=== PATIENT | female | born 1970 | race Caucasian/White ===

== ENCOUNTER 2016-04-07 09:31 | Day surgery (SDC) | payer MEDICAID ==
[~2016-04-07] VITALS: Ht 152.4 cm; Wt 100.0 kg
[2016-04-07] VITALS (21 sets, daily range): BP systolic 105–148; BP diastolic 55–88; PULSE 56–98; RESP 15–27; Ht 152.4 cm; Wt 100.0 kg
[~2016-04-07 09:31] MED LIST: [UNRECOGNIZED DRUG - CODE] PO
[2016-04-07] MEDS ORDERED: ATEN-51 PO (11:10)
[2016-04-07 11:39] LABS: ADD SCAN DIFF NO
[2016-04-07 11:50] LABS: BASOPHILS % 0.2 % (0.0-2.0); EOSINOPHILS # 0.1 10^3/ul (0.0-0.5); EOSINOPHILS % 1.2 % (0.0-7.0); HEMATOCRIT 33.1 % (37.0-47.0); HEMOGLOBIN 11.2 g/dl (12.0-16.0); LYMPHOCYTES % 48.3 % (15.0-51.0); MEAN CORPUSCULAR HEMOGLOBIN 33.3 pg (29.0-33.0); MEAN CORPUSCULAR HGB CONC 33.8 g/dl (32.0-37.0); MEAN CORPUSCULAR VOLUME 98.5 fl (82.0-101.0); MEAN PLATELET VOLUME 10.3 fl (7.4-10.4); MONOCYTE # 0.4 10^3/ul (0.3-0.9); MONOCYTES % 10.4 % (0.0-11.0); NEUTROPHIL # 1.7 10^3/ul (1.6-7.5); NEUTROPHILS % 39.7 % (39.0-77.0); PLATELET COUNT 148 10^3/UL (140-415); RED BLOOD COUNT 3.36 10^6/ul (4.20-5.40); RED CELL DISTRIBUTION WIDTH 13.4 % (11.5-14.5); WHITE BLOOD COUNT 4.2 10^3/ul (4.8-10.8)
[2016-04-07 12:05] LABS: INR 0.98; PARTIAL THROMBOPLASTIN TIME 25.1 Sec (25.0-35.0)
[2016-04-07 12:16] LABS: CALCIUM 9.3 mg/dl (8.4-10.2); CREATININE 0.51 mg/dl (0.44-1.00); POTASSIUM 4.1 mmol/L (3.5-5.1)
[2016-04-07] MEDS ORDERED: FENTAnyl 50 MCG/ML VIAL ONE ×2 (12:55→13:58)
[2016-04-07] MEDS ORDERED: LIDOCAINE 2% (SDV) 5 ML INJ ONE (13:00)
[2016-04-07] MEDS ORDERED: PROPOFOL 40 ML ONE (13:00)
[2016-04-07] MEDS ORDERED: NEOSTIGMINE 3 MG/3 ML SYRINGE ONE (13:00)
[2016-04-07] MEDS ORDERED: SOD CHLORIDE 0.9% 1,000 ML IV ONE (13:00)
[2016-04-07] MEDS ORDERED: GLYCOPYRROLATE 0.4 MG INJ ONE (13:00)
[2016-04-07] MEDS ORDERED: CEFAZOLIN 2 GM/50 ML (PMX) 50 ML IVPB ONE (13:00)
[2016-04-07] MEDS ORDERED: SUCCINYLCHOLINE CHLORIDE 100 MG/5 ML SYG IV ONE (13:00)
[2016-04-07] MEDS ORDERED: ROCURONIUM 50 MG INJ ONE (13:00)
[2016-04-07] MEDS ORDERED: CEFAZOLIN 1 GM INJ ONE ×2 (13:00→13:57)
[2016-04-07] MEDS ORDERED: morphine 2 MG INJ IV PRN (13:30)
[2016-04-07] MEDS ORDERED: PROPOFOL 0 ML ONE (13:57)
[2016-04-07] MEDS ORDERED: MIDAZOLAM 1 MG/ML 2 ML INJ ONE (13:58)
[2016-04-07] MEDS ORDERED: FENTAnyl 50 MCG/ML VIAL IV PRN ×2 (14:30)
[2016-04-07] MEDS ORDERED: ONDANSETRON 4 MG INJ IV PRN (14:30)
[2016-04-07] MEDS ORDERED: HYDROmorphONE (0.2 MG/ML) 10ML SYG IV PRN ×2 (14:30)
[2016-04-07] MEDS ORDERED: DIPHENHYDRAMINE 50 MG INJ IV PRN (14:30)
[2016-04-07] MEDS ORDERED: MEPERIDINE 25 MG INJ IV PRN (14:30)
[2016-04-07] MEDS ORDERED: METOCLOPRAMIDE 10 MG INJ IV PRN (14:30)
--- NOTE | 2016-04-07 15:12 | OPR ---
DATE OF OPERATION: 04/07/2016 PREOPERATIVE DIAGNOSIS: Inflammatory cancer, left breast. POSTOPERATIVE DIAGNOSIS: Inflammatory cancer, left breast. OPERATION PERFORMED: Left modified radical mastectomy. ANESTHESIA: General. ANESTHESIOLOGIST: Dr. Sadler SURGEON: Dr. Adler PRINTER FLOOR COVERING ASSISTANT: Dr. Back INDICATIONS FOR PROCEDURE: The patient is an unfortunate 45-year-old female who presented with a la rge locally advanced left breast cancer consistent with an inflammatory cancer, with axillary metast asis. She underwent neoadjuvant chemotherapy and had an excellent response. She was then counseled as to the need for left modified radical mastectomy. She consented and was scheduled for surgery. DESCRIPTION OF PROCEDURE: The patient was brought to the operating theater and placed under general anesthesia. The left breast and axillary region were prepped and draped in the usual sterile fashi on. Planned elliptical incision of skin, including the nipple areolar complex, was then demarcated with a marking pen and carried out with a 15 blade scalpel. The subcutaneous tissue was dissected w ith cautery. The skin edges were then elevated with skin clamps and skin flaps were created first s uperiorly to the clavicle using cautery, then medially to the sternal border, inferiorly to the infr amammary fold, then laterally until the latissimus dorsi muscle was identified throughout its course . Mastectomy then took place from medial to lateral using cautery. At the border of the pectoralis major muscle, the pectoralis minor muscle was identified. The clavipectoral fascia was incised wit h blunt dissection along the chest wall. The long thoracic nerve was identified and kept out of sherri m's way. More superiorly, the axillary vein was identified and dissected from medial to lateral. T he thoracodorsal neurovascular bundle was then identified and kept out of harm's way. Node-bearing tissue between the long thoracic nerve and thoracodorsal nerve then took place. There were some enl arged nodes noted. It was not clear if this represented residual metastatic disease or a response t o chemotherapy. All these nodes were resected using the LigaSure device. The specimen was then tra nsected, oriented, and sent for permanent pathologic analysis. The wound was irrigated. Minimal bl eeding was controlled with cautery. Two #10 flat Viraj-Ventura drains were then brought through the left mid axillary line. One was cut to size and laid within the axilla, the other was laid over th e pectoralis major muscle. Both drains were secured in place with 2-0 nylon sutures in standard fas hion. The skin was then reapproximated with a deep dermal layer of 4-0 Vicryl sutures, followed by final skin approximation with 5-0 PDS in subcuticular fashion. Benzoin and Steri-Strips were then a pplied. The patient tolerated the procedure well. Estimated blood loss was 100 mL. There were no complications and the patient was transported in stable condition to the recovery room. Dictated By: JUANJO CHANEL/ISRAEL Conf#: [id number] DID#: [id number]
[2016-04-07] MEDS: ONDANSETRON 4 MG INJ IV PRN ×2 (15:40→18:34)
[2016-04-07] MEDS: HYDROmorphONE (0.2 MG/ML) 10ML SYG IV PRN ×2 (16:06→16:26)
[2016-04-07] MEDS ORDERED: HYDROCODONE/APAP (5/325) TAB PO PRN (16:30)
--- NOTE | 2016-04-07 16:47 | HP ---
DATE OF ADMISSION: 04/07/2016 HISTORY OF PRESENT ILLNESS: The patient is a 45-year-old female with inflammatory cancer of the lef t breast, status post neoadjuvant chemotherapy by Dr. Whittington. Back in September of 2015 the patien t was noted to have a left breast mass and subsequently was diagnosed with inflammatory cancer of th e left breast after she underwent biopsy. The patient was brought into the hospital today and under went a left modified radical mastectomy. The patient postoperatively had significant chest pain, mendosa s 2 GAVIN drains, and is being admitted for further evaluation and management. The patient also was fe eling slightly nauseated. No reported vomiting, no reported shortness of breath, no reported leg pa in, no reported recent fever or chills, no reported headache, dizziness or syncope, no history of co ugh, no history of abdominal pain. REVIEW OF SYSTEMS: The rest of review of systems was unremarkable. PAST SURGICAL HISTORY: As stated above. ALLERGIES: NONE. SOCIAL HISTORY: No smoking, no alcohol. FAMILY HISTORY: The patient's maternal aunt has a history of breast cancer. PAST MEDICAL HISTORY: The patient has a history of hypertension and was taking Atenolol 25 mg once a day. PHYSICAL EXAMINATION: GENERAL: The patient is conscious, awake, alert. VITAL SIGNS: Blood pressure 137/82, pulse 78, respirations 17, O2 saturation 98% on room air. HEENT: Atraumatic, normocephalic. Conjunctivae and lids normal. Oropharynx is clear. NECK: Supple. No mass, no thyromegaly. CHEST: Fairly clear. CARDIOVASCULAR: S1, S2 normal. No murmur. ABDOMEN: Soft, nondistended, nontender. No palpable mass. EXTREMITIES: No leg edema. Pedal pulses palpable. SKIN: Without rash. NEUROLOGIC: The patient is awake, alert, fairly oriented, with no gross focal deficits. LABORATORY: WBC 4.2, hemoglobin 11.2, platelets 148. Sodium 143, potassium 4.1, BUN 18, creatinine 0.5, glucose 89. IMPRESSION: 1. Left breast cancer, status post chemo, and today underwent left radical mastectomy. 2. Hypertension. PLAN: Patient admitted to the medical floor. Patient will be started on a clear liquid diet, which will be advanced as tolerated. The patient will be started on Tylenol, [place] and IV morphine, depe nding on severity of the pain. Will use SCDs for DVT prophylaxis. Will resume Atenolol. Further recommendations will depend on the patient's hospital course. Dictated By: ENRIQUETA JO/ISRAEL Conf#: [id number] DID#: [id number]
[2016-04-07] MEDS: D5W-0.45 NACL + KCL 20 MEQ 1,000 ML IV SCH (18:52)
[2016-04-07] MEDS: ACETAMINOPHEN 1000MG/100ML IV 100 ML IVPB PRN (21:06)
[2016-04-08 00:02] VITALS: BP 109/55; PULSE 78
[2016-04-08] MEDS: D5W-0.45 NACL + KCL 20 MEQ 1,000 ML IV SCH ×2 (01:01→05:21)
[2016-04-08 04:00] VITALS: BP 123/60; PULSE 80
[2016-04-08] MEDS: ACETAMINOPHEN 1000MG/100ML IV 100 ML IVPB PRN (05:31)
[2016-04-08 07:29] VITALS: BP 108/57; RESP 18
[2016-04-08] MEDS ORDERED: ATENOLOL 25 MG TAB PO SCH (09:00)
--- NOTE | 2016-04-10 07:09 | PN ---
DATE: 04/08/2016 SUBJECTIVE: No specific complaints, complaining of pain as tolerated. OBJECTIVE: VITAL SIGNS: Stable. Temperature 98.3, heart rate 77, respiration 18, blood pressure 108/67, saturation 97% on room air. HEENT: Dressing is intact. Viraj-Ventura, two of them, have been working well and has drained in 24 hours 100 mL, the other one ____ serosanguineous. Moves the left hand and arm and elbow completely. ASSESSMENT: Status post modified radical mastectomy with axillary dissection. Patient has been stable since operation. Viraj-Ventura drain is draining serosanguineous fluid. PLAN: 1. The patient was instructed about the Viraj-Ventura drains, how to drain them , how to measure them, and how to record them every night. 2. Patient is going to go home today with two Viraj-Ventura drains. 3. Patient to call Dr. Adler office on Sunday and make an appointment for followup. All the questions were answered and the care of the Viraj-Ventura drains. Will be taught to the patient and her daughter by the nurse, RN, ____. Dictated By: MARION FLETCHER/NTS Conf#: [id number] DID#: [id number] LUCILLE
== END 2016-04-08 13:50 | disposition home or self-care (01) ==
LOC: SDS 09:31 → MS1 17:45 → SDS 04-08 13:50
PROVIDERS: ATTEND Surgery Surgical Oncology
DX: C50.912 Malignant neoplasm of unspecified site of left female breast (principal); I10 Essential (primary) hypertension; E66.01 Morbid (severe) obesity due to excess calories; Z68.41 Body mass index [BMI] 40.0-44.9, adult
CPT/HCPCS: 19307; 80048; 82962; 84703; 85025; 85610; 85730; 88309; J0131; J0330; J0690; J1170; J2405; J2710; J2765; J3010; J3480; Z7512; Z7610; J2250

== ENCOUNTER 2017-02-28 16:32 | Emergency (ER) | END 2017-02-28 21:41 | disposition home or self-care (01) ==

== ENCOUNTER 2018-02-09 14:38 | Inpatient (IN) | payer MEDICAID ==
[~2018-02-09] VITALS: Ht 162.6 cm; Wt 95.7 kg
[~2018-02-09 14:38] MED LIST changes: +NERA40TA PO; -[UNRECOGNIZED DRUG - CODE] PO
[2018-02-09 14:49] VITALS: Ht 162.6 cm; Wt 95.7 kg
[2018-02-09] MEDS ORDERED: IBUP-1542 PO (16:29)
[2018-02-09] MEDS ORDERED: PENI500T PO (16:29)
[2018-02-09] MEDS ORDERED: SOD CHLORIDE 0.9% 1,000 ML IV STA (16:40)
[2018-02-09] MEDS ORDERED: METOCLOPRAMIDE 10 MG INJ IV ONE (17:00)
--- NOTE | 2018-02-09 17:57 | ERD ---
ER Documentation Chief Complaint Chief Complaint mendosa x 1 week with dizziness. tooth extracted about a week ago HPI This is a 47-year-old female with a history of hypertension and breast cancer in remission for over 1 year per the family. She is presenting with a headache for 1 month, progressively worsening. She associates it with room spinning dizziness, nausea, vomiting, and generalized weakness. She was seen at multiple outside hospital within the past few weeks where she had a CT scan done on January 25 at [facility]. The CT did not show any significant abnormalities. Since her symptoms were not improving, she had another CT scan done at [facility] on February 03 showing some ill-defined densities, but no other significant abnormalities per the report. Family brought her in today because her symptoms are progressively worsening and she has been on bed mostly without wanting to get up. She is currently on antibiotics after a tooth extraction about 1 week ago. Of note, the patient is supposed to be on oral medication, Nerlatinib, for her breast cancer, but she stopped this medication 1 month ago for unclear reasons. Patient states the headache is mostly left-sided, described as tight, 10 out of 10. No alleviating or exacerbating factors. No neck stiffness, photophobia, phonophobia. No fevers or chills. ROS All systems reviewed and are negative except as per history of present illness. 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) Hx Respiratory Disorders: No Hx Cardiac Disorders: Yes (HTN) Hx Psychiatric Problems: No Hx Miscellaneous Medical Probl: Yes (L-SIDED BREAST CA W/ HX OF MASTECTOMY AND CHEMO) Hx Alcohol Use: No Hx Substance Use: No Hx Tobacco Use: No Smoking Status: Never smoker FmHx Family History: No diabetes Physical Exam Vitals Vital Signs Date Temp Pulse Resp B/P (MAP) Pulse Ox O2 O2 Flow FiO2 Time Delivery Rate 02/09/18 97.9 106 22 162/95 96 Room Air 19:00 (117) 02/09/18 98.7 96 18 165/104 99 Room Air 15:50 (124) 02/09/18 98.0 115 18 147/100 96 14:49 (116) Physical Exam Const: Appears to be in mild distress due to pain, very sleepy but arousable, nontoxic Head: Atraumatic Eyes: Normal Conjunctiva, PERRLA. 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 All other EOMs intact ENT: Normal External Ears, Nose and Mouth. Oropharynx normal. No drooling. No snoring respirations. Neck: Full range of motion. No meningismus. Resp: Clear to auscultation bilaterally Cardio: Regular rate and rhythm, no murmurs Abd: Soft, non tender, non distended. Normal bowel sounds Skin: No petechiae or rashes Back: No midline or flank tenderness Ext: No cyanosis, or edema Neur: Somnolent but arousable, normal speech, oriented x3. 6th nerve palsy on the right. All other cranial nerves seem grossly intact. Strength 5 out of 5 in all 4 extremities. Romberg negative. Gait somewhat unsteady. Result Diagram: 02/11/1842102/11/18421 Results 24 hrs Laboratory Tests Test 02/09/18 16:05 02/09/18 16:29 02/09/18 19:10 White Blood Count 5.2 10^3/ul Red Blood Count 4.18 10^6/ul Hemoglobin 13.5 g/dl Hematocrit 38.5 % Mean Corpuscular Volume 92.1 fl Mean Corpuscular Hemoglobin 32.3 pg Mean Corpuscular 35.1 g/dl Hemoglobin Concent Red Cell Distribution Width 13.5 % Platelet Count 63 10^3/UL Mean Platelet Volume 11.8 fl Immature Granulocytes % 4.200 % Neutrophils % % Segmented Neutrophils % (Manual) 50 % Band Neutrophils % (Manual) 5 % Lymphocytes % % Lymphocytes % (Manual) 26 % Monocytes % % Monocytes % (Manual) 13 % Eosinophils % % Basophils % % Basophils % (Manual) 1 % Metamyelocytes % (manual) 2 % Myelocytes % (Manual) 1 % Promyelocytes % (Manual) 2 % Nucleated Red Blood Cells % 1.5 /100WBC Immature Granulocytes # 0.220 10^3/ul Neutrophils # 10^3/ul Neutrophils # (Manual) 2.6 10^3/ul Band Neutrophils # 0.2 10^3/ul Lymphocytes (Manual) 1.3 10^3/ul Lymphocytes # 10^3/ul Monocytes # 10^3/ul Monocytes # (Manual) 0.6 10^3/ul Eosinophils # 10^3/ul Basophils # 10^3/ul Basophils # (Manual) 0.0 10^3/ul Metamyelocytes # 0.1 10^3/ul Myelocytes # 0.0 10^3/ul Promyelocytes # 0.1 10^3/ul Nucleated Red Blood Cells # 10^3/ul Platelet Estimate DECREASED Giant Platelets 1 % Polychromasia 1+ Prothrombin Time 12.4 Sec Prothrombin Time Ratio 1.0 INR International 0.91 Normalized Ratio Activated Partial Thromboplast 29.7 Sec Time Sodium Level 133 mmol/L Potassium Level 3.8 mmol/L Chloride Level 94 mmol/L Carbon Dioxide Level 26 mmol/L Anion Gap 13 Blood Urea Nitrogen 17 mg/dl Creatinine 0.52 mg/dl Est Glomerular Filtrat > 60 mL/min Rate mL/min Glucose Level 257 mg/dl Hemoglobin A1c 7.2 % Calcium Level 11.2 mg/dl Total Bilirubin 1.3 mg/dl Direct Bilirubin 0.60 mg/dl Indirect Bilirubin 0.7 mg/dl Aspartate Amino Transf (AST/SGOT) 287 IU/L Alanine 271 IU/L Aminotransferase (ALT/SGPT) Alkaline Phosphatase 531 IU/L Troponin I 0.013 ng/ml Total Protein 7.7 g/dl Albumin 4.4 g/dl Globulin 3.30 g/dl Albumin/Globulin Ratio 1.33 Triglycerides Level 197 mg/dl Cholesterol Level 309 mg/dl LDL Cholesterol, Calculated 202 mg/dl HDL Cholesterol 68 mg/dl Cholesterol/HDL Ratio 4.5 RATIO Serum HCG, Qualitative NEGATIVE Bedside Glucose 225 mg/dL Urine Color YELLOW Urine Clarity CLEAR Urine pH 5.0 Urine Specific [place] 1.044 Urine Ketones NEGATIVE mg/dL Urine Nitrite NEGATIVE mg/dL Urine Bilirubin NEGATIVE mg/dL Urine Urobilinogen 1+ mg/dL Urine Leukocyte Esterase NEGATIVE Tasha/ul Urine Hemoglobin NEGATIVE mg/dL Urine Glucose NEGATIVE mg/dL Urine Total Protein NEGATIVE mg/dl Urine Opiates Screen Negative Urine Barbiturates Negative Urine Amphetamines Screen Negative Urine Benzodiazepines Screen Negative Urine Cocaine Screen Negative Urine Cannabinoids Negative Current Medications Medications Dose Sig/Silvana Start Time Status Last (Trade) Ordered Route PRN Stop Time Admin Dose Reason Admin Sodium 1,000 ml @ Q1H STAT 02/09/18 DC 02/09/18 Chloride 1,000 mls/hr IV 16:40 02/09/18 16:48 17:39 10 mg ONCE ONCE 02/09/18 DC 02/09/18 Metoclopramid IV 17:00 02/09/18 16:48 e HCl 17:01 (Reglan) IV Flush 10 ml STK-MED 02/09/18 DC (NS 10 ml) ONCE .ROUTE 18:13 02/09/18 18:14 Sodium 100 ml @ ud STK-MED 02/09/18 DC Chloride ONCE .ROUTE 18:13 02/09/18 18:14 Iohexol 100 ml @ ud STK-MED 02/09/18 DC ONCE .ROUTE 18:13 02/09/18 18:14 Sodium 0 ml @ 0 Q0M ONCE 02/09/18 DC Chloride mls/hr IV 18:42 02/09/18 18:44 Procedures/MDM EMERGENT LABS AND DIAGNOSTIC STUDIES: Lab Results above were reviewed and interpreted by me. CBC: Thrombocytopenia. No anemia or evidence of infection. CMP: Elevated liver enzymes with elevated alkaline phosphatase. Hypercalcemic, hyperglycemia. No evidence of renal failure or other electrolyte abnormalities UA: no evidence of infection negative 12-lead EKG was interpreted by Marilee Sandoval MD: Normal Sinus Rhythm with ventricular rate of 81 beats per minute Normal axis Normal intervals No acute ST or T wave changes suggestive of acute ischemia or STEMI. Radiology Results as interpreted by Radiology below were reviewed by Roby Sandoval MD: CT head: IMPRESSION: 1. Region of decreased attenuation in the right superior parietal white matter posteriorly. This may indicate a subtle mass at this site. Correlation with contrast enhanced MRI of brain advised. 2. Subtle shift of midline structures to the right measuring 0.4 cm. Mild effacement of the frontal horn of the left lateral ventricle. 3. Small low attenuation subdural fluid collection in the right frontal region measuring 0.4 cm in thickness. 4. Subtle isodense left subdural fluid collection measuring 0.4 cm in thickness and extending across the left temporal and parietal convexities. This is suspicious for subacute subdural hematoma. Correlation with MRI advised. 5. 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 6. Fluid in the right ethmoid air cells. 7. Otherwise unremarkable noncontrast CT scan of the brain. Call report: A call report of the findings was made to Dr. Sandoval on 02/09/2018 at 1840 hours. .Moises Kaba MD, Date Time Electronically viewed and signed by .Moises Kaba MD, on 02/09/2018 18:46 CTA brain: Unremarkable Chest x-ray: Stable cardiomegaly CT chest/abdomen/pelvis: Pending MRI/MRV brain: Pending Initial Nursing notes reviewed. Previous Medical Records requested via the Electronic Health Record. EMERGENCY DEPARTMENT COURSE / MEDICAL DECISION MAKING: Patient is presenting with progressively worsening headache that seems to be chronic with concerning symptoms of altered mental status with ongoing vertigo and vomiting. Her vitals were stable upon arrival. She was still oriented and able to follow commands. Workup was done showing evidence of possibly increased intracranial pressure on CT findings with small subdural hemorrhages. She also had a slight midline shift. I spoke with the patient's family, and they deny any history of head trauma. I consulted with Dr. Piña with neurosurgery. He explained to me that these small subdural hemorrhages are unlikely causing the mild midline shift and he requested an emergent MRI be done as well as MRV. 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 I spoke with the family and they consented. MRI and MRV were ordered. Patient will be admitted to the ICU for close neurologic monitoring. I also ordered CT of the chest, abdomen, and pelvis to evaluate for metastases. The scans are still pending. Decadron 10 mg IV was given for the possible increased intracranial pressure and vasogenic edema seen on CT scan. This was in consultation with Dr. piña. Dr. Piña came to the patient's bedside to evaluate her. At time of admission, patient was an MRI. Accepting Care Team: Current data and ongoing care discussed. Time: Time of admission Primary Provider: Dr. Aguiar Consulting: Dr. Piña with Neurosurgery Outstanding Data: MRI Brain, MRV Brain, CT Chest/abdomen/pelvis Critical Care Time: 50 minutes Treatments/Evaluations: Close monitoring and treatment of unstable vital signs, cardiorespiratory, and neurologic status, while maintaining tight balance of fluid, respiratory, and cardiac interventions. This time includes discussing the case with the patient and the patients family. This time does not include all procedures stated elsewhere in this record. This time also includes reviewing old records, labs and radiological studies. This time includes examining and re- examining the patient. Additionally, this time also includes arranging care with admitting and consulting physicians. Departure Diagnosis: Primary Impression: Headache Headache type: unspecified Headache chronicity pattern: chronic headache Intractability: intractable Qualified Codes: R51 - Headache Additional Impressions: History of breast cancer Abnormal CT scan, head Vertigo Acute encephalopathy Transaminitis Hypercalcemia Elevated alkaline phosphatase level Condition: Serious MINDY SANDOVAL MD Feb 09, 2018 17:57
[2018-02-09] MEDS ORDERED: SOD CHLORIDE 0.9% 100 ML ONE (18:13)
[2018-02-09] MEDS ORDERED: IOHEXOL 100 ML ONE (18:13)
[2018-02-09] MEDS ORDERED: SOD CHLORIDE 0.9% 0 ML IV ONE (18:42)
--- NOTE | 2018-02-09 19:55 | HP ---
Date/Time of Note Date/Time of Note DATE: 02/09/18 TIME: 19:54 Assessment/Plan VTE Prophylaxis Pharmacological prophylaxis: heparin Assessment/Plan Assessment/Plan This is a 47-year-old female with a history of left breast carcinoma status post mastectomy and chemo presents with headache and generalized weakness with a CT finding of subdural fluid collection with 0.4 mm midline shift, as well as possible right parietal mass concerning for brain metastasis PLAN Admit to ICU MRI of the brain Steroid Follow-up neurosurgery recommendation Speech/swallow evaluation Patient also complaining of abdominal pain: Follow-up CT abdomen/pelvis Oncology consult for evaluation for possible radiation Result Diagram: 02/09/18 1605 02/09/18 1605 Results 24hrs Laboratory Tests Test 02/09/18 16:05 02/09/18 16:29 02/09/18 19:10 White Blood Count 5.2 Red Blood Count 4.18 L Hemoglobin 13.5 Hematocrit 38.5 Mean Corpuscular Volume 92.1 Mean Corpuscular Hemoglobin 32.3 Mean Corpuscular Hemoglobin Concent 35.1 Red Cell Distribution Width 13.5 Platelet Count 63 #L Mean Platelet Volume 11.8 H Immature Granulocytes % 4.200 H Neutrophils % Segmented Neutrophils % (Manual) 50 Band Neutrophils % (Manual) 5 H Lymphocytes % Lymphocytes % (Manual) 26 Monocytes % Monocytes % (Manual) 13 H Eosinophils % Basophils % Basophils % (Manual) 1 Metamyelocytes % (manual) 2 H Myelocytes % (Manual) 1 H Promyelocytes % (Manual) 2 H Nucleated Red Blood Cells % 1.5 H Immature Granulocytes # 0.220 H Neutrophils # Neutrophils # (Manual) 2.6 Band Neutrophils # 0.2 Lymphocytes (Manual) 1.3 Lymphocytes # Monocytes # Monocytes # (Manual) 0.6 Eosinophils # Basophils # Basophils # (Manual) 0.0 Metamyelocytes # 0.1 H Myelocytes # 0.0 Promyelocytes # 0.1 H Nucleated Red Blood Cells # Platelet Estimate DECREASED Giant Platelets 1 H Polychromasia 1+ Prothrombin Time 12.4 Prothrombin Time Ratio 1.0 INR International Normalized Ratio 0.91 Activated Partial Thromboplast Time 29.7 Sodium Level 133 L Potassium Level 3.8 Chloride Level 94 L Carbon Dioxide Level 26 Anion Gap 13 Blood Urea Nitrogen 17 Creatinine 0.52 Est Glomerular Filtrat Rate mL/min > 60 Glucose Level 257 H Hemoglobin A1c 7.2 H Calcium Level 11.2 H Total Bilirubin 1.3 Direct Bilirubin 0.60 H Indirect Bilirubin 0.7 Aspartate Amino Transf (AST/SGOT) 287 H Alanine Aminotransferase (ALT/SGPT) 271 H Alkaline Phosphatase 531 H Troponin I 0.013 Total Protein 7.7 Albumin 4.4 Globulin 3.30 H Albumin/Globulin Ratio 1.33 Triglycerides Level 197 H Cholesterol Level 309 H LDL Cholesterol, Calculated 202 HDL Cholesterol 68 Cholesterol/HDL Ratio 4.5 Serum HCG, Qualitative NEGATIVE Bedside Glucose 225 H Urine Color YELLOW Urine Clarity CLEAR Urine pH 5.0 Urine Specific [place] 1.044 H Urine Ketones NEGATIVE Urine Nitrite NEGATIVE Urine Bilirubin NEGATIVE Urine Urobilinogen 1+ H Urine Leukocyte Esterase NEGATIVE Urine Hemoglobin NEGATIVE Urine Glucose NEGATIVE Urine Total Protein NEGATIVE HPI/ROS Admit Date/Time Admit Date/Time Hx of Present Illness This is a 47-year-old female with a history of left breast carcinoma status post mastectomy and chemo who presented to ER complaining of headache and generalized weakness. and son were at the bedside with son helping translate and providing additional information. Symptom has been progressively getting worse. Headache is severe and is mostly left-sided. Patient also reported of left sided abdominal pain and also to a lesser extent below the epigastric area. When she presented to ER, she was tachycardic with a heart rate of 115, otherwise initial blood pressure was in acceptable range. CT of the brain shows the followin. Region of decreased attenuation in the right superior parietal white matter posteriorly. This may indicate a subtle mass at this site. Correlation with contrast enhanced MRI of brain advised. 2. Subtle shift of midline structures to the right measuring 0.4 cm. Mild effacement of the frontal horn of the left lateral ventricle. 3. Small low attenuation subdural fluid collection in the right frontal region measuring 0.4 cm in thickness. 4. Subtle isodense left subdural fluid collection measuring 0.4 cm in thickness and extending across the left temporal and parietal convexities. This is suspicious for subacute subdural hematoma. Correlation with MRI advised. 5. 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 6. Fluid in the right ethmoid air cells. 7. Otherwise unremarkable noncontrast CT scan of the brain. . PMH/Family/Social Past Medical History PMH/Family/Social Past Medical History Medical History: other (see hpi) Coded Allergies: No Known Drug Allergy (Verified Allergy, Unknown, 09/23/15) Past Surgical History Past Surgical Hx: other (see hpi) Family History Significant Family History: no pertinent family hx Social History Alcohol Use: other Smoking Status: Unknown if ever smoked Drug Use: other Medications Current Medications Ondansetron HCl (Zofran Inj) 4 mg Q6H PRN IV NAUSEA AND/OR VOMITING; Start 02/09/18 at 20:00 Albuterol/ Ipratropium (Duoneb) 3 ml Q2H RESP THERAPY PRN NEB SHORTNESS OF BREATH; Start 02/09/18 at 20:00 Acetaminophen (Tylenol Liquid) 650 mg Q6H PRN PO PAIN LEVEL 1-3 OR FEVER; Start 02/09/18 at 20:00 Acetaminophen/ Hydrocodone Bitart ([place] (5/325)) 1 tab Q6H PRN PO PAIN LEVEL 4-6; Start 02/09/18 at 20:00 Miscellaneous Information 240 mg DAILY PO ; Start 02/10/18 at 09:00; Status UNV Labetalol HCl (Labetalol) 10 mg ONCE ONCE IV ; Start 02/09/18 at 20:00; Stop 02/09/18 at 20:01 Labetalol HCl (Labetalol) 10 mg Q2H PRN IV SBP > 150; Start 02/09/18 at 20:00 Coded Allergies: No Known Allergy (Unverified , 02/28/17) Social History Smoking Status: Never smoker Exam/Review of Systems Vital Signs Vitals Vital Signs Date Temp Pulse Resp B/P (MAP) Pulse Ox O2 O2 Flow FiO2 Time Delivery Rate 02/09/18 97.9 106 22 162/95 96 Room Air 19:00 (117) Exam Constitutional: other (Appears lethargic, but answering questions approp riately. Distress noted due to headache. feeding her and seems to be able to swallow without difficulty) Head: normocephalic, atraumatic Respiratory: clear to auscultation, normal air movement Cardiovascular: other (Tachycardic with regular rhythm) Gastrointestinal: soft, other (Appears a slightly distended) Extremities: normal pulses BRUCE VENEGAS MD Feb 09, 2018 19:55
[2018-02-09] MEDS ORDERED: LABETALOL HCL 20MG INJ IV ONE (20:00)
[2018-02-09] MEDS ORDERED: ALBUTEROL/IPRATROPIUM (NEB) 3 ML AMP NEB PRN (20:00)
[2018-02-09] MEDS ORDERED: DEXAMETHASONE 10 MG/ML 1 ML INJ IV ONE (20:30)
[2018-02-09] MEDS: LABETALOL HCL 20MG INJ IV PRN (22:05)
[2018-02-10] VITALS (15 sets, daily range): BP systolic 108–154; BP diastolic 72–92; PULSE 77–109; RESP 20–28
[2018-02-10] MEDS: LABETALOL HCL 20MG INJ IV PRN ×5 (01:40→16:51)
--- NOTE | 2018-02-10 04:44 | QN ---
Documentation Comment Observation Note: Time: 4 hours Family Hx: Negative for diabetes Evaluation: Multiple exams showed improving symptoms and no evidence of clinical decompensation. JOE FARIAS MD Feb 10, 2018 04:44
[2018-02-10] MEDS ORDERED: DEXAMETHASONE 10 MG/ML 1 ML INJ IV SCH (06:30)
[2018-02-10] MEDS ORDERED: PATIENT'S OWN MEDICATION PO SCH (09:00)
--- NOTE | 2018-02-10 10:23 | CONS ---
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 There is no bleed present simply extensive diffuse spread of tumor on the convexity of the brain. No hydrocephalus. Diffuse disease throughout body. Appears to have had significant benefit from steroids and should probably be continued. MRV does not likely show thrombus, simply granulation, in light of carcinomatosis. I don't see an indication for any neurosurgical procedure at this point. Biopsy can be performed at other tumor locations if necessary. Will likely need chemo and XRT but defer to oncology; prognosis for this extensive progression of disease is extremely poor. D/w family and patient. Result Diagram: 02/10/18 0435 02/10/18 0434 Results 24hrs Laboratory Tests Test 02/09/18 16:05 02/09/18 16:29 02/09/18 19:10 02/10/18 04:34 White Blood Count 5.2 Red Blood Count 4.18 L Hemoglobin 13.5 Hematocrit 38.5 Mean Corpuscular Volume 92.1 Mean Corpuscular 32.3 Hemoglobin Mean Corpuscular 35.1 Hemoglobin Concent Red Cell Distribution 13.5 Width Platelet Count 63 #L Mean Platelet Volume 11.8 H Immature Granulocytes % 4.200 H Neutrophils % Segmented Neutrophils 50 % (Manual) Band Neutrophils % 5 H (Manual) Lymphocytes % Lymphocytes % (Manual) 26 Monocytes % Monocytes % (Manual) 13 H Eosinophils % Basophils % Basophils % (Manual) 1 Metamyelocytes % 2 H (manual) Myelocytes % (Manual) 1 H Promyelocytes % (Manual) 2 H Nucleated Red Blood 1.5 H Cells % Immature Granulocytes # 0.220 H Neutrophils # Neutrophils # (Manual) 2.6 Band Neutrophils # 0.2 Lymphocytes (Manual) 1.3 Lymphocytes # Monocytes # Monocytes # (Manual) 0.6 Eosinophils # Basophils # Basophils # (Manual) 0.0 Metamyelocytes # 0.1 H Myelocytes # 0.0 Promyelocytes # 0.1 H Nucleated Red Blood Cells # Platelet Estimate DECREASED Giant Platelets 1 H Polychromasia 1+ Prothrombin Time 12.4 Prothrombin Time Ratio 1.0 INR International 0.91 Normalized Ratio Activated 29.7 Partial Thromboplast Time Sodium Level 133 L 137 Potassium Level 3.8 4.0 Chloride Level 94 L 98 Carbon Dioxide Level 26 28 Anion Gap 13 11 Blood Urea Nitrogen 17 14 Creatinine 0.52 0.50 Est Glomerular Filtrat > 60 > 60 Rate mL/min Glucose Level 257 H 220 Hemoglobin A1c 7.2 H Calcium Level 11.2 H 10.9 H Total Bilirubin 1.3 1.3 Direct Bilirubin 0.60 H 0.50 H Indirect Bilirubin 0.7 0.8 Aspartate Amino 287 H 239 H Transf (AST/SGOT) Alanine 271 H 238 H Aminotransferase (ALT/SG PT) Alkaline Phosphatase 531 H 449 H Troponin I 0.013 Total Protein 7.7 7.8 Albumin 4.4 4.5 Globulin 3.30 H 3.30 H Albumin/Globulin Ratio 1.33 1.36 Triglycerides Level 197 H Cholesterol Level 309 H LDL Cholesterol, 202 Calculated HDL Cholesterol 68 Cholesterol/HDL Ratio 4.5 Serum HCG, Qualitative NEGATIVE Bedside Glucose 225 H Urine Color YELLOW Urine Clarity CLEAR Urine pH 5.0 Urine Specific [place] 1.044 H Urine Ketones NEGATIVE Urine Nitrite NEGATIVE Urine Bilirubin NEGATIVE Urine Urobilinogen 1+ H Urine Leukocyte Esterase NEGATIVE Urine Hemoglobin NEGATIVE Urine Glucose NEGATIVE Urine Total Protein NEGATIVE Urine Opiates Screen Negative Urine Barbiturates Negative Urine Amphetamines Negative Screen Urine Benzodiazepines Negative Screen Urine Cocaine Screen Negative Urine Cannabinoids Negative Test 02/10/18 04:35 White Blood Count 6.3 # Red Blood Count 3.66 L Hemoglobin 11.9 L Hematocrit 34.1 L Mean Corpuscular Volume 93.2 Mean Corpuscular 32.5 Hemoglobin Mean Corpuscular 34.9 Hemoglobin Concent Red Cell Distribution 13.5 Width Platelet Count 113 #L Mean Platelet Volume 11.0 H Immature Granulocytes % 5.400 H Neutrophils % 62.2 Lymphocytes % 23.9 Monocytes % 7.6 Eosinophils % 0.3 Basophils % 0.6 Nucleated Red Blood 1.0 H Cells % Immature Granulocytes # 0.340 H Neutrophils # 3.9 Lymphocytes # 1.5 Monocytes # 0.5 Eosinophils # 0.0 Basophils # 0.0 Nucleated Red Blood 0.1 H Cells # Consultation Date/Type/Reason Admit Date/Time Initial Consult Date Type of Consult Neurosurgery 24 HR Interval Summary Free Text/Dictation Patient reports feeling much better today after receiving steroids. she states that her headache has resolved and she denies nausea. Exam/Review of Systems Vital Signs Vitals Vital Signs Date Temp Pulse Resp B/P (MAP) Pulse Ox O2 O2 Flow FiO2 Time Delivery Rate 02/10/18 91 24 144/78 94 Room Air 09:48 (100) 02/10/18 98.8 06:02 Exam Constitutional: alert, oriented Head: normocephalic Neurological: nl mental status, nl speech, nl strength, other (still with right palsy, follows commands readily and appropriately, normal strength , no pronator drift) Medications Medications Current Medications Ondansetron HCl (Zofran Inj) 4 mg Q6H PRN IV NAUSEA AND/OR VOMITING; Start 02/09/18 at 20:00 Albuterol/ Ipratropium (Duoneb) 3 ml Q2H RESP THERAPY PRN NEB SHORTNESS OF BREATH; Start 02/09/18 at 20:00 Acetaminophen (Tylenol Liquid) 650 mg Q6H PRN PO PAIN LEVEL 1-3 OR FEVER; Start 02/09/18 at 20:00 Acetaminophen/ Hydrocodone Bitart ([place] (5/325)) 1 tab Q6H PRN PO PAIN LEVEL 4-6; Start 02/09/18 at 20:00 Labetalol HCl (Labetalol) 10 mg Q2H PRN IV SBP > 150 Last administered on 02/10/18at 08:46; Admin Dose 10 MG; Start 02/09/18 at 20:00 Dexamethasone (Decadron) 6 mg Q6H IV Last administered on 02/10/18at 06:47; Admin Dose 6 MG; Start 02/10/18 at 06:30 Miscellaneous Information (*Order Clarification Bulletin) Neratinib Maleate (Nerlynx) ... Q8H XX ; Start 02/10/18 at 09:30 Patient Own Medication 6 TABLETS DAILY DAILY PO ; Start 02/11/18 at 09:[address] C/A/P w/o contrast: IMPRESSION: 1. Extensive faint osteoblastic metastatic deposits are seen throughout the chest, abdomen and pelvis. 2. Consider nuclear medicine bone scan for more sensitive and specific evaluation. Number 3. Mild heterogeneous attenuation in the liver is nonspecific, and differential considerations include subtle extensive metastatic deposits. 4. Consider IV contrast enhanced CT examination of the abdomen and pelvis for further evaluation. 5. Left anterior mediastinal mass is seen, with surrounding nodular inflammatory changes; right paratracheal mediastinal, bilateral hilar; subcarinal and retroperitoneal adenopathy; inflammatory changes in the bilateral lungs with nodules in the right lower lobe measuring up to 8 mm; and pleural thickening at the anterior medial left chest wall with fibrotic changes in the adjacent pul monary parenchyma. 6. Findings represent metastatic breast carcinoma until proven otherwise. 7. A whole body PET/CT examination would be more sensitive and specific. MRI Brain w/w/o IMPRESSION: Diffuse abnormal nodular enhancement of the leptomeninges asymmetric to the left with associated mass effect upon the left cerebral hemisphere and lateral ventricle resulting in midline shift of the septum pellucidum to the right by approximately 4 mm per without certain evidence of herniation or hydrocephalous at this time, the findings most compatible with metastatic leptomeningeal carcinomatosis proven otherwise. Correlation with cerebral spinal fluid analysis, if not already performed, is recommended. 2. The abnormality seen in the right parietal lobe on CT is consistent with vasogenic edema related to an adjacent extra-axial nodular leptomeningeal enhancement focus rather than intra-axial mass lesion. 3. There is no evidence of subdural hematoma, the abnormality seen on CT are related to pathologic leptomeningeal enhancement. 4. Heterogeneous signal intensity within the calvarium unable to exclude osseous metastatic disease. 5. Right frontal and ethmoid sinus disease with bilateral mastoid air cell effusions. MRV IMPRESSION: 1. A short segment filling defect in the right transverse sinus near the junction with the sigmoid sinus is believed to be related to arachnoid granulations rather than thrombus, the remainder of the examination is unremarkable with congenital asymmetry of the transverse sinuses the left smaller than the right. 2. For further information regarding the leptomeningeal carcinomatosis findings, please see the separate MRI of the brain with without with contrast report ERVIN CARRIZALES MD Feb 10, 2018 10:23
--- NOTE | 2018-02-10 10:57 | PN ---
Date/Time of Note Date/Time of Note DATE: 02/10/18 TIME: 10:24 Assessment/Plan VTE Prophylaxis SCD applied (from [facility]): Yes SCD contraindicated: other Pharmacological prophylaxis: NA/contraindicated Pharm contraindication: thrombocytopenia Assessment/Plan Hospital Course S: Patient seen by neurosurgery team earlier today. MRI brain performed. On steroids. Patient received platelet transfusion earlier. O: VS - see below PE: Gen: lying in bed Head: Atraumatic Eyes: Normal Conjunctiva ENT: Normal External Ears, Nose and Mouth. Neck: Full range of motion. No meningismus. Resp: Clear to auscultation bilaterally Cardio: Regular rate and rhythm, no murmurs Abd: Soft, non tender, non distended. Normal bowel sounds Ext: No lower extremity edema bilaterally Neur: No focal deficits CT head February 09: IMPRESSION: 1. Region of decreased attenuation in the right superior parietal white matter posteriorly. This may indicate a subtle mass at this site. Correlation with contrast enhanced MRI of brain advised. 2. Subtle shift of midline structures to the right measuring 0.4 cm. Mild effacement of the frontal horn of the left lateral ventricle. 3. Small low attenuation subdural fluid collection in the right frontal region measuring 0.4 cm in thickness. 4. Subtle isodense left subdural fluid collection measuring 0.4 cm in thickness and extending across the left temporal and parietal convexities. This is suspicious for subacute subdural hematoma. Correlation with MRI advised. 5. 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 6. Fluid in the right ethmoid air cells. 7. 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 Correlation with cerebral spinal fluid analysis, if not already performed, is recommended. 2. The abnormality seen in the right parietal lobe on CT is consistent with vasogenic edema related to an adjacent extra-axial nodular leptomeningeal enhancement focus rather than intra-axial mass lesion. 3. There is no evidence of subdural hematoma, the abnormality seen on CT are related to pathologic leptomeningeal enhancement. 4. Heterogeneous signal intensity within the calvarium unable to exclude osseous metastatic disease. 5. Right frontal and ethmoid sinus disease with bilateral mastoid air cell effusions. Assessment/Plan: 47-year-old female with a history of left breast carcinoma status post mastectomy and chemo presents with headache and generalized weakness with a CT finding of subdural fluid collection with 0.4 mm midline shift, as well as possible right parietal mass concerning for brain metastasis. # CAR/ generalized weakness + headache: Likely secondary to brain metastasis findings on CT brain - signs of leptomeningeal carcinomatosis. Again there is 0.4 mm midline shift. Appreciate neurosurgery recommendations. -Continue care in the ICU, neurochecks, per discussion with hematology oncology team will continue Decadron 10 mg IV every 6 hours and start Bactrim Sunday. -Follow final results of MRI of the brain -Follow-up speech/swallow evaluation -Patient also complaining of abdominal pain: Follow-up CT abdomen/pelvis #Breast carcinoma: Status post chemotherapy mastectomy in the past. -Monitor, will get hematology oncology consult #Hypertensive urgency: Blood pressure improved -Monitor, labetalol as needed systolic greater than 150 #Thrombocytopenia: Again status post platelet transfusion, platelets above 100 ,000 now -Monitor, follow-up hematology oncology recommendation Critical care time spent in patient care today equals 55 minutes. Result Diagram: 02/10/18 0435 02/10/18 0434 Results 24hrs Laboratory Tests Test 02/09/18 16:05 02/09/18 16:29 02/09/18 19:10 02/10/18 04:34 White Blood Count 5.2 Red Blood Count 4.18 L Hemoglobin 13.5 Hematocrit 38.5 Mean Corpuscular Volume 92.1 Mean Corpuscular 32.3 Hemoglobin Mean Corpuscular 35.1 Hemoglobin Concent Red Cell Distribution 13.5 Width Platelet Count 63 #L Mean Platelet Volume 11.8 H Immature Granulocytes % 4.200 H Neutrophils % Segmented Neutrophils 50 % (Manual) Band Neutrophils % 5 H (Manual) Lymphocytes % Lymphocytes % (Manual) 26 Monocytes % Monocytes % (Manual) 13 H Eosinophils % Basophils % Basophils % (Manual) 1 Metamyelocytes % 2 H (manual) Myelocytes % (Manual) 1 H Promyelocytes % (Manual) 2 H Nucleated Red Blood 1.5 H Cells % Immature Granulocytes # 0.220 H Neutrophils # Neutrophils # (Manual) 2.6 Band Neutrophils # 0.2 Lymphocytes (Manual) 1.3 Lymphocytes # Monocytes # Monocytes # (Manual) 0.6 Eosinophils # Basophils # Basophils # (Manual) 0.0 Metamyelocytes # 0.1 H Myelocytes # 0.0 Promyelocytes # 0.1 H Nucleated Red Blood Cells # Platelet Estimate DECREASED Giant Platelets 1 H Polychromasia 1+ Prothrombin Time 12.4 Prothrombin Time Ratio 1.0 INR International 0.91 Normalized Ratio Activated 29.7 Partial Thromboplast Time Sodium Level 133 L 137 Potassium Level 3.8 4.0 Chloride Level 94 L 98 Carbon Dioxide Level 26 28 Anion Gap 13 11 Blood Urea Nitrogen 17 14 Creatinine 0.52 0.50 Est Glomerular Filtrat > 60 > 60 Rate mL/min Glucose Level 257 H 220 Hemoglobin A1c 7.2 H Calcium Level 11.2 H 10.9 H Total Bilirubin 1.3 1.3 Direct Bilirubin 0.60 H 0.50 H Indirect Bilirubin 0.7 0.8 Aspartate Amino 287 H 239 H Transf (AST/SGOT) Alanine 271 H 238 H Aminotransferase (ALT/SG PT) Alkaline Phosphatase 531 H 449 H Troponin I 0.013 Total Protein 7.7 7.8 Albumin 4.4 4.5 Globulin 3.30 H 3.30 H Albumin/Globulin Ratio 1.33 1.36 Triglycerides Level 197 H Cholesterol Level 309 H LDL Cholesterol, 202 Calculated HDL Cholesterol 68 Cholesterol/HDL Ratio 4.5 Serum HCG, Qualitative NEGATIVE Bedside Glucose 225 H Urine Color YELLOW Urine Clarity CLEAR Urine pH 5.0 Urine Specific [place] 1.044 H Urine Ketones NEGATIVE Urine Nitrite NEGATIVE Urine Bilirubin NEGATIVE Urine Urobilinogen 1+ H Urine Leukocyte Esterase NEGATIVE Urine Hemoglobin NEGATIVE Urine Glucose NEGATIVE Urine Total Protein NEGATIVE Urine Opiates Screen Negative Urine Barbiturates Negative Urine Amphetamines Negative Screen Urine Benzodiazepines Negative Screen Urine Cocaine Screen Negative Urine Cannabinoids Negative Test 02/10/18 04:35 White Blood Count 6.3 # Red Blood Count 3.66 L Hemoglobin 11.9 L Hematocrit 34.1 L Mean Corpuscular Volume 93.2 Mean Corpuscular 32.5 Hemoglobin Mean Corpuscular 34.9 Hemoglobin Concent Red Cell Distribution 13.5 Width Platelet Count 113 #L Mean Platelet Volume 11.0 H Immature Granulocytes % 5.400 H Neutrophils % 62.2 Lymphocytes % 23.9 Monocytes % 7.6 Eosinophils % 0.3 Basophils % 0.6 Nucleated Red Blood 1.0 H Cells % Immature Granulocytes # 0.340 H Neutrophils # 3.9 Lymphocytes # 1.5 Monocytes # 0.5 Eosinophils # 0.0 Basophils # 0.0 Nucleated Red Blood 0.1 H Cells # Exam/Review of Systems Vital Signs Vitals Vital Signs Date Temp Pulse Resp B/P (MAP) Pulse Ox O2 O2 Flow FiO2 Time Delivery Rate 02/10/18 91 24 144/78 94 Room Air 09:48 (100) 02/10/18 98.8 06:02 Medications Medications Current Medications Ondansetron HCl (Zofran Inj) 4 mg Q6H PRN IV NAUSEA AND/OR VOMITING; Start 02/09/18 at 20:00 Albuterol/ Ipratropium (Duoneb) 3 ml Q2H RESP THERAPY PRN NEB SHORTNESS OF BREATH; Start 02/09/18 at 20:00 Acetaminophen (Tylenol Liquid) 650 mg Q6H PRN PO PAIN LEVEL 1-3 OR FEVER; Start 02/09/18 at 20:00 Acetaminophen/ Hydrocodone Bitart ([place] (5/325)) 1 tab Q6H PRN PO PAIN LEVEL 4-6; Start 02/09/18 at 20:00 Labetalol HCl (Labetalol) 10 mg Q2H PRN IV SBP > 150 Last administered on 02/10/18at 08:46; Admin Dose 10 MG; Start 02/09/18 at 20:00 Dexamethasone (Decadron) 6 mg Q6H IV Last administered on 02/10/18at 06:47; Admin Dose 6 MG; Start 02/10/18 at 06:30 Miscellaneous Information (*Order Clarification Bulletin) Neratinib Maleate (Nerlynx) ... Q8H XX ; Start 02/10/18 at 09:30 Patient Own Medication 6 TABLETS DAILY DAILY PO ; Start 02/11/18 at 09:00 DUGLAS CARPIO Feb 10, 2018 10:34
[2018-02-10] MEDS: DEXAMETHASONE 10 MG/ML 1 ML INJ IV SCH ×3 (11:51→23:59)
[2018-02-10] MEDS: HYDROCODONE/APAP (5/325) TAB PO PRN (17:11)
[2018-02-10] MEDS: hydrALAzine 20 MG INJ IV PRN (18:33)
[2018-02-10] MEDS ORDERED: GLUCAGON 1 MG INJ IM PRN (19:00)
[2018-02-10] MEDS ORDERED: DEXTROSE 50% 50 ML SYRINGE IV PRN ×2 (19:00)
[2018-02-10] MEDS ORDERED: GLUCOSE GEL 15 GRAM TUBE BUCCAL PRN (19:00)
[2018-02-10] MEDS ORDERED: GLUCOSE GEL 15 GRAM TUBE PO PRN ×2 (19:00)
[2018-02-10] MEDS: INSULIN ASPART [NOVOLOG] 3 ML PEN SC SCH (20:57)
[2018-02-11] VITALS (47 sets, daily range): BP systolic 112–159; BP diastolic 72–98; PULSE 76–117; RESP 16–28
[2018-02-11] MEDS: HYDROCODONE/APAP (5/325) TAB PO PRN ×2 (04:07→12:37)
[2018-02-11] MEDS: DEXAMETHASONE 10 MG/ML 1 ML INJ IV SCH ×3 (05:50→18:31)
--- NOTE | 2018-02-11 06:36 | NUR ---
EOSS: Patient alert, oriented x3, left eye ptosis, left sided visual deficit. Patient sating 98% on RA. Patient ambulatory with assist of one to toilet. Right chest portacath in place. Patient complained of 4/10 headache, pain medication given accordingly. Family at bedside. No acute events on PM shift.
[2018-02-11] MEDS ORDERED: [UNRECOGNIZED DRUG - OTHER] PO SCH (09:00)
[2018-02-11] MEDS: INSULIN ASPART [NOVOLOG] 3 ML PEN SC SCH ×4 (09:03→20:29)
[2018-02-11] MEDS: LEVETIRACETAM 500 MG TAB PO SCH ×2 (10:12→21:29)
--- NOTE | 2018-02-11 11:00 | CONS ---
Date/Time of Note Date/Time of Note DATE: 02/11/18 TIME: 10:57 Assessment/Plan Assessment/Plan Assessment/Plan #Leptomeningeal disease #Her2 positive Breast ca - currently off neratinib for past month -will start intrathecal chemotherapy 3x weekly per the following regimen -Methotrexate 12 mg / Hydrocortisone 20 mg to give with each LP -will check CSF cytology with each LP -given she has bulky disease and is very symptomatic will also obtain a rad onc consult -once patient's CSF sx stablilze pt will need an out patient PET CT to evaluate the extent of her systemic spread and then will need to star a new chemotherapy. May need to consider TDM-1 -will hold neratinib for now -continue high dose Decadron for now Thank you for the opportunity to participate in this patients care A total of 40 minutes of face to face time was spent speaking with the patient, of which greater than 50% was spent in counseling and coordination of care and the detailed question and answer session. Result Diagram: 02/11/18 0422 02/11/18 0422 Results 24hrs Laboratory Tests Test 02/10/18 20:32 02/11/18 04:22 02/11/18 08:50 Bedside Glucose 245 H 196 White Blood Count 8.4 # Red Blood Count 3.93 L Hemoglobin 12.7 Hematocrit 36.7 L Mean Corpuscular Volume 93.4 Mean Corpuscular Hemoglobin 32.3 Mean Corpuscular Hemoglobin Concent 34.6 Red Cell Distribution Width 13.9 Platelet Count 122 L Mean Platelet Volume 11.3 H Immature Granulocytes % 5.100 H Neutrophils % 59.7 Segmented Neutrophils % (Manual) 60 Band Neutrophils % (Manual) 8 H Lymphocytes % 27.7 Lymphocytes % (Manual) 23 Monocytes % 7.0 Monocytes % (Manual) 6 Eosinophils % 0.1 Eosinophils % (Manual) 1 Basophils % 0.4 Metamyelocytes % (manual) 1 H Myelocytes % (Manual) 1 H Nucleated Red Blood Cells % 1.2 H Immature Granulocytes # 0.430 H Neutrophils # 5.0 Neutrophils # (Manual) 5.1 Band Neutrophils # 0.6 Lymphocytes (Manual) 1.9 Lymphocytes # 2.3 Monocytes # 0.6 Monocytes # (Manual) 0.5 Eosinophils # 0.0 Basophils # 0.0 Metamyelocytes # 0.0 Myelocytes # 0.0 Nucleated Red Blood Cells # 0.1 H Platelet Estimate DECREASED Giant Platelets 1 H Sodium Level 136 Potassium Level 4.0 Chloride Level 97 Carbon Dioxide Level 27 Anion Gap 12 Blood Urea Nitrogen 16 Creatinine 0.49 Est Glomerular Filtrat Rate mL/min > 60 Glucose Level 219 Calcium Level 10.6 H Phosphorus Level 5.3 H Magnesium Level 2.4 Consultation Date/Type/Reason Admit Date/Time 02/09/18 Date of Consultation: Feb 11, 2018 Type of Consult oncology Reason for Consultation metastatic breast cancer Requesting Provider: DUGLAS CARPIO of Present Illness Ms Rome is a 47 yo female with Her2 + breast cancer whose history is as follows -02/2015 pt presented with L sided local advanced breast cancer. This was biopsied and noted to be ER-/DE-/Her2 + breast cancer . -10/2015 Pt was started on neoadjuvant TCHP -04/2016 pt underwent L MRM which revealed 1mm and 1.5mm of residual disease with 4/14 nodes with disease -01/2017 pt completed year of herceptin and was started on Neratinib 05/2017 last documented visit to her primary oncologist Dr. Tabor Currently 02/2017 -pt presents to ER with headache, blurry vision and dizziness. 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 proven otherwise: all consistent with Leptomeningeal carcinom atosis Constitutional: poor po Eyes: other (blurry vision) ENT: no complaints Respiratory: shortness of breath Cardiovascular: no complaints Gastrointestinal: no complaints Genitourinary: no complaints Musculoskeletal: bone/joint pain Neurologic: dizziness, focal-weakness, headache Past Medical History HTN hypertension Hypothyroidism Obesity Pre diabetes mellitus Medications Current Medications Ondansetron HCl (Zofran Inj) 4 mg Q6H PRN IV NAUSEA AND/OR VOMITING; Start 02/09/18 at 20:00 Albuterol/ Ipratropium (Duoneb) 3 ml Q2H RESP THERAPY PRN NEB SHORTNESS OF BREATH; Start 02/09/18 at 20:00 Acetaminophen (Tylenol Liquid) 650 mg Q6H PRN PO PAIN LEVEL 1-3 OR FEVER; Start 02/09/18 at 20:00 Acetaminophen/ Hydrocodone Bitart ([place] (5/325)) 1 tab Q6H PRN PO PAIN LEVEL 4-6 Last administered on 02/11/18at 04:07; Admin Dose 1 TAB; Start 02/09/18 at 20:00 Labetalol HCl (Labetalol) 10 mg Q2H PRN IV SBP > 150 Last administered on 9at 16:51; Admin Dose 10 MG; Start 02/09/18 at 20:00 Patient Own Medication 6 TABLETS DAILY DAILY PO ; Start 02/11/18 at 09:00 Dexamethasone (Decadron) 10 mg Q6H IV Last administered on 02/11/18at 10:10; Admin Dose 10 MG; Start 02/10/18 at 12:30 Trimethoprim/ Sulfamethoxazole (Bactrim (Ds)) 1 tab MONWEDFRI PO ; Start 02/11/18 at 09:00 Insulin Aspart (Novolog Insulin Pen) NOVOLOG *MILD* ALGORITHM WITH MEALS BEDTIME SC Last administered on 02/11/18at 09:03; Admin Dose 2 UNIT; Start 02/10/18 at 21:00 Hydralazine HCl (Apresoline) 10 mg Q6H PRN IV ELEVATED BLOOD PRESSURE Last administered on 02/10/18at 18:33; Admin Dose 10 MG; Start 02/10/18 at 18:30 Miscellaneous Information 1 ea NOTE XX ; Start 02/10/18 at 19:00 Glucose (Glutose) 15 gm Q15M PRN PO DECREASED GLUCOSE; Start 02/10/18 at 19:00 Glucose (Glutose) 22.5 gm Q15M PRN PO DECREASED GLUCOSE; Start 02/10/18 at 19:00 Dextrose (D50w Syringe) 25 ml Q15M PRN IV DECREASED GLUCOSE; Start 02/10/18 at 19:00 Dextrose (D50w Syringe) 50 ml Q15M PRN IV DECREASED GLUCOSE; Start 02/10/18 at 19:00 Glucagon (Glucagen) 1 mg Q15M PRN IM DECREASED GLUCOSE; Start 02/10/18 at 19:00 Glucose (Glutose) 15 gm Q15M PRN BUCCAL DECREASED GLUCOSE; Start 02/10/18 at 19: 00 Levetiracetam (Keppra) 500 mg BID PO Last administered on 02/11/18at 10:12; Admin Dose 500 MG; Start 02/11/18 at 09:30 Allergies: Coded Allergies: No Known Allergy (Unverified , 02/28/17) Past Surgical History per HPI Family History Significant Family History: no pertinent family hx Social History Alcohol Use: none Smoking Status: Never smoker Drug Use: none Exam/Review of Systems Vital Signs Vitals Vital Signs Date Temp Pulse Resp B/P (MAP) Pulse Ox O2 O2 Flow FiO2 Time Delivery Rate 02/11/18 88 08:00 02/11/18 24 126/86 83 Room Air 06:00 (99) 02/11/18 97.8 04:00 02/10/18 2.0 14:09 Intake and Output 02/10/18 02/10/18 02/11/18 1515:00 23:00 07:00 IntakeIntake Total 220 ml 120 ml OutputOutput Total 275 ml BalanceBalance -55 ml 120 ml Exam Constitutional: alert, oriented, frail Psych: anxiety, confusion, depression Head: normocephalic Eyes: nl conjunctiva ENMT: nl external ears & nose Neck: supple Respiratory: clear to auscultation Cardiovascular: regular rate and rhythm Gastrointestinal: soft Musculoskeletal: nl extremities to inspection Extremities: normal pulses Neurological: confused, focal weakness Medications Medications Current Medications Ondansetron HCl (Zofran Inj) 4 mg Q6H PRN IV NAUSEA AND/OR VOMITING; Start 02/09/18 at 20:00 Albuterol/ Ipratropium (Duoneb) 3 ml Q2H RESP THERAPY PRN NEB SHORTNESS OF BREATH; Start 02/09/18 at 20:00 Acetaminophen (Tylenol Liquid) 650 mg Q6H PRN PO PAIN LEVEL 1-3 OR FEVER; Start 02/09/18 at 20:00 Acetaminophen/ Hydrocodone Bitart ([place] (5/325)) 1 tab Q6H PRN PO PAIN LEVEL 4-6 Last administered on 02/11/18at 04:07; Admin Dose 1 TAB; Start 02/09/18 at 20:00 Labetalol HCl (Labetalol) 10 mg Q2H PRN IV SBP > 150 Last administered on 02/10/18at 16:51; Admin Dose 10 MG; Start 02/09/18 at 20:00 Patient Own Medication 6 TABLETS DAILY DAILY PO ; Start 02/11/18 at 09:00 Dexamethasone (Decadron) 10 mg Q6H IV Last administered on 02/11/18at 10:10; Admin Dose 10 MG; Start 02/10/18 at 12:30 Trimethoprim/ Sulfamethoxazole (Bactrim (Ds)) 1 tab MON[place]ED[place]RI PO ; Start 02/11/18 at 09:00 Insulin Aspart (Novolog Insulin Pen) NOVOLOG *MILD* ALGORITHM WITH MEALS BEDTIME SC Last administered on 02/11/18at 09:03; Admin Dose 2 UNIT; Start 02/10/18 at 21:00 Hydralazine HCl (Apresoline) 10 mg Q6H PRN IV ELEVATED BLOOD PRESSURE Last administered on 02/10/18at 18:33; Admin Dose 10 MG; Start 02/10/18 at 18:30 Miscellaneous Information 1 ea NOTE XX ; Start 02/10/18 at 19:00 Glucose (Glutose) 15 gm Q15M PRN PO DECREASED GLUCOSE; Start 02/10/18 at 19:00 Glucose (Glutose) 22.5 gm Q15M PRN PO DECREASED GLUCOSE; Start 02/10/18 at 19:00 Dextrose (D50w Syringe) 25 ml Q15M PRN IV DECREASED GLUCOSE; Start 02/10/18 at 19:00 Dextrose (D50w Syringe) 50 ml Q15M PRN IV DECREASED GLUCOSE; Start 02/10/18 at 19:00 Glucagon (Glucagen) 1 mg Q15M PRN IM DECREASED GLUCOSE; Start 02/10/18 at 19:00 Glucose (Glutose) 15 gm Q15M PRN BUCCAL DECREASED GLUCOSE; Start 02/10/18 at 19:00 Levetiracetam (Keppra) 500 mg BID PO Last administered on 02/11/18at 10:12; Admin Dose 500 MG; Start 02/11/18 at 09:30 LIGIA GAMEZ M.D. Feb 11, 2018 11:00
--- NOTE | 2018-02-11 12:07 | NUR ---
Bedside Clinical Swallow Evaluation Completed: Brief Hx: Ms. Martinez is a 47-year-old right-handed female with a history of breast cancer diagnosed in 2017. The patient underwent a left mastectomy and was also treated with chemotherapy. The patient reportedly last had chemotherapy in 2018, however, was taking a medication Nerlynx up until approximately a month ago. The patient reportedly has been having severe headaches, nausea, generalized weakness and lethargy for the past month. Per chart review, the patient moans and is somewhat lethargic though she will answer some questions. She reports having a headache and nausea. She also reports some neck pain and left abdominal pain. All of these symptoms apparently have been present for 1 month. The patient reports also some double vision. The patient also complains of dizziness. 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 Correlation with cerebral spinal fluid analysis, if not already performed, is recommended. The abnormality seen in the right parietal lobe on CT is consistent with vasogenic edema related to an adjacent extra-axial nodular leptomeningeal enhancement focus rather than intra-axial mass lesion. There is no evidence of subdural hematoma, the abnormality seen on CT are related to pathologic leptomeningeal enhancement. Heterogeneous signal intensity within the calvarium unable to exclude osseous metastatic disease. Right frontal and ethmoid sinus disease with bilateral mastoid air cell effusions. PLOF: regular/thin liquids Current: regular/thin liquids Subjective assessment of cognition specific to swallow safety: Awake, alert, oriented x4, following commands and Wallisian-Speaking Oral mechanism examination completed: Face is symmetrical, lips, tongue and soft palate are symmetrical with 5+/5 tongue strength, and dentition noted P.O trials consisting of the following: thin liquids by cup and straw, puree, soft and hard solids. Oral phase of swallow: oral motor strength and coordination was wfl. no anterior oral leakage or residue after the swallow. Slow but adequate bolus manipulation, mastication, and A-P oral transit. Oral control was wfl. Pharyngeal phase of swallow: Trigger of swallow was timely. Hyolaryngeal excursion was wfl. No s/s of aspiration or penetration was wfl. Vocal quality was clear across p.o trials. Coordination of breath w/ swallow was wfl. Impression: functional swallow function Recommendation: 1. continue regular diet and thin liquids 2. safe to administer whole pills with liquids 3. No further ST indicated at this time. Please reconsult if new swallowing problems occur.
--- NOTE | 2018-02-11 12:15 | NUR ---
Speech/Cognitive Linguistic Evaluation Completed: Brief Hx: Ms. Martinez is a 47-year-old right-handed female with a history of breast cancer diagnosed in 2017. The patient underwent a left mastectomy and was also treated with chemotherapy. The patient reportedly last had chemotherapy in 2018, however, was taking a medication Nerlynx up until approximately a month ago. The patient reportedly has been having severe headaches, nausea, generalized weakness and lethargy for the past month. Per chart review, the patient moans and is somewhat lethargic though she will answer some questions. She reports having a headache and nausea. She also reports some neck pain and left abdominal pain. All of these symptoms apparently have been present for 1 month. The patient reports also some double vision. The patient also complains of dizziness. 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 Correlation with cerebral spinal fluid analysis, if not already performed, is recommended. The abnormality seen in the right parietal lobe on CT is consistent with vasogenic edema related to an adjacent extra-axial nodular leptomeningeal enhancement focus rather than intra-axial mass lesion. There is no evidence of subdural hematoma, the abnormality seen on CT are related to pathologic leptomeningeal enhancement. Heterogeneous signal intensity within the calvarium unable to exclude osseous metastatic disease. Right frontal and ethmoid sinus disease with bilateral mastoid air cell effusions. Subjective assessment of cognition specific to swallow safety: Awake, alert, oriented x4 and following commands and Malagasy-Speaking Assessment consisting of the following: Comprehension: following multiple step commands Expression: Fluent Problem solving; performing complex tasks with 100% accuracy Reasonin% accuracy memory: immediate, short and term memory with 100% accuracy Impression: Pt presents with a functional cognition. No memory deficits noted. Recommendation: 1. No further St indicated at this time. 2. Pt would benefit from PT and/or OT due to the level of reported dizziness placing the pt at a higher risk of falls
[2018-02-11] MEDS: TRIMETHOPRIM/SULFAMETHOX (DS) TAB PO SCH (12:37)
--- NOTE | 2018-02-11 16:03 | PN ---
Date/Time of Note Date/Time of Note DATE: 02/11/18 TIME: 15:57 Assessment/Plan VTE Prophylaxis Risk score (from [facility])>0 risk: 3 SCD applied (from [facility]): Yes Pharmacological prophylaxis: NA/contraindicated Pharm contraindication: low risk/ambulating Lines/Catheters Urinary Cath still in place: No Assessment/Plan Assessment/Plan 47-year-old female with a history of left breast carcinoma status post mastectomy and chemo presents with headache and generalized weakness with a CT finding of subdural fluid collection with 0.4 mm midline shift, as well as possible right parietal mass concerning for brain metastasis. 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 Again there is 0.4 mm midline shift. Appreciate neurosurgery recommendations. Currently no surgery needed. -Continue care in the ICU, neurochecks, per discussion with hematology oncology team will continue Decadron 10 mg IV every 6 hours and start Bactrim Sunday. -PT, OT #Breast carcinoma: Status post chemotherapy mastectomy in the past. - Dr. Shaw following. Plan for radiation oncology and intrathecal chemo. #Hypertensive urgency: Blood pressure improved -Monitor, labetalol as needed systolic greater than 150 #Thrombocytopenia: Again status post platelet transfusion, platelets above 100,000 now -Monitor, follow-up hematology oncology recommendation Result Diagram: 02/11/182 02/11/18 0422 Results 24hrs Laboratory Tests Test 02/10/18 20:32 02/11/18 04:22 02/11/18 08:50 02/11/18 11:45 Bedside Glucose 245 H 196 White Blood Count 8.4 # Red Blood Count 3.93 L Hemoglobin 12.7 Hematocrit 36.7 L Mean Corpuscular Volume 93.4 Mean Corpuscular 32.3 Hemoglobin Mean Corpuscular 34.6 Hemoglobin Concent Red Cell Distribution 13.9 Width Platelet Count 122 L Mean Platelet Volume 11.3 H Immature Granulocytes % 5.100 H Neutrophils % 59.7 Segmented Neutrophils 60 % (Manual) Band Neutrophils % 8 H (Manual) Lymphocytes % 27.7 Lymphocytes % (Manual) 23 Monocytes % 7.0 Monocytes % (Manual) 6 Eosinophils % 0.1 Eosinophils % (Manual) 1 Basophils % 0.4 Metamyelocytes % 1 H (manual) Myelocytes % (Manual) 1 H Nucleated Red Blood 1.2 H Cells % Immature Granulocytes # 0.430 H Neutrophils # 5.0 Neutrophils # (Manual) 5.1 Band Neutrophils # 0.6 Lymphocytes (Manual) 1.9 Lymphocytes # 2.3 Monocytes # 0.6 Monocytes # (Manual) 0.5 Eosinophils # 0.0 Basophils # 0.0 Metamyelocytes # 0.0 Myelocytes # 0.0 Nucleated Red Blood 0.1 H Cells # Platelet Estimate DECREASED Giant Platelets 1 H Sodium Level 136 Potassium Level 4.0 Chloride Level 97 Carbon Dioxide Level 27 Anion Gap 12 Blood Urea Nitrogen 16 Creatinine 0.49 Est Glomerular Filtrat > 60 Rate mL/min Glucose Level 219 Calcium Level 10.6 H Phosphorus Level 5.3 H Magnesium Level 2.4 Prothrombin Time 12.5 Prothrombin Time Ratio 1.0 INR International 0.92 Normalized Ratio Activated 24.7 Partial Thromboplast Time Test 02/11/18 12:33 Bedside Glucose 322 H Subjective 24 Hr Interval Summary Free Text/Dictation No acute overnight events. She continues to have some dizziness when lying in bed. Also has tachycardia up to 150s with mild activity. Exam/Review of Systems Vital Signs Vitals Vital Signs Date Temp Pulse Resp B/P (MAP) Pulse Ox O2 O2 Flow FiO2 Time Delivery Rate 02/11/18 108 12:00 02/11/18 25 120/81 93 11:00 (94) 02/11/18 Room Air 06:00 02/11/18 98.4 05:00 02/10/18 2.0 14:09 Intake and Output 02/10/18 02/10/18 02/11/18 1515:00 23:00 07:00 IntakeIntake Total 220 ml 120 ml OutputOutput Total 275 ml BalanceBalance -55 ml 120 ml Exam Gen: Fatigued appearing woman in no acute distress. HEENT: Clear oropharynx, moist mucous membranes Chest: L mastectomy Card: Tachy, regular rhythm, no murmurs Pulm: Clear to auscultation bilaterally Abd: Soft, nontender, nondistended. Ext: No cyanosis/clubbing/edema Medications Medications Current Medications Ondansetron HCl (Zofran Inj) 4 mg Q6H PRN IV NAUSEA AND/OR VOMITING; Start 02/09/18 at 20:00 Albuterol/ Ipratropium (Duoneb) 3 ml Q2H RESP THERAPY PRN NEB SHORTNESS OF BREATH; Start 02/09/18 at 20:00 Acetaminophen (Tylenol Liquid) 650 mg Q6H PRN PO PAIN LEVEL 1-3 OR FEVER; Start 02/09/18 at 20:00 Acetaminophen/ Hydrocodone Bitart ([place] (5/325)) 1 tab Q6H PRN PO PAIN LEVEL 4-6 Last administered on 02/11/18at 12:37; Admin Dose 1 TAB; Start 02/09/18 at 20:00 Labetalol HCl (Labetalol) 10 mg Q2H PRN IV SBP > 150 Last administered on 02/10/18at 16:51; Admin Dose 10 MG; Start 02/09/18 at 20:00 Dexamethasone (Decadron) 10 mg Q6H IV Last administered on 02/11/18at 10:10; Admin Dose 10 MG; Start 02/10/18 at 12:30 Trimethoprim/ Sulfamethoxazole (Bactrim (Ds)) 1 tab MONWEDFRI PO Last administered on 02/11/18at 12:37; Admin Dose 1 TAB; Start 02/11/18 at 09:00 Insulin Aspart (Novolog Insulin Pen) NOVOLOG *MILD* ALGORITHM WITH MEALS BEDTIME SC Last administered on 02/11/18at 12:50; Admin Dose 5 UNIT; Start 02/10/18 at 21:00 Hydralazine HCl (Apresoline) 10 mg Q6H PRN IV ELEVATED BLOOD PRESSURE Last admi nistered on 02/10/18at 18:33; Admin Dose 10 MG; Start 02/10/18 at 18:30 Miscellaneous Information 1 ea NOTE XX ; Start 02/10/18 at 19:00 Glucose (Glutose) 15 gm Q15M PRN PO DECREASED GLUCOSE; Start 02/10/18 at 19:00 Glucose (Glutose) 22.5 gm Q15M PRN PO DECREASED GLUCOSE; Start 02/10/18 at 19:00 Dextrose (D50w Syringe) 25 ml Q15M PRN IV DECREASED GLUCOSE; Start 02/10/18 at 19:00 Dextrose (D50w Syringe) 50 ml Q15M PRN IV DECREASED GLUCOSE; Start 02/10/18 at 19:00 Glucagon (Glucagen) 1 mg Q15M PRN IM DECREASED GLUCOSE; Start 02/10/18 at 19:00 Glucose (Glutose) 15 gm Q15M PRN BUCCAL DECREASED GLUCOSE; Start 02/10/18 at 19:00 Levetiracetam (Keppra) 500 mg BID PO Last administered on 02/11/18at 10:12; Admin Dose 500 MG; Start 02/11/18 at 09:30 Insulin Glargine (Lantus) 14 units DAILY@2000 SC ; Start 02/11/18 at 20:00 JOAN CHRISTENSEN MD Feb 11, 2018 16:03
--- NOTE | 2018-02-11 16:55 | NUR ---
SS NOTE: [facility] RECEIVED NOTIFICATION THAT PT WANTS [facility] INFO. PT ADMITTED WITH SUBDURAL HEMATOMA WITH MIDLINE SHIFT. PT SLEEPING. SON, SRIRAM ROTHMAN AT BEDSIDE. SW PROVIDED [facility] INFO AND FORM TO PT'S SON ([place]TH KOREAN AND BULGARIAN) FOR PT AND FAMILY. SON REPORTED THAT PT LIVES AT HOME WITH FAMILY. SHE HAS BEEN INDEPENDENT WITH ADL'S. SON DRIVES HER TO ALL HER MEDICAL APPOINTMENTS. PER SON, PT'S , CHOCO ROTHMAN [phone] IS PT'S PRIMARY DECISION MAKER. SON WOULD BE A WATER REGISTRAR IF IS NOT AVAILABLE. AT THIS TIME, SON HOPES FOR PT TO RETURN HOME WHEN MEDICALLY STABLE. NO OTHER ISSUES PRESENT. SW WILL CONTINUE TO REMAIN AVAILABLE NEEDED. Addendum: 02/12/18 at 1239 by JOSE DANIEL CARDENAS LCSW Amended: Links added.
[2018-02-11] MEDS: ACETAMINOPHEN 650MG/20.3ML CUP PO PRN (18:32)
[2018-02-11] MEDS: LABETALOL HCL 20MG INJ IV PRN (19:28)
[2018-02-11] MEDS ORDERED: NITROGLYCERIN (SL) 0.4 MG TAB ONE (19:41)
--- NOTE | 2018-02-11 19:57 | NUR ---
EOSS Fedelina remained A/O x 3-4, c/o moderate-severe abdominal pain, medicated with [place] once with good relief. Dr. Noel made aware. C/o mild abdominal pain at 1800, tylenol was given. VSS were WDL all shift, although oxygen saturation dropped to 85% and SBP increased to 159/95 at change of shift. Labetalol 10mg given, SBP dropped to 130s. Pt was put on oxygen 4 LNC, sats remained low, switched to mask sats 89%, now on non rebreather at 15L. Night nurse and charge nurse assumed care of the patient. Plan per Oncologist is to stop Neratinib (medication returned to patient's son), continue with Decadron, LP with intrathecal chemo x 3 every other day. Per pharmacist, chemo medication will be available tomorrow 02/12/18. Radiologist made aware.
[2018-02-11] MEDS ORDERED: NITROGLYCERIN (SL) 0.4 MG TAB SL ONE (20:00)
[2018-02-11] MEDS: INSULIN GLARGINE [LANTus] (100 UNITS/ML) SYG SC SCH (20:29)
--- NOTE | 2018-02-11 21:06 | EN ---
Date/Time of Note Date/Time of Note DATE: 02/11/18 TIME: 20:54 Event Note Medicine Medicine Event Note Was called by the RN as patient noted to be in CP and desaturating and also noted to have abdominal distention. Stat cardiac enzymes, EKG, chest xray, kub.ABG. Patient was seen at the bedside at approximately 8:50 PM. Patient did report improvement of her chest pain with nitroglycerin sublingual. She also was noted to have palpable tenderness of the left chest on palpation. She had to be placed on a nonrebreather to maintain her oxygen level above 92%. O2 probe was placed on the patient's ear which did show improved oxygen of 100% on supplemental O2. general: patient lying in bed, mild distress from cp. Palpable cp on exam of the left chest wall but states also has different than the chest pain she had experienced earlier. She did report relief with sublingual nitro. cvs: rrr, lungs: Coarse breath sounds of the right lung field, no rales, no wheezing Musculoskeletal: Left chest wall tenderness to palpation neuro: a and oriented x 3 ekg: ns at 90 bpm Assessment and plan: 1.Hypoxia: We will obtain a stat chest x-ray, given patient's history of cancer pulmonary embolism is also in the differential. If chest x-ray is inconclusive we will proceed to CTA of the chest. At the current time maintain patient on nonrebreather and wean as indicated. 2.Chest pain: Musculoskeletal versus ACS. Cardiac enzymes x3, EKG appears to be nonischemic at the current time. Lidocaine patch to the left chest wall Greater than 35 minutes of critical care time was spent on the care and management this patient. JOSE CARLOS WILCOX Feb 11, 2018 21:04
[2018-02-11] MEDS ORDERED: SOD CHLORIDE 0.9% 100 ML ONE (21:50)
[2018-02-11] MEDS ORDERED: IOHEXOL 100 ML ONE (21:51)
--- NOTE | 2018-02-11 23:05 | NUR ---
Late charting for 1899: Pt was found de-saturating with O2 fluctuating between 94-98%, Pt stated SAMIR chest pain of 5/10 with baseline abdominal pain she has had. O2 was provided 4 L per NC, O2 sat still noted to be bellow 90%. Hospitalist Dr Scott was informed, orders was received for O2 to maintain above 93%, Stat Cardiac EZ with troponin stat and in 6 hours after the first draw. Chest X- ray as well as Abdominal X-ray both stat. Nitroglycerin tab 0.4 mg Sublingual stat x1 and repeat in 5 minutes if pain still persisted. Ordered were carried out stat.Pt stated relief of chest pain and second dose was not needed. 1999: Md Dr Scott came and assessed the pt and say the results of the blood and X-rays, no further order was given by him at the time, will continue monitoring the Pt. 2144: t was carried to Ct Angio, the procedures carried out eventless and Pt. was returned to the ICU bed. O2 sat remained 96% on 4 L per NC, vitals stable as charted. Pt.currently resting in bed, with no c/o any pain abdominal or otherwise, will continue to monitor.
[2018-02-12] VITALS (20 sets, daily range): BP systolic 117–154; BP diastolic 72–93; PULSE 80–116; RESP 18–27
[2018-02-12] MEDS ORDERED: VANCOMYCIN IV PER PHARMACY XX SCH (00:30)
[2018-02-12] MEDS ORDERED: [UNRECOGNIZED DRUG - OTHER] ONE (00:47)
[2018-02-12] MEDS: HYDROCODONE/APAP (5/325) TAB PO PRN ×3 (01:08→20:29)
[2018-02-12] MEDS: DEXAMETHASONE 10 MG/ML 1 ML INJ IV SCH ×5 (01:08→23:59)
[2018-02-12] MEDS: PIPER-TAZO 3.375 GM IV (PMX) 100 ML IVPB SCH ×5 (01:15→23:59)
[2018-02-12] MEDS ORDERED: LIDOCAINE 5% PATCH TD ONE ×2 (01:30→08:00)
--- NOTE | 2018-02-12 02:36 | NUR ---
Dr Scott was informed of the result of the CTA, he later put orders for AB, blood culture was already drawn prior to starting AB per his instructions, will continue monitoring.
[2018-02-12] MEDS ORDERED: VANCOMYCIN 2 GM in SOD CHLORIDE 0.9% 500 ML IVPB SCH (03:30)
--- NOTE | 2018-02-12 06:58 | NUR ---
End of the shift: Pt initial episode of low O2 sat resolved by 2200, since then Pt O2 sat on 3-4 L O2 has stayed above 94%Occasional pain resolves with [place] 1 tab po. AB running as ordered by the Md, vital stable as charted, SRon monitor, will continue monitoring.
--- NOTE | 2018-02-12 07:35 | NUR ---
Glycemic Management Referral: Thank you for the referral. R: Consider an increase in basal to Lantus 17 units and adding a modest premeal bolus of NovoLog 4 units. Also consider adjusting diet for consistent carbohydrates. Unclear if this is a new diagnosis as no mention of DM in PMH; HbA1c 7.2%.
--- NOTE | 2018-02-12 07:48 | NUR ---
Report was given to the Nurse Daija, Pharmacy was called to change the timing of the zosyn wince vancomycin is running AM shift Daija was given the report on communication with the RX and to give the Zosyn after the Vanco.
[2018-02-12] MEDS: INSULIN ASPART [NOVOLOG] 3 ML PEN SC SCH ×6 (08:19→20:36)
[2018-02-12] MEDS: ACETAMINOPHEN 650MG/20.3ML CUP PO PRN (08:22)
[2018-02-12] MEDS: LEVETIRACETAM 500 MG TAB PO SCH ×2 (08:22→21:39)
--- NOTE | 2018-02-12 09:40 | NUR ---
OT EVAL: Ms. Martinez is a 47-year-old right-handed female with a history of breast cancer diagnosed in 2017. The patient underwent a left mastectomy and was also treated with chemotherapy. The patient reportedly last had chemotherapy in 2018, however, was taking a medication Nerlynx up until approximately a month ago. The patient reportedly has been having severe headaches, nausea, generalized weakness and lethargy for the past month. PLOF: Patient lives with family in an apartment with one flight stairs to enter , patient has had great family support. Prior to January pt was independent with all ADL's and ambulated without DME. Since January pt required assistance with ADL's and ambulation due to dizziness and impaired vision. CLOF: RN cleared pt for skilled OT Eval. Pt received supine in bed with aunt and son at bedside. Patient Canadian speaking only , son present to translate. The patient reports 4/10 pain in her head, dizziness and also some double vision. Pt AOx4 and demonstrated BUE AROM WFL and 3+/5 MMT. Pt performed supine->sit at EOB with Min A. Pt performed STS and functional mob using FWW with Min A due to dizziness and impaired vision. Pt competed toilet transfer with Min A and completed toilet hygiene with supervision. Pt stood at bathroom sink with Min A and completed h/g tasks with supervision. Pt returned to bed with Min A. Pt left supine in bed with all needs met. Vitals Stable. RN notified. Recommend OT services 1x day for 3-5x week for self care, ther ex/act, safety awareness, and independence with ADL's. D/C home when medically cleared with fww and w/c , and bed side commode.
--- NOTE | 2018-02-12 11:02 | NUR ---
PT EVALUATION , 1 Evaluation Start Time 11:00 Evaluation Total Time 0 min Subjective Current complaint of pain Pain Scale NUMERIC Pain Intensity 4 (0-10) Patient Stated Goal for Pain Relief 0 (0-10) Pain Level Comment HEADCHE Pre Treatment Vital Signs Stable Yes - BP:128/80 HR:80 Exercise Assessment Label Bilat Lower Extremity Exercise Type Active ROM Additional Exercise Comments AP, KNEE FLEX, EXT, SAQ , SLR, ADD , ABD . Supine to Sit Minimum Assist Transfer Sit to Stand Ability Minimum Assist Bed Mobility Sit to Supine Minimum Assist Bed Transfer Ability Minimum Assist Chair Transfer Ability Minimum Assist Toileting Ability Minimum Assist Sitting Tolerance 15 min Patient uses wheelchair Not Applicable Gait Assist Levels Minimum Assist Assistive Devices Front Wheel Walker Ambulation Distance 40 feet Additional Gait Comments UNSTEADY, UNSTABLE , TRUNK SWAYS TO LT , RT . NO BUCKLING HER KNEES . Weight Bearing Assessment Label Bilat Lower Extremity Weight Bearing Status Full Weight Bearing Additional Stairs Assist Comments TBA Static Sitting Balance Good Dynamic Sitting Balance Good Standing Static Balance Fair plus Dynamic Standing Balance Fair minus Additional Balance Assessments Comments W/FWW Safety Judgement Fair Activity Tolerance Fair Equipment Present A pump IV pump Additional Equipment Present FALL RISK . Post Treatment Pain Intensity 3 0-10 Quality Indicators Dizziness Variance Documentation P/S SEE PT NOTE . PT Technical Record Comment PT EVALUATION , RN cleared , patient Mozambican speaking only , son present to translate .. . Brief Hx: Ms. Martinez is a 47-year-old right-handed female with a history of breast cancer diagnosed in 2017. The patient underwent a left mastectomy and was also treated with chemotherapy. The patient reportedly last had chemotherapy in 2018, however, was taking a medication Nerlynx up until approximately a month ago. The patient reportedly has been having severe headaches, nausea, generalized weakness and lethargy for the past month. Per chart review, the patient moans and is somewhat , though she will answer some questions. She reports having a headache and nausea. She also reports some neck pain and left abdominal pain. All of these symptoms apparently have been present for 1 month. The patient reports also some double vision. The patient also complains of dizziness. patient alert and oriented to self, situation , instructed her in safety fall precaution and a/rom ble's including AP, KNEE FLEX, EXT, ADD, ABD , SAQ and SLR , p/s see PT note for patient's functional status , gait tr w/fww performed 40 with min a and constant vc's for safety , fall precaution , patient's gait distance w/fww limited due to decreased vision , dizziness as well as mild headache, patient's gait with / without ad , unsteady, unstable no buckling of knees noted , patient is cleared to get oob to bed side commode with [facility] [place] , RN notified . a: patient lives with family in an apartment with one flight stairs to enter , patient has had great family support , DC planning per md recommendation , if patient return home will need fww and w/c , and bed side commode , PT recommend PT follow up . P: PT DAILY X6 ( thera exe's , standing balance exe's , transfer tr, gait tr with appropriate AD , patient education and training ..
--- NOTE | 2018-02-12 14:00 | CONS ---
Date/Time of Note Date/Time of Note DATE: 02/12/18 TIME: 13:59 Assessment/Plan Assessment/Plan Hospital Course Ms Rome is a 47 yo female with Her2 + breast cancer whose history is as follows -02/2015 pt presented with L sided local advanced breast cancer. This was biopsied and noted to be ER-/CO-/Her2 + breast cancer . -10/2015 Pt was started on neoadjuvant TCHP -04/2016 pt underwent L MRM which revealed 1mm and 1.5mm of residual disease with 4/14 nodes with disease -01/2017 pt completed year of herceptin and was started on Neratinib 05/2017 last documented visit to her primary oncologist Dr. Tabor Currently 02/2017 -pt presents to ER with headache, blurry vision and dizziness. 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 proven otherwise: all consistent with Leptomeningeal carcinomatosis Assessment/Plan #Leptomeningeal disease #Her2 positive Breast ca - currently off neratinib for past month -will start intrathecal chemotherapy 3x weekly per the following regimen -Methotrexate 12 mg / Hydrocortisone 20 mg to give with each LP.FIRST DOSE TODAY -will check CSF cytology with each LP -given she has bulky disease and is very symptomatic will also obtain a rad onc consult -once patient's CSF sx stablilze pt will need an out patient PET CT to evaluate the extent of her systemic spread and then will need to star a new chemotherapy. May need to consider TDM-1 -will hold neratinib for now -continue high dose Decadron for now Thank you for the opportunity to participate in this patients care A total of 40 minutes of face to face time was spent speaking with the patient, of which greater than 50% was spent in counseling and coordination of care and the detailed question and answer session. Result Diagram: 02/12/18 0616 02/12/18 0616 Results 24hrs Laboratory Tests Test 02/11/18 18:19 02/11/18 19:54 02/11/18 19:59 02/11/18 20:19 Bedside Glucose 287 H 290 H Creatine Kinase 66 Creatine Kinase 0.9 Index Creatinine Kinase 0.60 MB (Mass) Troponin I < 0.012 Blood Gas Specimen Blood arterial Source Arterial Blood 02/11/2018 8:30:45 Date Drawn PM Arterial Blood pH 7.473 H (Temp corrected) Arterial Blood 31.6 L pCO2 (Temp correct) Arterial Blood pO2 470.2 H (Temp corrected) Arterial Blood 22.6 HCO3 Arterial Blood -0.2 Base Excess Arterial Blood 99.4 H Oxygen Saturation Aristides Test ACCEPTAB Arterial Blood Gas Right Radial Puncture Site Arterial 0.3 Blood Carboxyhemog lobin Arterial Blood 0.4 Methemoglobin Blood Gas A-a O2 211.2 H Differential Oxyhemoglobin 98.7 Percent Blood Gas 37.0 Temperature Blood Gas Modality MASK - NRB FiO2 100.0 Blood Gas Notified Alicia Whom Blood Gas Notified 02/11/2018 8:41:45 Time PM Test 02/12/18 01:01 02/12/18 01:26 02/12/18 05:13 02/12/18 06:16 Troponin I < 0.012 Bedside Glucose 264 H Lab Scanned BLOOD TRANSFUSION Report White Blood Count 7.3 Red Blood Count 3.61 L Hemoglobin 11.8 L Hematocrit 34.1 L Mean Corpuscular 94.5 Volume Mean Corpuscular 32.7 Hemoglobin Mean Corpuscular 34.6 Hemoglobin Concent Red Cell 14.2 Distribution Width Platelet Count 93 #L Mean Platelet 10.8 H Volume Immature 5.800 H Granulocytes % Segmented 66 Neutrophils % (Manual) Band Neutrophils % 7 H (Manual) Lymphocytes % 19 (Manual) Reactive 1 H Lymphocytes % (Manual) Monocytes % 5 (Manual) Metamyelocytes % 1 H (manual) Myelocytes % 1 H (Manual) Nucleated Red 2 H Blood Cells % Immature 0.420 H Granulocytes # Neutrophils # 4.9 (Manual) Band Neutrophils # 0.5 Lymphocytes 1.3 (Manual) Reactive 0.0 Lymphocytes # Monocytes # 0.3 (Manual) Metamyelocytes # 0.0 Myelocytes # 0.0 Platelet Estimate DECREASED Giant Platelets 1 H Sodium Level 137 Potassium Level 4.4 Chloride Level 97 Carbon Dioxide 26 Level Anion Gap 14 H Blood Urea 20 Nitrogen Creatinine 0.54 Est Glomerular > 60 Filtrat Rate mL/min Glucose Level 251 H Calcium Level 9.9 Test 1/8/19 07:51 02/12/18 12:15 Bedside Glucose 227 H 308 H Consultation Date/Type/Reason Admit Date/Time Feb 09, 2018 at 19:44 Initial Consult Date 02/11/18 Type of Consult oncology Reason for Consultation breast cancer/ leptomeningeal disease Requesting Provider: DUGLAS CARPIO 24 HR Interval Summary Free Text/Dictation pt remains dizzy and with headaches Exam/Review of Systems Vital Signs Vitals Vital Signs Date Temp Pulse Resp B/P (MAP) Pulse Ox O2 O2 Flow FiO2 Time Delivery Rate 02/12/18 94 12:00 02/12/18 21 144/80 97 11:00 (101) 02/12/18 98.0 4.0 08:00 02/11/18 Room Air 06:00 Intake and Output 02/11/18 02/11/18 02/12/18 1515:00 23:00 07:00 IntakeIntake Total 1360 ml 0 ml 715 ml OutputOutput Total 1425 ml 0 ml 1000 ml BalanceBalance -65 ml 0 ml -285 ml Exam Constitutional: distress, frail Head: normocephalic Eyes: nl conjunctiva ENMT: nl external ears & nose Neck: supple Respiratory: clear to auscultation Cardiovascular: regular rate and rhythm Gastrointestinal: soft, nl liver, spleen Musculoskeletal: nl extremities to inspection Medications Medications Current Medications Ondansetron HCl (Zofran Inj) 4 mg Q6H PRN IV NAUSEA AND/OR VOMITING; Start 02/09/18 at 20:00 Albuterol/ Ipratropium (Duoneb) 3 ml Q2H RESP THERAPY PRN NEB SHORTNESS OF BREATH; Start 02/09/18 at 20:00 Acetaminophen (Tylenol Liquid) 650 mg Q6H PRN PO PAIN LEVEL 1-3 OR FEVER Last administered on 02/12/18at 08:22; Admin Dose 650 MG; Start 02/09/18 at 20:00 Acetaminophen/ Hydrocodone Bitart ([place] (5/325)) 1 tab Q6H PRN PO PAIN LEVEL 4-6 Last administered on 02/12/18at 13:26; Admin Dose 1 TAB; Start 02/09/18 at 20:00 Labetalol HCl (Labetalol) 10 mg Q2H PRN IV SBP > 150 Last administered on 02/11/18at 19:28; Admin Dose 10 MG; Start 02/09/18 at 20:00 Dexamethasone (Decadron) 10 mg Q6H IV Last administered on 02/12/18at 13:19; Admin Dose 10 MG; Start 02/10/18 at 12:30 Trimethoprim/ Sulfamethoxazole (Bactrim (Ds)) 1 tab MONWEDFRI PO Last administered on 02/11/18at 12:37; Admin Dose 1 TAB; Start 02/11/18 at 09:00 Insulin Aspart (Novolog Insulin Pen) NOVOLOG *MILD* ALGORITHM WITH MEALS BE DTIME SC Last administered on 02/12/18at 12:00; Admin Dose 5 UNIT; Start 02/10/18 at 21:00 Hydralazine HCl (Apresoline) 10 mg Q6H PRN IV ELEVATED BLOOD PRESSURE Last administered on 02/10/18at 18:33; Admin Dose 10 MG; Start 02/10/18 at 18:30 Miscellaneous Information 1 ea NOTE XX ; Start 02/10/18 at 19:00 Glucose (Glutose) 15 gm Q15M PRN PO DECREASED GLUCOSE; Start 02/10/18 at 19:00 Glucose (Glutose) 22.5 gm Q15M PRN PO DECREASED GLUCOSE; Start 02/10/18 at 19:00 Dextrose (D50w Syringe) 25 ml Q15M PRN IV DECREASED GLUCOSE; Start 02/10/18 at 19:00 Dextrose (D50w Syringe) 50 ml Q15M PRN IV DECREASED GLUCOSE; Start 02/10/18 at 19:00 Glucagon (Glucagen) 1 mg Q15M PRN IM DECREASED GLUCOSE; Start 02/10/18 at 19:00 Glucose (Glutose) 15 gm Q15M PRN BUCCAL DECREASED GLUCOSE; Start 02/10/18 at 19:00 Levetiracetam (Keppra) 500 mg BID PO Last administered on 02/12/18at 08:22; Admin Dose 500 MG; Start 02/11/18 at 09:30 Insulin Glargine (Lantus) 14 units DAILY@2000 SC Last administered on 02/11/18at 20:29; Admin Dose 14 UNITS; Start 02/11/18 at 20:00 Vancomycin HCl (Vanco Iv Per Pharmacy) VANCOMYCIN PER PHARMACY PER PROTOCOL XX ; Start 02/12/18 at 00:30 Piperacillin Sod/ Tazobactam Sod 100 ml @ 200 mls/hr Q6 IVPB Last administered on 02/12/18at 13:20; Admin Dose 200 MLS/HR; Start 02/12/18 at 00:30 Insulin Aspart (Novolog Insulin Pen) 5 unit WITH MEALS SC Last administered on 02/12/18at 12:19; Admin Dose 5 UNIT; Start 02/12/18 at 11:30 Vancomycin HCl 1.25 gm/Sodium Chloride 250 ml @ 83.333 mls/ hr Q12H IVPB ; Start 02/12/18 at 16:00 Methotrexate 12 mg/Hydrocortisone 20 mg/Sodium Chloride 5 ml @ 0 mls/hr ONCE IT ; Start 02/12/18 at 14:30; Stop 02/12/18 at 16:30 LIGIA GAMEZ M.D. Feb 12, 2018 14:00
[2018-02-12] MEDS ORDERED: LIDOCAINE 1% (MPF) 5 ML VIAL ONE (14:10)
[2018-02-12] MEDS ORDERED: METHOTREXATE IT SCH (14:30)
[2018-02-12] MEDS ORDERED: SOD CHLORIDE 0.9% IT SCH (14:30)
[2018-02-12] MEDS ORDERED: HYDROCORTISONE IT SCH (14:30)
--- NOTE | 2018-02-12 14:38 | NUR ---
RX NOTE RE: VANCOMYCIN DAY #1 OF VANCO PER RX BUN/SCR: 16/0.49 WBC: 8.4 TMAX:98 ALLERGIES: NKDA OTHER ABX: ZOSYN LOAD VANCOMYCIN 2GM X1, C/W VANCOMYCIN 1.5GM IV Q12H. PHARMACY TO FOLLOW.
--- NOTE | 2018-02-12 15:39 | PN ---
Date/Time of Note Date/Time of Note DATE: 02/12/18 TIME: 15:36 Assessment/Plan VTE Prophylaxis Risk score (from Ns)>0 risk: 4 SCD applied (from [facility] [place]): Yes Pharmacological prophylaxis: NA/contraindicated Pharm contraindication: other (brain mets) Lines/Catheters Urinary Cath still in place: No Assessment/Plan Assessment/Plan 47-year-old woman with a history of left breast carcinoma status post mastectomy and chemo presents with headache and generalized weakness with a CT finding of s ubdural fluid collection with 0.4 mm midline shift, as well as possible right parietal mass concerning for brain metastasis. 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 Again there is 0.4 mm midline shift. Appreciate neurosurgery recommendations. Currently no surgery needed. -Continue care in the ICU, neurochecks, per discussion with hematology oncology team will continue Decadron 10 mg IV every 6 hours and start Bactrim Sunday. -PT, OT #Breast carcinoma: Status post chemotherapy mastectomy in the past. - Dr. Shaw following. Plan for radiation oncology and intrathecal chemo. #Hypertensive urgency: Blood pressure improved -Monitor, labetalol as needed systolic greater than 150 #Thrombocytopenia: Again status post platelet transfusion, platelets above 100,000 now -Monitor, follow-up hematology oncology recommendation Result Diagram: 02/12/18 0616 02/12/18 0616 Subjective 24 Hr Interval Summary Free Text/Dictation Main complaint today is "dizziness" which seems to be a combination of lightheadedness and intermittent episodes of blurry vision, no vertigo. She was able to ambulate with PT today. This afternoon to IR to get intrathecal chemo. Abdominal cramping has resolved. Exam/Review of Systems Vital Signs Vitals Vital Signs Date Temp Pulse Resp B/P (MAP) Pulse Ox O2 O2 Flow FiO2 Time Delivery Rate 02/12/18 94 12:00 02/12/18 21 144/80 97 11:00 (101) 02/12/18 98.0 4.0 08:00 02/11/18 Room Air 06:00 Intake and Output 02/11/18 02/11/18 02/12/18 1515:00 23:00 07:00 IntakeIntake Total 1360 ml 0 ml 715 ml OutputOutput Total 1425 ml 0 ml 1000 ml BalanceBalance -65 ml 0 ml -285 ml Exam Gen: Fatigued appearing woman in no acute distress. HEENT: Clear oropharynx, moist mucous membranes Chest: L mastectomy Card: Regular rate and rhythm, no murmurs Pulm: Clear to auscultation bilaterally Abd: Soft, nontender, nondistended. Ext: No cyanosis/clubbing/edema Medications Medications Current Medications Ondansetron HCl (Zofran Inj) 4 mg Q6H PRN IV NAUSEA AND/OR VOMITING; Start 02/09/18 at 20:00 Albuterol/ Ipratropium (Duoneb) 3 ml Q2H RESP THERAPY PRN NEB SHORTNESS OF BREATH; Start 02/09/18 at 20:00 Acetaminophen (Tylenol Liquid) 650 mg Q6H PRN PO PAIN LEVEL 1-3 OR FEVER Last administered on 02/12/18 08:22; Admin Dose 650 MG; Start 02/09/18 at 20:00 Acetaminophen/ Hydrocodone Bitart ([place] (5/325)) 1 tab Q6H PRN PO PAIN LEVEL 4-6 Last administered on 02/12/18 13:26; Admin Dose 1 TAB; Start 02/09/18 at 20:00 Labetalol HCl (Labetalol) 10 mg Q2H PRN IV SBP > 150 Last administered on 02/11/18 19:28; Admin Dose 10 MG; Start 02/09/18 at 20:00 Dexamethasone (Decadron) 10 mg Q6H IV Last administered on 02/12/18 13:19; Ad min Dose 10 MG; Start 02/10/18 at 12:30 Trimethoprim/ Sulfamethoxazole (Bactrim (Ds)) 1 tab MONWEDFRI PO Last administered on 02/11/18 12:37; Admin Dose 1 TAB; Start 02/11/18 at 09:00 Insulin Aspart (Novolog Insulin Pen) NOVOLOG *MILD* ALGORITHM WITH MEALS BEDTIME SC Last administered on 02/12/18 12:00; Admin Dose 5 UNIT; Start 02/10/18 at 21:00 Hydralazine HCl (Apresoline) 10 mg Q6H PRN IV ELEVATED BLOOD PRESSURE Last administered on 02/10/18 18:33; Admin Dose 10 MG; Start 02/10/18 at 18:30 Miscellaneous Information 1 ea NOTE XX ; Start 02/10/18 at 19:00 Glucose (Glutose) 15 gm Q15M PRN PO DECREASED GLUCOSE; Start 02/10/18 at 19:00 Glucose (Glutose) 22.5 gm Q15M PRN PO DECREASED GLUCOSE; Start 02/10/18 at 19:00 Dextrose (D50w Syringe) 25 ml Q15M PRN IV DECREASED GLUCOSE; Start 02/10/18 at 19:00 Dextrose (D50w Syringe) 50 ml Q15M PRN IV DECREASED GLUCOSE; Start 02/10/18 at 19:00 Glucagon (Glucagen) 1 mg Q15M PRN IM DECREASED GLUCOSE; Start 02/10/18 at 19:00 Glucose (Glutose) 15 gm Q15M PRN BUCCAL DECREASED GLUCOSE; Start 02/10/18 at 19:00 Levetiracetam (Keppra) 500 mg BID PO Last administered on 02/12/18at 08:22; Admin Dose 500 MG; Start 02/11/18 at 09:30 Insulin Glargine (Lantus) 14 units DAILY@2000 SC Last administered on 02/11/18at 20:29; Admin Dose 14 UNITS; Start 02/11/18 at 20:00 Vancomycin HCl (Vanco Iv Per Pharmacy) VANCOMYCIN PER PHARMACY PER PROTOCOL XX ; Start 02/12/18 at 00:30 Piperacillin Sod/ Tazobactam Sod 100 ml @ 200 mls/hr Q6 IVPB Last administered on 02/12/18at 13:20; Admin Dose 200 MLS/HR; Start 02/12/18 at 00:30 Insulin Aspart (Novolog Insulin Pen) 5 unit WITH MEALS SC Last administered on 02/12/18at 12:19; Admin Dose 5 UNIT; Start 02/12/18 at 11:30 Methotrexate 12 mg/Hydrocortisone 20 mg/Sodium Chloride 5 ml @ 0 mls/hr ONCE IT ; Start 02/12/18 at 14:30; Stop 02/12/18 at 16:30 Vancomycin HCl 1.5 gm/Sodium Chloride 250 ml @ 83.333 mls/ hr Q24H IVPB ; Start 02/12/18 at 16:00 JOAN CHRISTENSEN MD Feb 12, 2018 15:39
[2018-02-12] MEDS ORDERED: VANCOMYCIN 1.25 GM in SOD CHLORIDE 0.9% 250 ML IVPB SCH (16:00)
[2018-02-12] MEDS ORDERED: VANCOMYCIN 1.5 GM in SOD CHLORIDE 0.9% 250 ML IVPB SCH (16:00)
[2018-02-12] MEDS ORDERED: HYDROmorphONE 2 MG TAB PO ONE (16:30)
--- NOTE | 2018-02-12 18:54 | NUR ---
report given to Emily on 2NE unit, pt going to room 2285A, pt stable, denies pain and family is at bedside entertaining pt, they are all aware of pt being transferred, safety measures in place.
[2018-02-12] MEDS: INSULIN GLARGINE [LANTus] (100 UNITS/ML) SYG SC SCH (20:37)
[2018-02-12] MEDS ORDERED: INSULIN ASPART [NOVOLOG] 3 ML PEN SC ONE (21:00)
[2018-02-13 03:17] VITALS: BP 129/75; PULSE 82; RESP 18
[2018-02-13] MEDS: HYDROCODONE/APAP (5/325) TAB PO PRN ×4 (03:38→21:32)
--- NOTE | 2018-02-13 03:45 | NUR ---
@ 2000 received patient from ICU per bed, alert and oriented x3-4.on O2 at 2 via NC no respiratory distress noted.with right chest portacath patent and intact,good blood return- IVF of NS infusing well to KVO rate.call light within reach instructed to call for assistance,verbalized understanding. skin assessment done- skin intact,bruises noted all over body. patient and family refused to have pictures taken on sacrococcyx area and bilateral heels.Ranjana charge nurse made aware.complained of headache medicated with [place] for pain.family at bedside.encouraged to turn to sides.slept at intervals.needs attended.bed alarm on.bed in lowest position.no significant changes overnight.monitored through the night.
[2018-02-13] MEDS: VANCOMYCIN 1.5 GM in SOD CHLORIDE 0.9% 250 ML IVPB SCH ×2 (04:16→16:53)
[2018-02-13] MEDS: DEXAMETHASONE 10 MG/ML 1 ML INJ IV SCH ×3 (05:45→17:34)
--- NOTE | 2018-02-13 05:48 | NUR ---
RECEIVED CALL FROM LAB, SPOKE TO DIAMOND, BLOOD CULTURE RESULTS WERE RELAYED. NOTIFIED DR. WILCOX, NO FURTHER ORDERS.
[2018-02-13] MEDS: PIPER-TAZO 3.375 GM IV (PMX) 100 ML IVPB SCH ×3 (07:26→21:13)
[2018-02-13] MEDS: LEVETIRACETAM 500 MG TAB PO SCH ×2 (08:14→21:21)
[2018-02-13] MEDS: TRIMETHOPRIM/SULFAMETHOX (DS) TAB PO SCH (08:14)
[2018-02-13] MEDS: INSULIN ASPART [NOVOLOG] 3 ML PEN SC SCH ×7 (08:19→21:26)
[2018-02-13 08:21] VITALS: BP 151/73; PULSE 79; RESP 18
--- NOTE | 2018-02-13 11:45 | NUR ---
PT NOTE Therapy day number 2 Subjective Current complaint of pain Pain Scale FACES Pain Intensity 8 (0-10) Patient Stated Goal for Pain Relief 0 (0-10) Pain Level Comment headache, BLE feet, premedicated for pain Pre Treatment Vital Signs Stable Yes - BP 133/68mmHg, HR 83 bpm, SpO2 96% on 2.5L O2 via NC Exercise Assessment Label Bilat Lower Extremity Exercise Type Active Assist ROM Additional Exercise Comments semifowl HS, AP, hip ab/ad; BUE PROM GHJ flex/abd, elbow flex/ext Exercise Start Time 11:45 Exercise End Time 12:10 Total Exercise Time 25 min (8-127) Transfer Training Start Time 12:10 Supine to Sit Minimum Assist Transfer Sit to Stand Ability Contact Guard Assist Bed Mobility Sit to Supine Minimum Assist Bed Transfer Ability Contact Guard Assist Chair Transfer Ability Contact Guard Assist Toileting Ability Stand by Assist Sitting Tolerance 15 min Additional Mobility Comments with FWW, pt impulsive, unsteady Transfer Training End Time 12:25 Total Transfer Training Time 15 min (8-127) Gait Training Start Time 12:25 Gait Assist Levels Minimum Assist Assistive Devices Front Wheel Walker Ambulation Distance 15 feet Additional Gait Comments 15'x2, to/from toilet, requires assist steering/advanc AD, poor safety awar Gait Training End Time 12:40 Total Gait Training Treatment Time 15 min (8-127) Weight Bearing Assessment Label Bilat Lower Extremity Weight Bearing Status Full Weight Bearing Additional Stairs Assist Comments TBA Static Sitting Balance Good Dynamic Sitting Balance Good Standing Static Balance Fair plus Dynamic Standing Balance Fair minus Additional Balance Assessments Comments with FWW Safety Judgement Poor Activity Tolerance Fair Equipment Present A pump IV pump Additional Equipment Present FALL RISK Post Treatment Pain Intensity 8 0-10 Quality Indicators Dizziness Variance Documentation scratching flank/buttocks due to "itchy" RN aware Additional Post Treatment Comment See Below Total Treament Time 55 min (8-127) Total Minutes 55 Total Units 4 PT Technical Record Comment PT NOTE S: Pt reports pain and dizziness pre-tx, agreeable to PT. Premed for pain and cleared for PT per ASA Garcia. O: Pt received semifowler in bed, sleeping but easily roused, lethargic but appropriate. Performed thera ex, transfer training and gait tr per tech record above. Pt requires assist transferring to toilet and managing FWW during transfers and gait. Pt moaning throughout tx, eyes closed, only open intermittently. BTB and positioned for comfort post-tx with call light and needs in reach, bed alarm armed, pt in no apparent acute distress, family present in room. RN updated re pt status A: Pt jesús tx fairly, Continues to be limited by headache pain/dizziness P: Cont POC
[2018-02-13] MEDS: ACETAMINOPHEN 650MG/20.3ML CUP PO PRN (11:48)
--- NOTE | 2018-02-13 11:56 | RADRPT ---
Vent Rate: 90 bpm RR Interval: 0 msec HI Interval: 118 msec QRS Duration: 90 msec QT Interval: 342 msec QTC Interval: 418 msec P-R-T [place]: 49 - 12 - 47 degrees Normal sinus rhythm Minimal voltage criteria for LVH, may be normal variant Borderline ECG Electronically Signed By: Dayday Amaral [id number]
[2018-02-13] MEDS ORDERED: SENNA TAB PO PRN (14:00)
--- NOTE | 2018-02-13 14:14 | PN ---
Date/Time of Note Date/Time of Note DATE: 02/13/18 TIME: 14:07 Assessment/Plan VTE Prophylaxis Risk score (from Ns)>0 risk: 7 SCD applied (from [facility]): Yes Pharmacological prophylaxis: NA/contraindicated Pharm contraindication: other (brain mets risk of bleed) Lines/Catheters IV Catheter Type (from [facility]): Port-A-Cath Urinary Cath still in place: No Assessment/Plan Assessment/Plan 47-year-old woman with a history of left breast carcinoma status post mastectomy and chemo presents with headache and generalized weakness with a CT finding of subdural fluid collection with 0.4 mm midline shift, as well as possible right parietal mass concerning for brain metastasis. 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 Again there is 0.4 mm midline shift. Appreciate neurosurgery recommendations. Currently no surgery needed. - Continue intrathecal chemotherapy for now. -PT, OT #Breast carcinoma: Status post chemotherapy mastectomy in the past. - Dr. Shaw following. Plan for radiation oncology and intrathecal chemo. #Hypertensive urgency: Blood pressure improved -Monitor, labetalol as needed systolic greater than 150 #Thrombocytopenia: Again status post platelet transfusion. Platelets no longer declining. -Monitor, follow-up hematology oncology recommendation Dispo: Continue inpatient hospitalization while waiting for platelet count to improve and also functional status to improve. Currently patient too dizzy to ambulate; if not improving over next few days may need temporary SNF placement. Result Diagram: 02/13/18 0825 02/13/18 0825 Results 24hrs Laboratory Tests Test 02/12/18 16:43 02/12/18 20:31 02/13/18 02:06 02/13/18 08:13 Bedside Glucose 250 H 308 H 239 H 243 H Test 02/13/18 08:25 02/13/18 13:23 White Blood Count 6.3 Red Blood Count 3.73 L Hemoglobin 12.1 Hematocrit 34.6 L Mean Corpuscular Volume 92.8 Mean Corpuscular 32.4 Hemoglobin Mean Corpuscular 35.0 Hemoglobin Concent Red Cell Distribution 14.0 Width Platelet Count 94 L Mean Platelet Volume 10.7 H Immature Granulocytes % 5.300 H Neutrophils % Segmented Neutrophils 50 % (Manual) Band Neutrophils % 14 H (Manual) Lymphocytes % Lymphocytes % (Manual) 28 Reactive Lymphocytes 1 H % (Manual) Monocytes % Monocytes % (Manual) 6 Eosinophils % Basophils % Myelocytes % (Manual) 1 H Nucleated Red Blood 2 H Cells % Immature Granulocytes # 0.330 H Neutrophils # Neutrophils # (Manual) 3.2 Band Neutrophils # 0.8 H Lymphocytes (Manual) 1.7 Lymphocytes # Reactive Lymphocytes # 0.0 Monocytes # Monocytes # (Manual) 0.3 Eosinophils # Basophils # Myelocytes # 0.0 Nucleated Red Blood Cells # Platelet Estimate DECREASED Polychromasia 1+ Anisocytosis 1+ Microcytosis 1+ Sodium Level 135 Potassium Level 4.6 Chloride Level 98 Carbon Dioxide Level 25 Anion Gap 12 Blood Urea Nitrogen 20 Creatinine 0.52 Est Glomerular Filtrat > 60 Rate mL/min Glucose Level 238 H Calcium Level 9.9 Phosphorus Level 4.6 Magnesium Level 2.4 Total Bilirubin 1.3 Direct Bilirubin 0.50 H Indirect Bilirubin 0.8 Aspartate Amino 225 H Transf (AST/SGOT) Alanine 283 H Aminotransferase (ALT/SG PT) Alkaline Phosphatase 523 H Total Protein 7.2 Albumin 4.1 Globulin 3.10 Albumin/Globulin Ratio 1.32 Bedside Glucose 231 H Subjective 24 Hr Interval Summary Free Text/Dictation No acute overnight events. Got IT chemo yesterday. Patient appears distressed. Reports abdominal cramping and headache are not as bad. Dizziness is also somewhat better today. Still very fatigued; having trouble walking. Exam/Review of Systems Vital Signs Vitals Vital Signs Date Temp Pulse Resp B/P (MAP) Pulse Ox O2 O2 Flow FiO2 Time Delivery Rate 02/13/18 98.3 79 18 151/73 91 08:21 (99) 02/12/18 4.0 08:00 02/11/18 Room Air 06:00 Intake and Output 02/12/18 02/12/18 02/13/18 1515:00 23:00 07:00 IntakeIntake Total 600 ml 240 ml 100 ml OutputOutput Total 500 ml 500 ml BalanceBalance 100 ml -260 ml 100 ml Exam Gen: Fatigued appearing woman in no acute distress. HEENT: Clear oropharynx, moist mucous membranes Chest: L mastectomy Card: Regular rate and rhythm, no murmurs Pulm: Clear to auscultation bilaterally Abd: Soft, nontender, nondistended. Ext: No cyanosis/clubbing/edema Medications Medications Current Medications Ondansetron HCl (Zofran Inj) 4 mg Q6H PRN IV NAUSEA AND/OR VOMITING; Start 02/09 at 20:00 Albuterol/ Ipratropium (Duoneb) 3 ml Q2H RESP THERAPY PRN NEB SHORTNESS OF BREATH; Start 02/09/18 at 20:00 Acetaminophen (Tylenol Liquid) 650 mg Q6H PRN PO PAIN LEVEL 1-3 OR FEVER Last a dministered on 02/13/18 11:48; Admin Dose 650 MG; Start 02/09/18 at 20:00 Acetaminophen/ Hydrocodone Bitart ([place] (5/325)) 1 tab Q6H PRN PO PAIN LEVEL 4-6 Last administered on 02/13/18 09:30; Admin Dose 1 TAB; Start 02/09/18 at 20:00 Labetalol HCl (Labetalol) 10 mg Q2H PRN IV SBP > 150 Last administered on 02/11/18 19:28; Admin Dose 10 MG; Start 02/09/18 at 20:00 Dexamethasone (Decadron) 10 mg Q6H IV Last administered on 02/13/18 11:48; Admin Dose 10 MG; Start 02/10/18 at 12:30 Trimethoprim/ Sulfamethoxazole (Bactrim (Ds)) 1 tab MONWEDFRI PO Last administered on 02/13/18 08:14; Admin Dose 1 TAB; Start 02/11/18 at 09:00 Insulin Aspart (Novolog Insulin Pen) NOVOLOG *MILD* ALGORITHM WITH MEALS BEDTIME SC Last administered on 02/13/18 13:30; Admin Dose 3 UNIT; Start 02/10/18 at 21:00 Hydralazine HCl (Apresoline) 10 mg Q6H PRN IV ELEVATED BLOOD PRESSURE Last administered on 02/10/18 18:33; Admin Dose 10 MG; Start 02/10/18 at 18:30 Miscellaneous Information 1 ea NOTE XX ; Start 02/10/18 at 19:00 Glucose (Glutose) 15 gm Q15M PRN PO DECREASED GLUCOSE; Start 02/10/18 at 19:00 Glucose (Glutose) 22.5 gm Q15M PRN PO DECREASED GLUCOSE; Start 02/10/18 at 19:00 Dextrose (D50w Syringe) 25 ml Q15M PRN IV DECREASED GLUCOSE; Start 02/10/18 at 19:00 Dextrose (D50w Syringe) 50 ml Q15M PRN IV DECREASED GLUCOSE; Start 02/10/18 at 19:00 Glucagon (Glucagen) 1 mg Q15M PRN IM DECREASED GLUCOSE; Start 02/10/18 at 19:00 Glucose (Glutose) 15 gm Q15M PRN BUCCAL DECREASED GLUCOSE; Start 02/10/18 at 19:00 Levetiracetam (Keppra) 500 mg BID PO Last administered on 02/13/18at 08:14; Admin Dose 500 MG; Start 02/11/18 at 09:30 Vancomycin HCl (Vanco Iv Per Pharmacy) VANCOMYCIN PER PHARMACY PER PROTOCOL XX ; Start 02/12/18 at 00:30 Piperacillin Sod/ Tazobactam Sod 100 ml @ 200 mls/hr Q6 IVPB Last administered on 02/13/18at 11:48; Admin Dose 200 MLS/HR; Start 02/12/18 at 00:30 Vancomycin HCl 1.5 gm/Sodium Chloride 250 ml @ 83.333 mls/ hr Q12H IVPB Last administered on 02/13/18at 04:16; Admin Dose 83.333 MLS/HR; Start 02/13/18 at 04:00 Miscellaneous Information (*Rx Drug Level Order Reminder*) VANCO TROUGH 02/13 @ 1,500 ONCE ONCE XX ; Start 02/13/18 at 15:00; Stop 02/13/18 at 15:01 Insulin Aspart (Novolog Insulin Pen) 8 unit WITH MEALS SC Last administered on 02/13/18at 13:30; Admin Dose 8 UNIT; Start 02/13/18 at 12:00 Insulin Glargine (Lantus) 20 units DAILY@2000 SC ; Start 02/13/18 at 20:00 Senna (Senokot) 1 tab BID PRN PO CONSTIPATION; Start 02/13/18 at 14:00 JOAN CHRISTENSEN MD Feb 13, 2018 14:14
--- NOTE | 2018-02-13 14:15 | PN ---
Date/Time of Note Date/Time of Note DATE: 02/13/18 TIME: 14:10 Outpatient Progress Note Chief Complaint weakness and fatigue No distress Headaches Visual changes no chest pain no abd pain Review of Systems Const: No Fever, no chills, no Wt. loss, no Fatigue, normal appetite, no diaphoresis. Eyes: No pain, no discharge, no redness, no visual change, no foreign body. ENT: No pain, no bleeding, no congestion, no sore throat, no dysphagia, no discharge or rhinitis. Lymph: No adenopathy, no tender nodes, no lymphedema. Resp: No SOB, no cough, no sputum, no wheezing, no chest pain. CV: No chest pain, no palpitaions, no TURNER, no PND, no edema. GI: Normal appetite, no pain, no nausea, no vomiting, no diarrhea, no blood, no constipation. : No frequency, no urgency, no dysuria, no hematuria, no flank pain, no discharge, no bleeding. Musc: No bone/joint pain, no back pain, no neck pain, no knee pain, no restricted ROM. Skin: No rash, no skin lesions, no erythema, no laceration, no bruising, no p ruritus. Neuro: No CAR, no dizziness, no syncope, no seizure, no focal-weakness. Endo: No polyuria, no polydypsia, no dry-skin, no temp-intolerance. Psych: No hallucinations, no depression, no anxiety, no suicidal ideation. Ext: No edema, no pain, no ulcer, no weakness. 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
[2018-02-13 15:18] VITALS: BP 130/60; PULSE 93; RESP 19
--- NOTE | 2018-02-13 15:25 | NUR ---
OT NOTE S: RN cleared pt for skilled OT tx. Pt reported 0/10 pain however stated dizziness and nausea. O: Pt received supine in bed with aunt and uncle at bedside and agreeable to tx. Pt required min A to perform supine->sit at EOB. Pt demonstrated Fair sitting balance while combing hair. Pt required total A to franko socks. Pt performed STS, functional mob and toilet transfer with Min A using FWW. Pt stood at bathroom sink with Min A while completing h/g with supervision. Pt returned to bed with Min A. Pt left supine in bed with all needs met. RN notified. A: Pt demonstrates poor balance and safety awareness- pt requires Min A with transfers and mobility using FWW. P: COnt POC.
--- NOTE | 2018-02-13 17:26 | NUR ---
VANCO PER PROTOCOL: DAY # 2 S/O: AFEB SCR/BUN = 0.52/20 WBC = 6.3 VANCO TR = 11.3 A/P: PT CLEARING VANCO ADEQUATELY, CONTINUE VANCO 1.5GM Q 12HR FOR NOW. WILL CONTINUE TO FOLLOW.
[2018-02-13] MEDS ORDERED: LIDOCAINE 1% (MPF) 30 ML INJ INJ ONE (18:00)
--- NOTE | 2018-02-13 18:55 | NUR ---
End of Shift Summary: Patient is alert & orientated, VSS, no signs of acute distress. Patient c/o head pain, pain med provided prn. Patient admitted for Metastasized to brain CA. Patient has Accu checks AC/HS, insulin per order. Patient has Right chest Port-A-Cath, dressing changed today. Plan is for patient to receive chemotherapy treatments every other day inpatient. Patient placed on chemo precautions. Patient instructed to call for assistance, call light within reach, rounded on hourly, will continue to monitor patient status.
[2018-02-13 19:11] VITALS: BP 170/82; PULSE 105; RESP 18
[2018-02-13] MEDS: hydrALAzine 20 MG INJ IV PRN (21:22)
[2018-02-13] MEDS: INSULIN GLARGINE [LANTus] (100 UNITS/ML) SYG SC SCH (21:26)
[2018-02-13 22:00] VITALS: BP 137/65; PULSE 92; RESP 20
[2018-02-13] MEDS ORDERED: NITROGLYCERIN (SL) 0.4 MG TAB SL ONE (23:00)
--- NOTE | 2018-02-13 23:30 | NUR ---
PT C/O NON RADIATING CHEST PAIN. INFORMED DR. WILCOX. NEW ORDERS FROM MD FOR STAT TROPONIN, RE-CHECK IN 6 HOURS, CXR, AND NITROGLYCERIN SL X1 NOTED AND CARRIED OUT. DISCUSSED POC WITH SON (SRIRAM). WILL CONTINUE TO MONITOR.
--- NOTE | 2018-02-14 00:15 | NUR ---
PT ASLEEP RESTING COMFORTABLY IN BED. NO C/O CHEST PAIN AT THIS TIME. TROPONIN WITHIN NORMAL RANGE. WILL CONTINUE TO MONITOR.
[2018-02-14] MEDS: DEXAMETHASONE 10 MG/ML 1 ML INJ IV SCH ×4 (00:40→18:19)
[2018-02-14 01:47] VITALS: BP 130/70; PULSE 84; RESP 16
[2018-02-14] MEDS: PIPER-TAZO 3.375 GM IV (PMX) 100 ML IVPB SCH ×4 (02:04→20:29)
[2018-02-14] MEDS: VANCOMYCIN 1.5 GM in SOD CHLORIDE 0.9% 250 ML IVPB SCH ×2 (03:27→17:01)
[2018-02-14] MEDS: HYDROCODONE/APAP (5/325) TAB PO PRN (04:52)
--- NOTE | 2018-02-14 06:10 | NUR ---
ASLEEP RESTING COMFORTABLY IN BED. NO ACUTE CHANGES OVERNIGHT. ALL DUE MEDS GIVEN AND TOLERATED WELL. SON (SRIRAM) AT BEDSIDE. PAIN MEDICATION ADMINISTERED NEEDED AND EFFECTIVE. HOURLY ROUNDING DONE. BED ALARM ACTIVATED. PT WILL BE TRANSFERRED TO ROOM 2281A. PT SCHEDULED FOR LUMBAR PUCTURE WITH IT METHOTREXATE ADMINISTERED. ALL NEEDS ATTENDED. CALL LIGHT WITHIN EASY REACH. WILL ENDORSE TO NEXT SHIFT.
[2018-02-14] MEDS: INSULIN ASPART [NOVOLOG] 3 ML PEN SC SCH ×7 (08:00→20:26)
[2018-02-14 08:01] VITALS: BP 136/74; PULSE 84; RESP 18
[2018-02-14] MEDS: LEVETIRACETAM 500 MG TAB PO SCH ×2 (09:26→20:26)
[2018-02-14] MEDS: ACETAMINOPHEN 650MG/20.3ML CUP PO PRN ×2 (09:32→17:10)
--- NOTE | 2018-02-14 11:15 | NUR ---
OT NOTE S:RN cleared pt for skilled OT Tx. Pt reported headache 5/10 pain. O: Pt received supine in bed with family at bedside. Pt agreeable to tx. Pt required Min A to perform supine->sit at EOB. Pt performed toilet transfer with Min A using FWW and verbal cueing for safety and positioning as pt is unsteady and has impaired vision. Pt performed toilet hygiene with supervision. Pt then stood at bathroom sink with Min A while completing h/g tasks with Min A and verbal cueing due to impaired vision. Pt returned to bed with Min A. Pt left supine in bed with all needs met. RN notified. A: Pt continues to require min A for transfers and functional mob due to impaired vision and balance. P: Cont POC.
--- NOTE | 2018-02-14 12:20 | NUR ---
PT NOTE Therapy day number 3 Subjective Current complaint of pain Pain Scale FACES Pain Intensity 5 (0-10) Patient Stated Goal for Pain Relief 0 (0-10) Pain Level Comment headache, premedicated for pain Pre Treatment Vital Signs Stable Yes Exercise Assessment Label Bilat Lower Extremity Exercise Type Active Assist ROM Additional Exercise Comments semifowl HS, AP, sidelying positional traction bilat L/S T/S, bed mob tr Exercise Start Time 12:20 Exercise End Time 12:45 Total Exercise Time 25 min (8-127) Additional Mobility Comments pt declined OOB 2/2 fatigue post-OT tx Post Treatment Pain Intensity 5 0-10 Total Treament Time 25 min (8-127) Total Minutes 25 Total Units 2 PT Technical Record Comment PT NOTE S: Pt reports pain and dizziness pre-tx, agreeable to PT. Premed for pain and cleared for PT per ASA Cee. O: Pt received semifowler in bed, sleeping but easily roused, lethargic and confused, family present in room. Performed thera ex and bed mob tr per tech record above. Pt noted scratching BLE with multiple scratches visible on skin. Pt/family ed for skin integrity, use of skin cream to ease "itchiness" and wound prevention. BTB and positioned for comfort post-tx with call light and needs in reach, bed alarm armed, pt in no apparent acute distress, family present in room. RN updated re pt status A: Pt jesús tx fairly, Continues to be limited by headache pain/dizziness/lethargy P: Cont POC
[2018-02-14] MEDS ORDERED: LIDOCAINE 1% (MPF) 5 ML VIAL ONE (12:51)
[2018-02-14] MEDS ORDERED: HYDROCORTISONE IT SCH (13:15)
[2018-02-14] MEDS ORDERED: SOD CHLORIDE 0.9% IT SCH (13:15)
[2018-02-14] MEDS ORDERED: METHOTREXATE IT SCH (13:15)
--- NOTE | 2018-02-14 13:15 | NUR ---
PT status: PT went down for her lumbar puncture, pt is a/o x4, IV HL to right chest Port cath. Pt's son at bedside accompanied by patient. PT has no c/o pain or discomfort at the moment. blood sugar checked prior to leaving was elevated covered with insulin and had a little bit to eat.
--- NOTE | 2018-02-14 13:53 | PN ---
Date/Time of Note Date/Time of Note DATE: 02/14/18 TIME: 13:44 Assessment/Plan VTE Prophylaxis Risk score (from Ns)>0 risk: 3 SCD applied (from [facility]): No SCD contraindicated: other (no) Pharmacological prophylaxis: NA/contraindicated Pharm contraindication: thrombocytopenia Lines/Catheters IV [facility] Type (from [facility] Port cath Urinary Cath still in place: No Assessment/Plan Assessment/Plan 47-year-old woman with a history of left breast carcinoma status post mastectomy and chemo presents with headache and generalized weakness with a CT finding of subdural fluid collection with 0.4 mm midline shift, as well as possible right parietal mass concerning for brain metastasis. 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 Again there is 0.4 mm mid line shift. Appreciate neurosurgery recommendations. Currently no surgery needed. - Continue intrathecal chemotherapy for now. - Currently symptoms seem to be improving. - PT, OT #Pneumonia - Infiltrates on CXR - On vanco/zosyn (02/12) #Chest pain - She complains of pressure-like chest pain. - Trop negative, EKG without ischemia - This likely represents anxiety. However due to persistent symptoms will pursue echo and stress test. #Breast carcinoma: Status post chemotherapy mastectomy in the past. - Dr. Shaw following. - Currently plan is intrathecal chemo 3x/week then outpatient evaluation for radiation oncology. #Hypertensive urgency: Blood pressure improved #Thrombocytopenia: status post platelet transfusion. - Continue to decline today. Dispo: Continue inpatient hospitalization while waiting for platelet count to improve and also functional status to improve. Currently patient too dizzy to ambulate; likely will need discharge to ARU versus SNF. Result Diagram: 02/14/18 0612 02/14/18 06 Subjective 24 Hr Interval Summary Free Text/Dictation Overnight reported chest pressure. Trop negative, EKG without ST-T changes. She continues to have chest pressure this morning. Otherwise dizziness has resolved; she is tolerating diet, no more abdominal cramping. Exam/Review of Systems Vital Signs Vitals Vital Signs Date Temp Pulse Resp B/P (MAP) Pulse Ox O2 O2 Flow FiO2 Time Delivery Rate 02/14/18 98.5 84 18 136/74 97 Nasal 2.0 08:01 (94) Cannula Intake and Output 1/902/13/18 02/14/18 1515:00 23:00 07:00 IntakeIntake Total 1648 ml 930 ml 350 ml OutputOutput Total 300 ml 700 ml BalanceBalance 1648 ml 630 ml -350 ml Exam Gen: Fatigued appearing woman in no acute distress. HEENT: Clear oropharynx, moist mucous membranes Chest: L mastectomy Card: Regular rate and rhythm, no murmurs Pulm: Clear to auscultation bilaterally Abd: Soft, nontender, nondistended. Ext: No cyanosis/clubbing/edema Medications Medications Current Medications Ondansetron HCl (Zofran Inj) 4 mg Q6H PRN IV NAUSEA AND/OR VOMITING; Start 02/09/18 at 20:00 Albuterol/ Ipratropium (Duoneb) 3 ml Q2H RESP THERAPY PRN NEB SHORTNESS OF BREATH; Start 02/09/18 at 20:00 Acetaminophen (Tylenol Liquid) 650 mg Q6H PRN PO PAIN LEVEL 1-3 OR FEVER Last administered on 02/14/18at 09:32; Admin Dose 650 MG; Start 02/09/18 at 20:00 Acetaminophen/ Hydrocodone Bitart ([place] (5/325)) 1 tab Q6H PRN PO PAIN LEVEL 4-6 Last administered on 02/14/18at 04:52; Admin Dose 1 TAB; Start 02/09/18 at 20:00 Labetalol HCl (Labetalol) 10 mg Q2H PRN IV SBP > 150 Last administered on 02/11/18at 19:28; Admin Dose 10 MG; Start 02/09/18 at 20:00 Dexamethasone (Decadron) 10 mg Q6H IV Last administered on 02/14/18at 12:45; Admin Dose 10 MG; Start 02/10/18 at 12:30 Trimethoprim/ Sulfamethoxazole (Bactrim (Ds)) 1 tab MONWEDFRI PO Last administered on 02/13/18at 08:14; Admin Dose 1 TAB; Start 02/11/18 at 09:00 Insulin Aspart (Novolog Insulin Pen) NOVOLOG *MILD* ALGORITHM WITH MEALS BEDTIME SC Last administered on 02/14/18 12:47; Admin Dose 3 UNIT; Start 02/10/18 at 21:00 Hydralazine HCl (Apresoline) 10 mg Q6H PRN IV ELEVATED BLOOD PRESSURE Last administered on 02/13/18at 21:22; Admin Dose 10 MG; Start 02/10/18 at 18:30 Miscellaneous Information 1 ea NOTE XX ; Start 02/10/18 at 19:00 Glucose (Glutose) 15 gm Q15M PRN PO DECREASED GLUCOSE; Start 02/10/18 at 19:00 Glucose (Glutose) 22.5 gm Q15M PRN PO DECREASED GLUCOSE; Start 02/10/18 at 19:00 Dextrose (D50w Syringe) 25 ml Q15M PRN IV DECREASED GLUCOSE; Start 02/10/18 at 19:00 Dextrose (D50w Syringe) 50 ml Q15M PRN IV DECREASED GLUCOSE; Start 02/10/18 at 19:00 Glucagon (Glucagen) 1 mg Q15M PRN IM DECREASED GLUCOSE; Start 02/10/18 at 19:00 Glucose (Glutose) 15 gm Q15M PRN BUCCAL DECREASED GLUCOSE; Start 02/10/18 at 19:00 Levetiracetam (Keppra) 500 mg BID PO Last administered on 02/14/18at 09:26; Admin Dose 500 MG; Start 02/11/18 at 09:30 Vancomycin HCl (Vanco Iv Per Pharmacy) VANCOMYCIN PER PHARMACY PER PROTOCOL XX ; Start 02/12/18 at 00:30 Piperacillin Sod/ Tazobactam Sod 100 ml @ 200 mls/hr Q6 IVPB Last administered on 02/14/18at 12:45; Admin Dose 200 MLS/HR; Start 02/12/18 at 00:30 Vancomycin HCl 1.5 gm/Sodium Chloride 250 ml @ 83.333 mls/ hr Q12H IVPB Last administered on 02/14/18at 03:27; Admin Dose 83.333 MLS/HR; Start 02/13/18 at 04:00 Insulin Aspart (Novolog Insulin Pen) 8 unit WITH MEALS SC Last administered on 02/14/18at 12:52; Admin Dose 8 UNIT; Start 02/13/18 at 12:00 Insulin Glargine (Lantus) 20 units DAILY@2000 SC Last administered on 02/13/18at 21:26; Admin Dose 20 UNITS; Start 02/13/18 at 20:00 Senna (Senokot) 1 tab BID PRN PO CONSTIPATION; Start 02/13/18 at 14:00 Polyethylene Glycol (Miralax) 17 gm DAILY PO ; Start 02/14/18 at 14:00; Status UNV JOAN CHRISTENSEN MD Feb 14, 2018 13:53
--- NOTE | 2018-02-14 15:20 | NUR ---
PT status: Patient returned from procedure, no c/o pain or discomfort. PT states she feels very tired, and wants to rest. Call light within reach, will check vitals.
[2018-02-14 15:51] VITALS: BP 134/71; PULSE 91; RESP 20
[2018-02-14] MEDS: POLYETHYLENE GLYCOL 17 GM PACKET PO SCH (17:11)
--- NOTE | 2018-02-14 18:42 | NUR ---
EOSS: Patient is a/ox4, able to communicate needs. Pt has been resting in bed, c/o CAR today, Tylenol given and it has relieved her pain. Port Cath remains intact, and patent, IV abx infusing. PT has call light within reach, patient son is at bedside.
[2018-02-14 20:03] VITALS: BP 137/66; PULSE 105; RESP 20
[2018-02-14] MEDS: INSULIN GLARGINE [LANTus] (100 UNITS/ML) SYG SC SCH (20:27)
--- NOTE | 2018-02-14 22:00 | NUR ---
RN Notes: Patient is complaining of left sided chest pain non-radiating to arm, per family/patient that it usually happens hours after she eats a meal. Informed Dr. Mandel and ordered GI cocktail x1, protonix 40mg po daily first dose NOW, and Mylanta 30ml PO Q6H PRN. Will continue to monitor patient.
[2018-02-14] MEDS ORDERED: LIDOCAINE/MYLANTA 40 ML BTL PO ONE (22:30)
[2018-02-14] MEDS: PANTOPRAZOLE (EC) 40 MG TAB PO SCH (23:28)
[2018-02-15] MEDS: PIPER-TAZO 3.375 GM IV (PMX) 100 ML IVPB SCH ×4 (01:09→19:24)
[2018-02-15] MEDS: DEXAMETHASONE 10 MG/ML 1 ML INJ IV SCH ×4 (01:09→18:11)
[2018-02-15 02:29] VITALS: BP 140/75; PULSE 99; RESP 20
[2018-02-15] MEDS: VANCOMYCIN 1.5 GM in SOD CHLORIDE 0.9% 250 ML IVPB SCH ×2 (03:41→16:04)
[2018-02-15] MEDS: ACETAMINOPHEN 650MG/20.3ML CUP PO PRN ×3 (04:44→18:18)
[2018-02-15] MEDS: PANTOPRAZOLE (EC) 40 MG TAB PO SCH (06:21)
[2018-02-15 07:55] VITALS: BP 156/73; PULSE 82; RESP 18
[2018-02-15] MEDS: INSULIN ASPART [NOVOLOG] 3 ML PEN SC SCH ×7 (08:35→20:56)
[2018-02-15] MEDS: HYDROCODONE/APAP (5/325) TAB PO PRN ×2 (08:36→14:54)
[2018-02-15] MEDS: TRIMETHOPRIM/SULFAMETHOX (DS) TAB PO SCH (08:37)
[2018-02-15] MEDS: POLYETHYLENE GLYCOL 17 GM PACKET PO SCH (08:37)
[2018-02-15] MEDS: LEVETIRACETAM 500 MG TAB PO SCH ×2 (08:38→20:51)
--- NOTE | 2018-02-15 13:07 | NUR ---
PT NOTE Therapy day number 4 Subjective Current complaint of pain Pain Scale FACES Pain Intensity 7 (0-10) Patient Stated Goal for Pain Relief 0 (0-10) Pain Level Comment headache, premedicated for pain Pre Treatment Vital Signs Stable Yes - BP 156/73mmHg, sit EOB 131/64mmHg, semifowl post tx 149/70mmHg Exercise Assessment Label Bilat Lower Extremity Exercise Type Active ROM Additional Exercise Comments seated EOB: BLE marching, ankle pumps, LAQ; bed mob training using BR Exercise Start Time 13:07 Exercise End Time 13:30 Total Exercise Time 23 min (8-127) Supine to Sit Stand by Assist Bed Mobility Sit to Supine Stand by Assist Additional Mobility Comments Sorin scooting up with VC/TC for sequencing Additional Gait Comments not approp at this time due to dizziness/fatigue/recent insulin injection Safety Judgement Poor Activity Tolerance Fair Equipment Present A pump IV pump Post Treatment Pain Intensity 7 0-10 Quality Indicators Dizziness Additional Post Treatment Comment See BElow Total Treament Time 23 min (8-127) Total Minutes 23 Total Units 2 PT Technical Record Comment PT NOTE S: Pt reports pain and dizziness pre-tx, little less dizzy than yesterday, agreeable to PT. Premed for pain and cleared for PT per ASA Reed. O: Pt received semifowler in bed, sleeping but easily roused, lethargic and confused, family present in room. Performed thera ex and bed mob tr per tech record above. BTB and positioned for comfort post-tx with call light and needs in reach, bed alarm armed, pt in no apparent acute distress, family present in room. RN updated re pt status A: Pt jesús tx fairly, Continues to be limited by headache pain/dizziness/lethargy P: Cont POC
[2018-02-15 13:27] VITALS: BP 149/70; PULSE 85; RESP 20
--- NOTE | 2018-02-15 13:51 | PN ---
Date/Time of Note Date/Time of Note DATE: 02/15/18 TIME: 13:48 Outpatient Progress Note Chief Complaint BETTER more awake more oriented no vomiting no bleeding On IT methotrexate 3 x a week Review of Systems Const: No Fever, no chills, no Wt. loss, no Fatigue, normal appetite, no diaphoresis. Eyes: No pain, no discharge, no redness, no visual change, no foreign body. ENT: No pain, no bleeding, no congestion, no sore throat, no dysphagia, no discharge or rhinitis. Lymph: No adenopathy, no tender nodes, no lymphedema. Resp: No SOB, no cough, no sputum, no wheezing, no chest pain. CV: No chest pain, no palpitaions, no TURNER, no PND, no edema. GI: Normal appetite, no pain, no nausea, no vomiting, no diarrhea, no blood, no constipation. : No frequency, no urgency, no dysuria, no hematuria, no flank pain, no discharge, no bleeding. Musc: No bone/joint pain, no back pain, no neck pain, no knee pain, no restricted ROM. Skin: No rash, no skin lesions, no erythema, no laceration, no bruising, no pruritus. Neuro: No CAR, no dizziness, no syncope, no seizure, no focal-weakness. Endo: No polyuria, no polydypsia, no dry-skin, no temp-intolerance. Psych: No hallucinations, no depression, no anxiety, no suicidal ideation. Ext: No edema, no pain, no ulcer, no weakness. 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
--- NOTE | 2018-02-15 14:30 | NUR ---
Diabetes Education Referral: Thank you for the referral. HbA1c 7.2%; 95kg; BMI 36 Spoke with pt's son Geoffrey d/t pt not feeling well. Geoffrey stated his mother had PreDM prior to this admission. Reviewed the labs that confirmed the diagnosis and how the steroids are effecting the BG. With the use of handouts discussed at length with patient's son how diabetes works in the body, where the glucose comes from, how food breaks down into glucose, and how different insulins (Lantus & Humalog) work. Reviewed glucose targets (pre and post meal), reviewed the different food groups and when/how to manage glucose by adjusting the carbohydrates and proteins. Discussed how different factors cause extra glucose released from the liver. Discussed how an increase in activity can assist in lowering glucose levels. Reviewed signs and symptoms of hypo/hyperglycemia and treatment. After eligibility check, provided a Freestyle Lite glucometer. Reviewed how to use glucometer, change date and time, load lancet devices and how to correctly complete a glucose reading. Resources were given to pt for future follow up. All questions answered. Pt's son had to leave, will review insulin injection technique with him on Sunday.
--- NOTE | 2018-02-15 15:34 | PN ---
Date/Time of Note Date/Time of Note DATE: 02/15/18 TIME: 15:31 Assessment/Plan VTE Prophylaxis Risk score (from Ns)>0 risk: 6 SCD applied (from Ns): Yes Pharmacological prophylaxis: NA/contraindicated Pharm contraindication: other (brain mets) Lines/Catheters IV [facility]ter [facility]from [facility] Portacath Urinary Cath still in place: No Assessment/Plan Assessment/Plan 47-year-old woman with a history of left breast carcinoma status post mastectomy and chemo presents with headache and generalized weakness with a CT finding of subdural fluid collection with 0.4 mm midline shift, as well as possible right parietal mass concerning for brain metastasis. 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 Again there is 0.4 mm midline shift. Appreciate neurosurgery recommendations. Currently no surgery needed. - Continue intrathecal chemotherapy for now. - Currently symptoms seem to be improving. - PT, OT #Pneumonia - Infiltrates on CXR - On vanco/zosyn (02/12) #Chest pain - She complains of pressure-like chest pain. - Noncardiac in nature; she describes it as worse after eating and improves with standing and ambulation. - Trop negative, EKG without ischemia - This likely represents anxiety or dyspepsia, no further cardiac workup. #Breast carcinoma: Status post chemotherapy mastectomy in the past. - Dr. Shaw following. - Currently plan is intrathecal chemo 3x/week then outpatient evaluation for radiation oncology. #Hypertensive urgency: Blood pressure improved #Thrombocytopenia: status post platelet transfusion. - Continue to decline today. Dispo: Medically stable for transfer to ARU when approved versus SNF. Result Diagram: 02/15/18 0459 02/15/18 0459 Results 24hrs Laboratory Tests Test 02/14/18 18:09 02/14/18 20:22 02/15/18 02:21 02/15/18 04:59 Bedside Glucose 203 189 268 H White Blood Count 5.5 Red Blood Count 3.68 L Hemoglobin 11.8 L Hematocrit 34.1 L Mean Corpuscular 92.7 Volume Mean Corpuscular 32.1 Hemoglobin Mean Corpuscular 34.6 Hemoglobin Concent Red Cell 14.2 Distribution Width Platelet Count 87 L Mean Platelet Volume 11.0 H Immature 4.700 H Granulocytes % Neutrophils % 67.0 Lymphocytes % 21.6 Monocytes % 6.5 Eosinophils % 0.0 Basophils % 0.2 Nucleated Red Blood 0.9 H Cells % Immature 0.260 H Granulocytes # Neutrophils # 3.7 Lymphocytes # 1.2 Monocytes # 0.4 Eosinophils # 0.0 Basophils # 0.0 Nucleated Red Blood 0.1 H Cells # Sodium Level 135 Potassium Level 4.6 Chloride Level 98 Carbon Dioxide Level 25 Anion Gap 12 Blood Urea Nitrogen 22 H Creatinine 0.50 Est Glomerular > 60 Filtrat Rate mL/min Glucose Level 272 H Calcium Level 9.7 Test 02/15/18 08:26 02/15/18 12:50 Bedside Glucose 263 H 223 H Subjective 24 Hr Interval Summary Free Text/Dictation No acute overnight events. She has headache currently. Still with intermitted blurry vision. Dizziness has resolved. She continues to have pressure like chest and epigastric discomfort. It's worse after eating and actually improves when standing up. Exam/Review of Systems Vital Signs Vitals Vital Signs Date Temp Pulse Resp B/P (MAP) Pulse Ox O2 O2 Flow FiO2 Time Delivery Rate 02/15/18 97.4 85 20 149/70 96 13:27 (96) 02/15/18 Nasal 2.0 01:57 Cannula Intake and Output 02/14/18 02/14/18 02/15/18 1515:00 23:00 07:00 IntakeIntake Total 800 ml 350 ml 750 ml BalanceBalance 800 ml 350 ml 750 ml Exam Gen: Fatigued appearing woman in no acute distress. HEENT: Clear oropharynx, moist mucous membranes Chest: L mastectomy Card: Regular rate and rhythm, no murmurs Pulm: Clear to auscultation bilaterally Abd: Soft, nontender, nondistended. Ext: No cyanosis/clubbing/edema Medications Medications Current Medications Ondansetron HCl (Zofran Inj) 4 mg Q6H PRN IV NAUSEA AND/OR VOMITING; Start 02/09/18 at 20:00 Albuterol/ Ipratropium (Duoneb) 3 ml Q2H RESP THERAPY PRN NEB SHORTNESS OF BREATH; Start 02/09/18 at 20:00 Acetaminophen (Tylenol Liquid) 650 mg Q6H PRN PO PAIN LEVEL 1-3 OR FEVER Last administered on 02/15/18at 12:13; Admin Dose 650 MG; Start 02/09/18 at 20:00 Acetaminophen/ Hydrocodone Bitart ([place] (5/325)) 1 tab Q6H PRN PO PAIN LEVEL 4-6 Last administered on 02/15/18 14:54; Admin Dose 1 TAB; Start 02/09/18 at 20: 00 Labetalol HCl (Labetalol) 10 mg Q2H PRN IV SBP > 150 Last administered on 02/11/18at 19:28; Admin Dose 10 MG; Start 02/09/18 at 20:00 Dexamethasone (Decadron) 10 mg Q6H IV Last administered on 02/15/18at 12:13; Admin Dose 10 MG; Start 02/10/18 at 12:30 Trimethoprim/ Sulfamethoxazole (Bactrim (Ds)) 1 tab MONWEDFRI PO Last administered on 02/15/18 08:37; Admin Dose 1 TAB; Start 02/11/18 at 09:00 Insulin Aspart (Novolog Insulin Pen) NOVOLOG *MILD* ALGORITHM WITH MEALS BEDTIME SC Last administered on 02/15/18 12:56; Admin Dose 2 UNIT; Start 02/10/18 at 21:00 Hydralazine HCl (Apresoline) 10 mg Q6H PRN IV ELEVATED BLOOD PRESSURE Last administered on 02/13/18 21:22; Admin Dose 10 MG; Start 02/10/18 at 18:30 Miscellaneous Information 1 ea NOTE XX ; Start 02/10/18 at 19:00 Glucose (Glutose) 15 gm Q15M PRN PO DECREASED GLUCOSE; Start 02/10/18 at 19:00 Glucose (Glutose) 22.5 gm Q15M PRN PO DECREASED GLUCOSE; Start 02/10/18 at 19:00 Dextrose (D50w Syringe) 25 ml Q15M PRN IV DECREASED GLUCOSE; Start 02/10/18 at 19:00 Dextrose (D50w Syringe) 50 ml Q15M PRN IV DECREASED GLUCOSE; Start 02/10/18 at 19:00 Glucagon (Glucagen) 1 mg Q15M PRN IM DECREASED GLUCOSE; Start 02/10/18 at 19:00 Glucose (Glutose) 15 gm Q15M PRN BUCCAL DECREASED GLUCOSE; Start 02/10/18 at 19:00 Levetiracetam (Keppra) 500 mg BID PO Last administered on 02/15/18at 08:38; Admin Dose 500 MG; Start 02/11/18 at 09:30 Vancomycin HCl (Vanco Iv Per Pharmacy) VANCOMYCIN PER PHARMACY PER PROTOCOL XX ; Start 02/12/18 at 00:30 Piperacillin Sod/ Tazobactam Sod 100 ml @ 200 mls/hr Q6 IVPB Last administered on 02/15/18at 12:12; Admin Dose 200 MLS/HR; Start 02/12/18 at 00:30 Vancomycin HCl 1.5 gm/Sodium Chloride 250 ml @ 83.333 mls/ hr Q12H IVPB Last administered on 02/15/18at 03:41; Admin Dose 83.333 MLS/HR; Start 02/13/18 at 04:00 Insulin Aspart (Novolog Insulin Pen) 8 unit WITH MEALS SC Last administered on 02/15/18at 12:56; Admin Dose 8 UNIT; Start 02/13/18 at 12:00 Insulin Glargine (Lantus) 20 units DAILY@2000 SC Last administered on 02/14/18at 20:27; Admin Dose 20 UNITS; Start 02/13/18 at 20:00 Senna (Senokot) 1 tab BID PRN PO CONSTIPATION; Start 02/13/18 at 14:00 Polyethylene Glycol (Miralax) 17 gm DAILY PO Last administered on 02/15/18at 08:37; Admin Dose 17 GM; Start 02/14/18 at 14:00 Pantoprazole (Protonix Tab) 40 mg DAILY@06 PO Last administered on 02/15/18at 06:21; Admin Dose 40 MG; Start 02/14/18 at 22:30 Al Hydrox/Mg Hydrox/Simethicone (Mag-Al Plus) 30 ml Q6H PRN PO GASTROINTESTINAL UPSET; Start 02/14/18 at 22:30 JOAN CHRISTENSEN MD Feb 15, 2018 15:34
--- NOTE | 2018-02-15 15:52 | RADRPT ---
Echocardiogram Report Patient Name: GEORGE ROTHMAN Gender: Female Date: 1970 Study Date: 14-Feb-2018 Assistant Guest Services Manager: TB Location: 2281 Ref. Physician: JOAN CHRISTENSEN Quality: Good Procedures: Transthoracic echocardiogram with complete 2D, M-Mode, and doppler examination. Indications: Chest Pain. 2D/M Mode Doppler Measurement Value Normal Ranges Measurement Value Normal Ranges AoR Diam MM 3.0 cm AV Mean Joshua 1.4 m/sec ACS MM 1.9 cm AV Mean PG 9.0 mmHg LA/Ao MM 0.9 AV Peak Joshua 2.2 m/sec LA Dimen MM 2.8 cm AV Peak PG 19.0 mmHg LVIDd 2D 4.3 3.5 - 5.6 cm AV VTI 35.4 cm LVIDs 2D 3.0 2.1 - 4.1 cm LVOT Mean Joshua 1.0 m/sec LVPWd 2D 0.9 0.6 - 1.1 cm LVOT Mean PG 5.0 mmHg IVSd 2D 1.0 0.6 - 1.1 cm LVOT Peak Joshua 1.5 m/sec AoR Diam 2D 2.4 2.0 - 3.7 cm LVOT Peak PG 9.0 mmHg LA/Ao 2D 1 0 - 1 MV E Peak Joshua 1.2 m/sec EF 2D 59.0 50.0 - 65.0 % MV A Peak Joshua 0.9 m/sec LA Dimen 2D 2.9 2.3 - 4.0 cm MV E/A 1.4 IVC Diam 1.9 1.2 - 2.0 MV PHT 56.0 msec MV Decel Time 190 msec MV Decel [place] 6 Lat E` Joshua 0.1 m/sec Lateral E/E` 12.4 Med E` Joshua 0.1 m/sec MV E/A 1.4 MV PHT 56.0 msec MVA PHT 3.9 cm2 TAPSE 2.4 cm TR Peak Joshua 3.0 m/sec TR Peak PG 35.0 mmHg PV Peak Joshua 1.7 m/sec PV Peak PG 12.0 mmHg Findings Left Ventricle: Normal left ventricular systolic function. Normal left ventricular cavity size. Normal left ventricular wall thickness. Ejection fraction is visually estimated at 60 %. Right Ventricle: Normal right ventricular size. Normal right ventricular systolic function. Left Atrium: The left atrium is normal in size. Right Atrium: The right atrium is normal in size. Mitral Valve: Normal appearance and function of the mitral valve with trace physiologic regurgitation. Aortic Valve: Normal appearance of the aortic valve. No significant aortic stenosis or insufficiency. Tricuspid Valve: Normal appearance of the tricuspid valve. Normal right ventricular systolic pressure. Unable to obtain RVSP due to minimal visualization of the IVC to determine RA pressure. There is trace to mild tricuspid regurgitation. Pulmonic Valve: Normal pulmonic valve appearance. Pericardium: Normal pericardium with no significant pericardial effusion. Aorta: Normal aortic root. IVC: The IVC is not well visualized. Conclusions Normal left ventricular systolic function. Normal left ventricular cavity size. Normal left ventricular wall thickness. Ejection fraction is visually estimated at 60 %. Normal appearance of the tricuspid valve. Normal right ventricular systolic pressure. Unable to obtain RVSP due to minimal visualization of the IVC to determine RA pressure. There is trace to mild tricuspid regurgitation. Normal appearance and function of the mitral valve with trace physiologic regurgitation. Electronically Signed By: Ricky Rivera 15-Feb-2018 15:51:13 -0800 Patient Name: GEORGE ROTHMAN Study Date: 14-Feb-2018 [id number]
--- NOTE | 2018-02-15 18:41 | NUR ---
End of shift summary: Patient in stable condition .V.S within normal limits . Patient c/o of headache . Pain medications given PRN , MD aware .Planning chemo therapy tomorrow . Call light within reach ,bed alarm on , family at bedside .Full report will be given to next shift RN.
[2018-02-15 19:37] VITALS: BP 131/64; PULSE 88; RESP 18
[2018-02-15] MEDS: INSULIN GLARGINE [LANTus] (100 UNITS/ML) SYG SC SCH (20:55)
[2018-02-16] MEDS: DEXAMETHASONE 10 MG/ML 1 ML INJ IV SCH ×3 (00:29→18:37)
[2018-02-16] MEDS: PIPER-TAZO 3.375 GM IV (PMX) 100 ML IVPB SCH ×4 (00:29→17:50)
[2018-02-16 01:27] VITALS: BP 132/73; PULSE 84; RESP 18
[2018-02-16] MEDS: VANCOMYCIN 1.5 GM in SOD CHLORIDE 0.9% 250 ML IVPB SCH ×2 (03:33→16:47)
--- NOTE | 2018-02-16 05:15 | NUR ---
EOSS: Patient remains stable. Denies any pain this shift. Assisted to BSC as needed. No other complains of pain. Will endorse to morning nurse for continuity of care.
[2018-02-16] MEDS: PANTOPRAZOLE (EC) 40 MG TAB PO SCH ×2 (06:14→20:27)
[2018-02-16 08:07] VITALS: BP 138/81; PULSE 80; RESP 16
[2018-02-16] MEDS: POLYETHYLENE GLYCOL 17 GM PACKET PO SCH (08:25)
[2018-02-16] MEDS: LEVETIRACETAM 500 MG TAB PO SCH ×2 (08:25→20:13)
[2018-02-16] MEDS: ACETAMINOPHEN 650MG/20.3ML CUP PO PRN (08:26)
[2018-02-16] MEDS: INSULIN ASPART [NOVOLOG] 3 ML PEN SC SCH ×7 (08:32→20:13)
--- NOTE | 2018-02-16 10:52 | NUR ---
PT NOTE Therapy day number 5 Subjective Current complaint of pain Pain Scale FACES Pain Intensity 6 (0-10) Patient Stated Goal for Pain Relief 0 (0-10) Pain Level Comment headache, premedicated for pain Pre Treatment Vital Signs Stable Yes - BP semifowler 147/73mmHg; semifowl post tx 143/68mmHg Transfer Training Start Time 10:52 Supine to Sit Minimum Assist Transfer Sit to Stand Ability Contact Guard Assist Bed Mobility Sit to Supine Minimum Assist Bed Transfer Ability Minimum Assist Chair Transfer Ability Minimum Assist Toileting Ability Stand by Assist Sitting Tolerance 10 min Additional Mobility Comments modA pericare, FWW for Sit to stand Transfer Training End Time 11:17 Total Transfer Training Time 25 min (8-127) Gait Training Start Time 11:17 Gait Assist Levels Contact Guard Assist Assistive Devices Front Wheel Walker Ambulation Distance 80 feet Additional Gait Comments decreased carlos, unsteady, knees buckled slightly x1/self recovered CGA Gait Training End Time 11:30 Total Gait Training Treatment Time 13 min (8-127) Weight Bearing Assessment Label Bilat Lower Extremity Weight Bearing Status Full Weight Bearing Static Sitting Balance Good Dynamic Sitting Balance Good Standing Static Balance Fair plus Dynamic Standing Balance Fair minus Additional Balance Assessments Comments With FWW Safety Judgement Fair Activity Tolerance Fair Equipment Present A pump Post Treatment Pain Intensity 5 0-10 Quality Indicators Dizziness Additional Post Treatment Comment See Below Total Treament Time 38 min (8-127) Total Minutes 38 Total Units 3 PT Technical Record Comment PT NOTE S: Pt reports pain and dizziness pre-tx, agreeable to PT. Pt's son states pt is a little better today with decreased dizziness/ no double vision, continued blurry vision. Cleared for PT and premed for pain per ASA Hastings. O: Pt received semifowler in bed, with son present in room to assist with Indonesian translation. Pt lethargic but appropriate. Performed thera ex, transfer training and gait tr per tech record above. Pt required decreased assist transferring to toilet and managing FWW during transfers and gait since previous tx. Pt moaning throughout tx, frequently with eyes closed. BTB and positioned for comfort post-tx with call light and needs in reach, bed alarm armed, pt in no apparent acute distress, family present in room. RN updated re pt status A: Pt jesús tx fairly, improved tolerance for gait since previous tx, Continues to be limited by headache pain/dizziness P: Cont POC
[2018-02-16] MEDS: GUAIFENESIN 20 MG/ML 5ML CUP PO PRN ×2 (13:09→18:37)
[2018-02-16] MEDS: HYDROCODONE/APAP (5/325) TAB PO PRN ×2 (13:09→18:38)
--- NOTE | 2018-02-16 13:34 | PN ---
Date/Time of Note Date/Time of Note DATE: 02/16/18 TIME: 13:32 Assessment/Plan VTE [place]axis [place] [facility] [place]: 7 [place] [facility] [place] SCD contraindicated: other (not contraindicated) Pharmacological prophylaxis: NA/contraindicated Pharm contraindication: other (brain mets) Lines/Catheters [facility]from [facility] [id number] Urinary Cath still in place: No Assessment/Plan Assessment/Plan 47-year-old woman with a history of left breast carcinoma status post mastectomy and chemo presents with headache and generalized weakness with a CT finding of subdural fluid collection with 0.4 mm midline shift, as well as possible right parietal mass concerning for brain metastasis. 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 Again there is 0.4 mm midline shift. Appreciate neurosurgery recommendations. Currently no surgery needed. - Continue intrathecal chemotherapy for now. - Currently on IV decadron taper. - Currently symptoms seem to be improving. - PT, OT #Pneumonia - Infiltrates on CXR - On vanco/zosyn (02/12) #Chest pain - She complains of pressure-like chest pain. - Noncardiac in nature; she describes it as worse after eating and improves with standing and ambulation. - Trop negative, EKG without ischemia - This likely represents anxiety or dyspepsia, no further cardiac workup. #Breast carcinoma: Status post chemotherapy mastectomy in the past. - Dr. Shaw following. - Currently plan is intrathecal chemo 3x/week then outpatient evaluation for radiation oncology. #Hypertensive urgency: Blood pressure improved #Thrombocytopenia: status post platelet transfusion. - Continue to decline today. Dispo: Medically stable for transfer to ARU when approved versus SNF. Result Diagram: 02/16/18 0537 02/16/18 0537 Results 24hrs Laboratory Tests Test 02/15/18 18:05 02/15/18 20:52 02/16/18 02:40 02/16/18 05:37 Bedside Glucose 246 H 263 H 228 H White Blood Count 4.4 L Red Blood Count 3.47 L Hemoglobin 11.3 L Hematocrit 32.2 L Mean Corpuscular 92.8 Volume Mean Corpuscular 32.6 Hemoglobin Mean Corpuscular 35.1 Hemoglobin Concent Red Cell 14.6 H Distribution Width Platelet Count 68 #L Mean Platelet Volume 10.2 Immature 4.300 H Granulocytes % Neutrophils % 71.7 Lymphocytes % 20.6 Monocytes % 3.2 Eosinophils % 0.0 Basophils % 0.2 Nucleated Red Blood 0.7 H Cells % Immature 0.190 H Granulocytes # Neutrophils # 3.2 Lymphocytes # 0.9 Monocytes # 0.1 L Eosinophils # 0.0 Basophils # 0.0 Nucleated Red Blood 0.0 Cells # Sodium Level 136 Potassium Level 4.7 Chloride Level 98 Carbon Dioxide Level 27 Anion Gap 11 Blood Urea Nitrogen 19 Creatinine 0.54 Est Glomerular > 60 Filtrat Rate mL/min Glucose Level 244 H Calcium Level 9.6 Phosphorus Level 4.3 Magnesium Level 2.5 Test 02/16/18 08:07 02/16/18 13:07 Bedside Glucose 242 H 197 Subjective 24 Hr Interval Summary Free Text/Dictation No acute overnight events. Dizziness, lightheadedness, abdominal pain seem to have resolved. Continues to have mild chest discomfort after eating. Continues to have mild blurry vision. Able to ambulate with assistance. Exam/Review of Systems Vital Signs Vitals Vital Signs Date Temp Pulse Resp B/P (MAP) Pulse Ox O2 O2 Flow FiO2 Time Delivery Rate 02/16/18 Nasal 2.0 08:10 Cannula 02/16/18 98.7 80 16 138/81 97 08:07 (100) Intake and Output 02/15/18 02/15/18 02/16/18 1515:00 23:00 07:00 IntakeIntake Total 700 ml 672 ml 450 ml BalanceBalance 700 ml 672 ml 450 ml Exam Gen: Fatigued appearing woman in no acute distress. HEENT: Clear oropharynx, moist mucous membranes Chest: L mastectomy Card: Regular rate and rhythm, no murmurs Pulm: Clear to auscultation bilaterally Abd: Soft, nontender, nondistended. Ext: No cyanosis/clubbing/edema Medications Medications Current Medications Ondansetron HCl (Zofran Inj) 4 mg Q6H PRN IV NAUSEA AND/OR VOMITING; Start 02/09/18 at 20:00 Albuterol/ Ipratropium (Duoneb) 3 ml Q2H RESP THERAPY PRN NEB SHORTNESS OF BREATH; Start 02/09/18 at 20:00 Acetaminophen (Tylenol Liquid) 650 mg Q6H PRN PO PAIN LEVEL 1-3 OR FEVER Last administered on 1/12/19at 08:26; Admin Dose 650 MG; Start 02/09/18 at 20:00 Acetaminophen/ Hydrocodone Bitart ([place] (5/325)) 1 tab Q6H PRN PO PAIN LEVEL 4-6 Last administered on 02/16/18 13:09; Admin Dose 1 TAB; Start 02/09/18 at 20:00 Labetalol HCl (Labetalol) 10 mg Q2H PRN IV SBP > 150 Last administered on 02/11/18 19:28; Admin Dose 10 MG; Start 02/09/18 at 20:00 Trimethoprim/ Sulfamethoxazole (Bactrim (Ds)) 1 tab MONWEDFRI PO Last administered on 02/15/18 08:37; Admin Dose 1 TAB; Start 02/11/18 at 09:00 Insulin Aspart (Novolog Insulin Pen) NOVOLOG *MILD* ALGORITHM WITH MEALS BEDTIME SC Last administered on 02/16/18 13:16; Admin Dose 2 UNIT; Start 02/10/18 at 21:00 Hydralazine HCl (Apresoline) 10 mg Q6H PRN IV ELEVATED BLOOD PRESSURE Last administered on 02/13/18 21:22; Admin Dose 10 MG; Start 02/10/18 at 18:30 Miscellaneous Information 1 ea NOTE XX ; Start 02/10/18 at 19:00 Glucose (Glutose) 15 gm Q15M PRN PO DECREASED GLUCOSE; Start 02/10/18 at 19:00 Glucose (Glutose) 22.5 gm Q15M PRN PO DECREASED GLUCOSE; Start 02/10/18 at 19:00 Dextrose (D50w Syringe) 25 ml Q15M PRN IV DECREASED GLUCOSE; Start 02/10/18 at 19:00 Dextrose (D50w Syringe) 50 ml Q15M PRN IV DECREASED GLUCOSE; Start 02/10/18 at 19:00 Glucagon (Glucagen) 1 mg Q15M PRN IM DECREASED GLUCOSE; Start 02/10/18 at 19:00 Glucose (Glutose) 15 gm Q15M PRN BUCCAL DECREASED GLUCOSE; Start 02/10/18 at 19:00 Levetiracetam (Keppra) 500 mg BID PO Last administered on 02/16/18at 08:25; Admin Dose 500 MG; Start 02/11/18 at 09:30 Vancomycin HCl (Vanco Iv Per Pharmacy) VANCOMYCIN PER PHARMACY PER PROTOCOL XX ; Start 02/12/18 at 00:30 Piperacillin Sod/ Tazobactam Sod 100 ml @ 200 mls/hr Q6 IVPB Last administered on 02/16/18at 13:09; Admin Dose 200 MLS/HR; Start 02/12/18 at 00:30 Vancomycin HCl 1.5 gm/Sodium Chloride 250 ml @ 83.333 mls/ hr Q12H IVPB Last administered on 02/16/18at 03:33; Admin Dose 83.333 MLS/HR; Start 02/13/18 at 04:00 Insulin Aspart (Novolog Insulin Pen) 8 unit WITH MEALS SC Last administered on 02/16/18 13:17; Admin Dose 8 UNIT; Start 02/13/18 at 12:00 Insulin Glargine (Lantus) 20 units DAILY@2000 SC Last administered on 02/15/18at 20:55; Admin Dose 20 UNITS; Start 02/13/18 at 20:00 Senna (Senokot) 1 tab BID PRN PO CONSTIPATION; Start 02/13/18 at 14:00 Polyethylene Glycol (Miralax) 17 gm DAILY PO Last administered on 02/16/18at 08:25; Admin Dose 17 GM; Start 02/14/18 at 14:00 Al Hydrox/Mg Hydrox/Simethicone (Mag-Al Plus) 30 ml Q6H PRN PO GASTROINTESTINAL UPSET; Start 02/14/18 at 22:30 Dexamethasone (Decadron) 8 mg Q12 IV ; Start 02/16/18 at 18:00; Stop 02/19/18 at 22:00 Dexamethasone (Decadron) 4 mg Q12 PO ; Start 02/20/18 at 09:00; Stop 02/23/18 at 23:00 Dexamethasone (Decadron) 2 mg Q12 PO ; Start 02/24/18 at 09:00; Stop 02/25/18 at 23:45 Guaifenesin (Robitussin Liquid Cup) 200 mg Q4H PRN PO cough Last administered on 02/16/18at 13:09; Admin Dose 200 MG; Start 02/16/18 at 11:30 Pantoprazole (Protonix Tab) 40 mg BID PO ; Start 02/16/18 at 21:00 JOAN CHRISTENSEN MD Feb 16, 2018 13:34
[2018-02-16 16:19] VITALS: BP 143/75; PULSE 99; RESP 16
--- NOTE | 2018-02-16 16:50 | NUR ---
Chemo: Spoke to Kehinde from Radiology and Korin from pharmacy, per conversation they changed the schedule of lumbar puncture for today to Sunday due to no Radiologist on weekend to administer the medication. Dr. Noel aware. Addendum: 02/16/18 at 1731 by NASH CHIANG RN Patient and family aware
--- NOTE | 2018-02-16 17:18 | NUR ---
End of shift report Patient remain stable during my shift. Medicated with [place] and Tylenol for headache, verbalized relief of discomfort. Robitussin was given for cough X1, patient verbalized less coughing. Continue on antibiotic. Blood glucose checked no sign of hypoglycemia noted. Assisted to bedside commode pt had BM X1. Seen by PT ambulated in the hallway, tolerated well. Family at bedside. All needs attended.
[2018-02-16 19:57] VITALS: BP 122/67; PULSE 98; RESP 18
[2018-02-16] MEDS: INSULIN GLARGINE [LANTus] (100 UNITS/ML) SYG SC SCH (20:17)
[2018-02-17] MEDS: PIPER-TAZO 3.375 GM IV (PMX) 100 ML IVPB SCH ×4 (00:52→19:41)
[2018-02-17] MEDS: AL HYDROX/MG HYDROX/SIMETH 30 ML CUP PO PRN (00:54)
[2018-02-17 02:34] VITALS: BP 136/67; PULSE 84; RESP 18
[2018-02-17] MEDS: VANCOMYCIN 1.5 GM in SOD CHLORIDE 0.9% 250 ML IVPB SCH (03:51)
[2018-02-17] MEDS: HYDROCODONE/APAP (5/325) TAB PO PRN ×4 (05:12→20:43)
[2018-02-17] MEDS: GUAIFENESIN 20 MG/ML 5ML CUP PO PRN (05:12)
--- NOTE | 2018-02-17 06:03 | NUR ---
ASLEEP RESTING COMFORTABLY IN BED. NO ACUTE CHANGES OVERNIGHT. ALL DUE MEDS GIVEN AND TOLERATED WELL. AT BEDSIDE. HOURLY ROUNDING DONE. PAIN MEDICATION ADMINISTERED NEEDED AND EFFECTIVE. BED ALARM ACTIVATED. ALL NEEDS ATTENDED. CALL LIGHT WITHIN EASY REACH. WILL ENDORSE TO NEXT SHIFT.
[2018-02-17 07:33] VITALS: BP 131/61; PULSE 79; RESP 17
[2018-02-17] MEDS: INSULIN ASPART [NOVOLOG] 3 ML PEN SC SCH ×7 (08:00→20:37)
--- NOTE | 2018-02-17 08:54 | NUR ---
Vancomycin per Rx Vancomycin trough = 16.6 SCr 0.47 Change Vancomycin to 1.25 gm IV q12
[2018-02-17] MEDS: POLYETHYLENE GLYCOL 17 GM PACKET PO SCH (09:04)
[2018-02-17] MEDS: DEXAMETHASONE 10 MG/ML 1 ML INJ IV SCH ×2 (09:05→21:56)
[2018-02-17] MEDS: LEVETIRACETAM 500 MG TAB PO SCH ×2 (09:05→20:39)
[2018-02-17] MEDS: PANTOPRAZOLE (EC) 40 MG TAB PO SCH ×2 (09:05→20:39)
[2018-02-17 14:50] VITALS: BP 129/64; PULSE 98; RESP 14
--- NOTE | 2018-02-17 15:15 | PN ---
Date/Time of Note Date/Time of Note DATE: 02/17/18 TIME: 15:12 Assessment/Plan VTE Prophylaxis Risk score (from [facility])>0 risk: 6 SCD applied (from [facility]): No SCD contraindicated: low risk/ambulating Pharmacological prophylaxis: NA/contraindicated Pharm contraindication: thrombocytopenia, other (brain mets) Lines/Catheters [facility] portacath Urinary Cath still in place: No Assessment/Plan Assessment/Plan 47-year-old woman with a history of left breast carcinoma status post mastectomy and chemo presents with headache and generalized weakness with a CT finding of subdural fluid collection with 0.4 mm midline shift, as well as possible right parietal mass concerning for brain metastasis. 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 Again there is 0.4 mm midline shift. Appreciate neurosurgery recommendations. Currently no surgery needed. - Continue intrathecal chemotherapy for now, next dose 02/18. - Currently on IV decadron taper. - Currently symptoms seem to be improving. - PT, OT #Pneumonia - Infiltrates on CXR - On vanco/zosyn (02/12-02/18) #Chest pain - She complains of pressure-like chest pain. - Noncardiac in nature; she describes it as worse after eating and improves with standing and ambulation. - Trop negative, EKG without ischemia - This likely represents anxiety or dyspepsia, no further cardiac workup. #Breast carcinoma: Status post chemotherapy mastectomy in the past. - Dr. Shaw following. - Currently plan is intrathecal chemo 3x/week then outpatient evaluation for radiation oncology. #Hypertensive urgency: Blood pressure improved #Thrombocytopenia: status post platelet transfusion. - Continue to decline today... will check prior to LP tomorrow, may need another transfusion. Dispo: Medically stable for transfer to ARU when approved versus SNF. Result Diagram: 02/17/18 0308 02/17/18 0308 Results 24hrs Laboratory Tests Test 02/16/18 17:48 02/16/18 20:11 02/17/18 03:08 02/17/18 08:33 Bedside Glucose 159 147 92 White Blood Count 4.0 L Red Blood Count 3.26 L Hemoglobin 10.5 L Hematocrit 30.5 L Mean Corpuscular 93.6 Volume Mean Corpuscular 32.2 Hemoglobin Mean Corpuscular 34.4 Hemoglobin Concent Red Cell 14.8 H Distribution Width Platelet Count 63 L Mean Platelet Volume 11.7 H Immature 4.000 H Granulocytes % Neutrophils % 69.2 Lymphocytes % 22.2 Monocytes % 4.3 Eosinophils % 0.0 Basophils % 0.3 Nucleated Red Blood 1.3 H Cells % Immature 0.160 H Granulocytes # Neutrophils # 2.8 Lymphocytes # 0.9 Monocytes # 0.2 L Eosinophils # 0.0 Basophils # 0.0 Nucleated Red Blood 0.1 H Cells # Sodium Level 133 L Potassium Level 4.4 Chloride Level 100 Carbon Dioxide Level 24 Anion Gap 9 Blood Urea Nitrogen 24 H Creatinine 0.47 Est Glomerular > 60 Filtrat Rate mL/min Glucose Level 178 Calcium Level 9.4 Vancomycin Level 16.6 Trough Test 02/17/18 12:55 Bedside Glucose 157 Subjective 24 Hr Interval Summary Free Text/Dictation Patient feeling well today, no acute complaints. Able to ambulate yesterday afternoon with assistance; had mild dizziness, overall improving. Exam/Review of Systems Vital Signs Vitals Vital Signs Date Temp Pulse Resp B/P (MAP) Pulse Ox O2 O2 Flow FiO2 Time Delivery Rate 02/17/18 98.6 98 14 129/64 93 Room Air 14:50 (85) 02/16/18 2.0 20:15 Intake and Output 02/16/18 02/16/18 02/17/18 1515:00 23:00 07:00 IntakeIntake Total 1060 ml 950 ml 450 ml BalanceBalance 1060 ml 950 ml 450 ml Exam Gen: Fatigued appearing woman in no acute distress. HEENT: Clear oropharynx, moist mucous membranes Chest: L mastectomy Card: Regular rate and rhythm, no murmurs Pulm: Clear to auscultation bilaterally Abd: Soft, nontender, nondistended. Ext: No cyanosis/clubbing/edema Medications Medications Current Medications Ondansetron HCl (Zofran Inj) 4 mg Q6H PRN IV NAUSEA AND/OR VOMITING; Start 02/09/18 at 20:00 Albuterol/ Ipratropium (Duoneb) 3 ml Q2H RESP THERAPY PRN NEB SHORTNESS OF BREATH; Start 02/09/18 at 20:00 Acetaminophen (Tylenol Liquid) 650 mg Q6H PRN PO PAIN LEVEL 1-3 OR FEVER Last administered on 02/16/18 08:26; Admin Dose 650 MG; Start 02/09/18 at 20:00 Acetaminophen/ Hydrocodone Bitart ([place] (5/325)) 1 tab Q6H PRN PO PAIN LEVEL 4-6 Last administered on 02/17/18 09:05; Admin Dose 1 TAB; Start 02/09/18 at 20:00 Labetalol HCl (Labetalol) 10 mg Q2H PRN IV SBP > 150 Last administered on 02/11/18 19:28; Admin Dose 10 MG; Start 02/09/18 at 20:00 Trimethoprim/ Sulfamethoxazole (Bactrim (Ds)) 1 tab MONWEDFRI PO Last administered on 02/15/18 08:37; Admin Dose 1 TAB; Start 02/11/18 at 09:00 Insulin Aspart (Novolog Insulin Pen) NOVOLOG *MILD* ALGORITHM WITH MEALS BEDTIME SC Last administered on 02/17/18 12:59; Admin Dose 1 UNIT; Start 02/10/18 at 21:00 Hydralazine HCl (Apresoline) 10 mg Q6H PRN IV ELEVATED BLOOD PRESSURE Last administered on 02/13/18 21:22; Admin Dose 10 MG; Start 02/10/18 at 18:30 Miscellaneous Information 1 ea NOTE XX ; Start 02/10/18 at 19:00 Glucose (Glutose) 15 gm Q15M PRN PO DECREASED GLUCOSE; Start 02/10/18 at 19:00 Glucose (Glutose) 22.5 gm Q15M PRN PO DECREASED GLUCOSE; Start 02/10/18 at 19:00 Dextrose (D50w Syringe) 25 ml Q15M PRN IV DECREASED GLUCOSE; Start 02/10/18 at 19:00 Dextrose (D50w Syringe) 50 ml Q15M PRN IV DECREASED GLUCOSE; Start 02/10/18 at 19:00 Glucagon (Glucagen) 1 mg Q15M PRN IM DECREASED GLUCOSE; Start 02/10/18 at 19:00 Glucose (Glutose) 15 gm Q15M PRN BUCCAL DECREASED GLUCOSE; Start 02/10/18 at 19:00 Levetiracetam (Keppra) 500 mg BID PO Last administered on 02/17/18 09:05; Admin Dose 500 MG; Start 02/11/18 at 09:30 Vancomycin HCl (Vanco Iv Per Pharmacy) VANCOMYCIN PER PHARMACY PER PROTOCOL XX ; Start 02/12/18 at 00:30 Piperacillin Sod/ Tazobactam Sod 100 ml @ 200 mls/hr Q6 IVPB Last administered on 02/17/18at 11:46; Admin Dose 200 MLS/HR; Start 02/12/18 at 00:30 Insulin Aspart (Novolog Insulin Pen) 8 unit WITH MEALS SC Last administered on 02/17/18at 13:00; Admin Dose 8 UNIT; Start 02/13/18 at 12:00 Insulin Glargine (Lantus) 20 units DAILY@2000 SC Last administered on 02/16/18at 20:17; Admin Dose 20 UNITS; Start 02/13/18 at 20:00 Senna (Senokot) 1 tab BID PRN PO CONSTIPATION; Start 02/13/18 at 14:00 Polyethylene Glycol (Miralax) 17 gm DAILY PO Last administered on 02/17/18at 09:04; Admin Dose 17 GM; Start 02/14/18 at 14:00 Al Hydrox/Mg Hydrox/Simethicone (Mag-Al Plus) 30 ml Q6H PRN PO GASTROINTESTINAL UPSET Last administered on 02/17/18at 00:54; Admin Dose 30 ML; Start 02/14/18 at 22:30 Dexamethasone (Decadron) 8 mg Q12 IV Last administered on 02/17/18at 09:05; Admin Dose 8 MG; Start 02/16/18 at 18:00; Stop 02/19/18 at 22:00 Dexamethasone (Decadron) 4 mg Q12 PO ; Start 02/20/18 at 09:00; Stop 02/23/18 at 23:00 Dexamethasone (Decadron) 2 mg Q12 PO ; Start 02/24/18 at 09:00; Stop 02/25/18 at 23:45 Guaifenesin (Robitussin Liquid Cup) 200 mg Q4H PRN PO cough Last administered on 02/17/18at 05:12; Admin Dose 200 MG; Start 02/16/18 at 11:30 Pantoprazole (Protonix Tab) 40 mg BID PO Last administered on 02/17/18 09:05; Admin Dose 40 MG; Start 02/16/18 at 21:00 Vancomycin HCl 1.25 gm/Sodium Chloride 250 ml @ 83.333 mls/ hr Q12H IVPB ; Start 02/17/18 at 16:00 JOAN CHRISTENSEN MD Feb 17, 2018 15:15
[2018-02-17] MEDS: VANCOMYCIN HCL 1.25 GM in SOD CHLORIDE 0.9% 250 ML IVPB SCH (16:05)
--- NOTE | 2018-02-17 18:58 | NUR ---
No acute distress during the day .Patient in stable condition .V.S within normal limits . Patient c/o of headache . Pain medications given PRN , aware .Planning chemo therapy tomorrow . Call light within reach ,bed alarm on , family at bedside .Full report will be given to next shift RN.
[2018-02-17 19:52] VITALS: BP 141/66; PULSE 82; RESP 16
[2018-02-17] MEDS: ACETAMINOPHEN 650MG/20.3ML CUP PO PRN (20:39)
[2018-02-17] MEDS: INSULIN GLARGINE [LANTus] (100 UNITS/ML) SYG SC SCH (20:46)
--- NOTE | 2018-02-17 21:36 | NUR ---
Assumed the care of 47 year old , female , alert and oriented with family at bedside. All due meds given at 2100, RBs 127 covered with 20 units lantus. Complaint of severe headache - medicated with one tab Alvin, instructed to rest and call for assist at all times. Endorsed at 2129 to another nurse for continuity of care.
--- NOTE | 2018-02-17 21:45 | NUR ---
Received report from [facility] [place] for continuity of care. Patient is sleeping at this moment. Family at bed side
[2018-02-18] MEDS: PIPER-TAZO 3.375 GM IV (PMX) 100 ML IVPB SCH ×4 (01:06→20:14)
[2018-02-18 01:40] VITALS: BP 127/71; PULSE 80; RESP 18
[2018-02-18] MEDS: VANCOMYCIN HCL 1.25 GM in SOD CHLORIDE 0.9% 250 ML IVPB SCH ×2 (03:49→16:41)
--- NOTE | 2018-02-18 06:54 | NUR ---
EOSS: Patient remains stable. Denies any pain this shift. No other complains at this time. Will endorse to morning nurse for continuity of care.
[2018-02-18 07:30] VITALS: BP 137/75; PULSE 88; RESP 14
[2018-02-18] MEDS: HYDROCODONE/APAP (5/325) TAB PO PRN ×3 (07:42→20:13)
[2018-02-18] MEDS: INSULIN ASPART [NOVOLOG] 3 ML PEN SC SCH ×7 (07:47→21:00)
[2018-02-18] MEDS: DEXAMETHASONE 10 MG/ML 1 ML INJ IV SCH ×2 (08:37→20:59)
[2018-02-18] MEDS: LEVETIRACETAM 500 MG TAB PO SCH ×2 (08:37→21:00)
[2018-02-18] MEDS: POLYETHYLENE GLYCOL 17 GM PACKET PO SCH (08:37)
[2018-02-18] MEDS: PANTOPRAZOLE (EC) 40 MG TAB PO SCH ×2 (08:37→21:00)
[2018-02-18] MEDS: TRIMETHOPRIM/SULFAMETHOX (DS) TAB PO SCH (08:41)
--- NOTE | 2018-02-18 12:21 | NUR ---
CM NOTE: ARU Order received for LAZARA hays. Called ARU ([id number]) for evaluation. Dawit Deluna RN CM [id number] Addendum: 02/18/18 at 1450 by EPHRAIM DELUNA CM Received call from Ayesha who states they will re-evaluate pt once pt has FS medi-andrae.
[2018-02-18] MEDS: ONDANSETRON 4 MG INJ IV PRN (12:24)
--- NOTE | 2018-02-18 12:26 | PN ---
Date/Time of Note Date/Time of Note DATE: 02/18/18 TIME: 12:24 Assessment/Plan VTE Prophylaxis Risk score (from [facility])>0 risk: 2 SCD applied (from [facility] [place]): No SCD contraindicated: other Pharmacological prophylaxis: NA/contraindicated Pharm contraindication: thrombocytopenia Lines/Catheters [facility] (from [facility] port a cath Urinary Cath still in place: No Assessment/Plan Hospital Course S: Patient had no acute events overnight. Still with some headache and dizziness symptoms. O: VS - see below PE: Gen: lying in bed Head: Atraumatic Eyes: Normal Conjunctiva ENT: Normal External Ears, Nose and Mouth. Neck: Full range of motion. No meningismus. Resp: Clear to auscultation bilaterally Cardio: Regular rate and rhythm, no murmurs Abd: Soft, non tender, non distended. Normal bowel sounds Ext: No lower extremity edema bilaterally Neur: No focal deficits CT head February 09: IMPRESSION: 1. Region of decreased attenuation in the right superior parietal white matter posteriorly. This may indicate a subtle mass at this site. Correlation with contrast enhanced MRI of brain advised. 2. Subtle shift of midline structures to the right measuring 0.4 cm. Mild effacement of the frontal horn of the left lateral ventricle. 3. Small low attenuation subdural fluid collection in the right frontal region measuring 0.4 cm in thickness. 4. Subtle isodense left subdural fluid collection measuring 0.4 cm in thickness and extending across the left temporal and parietal convexities. This is suspic ious for subacute subdural hematoma. Correlation with MRI advised. 5. 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 6. Fluid in the right ethmoid air cells. 7. 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 Correlation with cerebral spinal fluid analysis, if not already performed, is recommended. 2. The abnormality seen in the right parietal lobe on CT is consistent with vasogenic edema related to an adjacent extra-axial nodular leptomeningeal enhancement focus rather than intra-axial mass lesion. 3. There is no evidence of subdural hematoma, the abnormality seen on CT are related to pathologic leptomeningeal enhancement. 4. Heterogeneous signal intensity within the calvarium unable to exclude osseous metastatic disease. 5. Right frontal and ethmoid sinus disease with bilateral mastoid air cell effusions. Assessment/Plan: 47-year-old woman with a history of left breast carcinoma status post mastectomy and chemo presents with headache and generalized weakness with a CT finding of subdural fluid collection with 0.4 mm midline shift, as well as possible right parietal mass concerning for brain metastasis. 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 Again there is 0.4 mm midline shift. Appreciate neurosurgery recommendations. Currently no surgery needed. - Continue intrathecal chemotherapy for now, next dose possibly today, will follow up with him on con this - Currently on decadron taper-ordered - Currently symptoms seem to be improving. - PT, OT #Pneumonia- Infiltrates on CXR- On vanco/zosyn (02/12-02/18) -Monitor for now #Chest pain-earlier she complained of pressure-like chest pain.- Noncardiac in nature; she described it as worse after eating and improves with standing and ambulation- Trop negative, EKG without ischemia - This likely represents anxiety or dyspepsia, no further cardiac workup - monitor for now #Breast carcinoma: Status post chemotherapy mastectomy in the past. - Dr. Shaw following. - Currently plan is intrathecal chemo 3x/week then outpatient evaluation for radiation oncology. #Hypertensive urgency: Blood pressure improved -Monitor #Thrombocytopenia: status post platelet transfusion. -Platelets in the 60s, no signs of bleeding, continue to monitor Dispo: Medically stable for transfer to ARU when approved versus SNF. Result Diagram: 02/18/18 0543 02/18/18 0543 Results 24hrs Laboratory Tests Test 02/17/18 12:55 02/17/18 18:03 02/17/18 20:36 02/18/18 05:43 Bedside Glucose 157 180 120 White Blood Count 4.2 L Red Blood Count 3.27 L Hemoglobin 10.7 L Hematocrit 29.8 L Mean Corpuscular 91.1 Volume Mean Corpuscular 32.7 Hemoglobin Mean Corpuscular 35.9 Hemoglobin Concent Red Cell 15.3 H Distribution Width Platelet Count 60 L Mean Platelet Volume 11.0 H Immature 6.800 H Granulocytes % Neutrophils % Segmented 61 Neutrophils % (Manual) Band Neutrophils % 4 (Manual) Lymphocytes % Lymphocytes % 26 (Manual) Monocytes % Monocytes % (Manual) 5 Eosinophils % Basophils % Metamyelocytes % 1 H (manual) Myelocytes % 3 H (Manual) Nucleated Red Blood 6 H Cells % Immature 0.290 H Granulocytes # Neutrophils # Neutrophils # 2.6 (Manual) Band Neutrophils # 0.1 Lymphocytes (Manual) 1.0 Lymphocytes # Monocytes # Monocytes # (Manual) 0.2 L Eosinophils # Basophils # Metamyelocytes # 0.0 Myelocytes # 0.1 H Nucleated Red Blood Cells # Platelet Estimate INCREASED Polychromasia 1+ Hypochromasia 2+ Anisocytosis 1+ Macrocytosis 1+ Sodium Level 136 Potassium Level 4.2 Chloride Level 96 L Carbon Dioxide Level 27 Anion Gap 13 Blood Urea Nitrogen 21 H Creatinine 0.50 Est Glomerular > 60 Filtrat Rate mL/min Glucose Level 167 Calcium Level 9.3 Phosphorus Level 4.6 Magnesium Level 2.2 Test 02/18/18 07:44 02/18/18 12:18 Bedside Glucose 145 200 Exam/Review of Systems Vital Signs Vitals Vital Signs Date Temp Pulse Resp B/P (MAP) Pulse Ox O2 O2 Flow FiO2 Time Delivery Rate 02/18/18 Nasal 2.0 10:06 Cannula 02/18/18 98.5 88 14 137/75 97 07:30 (95) Intake and Output 02/17/18 02/17/18 02/18/18 1515:00 23:00 07:00 IntakeIntake Total 200 ml 750 ml 650 ml BalanceBalance 200 ml 750 ml 650 ml Medications Medications Current Medications Ondansetron HCl (Zofran Inj) 4 mg Q6H PRN IV NAUSEA AND/OR VOMITING; Start 02/09/18 at 20:00 Albuterol/ Ipratropium (Duoneb) 3 ml Q2H RESP THERAPY PRN NEB SHORTNESS OF BREATH; Start 02/09/18 at 20:00 Acetaminophen (Tylenol Liquid) 650 mg Q6H PRN PO PAIN LEVEL 1-3 OR FEVER Last administered on 02/17/18at 20:39; Admin Dose 650 MG; Start 02/09/18 at 20:00 Acetaminophen/ Hydrocodone Bitart ([place] (5/325)) 1 tab Q6H PRN PO PAIN LEVEL 4-6 Last administered on 02/18/18at 07:42; Admin Dose 1 TAB; Start 02/09/18 at 20:00 Labetalol HCl (Labetalol) 10 mg Q2H PRN IV SBP > 150 Last administered on 02/11/18at 19:28; Admin Dose 10 MG; Start 02/09/18 at 20:00 Trimethoprim/ Sulfamethoxazole (Bactrim (Ds)) 1 tab MONWEDFRI PO Last ad ministered on 02/18/18at 08:41; Admin Dose 1 TAB; Start 02/11/18 at 09:00 Insulin Aspart (Novolog Insulin Pen) NOVOLOG *MILD* ALGORITHM WITH MEALS BEDTIME SC Last administered on 02/18/18at 07:47; Admin Dose 1 UNIT; Start 02/10/18 at 21:00 Hydralazine HCl (Apresoline) 10 mg Q6H PRN IV ELEVATED BLOOD PRESSURE Last administered on 02/13/18at 21:22; Admin Dose 10 MG; Start 02/10/18 at 18:30 Miscellaneous Information 1 ea NOTE XX ; Start 02/10/18 at 19:00 Glucose (Glutose) 15 gm Q15M PRN PO DECREASED GLUCOSE; Start 02/10/18 at 19:00 Glucose (Glutose) 22.5 gm Q15M PRN PO DECREASED GLUCOSE; Start 02/10/18 at 19:00 Dextrose (D50w Syringe) 25 ml Q15M PRN IV DECREASED GLUCOSE; Start 02/10/18 at 19:00 Dextrose (D50w Syringe) 50 ml Q15M PRN IV DECREASED GLUCOSE; Start 02/10/18 at 19:00 Glucagon (Glucagen) 1 mg Q15M PRN IM DECREASED GLUCOSE; Start 02/10/18 at 19:00 Glucose (Glutose) 15 gm Q15M PRN BUCCAL DECREASED GLUCOSE; Start 02/10/18 at 19:00 Levetiracetam (Keppra) 500 mg BID PO Last administered on 02/18/18at 08:37; Admin Dose 500 MG; Start 02/11/18 at 09:30 Vancomycin HCl (Vanco Iv Per Pharmacy) VANCOMYCIN PER PHARMACY PER PROTOCOL XX ; Start 02/12/18 at 00:30 Piperacillin Sod/ Tazobactam Sod 100 ml @ 200 mls/hr Q6 IVPB Last administered on 02/18/18 06:42; Admin Dose 200 MLS/HR; Start 02/12/18 at 00:30 Insulin Aspart (Novolog Insulin Pen) 8 unit WITH MEALS SC Last administered on 02/18/18 07:48; Admin Dose 8 UNIT; Start 02/13/18 at 12:00 Insulin Glargine (Lantus) 20 units DAILY@2000 SC Last administered on 02/17/18 20:46; Admin Dose 20 UNITS; Start 02/13/18 at 20:00 Senna (Senokot) 1 tab BID PRN PO CONSTIPATION; Start 02/13/18 at 14:00 Polyethylene Glycol (Miralax) 17 gm DAILY PO Last administered on 02/18/18 08:37; Admin Dose 17 GM; Start 02/14/18 at 14:00 Al Hydrox/Mg Hydrox/Simethicone (Mag-Al Plus) 30 ml Q6H PRN PO GASTROINTESTINAL UPSET Last administered on 02/17/18 00:54; Admin Dose 30 ML; Start 02/14/18 at 22:30 Dexamethasone (Decadron) 8 mg Q12 IV Last administered on 02/18/18 08:37; Admin Dose 8 MG; Start 02/16/18 at 18:00; Stop 02/19/18 at 22:00 Dexamethasone (Decadron) 4 mg Q12 PO ; Start 02/20/18 at 09:00; Stop 02/23/18 at 23:00 Dexamethasone (Decadron) 2 mg Q12 PO ; Start 02/24/18 at 09:00; Stop 02/25/18 at 23:45 Guaifenesin (Robitussin Liquid Cup) 200 mg Q4H PRN PO cough Last administered on 02/17/18 05:12; Admin Dose 200 MG; Start 02/16/18 at 11:30 Pantoprazole (Protonix Tab) 40 mg BID PO Last administered on 02/18/18 08:37; Admin Dose 40 MG; Start 02/16/18 at 21:00 Vancomycin HCl 1.25 gm/Sodium Chloride 250 ml @ 83.333 mls/ hr Q12H IVPB Last administered on 02/18/18 03:49; Admin Dose 83.333 MLS/HR; Start 02/17/18 at 16:00 Miscellaneous Information (*Rx Drug Level Order Reminder*) 1 ONCE ONCE XX ; Start 02/19/18 at 03:00; Stop 02/19/18 at 03:01 DUGLAS CARPIO Feb 18, 2018 12:26
[2018-02-18 14:49] VITALS: BP 128/63; PULSE 92; RESP 15
--- NOTE | 2018-02-18 15:52 | NUR ---
Intrathecal Methotrexate not done 02/18/18: Nurse Joycelyn informed this flooring machine feeder (charge nurse), that patient has orders for intrathecal methotrexate and was wondering were this would be done. Phone call placed to radiology and spoke to Tisha, who informs me that this would not be done today, Dr. Kaba is out this week and the covering radiologist Dr. Hines does not do intrathecal. Dr. Whittington was called and updated on this. Per Dr. Benitez it could be done tomorrow but to find Interventional Radiology. Called pharmacy, spoke to Susana, she is aware, also called radiology, tisha was gone for the day. Spoke to Susan who will relay the message for tomorrow to get IR and patient on the scheudle. IR to coordinate with pharmacy. Nursing supervisor advice Margarette was also made aware.
--- NOTE | 2018-02-18 15:55 | NUR ---
PT NOTE Therapy day number 6 Subjective Denies pain Pain Scale NUMERIC Pain Intensity 0 (0-10) Patient Stated Goal for Pain Relief 0 (0-10) Pain Level Comment denies pain Transfer Training Start Time 15:55 Supine to Sit Stand by Assist Transfer Sit to Stand Ability Stand by Assist Toileting Ability Stand by Assist Transfer Training End Time 16:05 Total Transfer Training Time 10 min (8-127) Gait Training Start Time 16:05 Gait Assist Levels Contact Guard Assist Assistive Devices Front Wheel Walker Ambulation Distance 90 feet Additional Gait Comments reciprocal gait, slight unsteady, slow carlos, decreased step length/strid Gait Training End Time 16:35 Total Gait Training Treatment Time 30 min (8-127) Weight Bearing Assessment Label Bilat Lower Extremity Weight Bearing Status Full Weight Bearing Additional Stairs Assist Comments TBA Static Sitting Balance Good Dynamic Sitting Balance Good Standing Static Balance Fair plus Dynamic Standing Balance Fair minus Additional Balance Assessments Comments FWW Safety Judgement Fair Activity Tolerance Fair Equipment Present A pump Post Treatment Pain Intensity 0 0-10 Quality Indicators Dizziness Additional Post Treatment Comment SEE BELOW AND PT NOTE Total Treament Time 40 min (8-127) Total Minutes 40 Total Units 3 PT Technical Record Comment PT NOTE S: Pt stated, "I just feel weak and dizzy." Agreeable for PT and cleared per ASA Collins. O: Received pt in semi-fowlers, asleep w/ASA Collins and family present in room. VCs to rouse. Bed mobility w/HOB elevated using BR w/VCs/TCs for hand placement and sequence SBA. Applied gait belt at EOB. STS to FWW w/VCs for proper hand placement and sequence. Assisted pt to toilet per pt's request SBA. Gait training performed afterwards w/FWW 90' CGA. Noted reciprocal gait, slightly unsteady however no LOB/buckling, slow carlos, and decreased step length/stride. Pt required 3 standing rest breaks due to pt reporting general weakness, more so on BLE, and dizziness. Assisted pt back to room. Pt sat and left in chair w/food tray in front per pt's request w/family at chairside. Left pt in comfort position, call light/phone within reach, and all needs met. ASA Collins informed of pt's status and location. A: Fair tolerance to tx. Pt showed no signs of distress or SOB during or after tx. No c/o nausea or pain throughout tx. Bed mobility, transfers, and gait distance improved compared to previous tx. Pt is clear to go to restroom w/nursing staff w/FWW. P: Continue POC and progress as tolerated.
--- NOTE | 2018-02-18 16:59 | NUR ---
AOX4, BUSINESS ACCOUNT EXECUTIVE FOLLOWING UP ON CHEMOTHERAPY THERAPY ORDERS, PT WAS MEDICATED FOR PAIN X2 DURING THIS SHIFT, IV ABX GIVEN, PARTICIPATED IN PHYSICAL THERAPY TODAY, CURRENTLY SITTING ON A CHAIR, FAMILY AT BEDSIDE
[2018-02-18 20:00] VITALS: BP 135/70; PULSE 82; RESP 17
[2018-02-18] MEDS: INSULIN GLARGINE [LANTus] (100 UNITS/ML) SYG SC SCH (21:24)
[2018-02-19] MEDS: PIPER-TAZO 3.375 GM IV (PMX) 100 ML IVPB SCH ×3 (01:31→12:39)
[2018-02-19 02:00] VITALS: BP 139/68; PULSE 84; RESP 18
[2018-02-19] MEDS: VANCOMYCIN HCL 1.25 GM in SOD CHLORIDE 0.9% 250 ML IVPB SCH (04:19)
--- NOTE | 2018-02-19 05:27 | NUR ---
SHIFT REPORT: RECEIVED PATIENT WITH FAMILY AT BEDSIDE.PATIENT WAS SLEEPY BUT AROUSABLE TO TACTILE AND VERBAL STIMULI. COMPLAINED OF PAIN AND NORCO WAS GIVEN PER ORDER.RELIEF WAS NOTED AFTER THE PAIN ADMINISTRATION,NO S/SX OF HYPO/HYPERGLYCEMIA.DUE MEDICATIONS GIVEN. ASSISTED TO THE COMMODE. BED ALARM IS ON. WILL CONTINUE TO MONITOR.
[2018-02-19] MEDS: HYDROCODONE/APAP (5/325) TAB PO PRN ×2 (06:03→17:50)
[2018-02-19] MEDS: GUAIFENESIN 20 MG/ML 5ML CUP PO PRN ×2 (06:03→17:39)
[2018-02-19 07:15] VITALS: BP 163/68; PULSE 81; RESP 18
[2018-02-19] MEDS: INSULIN ASPART [NOVOLOG] 3 ML PEN SC SCH ×7 (08:00→20:46)
[2018-02-19] MEDS: PANTOPRAZOLE (EC) 40 MG TAB PO SCH ×2 (08:35→20:45)
[2018-02-19] MEDS: LEVETIRACETAM 500 MG TAB PO SCH ×2 (08:35→20:45)
[2018-02-19] MEDS: POLYETHYLENE GLYCOL 17 GM PACKET PO SCH (08:35)
[2018-02-19] MEDS: DEXAMETHASONE 10 MG/ML 1 ML INJ IV SCH ×2 (08:35→20:45)
--- NOTE | 2018-02-19 10:27 | NUR ---
I reported at the daily organizational safety huddle that there was an ordered intrathecal methotrexate dose scheduled for 02/18/18 that was not administered yesterday due to interventional radiology (IR) MD availability/privileges. Dr. Dhara Whittington on 02/13/18 at 1423 had ordered for Mrs. Rome to be scheduled for three doses of intrathecal methotrexate 12 mg and hydrocortisone 20 mg on 02/18/18, 02/20/18, and 02/22/18. I was asked to call this MD to provide him follow up as to the plan for providing a privileged IR physician to complete the procedure and resume the schedule. Furthermore, I also needed to clarify if he wished to adjust the three dose schedule to today, , and Sunday. Upon speaking with Dr. Whittington over the phone, he stated that if we were able to provide an IR MD today, to please complete dosing today, tomorrow 02/20/18, and then Sunday02/22/18. I communicated this plan to Team Leader/Research Psychologist Marvel Lawson and clinical bedside RN Shannen Tse. MD Whittington stated he will be in later today to assess the patient. RN will continue to monitor and assess.
[2018-02-19] MEDS ORDERED: HYDROCORTISONE IT SCH (12:30)
[2018-02-19] MEDS ORDERED: SOD CHLORIDE 0.9% IT SCH (12:30)
[2018-02-19] MEDS ORDERED: METHOTREXATE IT SCH (12:30)
--- NOTE | 2018-02-19 13:52 | PN ---
Date/Time of Note Date/Time of Note DATE: 02/19/18 TIME: 13:46 Assessment/Plan VTE Prophylaxis Risk score (from [facility] [place] risk: 7 SCD applied (from [facility] [place] Yes SCD contraindicated: other Pharmacological prophylaxis: NA/contraindicated Pharm contraindication: thrombocytopenia Lines/Catheters IV [facility] (from [facility] [place] Urinary Cath still in place: No Assessment/Plan Hospital Course S: Patient had no acute events overnight. Still waiting for intrathecal chemotherapy to be administered. O: VS - see below PE: Gen: lying in bed Head: Atraumatic Eyes: Normal Conjunctiva ENT: Normal External Ears, Nose and Mouth. Neck: Full range of motion. No meningismus. Resp: Clear to auscultation bilaterally Cardio: Regular rate and rhythm, no murmurs Abd: Soft, non tender, non distended. Normal bowel sounds Ext: No lower extremity edema bilaterally Neur: No focal deficits CT head February 09: IMPRESSION: 1. Region of decreased attenuation in the right superior parietal white matter posteriorly. This may indicate a subtle mass at this site. Correlation with contrast enhanced MRI of brain advised. 2. Subtle shift of midline structures to the right measuring 0.4 cm. Mild effacement of the frontal horn of the left lateral ventricle. 3. Small low attenuation subdural fluid collection in the right frontal region measuring 0.4 cm in thickness. 4. Subtle isodense left subdural fluid collection measuring 0.4 cm in thickness and extending across the left temporal and parietal convexities. This is suspicious for subacute subdural hematoma. Correlation with MRI advised. 5. 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 6. Fluid in the right ethmoid air cells. 7. 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 Correlation with cerebral spinal fluid analysis, if not already performed, is recommended. 2. The abnormality seen in the right parietal lobe on CT is consistent with vasogenic edema related to an adjacent extra-axial nodular leptomeningeal enhancement focus rather than intra-axial mass lesion. 3. There is no evidence of subdural hematoma, the abnormality seen on CT are related to pathologic leptomeningeal enhancement. 4. Heterogeneous signal intensity within the calvarium unable to exclude osseous metastatic disease. 5. Right frontal and ethmoid sinus disease with bilateral mastoid air cell effusions. Assessment/Plan: 47-year-old woman with a history of left breast carcinoma status post mastectomy and chemo presents with headache and generalized weakness with a CT finding of subdural fluid collection with 0.4 mm midline shift, as well as possible right parietal mass concerning for brain metastasis. 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 Again there is 0.4 mm midline shift. Appreciate neurosurgery recommendations. Currently no surgery needed. - Continue intrathecal chemotherapy for now, next dose possibly today, will follow up with hematology oncology doctor as well as nursing staff to see if this can be done by interventional radiology today - Currently on decadron taper-ordered - PT, OT #Pneumonia- Infiltrates on CXR earlier this admission-completed treatment with Vanco/zosyn (02/12-02/18). Appears resolved presently. -Monitor for now #Chest pain-earlier she complained of pressure-like chest pain.- Noncardiac in nature; she described it as worse after eating and improves with standing and ambulation- Trop negative, EKG without ischemia - This likely represents anxiety or dyspepsia, no further cardiac workup - monitor for now #Breast carcinoma: Status post chemotherapy mastectomy in the past. -Per hematology oncology team, currently plan is intrathecal chemo 3x/week then outpatient evaluation for radiation oncology. #Hypertensive urgency: Blood pressure improved -Monitor #Thrombocytopenia: status post platelet transfusion. -Platelets in the 60s, no signs of bleeding, continue to monitor Dispo: Medically stable for transfer to ARU when approved versus SNF. Result Diagram: 02/18/18 0543 02/18/18 0543 Results 24hrs Laboratory Tests Test 02/18/18 17:49 02/18/18 20:59 02/19/18 00:27 02/19/18 03:08 Bedside Glucose 212 92 174 Vancomycin Level 11.5 Trough Test 02/19/18 08:34 02/19/18 12:38 Bedside Glucose 116 198 Exam/Review of Systems Vital Signs Vitals Vital Signs Date Temp Pulse Resp B/P (MAP) Pulse Ox O2 O2 Flow FiO2 Time Delivery Rate 02/19/18 Nasal 2.0 08:20 Cannula 02/19/18 98.1 81 18 163/68 93 07:15 (99) Intake and Output 02/18/18 02/18/18 02/19/18 1414:59 22:59 06:59 IntakeIntake Total 460 ml 590 ml 690 ml BalanceBalance 460 ml 590 ml 690 ml Medications Medications Current Medications Ondansetron HCl (Zofran Inj) 4 mg Q6H PRN IV NAUSEA AND/OR VOMITING Last administered on 02/18/18 12:24; Admin Dose 4 MG; Start 02/09/18 at 20:00 Albuterol/ Ipratropium (Duoneb) 3 ml Q2H RESP THERAPY PRN NEB SHORTNESS OF BREATH; Start 02/09/18 at 20:00 Acetaminophen (Tylenol Liquid) 650 mg Q6H PRN PO PAIN LEVEL 1-3 OR FEVER Last administered on 02/17/18at 20:39; Admin Dose 650 MG; Start 02/09/18 at 20:00 Acetaminophen/ Hydrocodone Bitart ([place] (5/325)) 1 tab Q6H PRN PO PAIN LEVEL 4-6 Last administered on 02/19/18 06:03; Admin Dose 1 TAB; Start 02/09/18 at 20:00 Labetalol HCl (Labetalol) 10 mg Q2H PRN IV SBP > 150 Last administered on 02/11/18 19:28; Admin Dose 10 MG; Start 02/09/18 at 20:00 Trimethoprim/ Sulfamethoxazole (Bactrim (Ds)) 1 tab MONWEDFRI PO Last administered on 02/18/18at 08:41; Admin Dose 1 TAB; Start 02/11/18 at 09:00 Insulin Aspart (Novolog Insulin Pen) NOVOLOG *MILD* ALGORITHM WITH MEALS BEDTIME SC Last administered on 02/19/18 12:45; Admin Dose 2 UNIT; Start 02/10/18 at 21:00 Hydralazine HCl (Apresoline) 10 mg Q6H PRN IV ELEVATED BLOOD PRESSURE Last administered on 02/13/18 21:22; Admin Dose 10 MG; Start 02/10/18 at 18:30 Miscellaneous Information 1 ea NOTE XX ; Start 02/10/18 at 19:00 Glucose (Glutose) 15 gm Q15M PRN PO DECREASED GLUCOSE; Start 02/10/18 at 19:00 Glucose (Glutose) 22.5 gm Q15M PRN PO DECREASED GLUCOSE; Start 02/10/18 at 19:00 Dextrose (D50w Syringe) 25 ml Q15M PRN IV DECREASED GLUCOSE; Start 02/10/18 at 19:00 Dextrose (D50w Syringe) 50 ml Q15M PRN IV DECREASED GLUCOSE; Start 02/10/18 at 19:00 Glucagon (Glucagen) 1 mg Q15M PRN IM DECREASED GLUCOSE; Start 02/10/18 at 19:00 Glucose (Glutose) 15 gm Q15M PRN BUCCAL DECREASED GLUCOSE; Start 02/10/18 at 19:00 Levetiracetam (Keppra) 500 mg BID PO Last administered on 02/19/18at 08:35; Admin Dose 500 MG; Start 02/11/18 at 09:30 Vancomycin HCl (Vanco Iv Per Pharmacy) VANCOMYCIN PER PHARMACY PER PROTOCOL XX ; Start 02/12/18 at 00:30 Piperacillin Sod/ Tazobactam Sod 100 ml @ 200 mls/hr Q6 IVPB Last administered on 02/19/18at 12:39; Admin Dose 200 MLS/HR; Start 02/12/18 at 00:30 Insulin Aspart (Novolog Insulin Pen) 8 unit WITH MEALS SC Last administered on 02/19/18at 12:45; Admin Dose 8 UNIT; Start 02/13/18 at 12:00 Insulin Glargine (Lantus) 20 units DAILY@2000 SC Last administered on 02/18/18at 21:24; Admin Dose 20 UNITS; Start 02/13/18 at 20:00 Senna (Senokot) 1 tab BID PRN PO CONSTIPATION; Start 02/13/18 at 14:00 Polyethylene Glycol (Miralax) 17 gm DAILY PO Last administered on 02/19/18at 08:35; Admin Dose 17 GM; Start 02/14/18 at 14:00 Al Hydrox/Mg Hydrox/Simethicone (Mag-Al Plus) 30 ml Q6H PRN PO GASTROINTESTINAL UPSET Last administered on 02/17/18at 00:54; Admin Dose 30 ML; Start 02/14/18 at 22:30 Dexamethasone (Decadron) 8 mg Q12 IV Last administered on 02/19/18at 08:35; Adm in Dose 8 MG; Start 02/16/18 at 18:00; Stop 02/19/18 at 22:00 Dexamethasone (Decadron) 4 mg Q12 PO ; Start 02/20/18 at 09:00; Stop 02/23/18 at 23:00 Dexamethasone (Decadron) 2 mg Q12 PO ; Start 02/24/18 at 09:00; Stop 02/25/18 at 23:45 Guaifenesin (Robitussin Liquid Cup) 200 mg Q4H PRN PO cough Last administered on 02/19/18at 06:03; Admin Dose 200 MG; Start 02/16/18 at 11:30 Pantoprazole (Protonix Tab) 40 mg BID PO Last administered on 02/19/18at 08:35; Admin Dose 40 MG; Start 02/16/18 at 21:00 Vancomycin HCl 1.25 gm/Sodium Chloride 250 ml @ 83.333 mls/ hr Q12H IVPB Last administered on 02/19/18at 04:19; Admin Dose 83.333 MLS/HR; Start 02/17/18 at 16:00 DUGLAS CARPIO Feb 19, 2018 13:52
[2018-02-19] MEDS ORDERED: LIDOCAINE 1% (MPF) 5 ML VIAL ONE (13:55)
--- NOTE | 2018-02-19 13:55 | PN ---
Date/Time of Note Date/Time of Note DATE: 02/19/18 TIME: 13:53 Outpatient Progress Note Chief Complaint slightly better less headaches no bleeding cognition better Review of Systems Const: No Fever, no chills, no Wt. loss, no Fatigue, normal appetite, no diaphoresis. Eyes: No pain, no discharge, no redness, no visual change, no foreign body. ENT: No pain, no bleeding, no congestion, no sore throat, no dysphagia, no discharge or rhinitis. Lymph: No adenopathy, no tender nodes, no lymphedema. Resp: No SOB, no cough, no sputum, no wheezing, no chest pain. CV: No chest pain, no palpitaions, no TURNER, no PND, no edema. GI: Normal appetite, no pain, no nausea, no vomiting, no diarrhea, no blood, no constipation. : No frequency, no urgency, no dysuria, no hematuria, no flank pain, no discharge, no bleeding. Musc: No bone/joint pain, no back pain, no neck pain, no knee pain, no restricted ROM. Skin: No rash, no skin lesions, no erythema, no laceration, no bruising, no pruritus. Neuro: No CAR, no dizziness, no syncope, no seizure, no focal-weakness. Endo: No polyuria, no polydypsia, no dry-skin, no temp-intolerance. Psych: No hallucinations, no depression, no anxiety, no suicidal ideation. Ext: No edema, no pain, no ulcer, no weakness. 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
[2018-02-19 14:18] VITALS: BP 158/74; PULSE 91; RESP 18
--- NOTE | 2018-02-19 15:43 | NUR ---
LP WITH METHOTREXATE INJECTION UNDER FLUORO GUIDANCE INFORMED CONSENT PER DR. TALAVERA, PT AGREED TO PROCEDURE. PROCEDURE UNDER LOCAL ANESTHESIA, WELL TOLERATED. NO COMPLICATIONS BEFORE AND AFTER. PT SEND BACK TO UNIT ORDERED PER MD.
[2018-02-19 16:00] VITALS: BP 147/73; PULSE 88; RESP 18
[2018-02-19 16:30] VITALS: BP 139/74; PULSE 85; RESP 18
--- NOTE | 2018-02-19 19:13 | NUR ---
NO ACUTE DISTRESS DURING THE DAY. VS WITHIN ACCEPTABLE RANGE , BLOOD SUGAR FLUCTUATED WITHIN NORMAL RANGE. LP WITH METHOTREXATE INJECTION UNDER FLUORO GUIDANCE DONE, NEXT TREATMENT TOMORROW AND SUNDAY. PATIENT BEEN MEDICATED FOR HEADACHE X1 WITH NORCO WITH RELIEVE OF PAIN TO LEVEL OF TOLERANCE. WILL CONTINUE TO MONITOR
[2018-02-19 20:00] VITALS: BP 140/64; PULSE 105; RESP 18
[2018-02-19] MEDS: INSULIN GLARGINE [LANTus] (100 UNITS/ML) SYG SC SCH (21:00)
[2018-02-20] VITALS (8 sets, daily range): BP systolic 134–149; BP diastolic 63–74; PULSE 19–101; RESP 15–19
[2018-02-20] MEDS: HYDROCODONE/APAP (5/325) TAB PO PRN (01:03)
--- NOTE | 2018-02-20 06:39 | NUR ---
ASLEEP RESTING COMFORTABLY IN BED. NO ACUTE DISTRESS AT THIS TIME. ALL DUE MEDS GIVEN AND TOLERATED WELL. PT SCHEDULED FOR INTRATHECAL CHEMOTHERAPY ADMINISTERED BY INTERNAL RADIOLOGY LATER TODAY. SON (SRIRAM) AT BEDSIDE. HOURLY ROUNDING DONE. BED ALARM ACTIVATED. ALL NEEDS ATTENDED. CALL LIGHT WITHIN EASY REACH. WILL ENDORSE TO NEXT SHIFT.
[2018-02-20] MEDS: INSULIN ASPART [NOVOLOG] 3 ML PEN SC SCH ×7 (08:00→21:00)
[2018-02-20] MEDS: POLYETHYLENE GLYCOL 17 GM PACKET PO SCH (08:35)
[2018-02-20] MEDS: PANTOPRAZOLE (EC) 40 MG TAB PO SCH ×2 (08:35→21:30)
[2018-02-20] MEDS: LEVETIRACETAM 500 MG TAB PO SCH ×2 (08:35→21:30)
[2018-02-20] MEDS: DEXAMETHASONE 4 MG TAB PO SCH ×2 (08:35→21:30)
[2018-02-20] MEDS: TRIMETHOPRIM/SULFAMETHOX (DS) TAB PO SCH (08:40)
--- NOTE | 2018-02-20 11:34 | NUR ---
PT NOTE [facility] Patient: Michelle Rome : 1970 Age/Sex: 47/F Unit#: [id number] Room/Bed: 228/A User: Eden Mason PTA Date: 02/20/18 11:34 Type: PT Technical Record Therapy day number 8 Subjective Denies pain Pain Scale NUMERIC Pain Intensity 0 (0-10) Patient Stated Goal for Pain Relief 0 (0-10) Pain Level Comment denied pain Transfer Training Start Time 10:56 Transfer Sit to Stand Ability Contact Guard Assist Bed Mobility Sit to Supine Minimum Assist Toileting Ability Supervised Transfer Training End Time 11:20 Total Transfer Training Time 24 min (8-127) Patient uses wheelchair Not Applicable Gait Training Start Time 11:20 Gait Assist Levels Contact Guard Assist Assistive Devices Front Wheel Walker Ambulation Distance 80 feet Additional Gait Comments reciprocal pattern, lateral sway Gait Training End Time 11:34 Total Gait Training Treatment Time 14 min (8-127) Weight Bearing Assessment Label Bilat Lower Extremity Weight Bearing Status Full Weight Bearing Additional Stairs Assist Comments TBA Static Sitting Balance Good Dynamic Sitting Balance Good Standing Static Balance Fair plus Dynamic Standing Balance Fair minus Additional Balance Assessments Comments FWW Safety Judgement Fair Activity Tolerance Fair Additional Equipment Present 2L O2 via NC Post Treatment Pain Intensity 0 0-10 Quality Indicators SOB Upon Exertion Dizziness Total Treament Time 38 min (8-127) Total Minutes 38 Total Units 3 PT Technical Record Comment S: ASA Cee cleared pt for PT. Pt denied pain and agreeable to tx. Pt is irish speaking, nursing staff and family present for translation O: Received pt walking to toilet w/ assistance from nursing staff. TILE SHADER assisted w/ pt hygiene. See above for assist levels. Gait training x 80' and presented with increased carlos, reciprocal pattern, WBOS, and lateral sway. Returned pt back to room/bed. Positioned pt to comfort in semifowler. Call light/phone within reach. Bed alarm on. Needs met. Left pt w/ family present in room A: Fair tolerance to tx. Pt fatigues easily and SOB noted throughout tx. Pt c/o dizziness. O2 supplement applied throughout P: Continue w/ POC and progress as tolerated.
[2018-02-20] MEDS ORDERED: SOD CHLORIDE 0.9% 250 ML IV* ONE (12:03)
--- NOTE | 2018-02-20 12:11 | PN ---
Date/Time of Note Date/Time of Note DATE: 02/20/18 TIME: 12:08 Assessment/Plan VTE Prophylaxis Risk score (from Ns)>0 risk: 3 SCD applied (from [facility] [place]): Yes SCD contraindicated: other Pharmacological prophylaxis: NA/contraindicated Pharm contraindication: thrombocytopenia Lines/Catheters IV C[facility]ter Type (from [facility] Saline Lock Urinary Cath still in place: No Assessment/Plan Hospital Course S: Patient had intrathecal chemotherapy administered by IR yesterday, awaiting for another injection today. Seen by hematology oncology team yesterday. Complaining of some mild itchiness and generalized weakness, otherwise no acute events overnight. O: VS - see below PE: Gen: lying in bed Head: Atraumatic Eyes: Normal Conjunctiva ENT: Normal External Ears, Nose and Mouth. Neck: Full range of motion. No meningismus. Resp: Clear to auscultation bilaterally Cardio: Regular rate and rhythm, no murmurs Abd: Soft, non tender, non distended. Normal bowel sounds Ext: No lower extremity edema bilaterally Neur: No focal deficits CT head February 09: IMPRESSION: 1. Region of decreased attenuation in the right superior parietal white matter posteriorly. This may indicate a subtle mass at this site. Correlation with contrast enhanced MRI of brain advised. 2. Subtle shift of midline structures to the right measuring 0.4 cm. Mild effacement of the frontal horn of the left lateral ventricle. 3. Small low attenuation subdural fluid collection in the right frontal region measuring 0.4 cm in thickness. 4. Subtle isodense left subdural fluid collection measuring 0.4 cm in thickness and extending across the left temporal and parietal convexities. This is suspicious for subacute subdural hematoma. Correlation with MRI advised. 5. 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 6. Fluid in the right ethmoid air cells. 7. 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 Correlation with cerebral spinal fluid analysis, if not already performed, is recommended. 2. The abnormality seen in the right parietal lobe on CT is consistent with vasogenic edema related to an adjacent extra-axial nodular leptomeningeal enhancement focus rather than intra-axial mass lesion. 3. There is no evidence of subdural hematoma, the abnormality seen on CT are r elated to pathologic leptomeningeal enhancement. 4. Heterogeneous signal intensity within the calvarium unable to exclude osseous metastatic disease. 5. Right frontal and ethmoid sinus disease with bilateral mastoid air cell effusions. Assessment/Plan: 47-year-old woman with a history of left breast carcinoma status post mastectomy and chemo presents with headache and generalized weakness with a CT finding of subdural fluid collection with 0.4 mm midline shift, as well as possible right parietal mass concerning for brain metastasis. 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 Again there is 0.4 mm midline shift. Appreciate neurosurgery recommendations. Currently no surgery needed. - Continue intrathecal chemotherapy for now as ordered by hematology oncology team (next dose scheduled today, then after that next dose will be Sunday) - Currently on decadron taper-ordered - PT, OT #Pneumonia- Infiltrates on CXR earlier this admission-completed treatment with Vanco/zosyn (02/12-02/18). Appears resolved presently. -Monitor for now #Chest pain-earlier she complained of pressure-like chest pain.- Noncardiac in nature; she described it as worse after eating and improves with standing and ambulation- Trop negative, EKG without ischemia - This likely represents anxiety or dyspepsia, no further cardiac workup - monitor for now #Breast carcinoma: Status post chemotherapy mastectomy in the past. -Per hematology oncology team, currently plan is intrathecal chemo 3x/week then outpatient evaluation for radiation oncology. #Hypertensive urgency: Blood pressure improved -Monitor #Thrombocytopenia: status post platelet transfusion earlier this admission. Platelets are lower today at 43. No signs of any bleeding -We will transfuse 1 unit of platelets today, monitor CBC in the a.m. Dispo: Medically stable for transfer to ARU when approved versus SNF. Result Diagram: 02/20/18 0447 02/20/18 0447 Results 24hrs Laboratory Tests Test 02/19/18 12:38 02/19/18 17:37 02/19/18 20:35 02/20/18 04:47 Bedside Glucose 198 160 123 White Blood Count 5.3 # Red Blood Count 3.30 L Hemoglobin 10.7 L Hematocrit 29.0 L Mean Corpuscular 87.9 Volume Mean Corpuscular 32.4 Hemoglobin Mean Corpuscular 36.9 Hemoglobin Concent Red Cell 15.7 H Distribution Width Platelet Count 43 #L Mean Platelet Volume 10.5 H Immature 6.300 H Granulocytes % Segmented 57 Neutrophils % (Manual) Band Neutrophils % 9 H (Manual) Lymphocytes % 27 (Manual) Monocytes % (Manual) 5 Eosinophils % 1 (Manual) Myelocytes % 1 H (Manual) Nucleated Red Blood 4 H Cells % Immature 0.330 H Granulocytes # Neutrophils # 3.0 (Manual) Band Neutrophils # 0.4 Lymphocytes (Manual) 1.4 Monocytes # (Manual) 0.2 L Myelocytes # 0.0 Platelet Estimate DECREASED Hypochromasia 2+ Anisocytosis 2+ Macrocytosis 1+ Target Cells 1+ Sodium Level 135 Potassium Level 4.2 Chloride Level 94 L Carbon Dioxide Level 27 Anion Gap 14 H Blood Urea Nitrogen 18 Creatinine 0.47 Est Glomerular > 60 Filtrat Rate mL/min Glucose Level 145 Calcium Level 9.2 Phosphorus Level 4.4 Magnesium Level 2.3 Test 02/20/18 08:33 Bedside Glucose 117 Exam/Review of Systems Vital Signs Vitals Vital Signs Date Temp Pulse Resp B/P (MAP) Pulse Ox O2 O2 Flow FiO2 Time Delivery Rate 02/20/18 98.3 149/71 94 07:41 (97) 93 02/19/18 Nasal 2.0 20:30 Cannula Intake and Output 02/19/18 02/19/18 02/20/18 1515:00 23:00 07:00 IntakeIntake Total 100 ml 500 ml 240 ml BalanceBalance 100 ml 500 ml 240 ml Medications Medications Current Medications Ondansetron HCl (Zofran Inj) 4 mg Q6H PRN IV NAUSEA AND/OR VOMITING Last admi nistered on 02/18/18at 12:24; Admin Dose 4 MG; Start 02/09/18 at 20:00 Albuterol/ Ipratropium (Duoneb) 3 ml Q2H RESP THERAPY PRN NEB SHORTNESS OF BREATH; Start 02/09/18 at 20:00 Acetaminophen (Tylenol Liquid) 650 mg Q6H PRN PO PAIN LEVEL 1-3 OR FEVER Last administered on 02/17/18at 20:39; Admin Dose 650 MG; Start 02/09/18 at 20:00 Acetaminophen/ Hydrocodone Bitart ([place] (5/325)) 1 tab Q6H PRN PO PAIN LEVEL 4-6 Last administered on 02/20/18at 01:03; Admin Dose 1 TAB; Start 02/09/18 at 20:00 Labetalol HCl (Labetalol) 10 mg Q2H PRN IV SBP > 150 Last administered on 02/11/18at 19:28; Admin Dose 10 MG; Start 02/09/18 at 20:00 Trimethoprim/ Sulfamethoxazole (Bactrim (Ds)) 1 tab MONWEDFRI PO Last admin istered on 02/20/18at 08:40; Admin Dose 1 TAB; Start 02/11/18 at 09:00 Insulin Aspart (Novolog Insulin Pen) NOVOLOG *MILD* ALGORITHM WITH MEALS BEDTIME SC Last administered on 02/19/18at 17:38; Admin Dose 1 UNIT; Start 02/10/18 at 21:00 Hydralazine HCl (Apresoline) 10 mg Q6H PRN IV ELEVATED BLOOD PRESSURE Last administered on 02/13/18at 21:22; Admin Dose 10 MG; Start 02/10/18 at 18:30 Miscellaneous Information 1 ea NOTE XX ; Start 02/10/18 at 19:00 Glucose (Glutose) 15 gm Q15M PRN PO DECREASED GLUCOSE; Start 02/10/18 at 19:00 Glucose (Glutose) 22.5 gm Q15M PRN PO DECREASED GLUCOSE; Start 02/10/18 at 19:00 Dextrose (D50w Syringe) 25 ml Q15M PRN IV DECREASED GLUCOSE; Start 02/10/18 at 19:00 Dextrose (D50w Syringe) 50 ml Q15M PRN IV DECREASED GLUCOSE; Start 02/10/18 at 19:00 Glucagon (Glucagen) 1 mg Q15M PRN IM DECREASED GLUCOSE; Start 02/10/18 at 19:00 Glucose (Glutose) 15 gm Q15M PRN BUCCAL DECREASED GLUCOSE; Start 02/10/18 at 19:00 Levetiracetam (Keppra) 500 mg BID PO Last administered on 02/20/18at 08:35; Admin Dose 500 MG; Start 02/11/18 at 09:30 Insulin Aspart (Novolog Insulin Pen) 8 unit WITH MEALS SC Last administered on 02/20/18 08:38; Admin Dose 8 UNIT; Start 02/13/18 at 12:00 Insulin Glargine (Lantus) 20 units DAILY@2000 SC Last administered on 02/19/18 21:00; Admin Dose 20 UNITS; Start 02/13/18 at 20:00 Senna (Senokot) 1 tab BID PRN PO CONSTIPATION; Start 02/13/18 at 14:00 Polyethylene Glycol (Miralax) 17 gm DAILY PO Last administered on 02/20/18 08:35; Admin Dose 17 GM; Start 02/14/18 at 14:00 Al Hydrox/Mg Hydrox/Simethicone (Mag-Al Plus) 30 ml Q6H PRN PO GASTROINTESTINAL UPSET Last administered on 02/17/18 00:54; Admin Dose 30 ML; Start 02/14/18 at 22:30 Dexamethasone (Decadron) 4 mg Q12 PO Last administered on 02/20/18 08:35; Admin Dose 4 MG; Start 02/20/18 at 09:00; Stop 02/23/18 at 23:00 Dexamethasone (Decadron) 2 mg Q12 PO ; Start 02/24/18 at 09:00; Stop 02/25/18 at 23:45 Guaifenesin (Robitussin Liquid Cup) 200 mg Q4H PRN PO cough Last administered on 02/19/18at 17:39; Admin Dose 200 MG; Start 02/16/18 at 11:30 Pantoprazole (Protonix Tab) 40 mg BID PO Last administered on 02/20/18 08:35; Admin Dose 40 MG; Start 02/16/18 at 21:00 DUGLAS CARPIO Feb 20, 2018 12:11
[2018-02-20] MEDS ORDERED: HYDROCORTISONE IT SCH (13:00)
[2018-02-20] MEDS ORDERED: LIDOCAINE 1% (MPF) 5 ML VIAL ONE (13:00)
[2018-02-20] MEDS ORDERED: SOD CHLORIDE 0.9% IT SCH (13:00)
[2018-02-20] MEDS ORDERED: METHOTREXATE IT SCH (13:00)
--- NOTE | 2018-02-20 13:30 | NUR ---
Pt Status: Patient went to radiology for lumbar puncture and methotrexate administration. Patient is a/o x4, no c/o pain or discomfort. Patient had insulin given with meals at lunch time. Family at bedside. IV is HL.
[2018-02-20] MEDS: AL HYDROX/MG HYDROX/SIMETH 30 ML CUP PO PRN (15:30)
[2018-02-20] MEDS: ACETAMINOPHEN 650MG/20.3ML CUP PO PRN (18:15)
--- NOTE | 2018-02-20 19:49 | NUR ---
EOSS: Patient is resting in bed, patient had a small of her dinner, insulin coverage given. Patient returned from the lumbar puncture at 1500, patient shows no signs of distress, patient is lying down flat, v/s are wnl. IV intact to right chest via Port cath. Platelet infusion in process, tolerating well. Family at bedside, call light within reach.
[2018-02-20] MEDS: INSULIN GLARGINE [LANTus] (100 UNITS/ML) SYG SC SCH (21:31)
[2018-02-21] MEDS: hydrALAzine 20 MG INJ IV PRN (01:54)
[2018-02-21 01:59] VITALS: BP 178/81; PULSE 91; RESP 18
[2018-02-21] MEDS: ONDANSETRON 4 MG INJ IV PRN ×2 (02:22→09:20)
[2018-02-21] MEDS: HYDROCODONE/APAP (5/325) TAB PO PRN (02:26)
[2018-02-21 02:30] VITALS: BP 125/58; PULSE 106; RESP 18
--- NOTE | 2018-02-21 05:17 | NUR ---
EOSS: Patient slept most of the night. Complained of N/V and was medicated with zofran IV. Patient able to go to BSC with assistance but with mild to moderate weakness at times. Kathie cath remains inplace and patent. Flushes very good. No other complaints at this time, son stayed the whole night. Will endorse to morning nurse for continuity of care.
[2018-02-21 07:33] VITALS: BP 129/59; PULSE 112; RESP 19
[2018-02-21] MEDS: INSULIN ASPART [NOVOLOG] 3 ML PEN SC SCH ×7 (08:00→21:00)
[2018-02-21] MEDS: DEXAMETHASONE 4 MG TAB PO SCH ×2 (09:20→21:00)
[2018-02-21] MEDS: LEVETIRACETAM 500 MG TAB PO SCH ×2 (09:20→21:00)
[2018-02-21] MEDS: POLYETHYLENE GLYCOL 17 GM PACKET PO SCH (09:20)
[2018-02-21] MEDS: PANTOPRAZOLE (EC) 40 MG TAB PO SCH ×2 (09:20→21:00)
--- NOTE | 2018-02-21 13:00 | NUR ---
PT NOTES [facility] Patient: Michelle Rome : 1970 Age/Sex: 47/F Unit#: [id number] Room/Bed: 228A User: Jake Simons PTA Date: 02/21/18 13:00 Type: PT Technical Record Therapy day number 9 Subjective Denies pain Pain Scale NUMERIC Pain Intensity 0 (0-10) Patient Stated Goal for Pain Relief 0 (0-10) Pain Level Comment NON NOTED Exercise Assessment Label Bilat Lower Extremity Exercise Type Active Assist ROM Exercise Start Time 12:20 Exercise End Time 12:35 Total Exercise Time 15 min (8-127) Transfer Training Start Time 12:35 Supine to Sit Stand by Assist Transfer Sit to Stand Ability Contact Guard Assist Bed Mobility Sit to Supine Minimum Assist Bed Transfer Ability Contact Guard Assist Chair Transfer Ability Contact Guard Assist Toileting Ability Stand by Assist Sitting Tolerance 15 min Transfer Training End Time 12:45 Total Transfer Training Time 10 min (8-127) Gait Training Start Time 12:45 Gait Assist Levels Stand by Assist Assistive Devices Front Wheel Walker Ambulation Distance 120 feet Gait Training End Time 13:00 Total Gait Training Treatment Time 15 min (8-127) Weight Bearing Assessment Label Bilat Lower Extremity Weight Bearing Status Full Weight Bearing Static Sitting Balance Good Dynamic Sitting Balance Good Standing Static Balance Fair Dynamic Standing Balance Fair minus Safety Judgement Fair Activity Tolerance Fair Post Treatment Pain Intensity 0 0-10 Total Treament Time 40 min (8-127) Total Minutes 40 Total Units 3 PT Technical Record Comment PT NOTES: SAME TREATMENT PLAN GIVEN; AMBULATED APPROX 120 FEET WITH FWW TODAY; PATIENT WAS ASSISTED TO THE BATHROOM THEN WAS SAFELY BACK TO BED AFTER TREATMENT; NEEDS MIN/CGA WITH TRANSFERS AND GAIT ACTIVITIES TODAY; SOME VERBAL CUES TO INCREASE SAFETY COMPLIANCE; WILL CONTINUE CURRENT PLAN OF CARE.
[2018-02-21] MEDS: DIPHENHYDRAMINE 25 MG CAP PO PRN (13:04)
--- NOTE | 2018-02-21 13:21 | PN ---
Date/Time of Note Date/Time of Note DATE: 02/21/18 TIME: 13: Assessment/Plan VTE Prophylaxis Risk score (from Ns)>0 risk: 2 [place]CD applied (from [facility] [place] Yes SCD contraindicated: other Pharmacological prophylaxis: NA/contraindicated Pharm contraindication: thrombocytopenia Lines/Catheters IV C[facility]ter Type (from [facility] Port cath Urinary Cath still in place: No Assessment/Plan Hospital Course S: Patient had intrathecal chemotherapy administered by IR again yesterday. Complaining of some generalized weakness symptoms, but no skin redness. Had platelet transfusion yesterday. O: VS - see below PE: Gen: lying in bed Head: Atraumatic Eyes: Normal Conjunctiva ENT: Normal External Ears, Nose and Mouth. Neck: Full range of motion. No meningismus. Resp: Clear to auscultation bilaterally Cardio: Regular rate and rhythm, no murmurs Abd: Soft, non tender, non distended. Normal bowel sounds Ext: No lower extremity edema bilaterally Neur: No focal deficits CT head February 09: IMPRESSION: 1. Region of decreased attenuation in the right superior parietal white matter posteriorly. This may indicate a subtle mass at this site. Correlation with contrast enhanced MRI of brain advised. 2. Subtle shift of midline structures to the right measuring 0.4 cm. Mild effacement of the frontal horn of the left lateral ventricle. 3. Small low attenuation subdural fluid collection in the right frontal region measuring 0.4 cm in thickness. 4. Subtle isodense left subdural fluid collection measuring 0.4 cm in thickness and extending across the left temporal and parietal convexities. This is suspicious for subacute subdural hematoma. Correlation with MRI advised. 5. 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 6. Fluid in the right ethmoid air cells. 7. 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 Correlation with cerebral spinal fluid anal ysis, if not already performed, is recommended. 2. The abnormality seen in the right parietal lobe on CT is consistent with vasogenic edema related to an adjacent extra-axial nodular leptomeningeal en hancement focus rather than intra-axial mass lesion. 3. There is no evidence of subdural hematoma, the abnormality seen on CT are related to pathologic leptomeningeal enhancement. 4. Heterogeneous signal intensity within the calvarium unable to exclude osseous metastatic disease. 5. Right frontal and ethmoid sinus disease with bilateral mastoid air cell effusions. Assessment/Plan: 47-year-old woman with a history of left breast carcinoma status post mastectomy and chemo presents with headache and generalized weakness with a CT finding of subdural fluid collection with 0.4 mm midline shift, as well as possible right parietal mass concerning for brain metastasis. 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 Again there is 0.4 mm midline shift. Appreciate neurosurgery recommendations. Currently no surgery needed. - Continue intrathecal chemotherapy for now as ordered by hematology oncology team (next dose scheduled for tomorrow, has already received 2 doses earlier th is week as well) - Currently on decadron taper-ordered, and as needed Benadryl for skin itching - PT, OT #Pneumonia- Infiltrates on CXR earlier this admission-completed treatment with Vanco/zosyn (02/12-02/18). Appears resolved now -Monitor for now #Chest pain-earlier she complained of pressure-like chest pain.- Noncardiac in nature; she described it as worse after eating and improves with standing and ambulation- Trop negative, EKG without ischemia - This likely represents anxiety or dyspepsia, no further cardiac workup - monitor for now #Breast carcinoma: Status post chemotherapy mastectomy in the past. -Per hematology oncology team, see above, again currently plan is intrathecal chemo 3x/week then outpatient evaluation for radiation oncology. #Hypertensive urgency: Blood pressure improved -Monitor #Thrombocytopenia: status post platelet transfusion earlier this admission, and again yesterday; platelets are improved today at 73. No signs of any bleeding. - monitor CBC daily Dispo: Medically stable for transfer to ARU when approved versus SNF. Result Diagram: 02/21/18 0451 02/21/18 0451 Results 24hrs Laboratory Tests Test 02/20/18 18:04 02/20/18 21:21 02/21/18 04:51 02/21/18 09:11 Bedside Glucose 138 93 100 White Blood Count 1.6 #L Red Blood Count 3.01 L Hemoglobin 9.9 L Hematocrit 27.1 L Mean Corpuscular 90.0 Volume Mean Corpuscular 32.9 Hemoglobin Mean Corpuscular 36.5 Hemoglobin Concent Red Cell 16.2 H Distribution Width Platelet Count 73 #L Mean Platelet 10.5 H Volume Immature 1.300 H Granulocytes % Neutrophils % Segmented 29 L Neutrophils % (Manual) Band Neutrophils % 9 H (Manual) Lymphocytes % Lymphocytes % 57 H (Manual) Reactive 1 H Lymphocytes % (Manual) Monocytes % Eosinophils % Basophils % Metamyelocytes % 4 H (manual) Nucleated Red 7 H Blood Cells % Immature 0.020 Granulocytes # Neutrophils # Neutrophils # 0.5 L (Manual) Band Neutrophils # 0.1 Lymphocytes 0.9 (Manual) Lymphocytes # Reactive 0.0 Lymphocytes # Monocytes # Eosinophils # Basophils # Metamyelocytes # 0.0 Nucleated Red Blood Cells # Platelet Estimate SIG DECREASED Giant Platelets 1 H Polychromasia 2+ Hypochromasia 2+ Anisocytosis 2+ Macrocytosis 2+ Target Cells 2+ Sodium Level 134 L Potassium Level 4.0 Chloride Level 95 L Carbon Dioxide 26 Level Anion Gap 13 Blood Urea 21 H Nitrogen Creatinine 0.51 Est Glomerular > 60 Filtrat Rate mL/min Glucose Level 124 Calcium Level 9.3 Phosphorus Level 4.4 Magnesium Level 2.4 Test 02/21/18 13:02 Bedside Glucose 132 Exam/Review of Systems Vital Signs Vitals Vital Signs Date Temp Pulse Resp B/P (MAP) Pulse Ox O2 O2 Flow FiO2 Time Delivery Rate 02/21/18 98.1 112 19 129/59 93 07:33 (82) 02/20/18 Room Air 18:00 02/19/18 2.0 20:30 Intake and Output 02/20/18 02/20/18 02/21/18 1515:00 23:00 07:00 IntakeIntake Total 960 ml 1049 ml 360 ml BalanceBalance 960 ml 1049 ml 360 ml Medications Medications Current Medications Ondansetron HCl (Zofran Inj) 4 mg Q6H PRN IV NAUSEA AND/OR VOMITING Last administered on 02/21/18at 09:20; Admin Dose 4 MG; Start 02/09/18 at 20:00 Albuterol/ Ipratropium (Duoneb) 3 ml Q2H RESP THERAPY PRN NEB SHORTNESS OF BREATH; Start 02/09/18 at 20:00 Acetaminophen (Tylenol Liquid) 650 mg Q6H PRN PO PAIN LEVEL 1-3 OR FEVER Last administered on 02/20/18at 18:15; Admin Dose 650 MG; Start 02/09/18 at 20:00 Acetaminophen/ Hydrocodone Bitart ([place] (5/325)) 1 tab Q6H PRN PO PAIN LEVEL 4-6 Last administered on 02/21/18at 02:26; Admin Dose 1 TAB; Start 02/09/18 at 20:00 Labetalol HCl (Labetalol) 10 mg Q2H PRN IV SBP > 150 Last administered on 02/11/18at 19:28; Admin Dose 10 MG; Start 02/09/18 at 20:00 Trimethoprim/ Sulfamethoxazole (Bactrim (Ds)) 1 tab MONWEDFRI PO Last administered on 02/20/18at 08:40; Admin Dose 1 TAB; Start 02/11/18 at 09:00 Insulin Aspart (Novolog Insulin Pen) NOVOLOG *MILD* ALGORITHM WITH MEALS BEDTIME SC Last administered on 02/20/18at 12:51; Admin Dose 1 UNIT; Start 02/10/18 at 21:00 Hydralazine HCl (Apresoline) 10 mg Q6H PRN IV ELEVATED BLOOD PRESSURE Last admi nistered on 02/21/18at 01:54; Admin Dose 10 MG; Start 02/10/18 at 18:30 Miscellaneous Information 1 ea NOTE XX ; Start 02/10/18 at 19:00 Glucose (Glutose) 15 gm Q15M PRN PO DECREASED GLUCOSE; Start 02/10/18 at 19:00 Glucose (Glutose) 22.5 gm Q15M PRN PO DECREASED GLUCOSE; Start 02/10/18 at 19:00 Dextrose (D50w Syringe) 25 ml Q15M PRN IV DECREASED GLUCOSE; Start 02/10/18 at 19:00 Dextrose (D50w Syringe) 50 ml Q15M PRN IV DECREASED GLUCOSE; Start 02/10/18 at 19:00 Glucagon (Glucagen) 1 mg Q15M PRN IM DECREASED GLUCOSE; Start 02/10/18 at 19:00 Glucose (Glutose) 15 gm Q15M PRN BUCCAL DECREASED GLUCOSE; Start 02/10/18 at 19:00 Levetiracetam (Keppra) 500 mg BID PO Last administered on 02/21/18 09:20; Admin Dose 500 MG; Start 02/11/18 at 09:30 Insulin Aspart (Novolog Insulin Pen) 8 unit WITH MEALS SC Last administered on 02/21/18 13:07; Admin Dose 8 UNIT; Start 02/13/18 at 12:00 Insulin Glargine (Lantus) 20 units DAILY@2000 SC Last administered on 02/20/18 21:31; Admin Dose 20 UNITS; Start 02/13/18 at 20:00 Senna (Senokot) 1 tab BID PRN PO CONSTIPATION Last administered on 02/20/18 18:15; Admin Dose 1 TAB; Start 02/13/18 at 14:00 Polyethylene Glycol (Miralax) 17 gm DAILY PO Last administered on 02/21/18 09:20; Admin Dose 17 GM; Start 02/14/18 at 14:00 Al Hydrox/Mg Hydrox/Simethicone (Mag-Al Plus) 30 ml Q6H PRN PO GASTROINTESTINAL UPSET Last administered on 02/20/18at 15:30; Admin Dose 30 ML; Start 02/14/18 at 22:30 Dexamethasone (Decadron) 4 mg Q12 PO Last administered on 02/21/18 09:20; Admin Dose 4 MG; Start 02/20/18 at 09:00; Stop 02/23/18 at 23:00 Dexamethasone (Decadron) 2 mg Q12 PO ; Start 02/24/18 at 09:00; Stop 02/25/18 at 23:45 Guaifenesin (Robitussin Liquid Cup) 200 mg Q4H PRN PO cough Last administered on 02/19/18at 17:39; Admin Dose 200 MG; Start 02/16/18 at 11:30 Pantoprazole (Protonix Tab) 40 mg BID PO Last administered on 02/21/18 09:20; Admin Dose 40 MG; Start 02/16/18 at 21:00 Diphenhydramine HCl (Benadryl) 25 mg Q6H PRN PO ITCHING Last administered on 02/21/18 13:04; Admin Dose 25 MG; Start 02/20/18 at 12:30 Methotrexate 12 mg/Hydrocortisone 20 mg/Sodium Chloride 5 ml @ 0 mls/hr Q2D@1300 IT ; Start 02/20/18 at 13:00; Stop 02/22/18 at 13:01 DUGLAS CARPIO Feb 21, 2018 13:21
[2018-02-21 13:44] VITALS: BP 141/64; PULSE 108; RESP 18
--- NOTE | 2018-02-21 17:08 | NUR ---
EOSS: Patient is in bed resting, family at bedside, waiting for dinner, will be checking blood sugar. IV HL to right chest Port Cath. PT v/s are wnl, no c/o pain or discomfort at the moment. Pt nausea has subsided. Neutropenic precaution still in place, asked family members to please remove mclain from patients room, education given to patient and family members on isolation precautions, verbalize understanding. Call light within reach, bed alarm on, side rails up x2.
[2018-02-21] MEDS: ACETAMINOPHEN 650MG/20.3ML CUP PO PRN (17:59)
[2018-02-21] MEDS: GUAIFENESIN 20 MG/ML 5ML CUP PO PRN (18:00)
[2018-02-21 20:00] VITALS: BP 122/58; PULSE 102; RESP 15
[2018-02-21] MEDS: INSULIN GLARGINE [LANTus] (100 UNITS/ML) SYG SC SCH (20:00)
[2018-02-22] MEDS: DEXAMETHASONE 4 MG TAB PO SCH ×3 (01:08→21:26)
[2018-02-22] MEDS: PANTOPRAZOLE (EC) 40 MG TAB PO SCH ×3 (01:08→21:26)
[2018-02-22] MEDS: LEVETIRACETAM 500 MG TAB PO SCH ×3 (01:08→21:26)
[2018-02-22] MEDS: ACETAMINOPHEN 650MG/20.3ML CUP PO PRN (01:14)
[2018-02-22 01:44] VITALS: BP 130/61; PULSE 89; RESP 16
--- NOTE | 2018-02-22 03:43 | NUR ---
hypoglycemia patient was lethargic beginning of the shift. accucheck was 68. sweating and just moans and doesnt opens her eye. was able to convince to drink 1 apple juice, tolerated well. rechecked accucheck [place] 109 [place] [id number] patient was very awake now and wanted to use commode. able to get up to bedside commode with standby assistance. 2100 scheduled medication given and tolerated well. refuses to take lantus.
[2018-02-22 07:40] VITALS: BP 130/62; PULSE 88; RESP 18
[2018-02-22] MEDS: POLYETHYLENE GLYCOL 17 GM PACKET PO SCH (08:19)
[2018-02-22] MEDS: INSULIN ASPART [NOVOLOG] 3 ML PEN SC SCH ×7 (08:22→21:00)
[2018-02-22] MEDS: GUAIFENESIN 20 MG/ML 5ML CUP PO PRN ×2 (08:24→21:37)
[2018-02-22] MEDS: TRIMETHOPRIM/SULFAMETHOX (DS) TAB PO SCH (08:24)
[2018-02-22] MEDS: HYDROCODONE/APAP (5/325) TAB PO PRN ×2 (10:44→20:03)
--- NOTE | 2018-02-22 10:54 | NUR ---
NUTRITION NOTE: Pt was asleep at time of visit, spoke to pt's son who reports pt is tolerating PO. Ate well at today's breakfast, 100%. No reported n/v. Remains lethargic howevever, may be R/T recent chemo 02/20. Encouraged to continue adequate PO intake, discussed importance of adequate kcal and protein before, during and after oncology tx. Agreeable to adding Boost GC with lunch daily to optimize PO intake during times when pt is lethargic after tx. Noted WBC 2.7 remains low, on neutropenic room precautions. Recommend to add neutropenic precautions to meals as well.
[2018-02-22] MEDS ORDERED: LIDOCAINE 1% (MPF) 5 ML VIAL ONE (11:17)
--- NOTE | 2018-02-22 11:50 | NUR ---
PT NOTES [facility] Patient: Michelle Rome : 1970 Age/Sex: 47/F Unit#: [id number] Room/Bed: 2281/A User: Jake Kristyn MARY Date: 02/22/18 11:50 Type: PT Technical Record Therapy day number 10 Total Minutes 0 Total Units 0 PT Technical Record Comment PT NOTES: PATIENTS' OUT FOR A PROCEDURE; WILL FOLLOW UP NEXT TREATMENT SCHEDULE.
--- NOTE | 2018-02-22 13:12 | PN ---
Date/Time of Note Date/Time of Note DATE: 02/22/18 TIME: 13:09 Outpatient Progress Note Chief Complaint slightly better still delirium not that responsive no bleeding Review of Systems Const: No Fever, no chills, no Wt. loss, no Fatigue, normal appetite, no diaphoresis. Eyes: No pain, no discharge, no redness, no visual change, no foreign body. ENT: No pain, no bleeding, no congestion, no sore throat, no dysphagia, no discharge or rhinitis. Lymph: No adenopathy, no tender nodes, no lymphedema. Resp: No SOB, no cough, no sputum, no wheezing, no chest pain. CV: No chest pain, no palpitaions, no TURNER, no PND, no edema. GI: Normal appetite, no pain, no nausea, no vomiting, no diarrhea, no blood, no constipation. : No frequency, no urgency, no dysuria, no hematuria, no flank pain, no discharge, no bleeding. Musc: No bone/joint pain, no back pain, no neck pain, no knee pain, no restricted ROM. Skin: No rash, no skin lesions, no erythema, no laceration, no bruising, no pruritus. Neuro: No CAR, no dizziness, no syncope, no seizure, no focal-weakness. Endo: No polyuria, no polydypsia, no dry-skin, no temp-intolerance. Psych: No hallucinations, no depression, no anxiety, no suicidal ideation. Ext: No edema, no pain, no ulcer, no weakness. 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
[2018-02-22 13:19] VITALS: BP 134/64; PULSE 90; RESP 18
--- NOTE | 2018-02-22 14:18 | PN ---
Date/Time of Note Date/Time of Note DATE: 02/22/18 TIME: 14:05 Assessment/Plan VTE Prophylaxis Risk score (from [facility] [place])>0 risk: 9 SCD applied (from [facility] [place]): Yes Pharmacological prophylaxis: NA/contraindicated Pharm contraindication: thrombocytopenia Lines/Catheters IV [facility] Type ([facility] Port cath Urinary Cath still in place: No Assessment/Plan Hospital Course S: Patient had another intrathecal injection earlier today. Seen by hematology oncology team earlier today as well. Less itchiness symptoms. Presently tolerating diet, although appetite overall low. Still having some vision complaints. Liver enzymes appear to be more elevated versus 2 weeks ago, including total bilirubin in the 7-8 range and direct also in the 6-7 range, which would explain patient's jaundice. O: VS - see below PE: Gen: lying in bed, mild jaundice noted Head: Atraumatic Eyes: Normal Conjunctiva ENT: Normal External Ears, Nose and Mouth. Neck: Full range of motion. No meningismus. Resp: Clear to auscultation bilaterally Cardio: Regular rate and rhythm, no murmurs Abd: Soft, non tender, non distended. Normal bowel sounds Ext: No lower extremity edema bilaterally Neur: No focal deficits CT head February 09: IMPRESSION: 1. Region of decreased attenuation in the right superior parietal white matter posteriorly. This may indicate a subtle mass at this site. Correlation with contrast enhanced MRI of brain advised. 2. Subtle shift of midline structures to the right measuring 0.4 cm. Mild effacement of the frontal horn of the left lateral ventricle. 3. Small low attenuation subdural fluid collection in the right frontal region measuring 0.4 cm in thickness. 4. Subtle isodense left subdural fluid collection measuring 0.4 cm in thickness and extending across the left temporal and parietal convexities. This is suspicious for subacute subdural hematoma. Correlation with MRI advised. 5. 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 6. Fluid in the right ethmoid air cells. 7. 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 Correlation with cerebral spinal fluid analysis, if not already performed, is recommended. 2. The abnormality seen in the right parietal lobe on CT is consistent with vasogenic edema related to an adjacent extra-axial nodular leptomeningeal enhancement focus rather than intra-axial mass lesion. 3. There is no evidence of subdural hematoma, the abnormality seen on CT are related to pathologic leptomeningeal enhancement. 4. Heterogeneous signal intensity within the calvarium unable to exclude osseous metastatic disease. 5. Right frontal and ethmoid sinus disease with bilateral mastoid air cell effusions. Assessment/Plan: 47-year-old woman with a history of left breast carcinoma status post mastectomy and chemo presents with headache and generalized weakness with a CT finding of subdural fluid collection with 0.4 mm midline shift, as well as possible right parietal mass concerning for brain metastasis. 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 Again there is 0.4 mm midline shift noted on admission brain scan. appreciate neurosurgery recommendations. Currently no surgery indicated. - Continue intrathecal chemotherapy for now as ordered by hematology oncology team (patient received treatments this week, scheduled again next February 25 and next SundayFebruary 27 for further injections). Whole brain radiation also be considered by hematology team, per their documentation. - Currently on decadron taper-ordered, and as needed Benadryl for skin itching - PT, OT #Pneumonia- Infiltrates on CXR earlier this admission-completed treatment with Vanco/zosyn (02/12-02/18). Appears resolved now. -Monitor for now #Chest pain-earlier she complained of pressure-like chest pain.- Noncardiac in n ature; she described it as worse after eating and improves with standing and ambulation- Trop negative, EKG without ischemia - This likely represents anxiety or dyspepsia, no further cardiac workup - monitor for now #Breast carcinoma: Status post chemotherapy mastectomy in the past. Again she is showing signs of jaundice now, possible further spread of cancer to the liver? -Per hematology oncology team, see above, again currently plan is intrathecal chemo 3x/week then outpatient evaluation for radiation oncology, and again next Sunday and Sunday -We will try to discuss with hematology oncology team if radiation may be an option for her liver if in fact there is further metastasis there? #Hypertensive urgency: Blood pressure improved -Monitor #Thrombocytopenia: status post platelet transfusion earlier this admission, and again yesterday; platelets are improved today at 73. No signs of any bleeding. - monitor CBC daily Dispo: Per hematology oncology documentation, overall poor prognosis. They state if no improvement noted>> would consider hospice and supportive care. Result Diagram: 02/22/18 0801 02/22/18 0801 Results 24hrs Laboratory Tests Test 02/21/18 17:52 02/21/18 19:56 02/21/18 21:24 02/22/18 05:50 Bedside Glucose 94 68 L 109 Lab Scanned BLOOD TRANSFUSIO Report N Test 02/22/18 08:01 02/22/18 08:18 02/22/18 13:42 White Blood Count 2.7 #L Red Blood Count 2.95 L Hemoglobin 9.5 L Hematocrit 26.4 L Mean Corpuscular 89.5 Volume Mean Corpuscular 32.2 Hemoglobin Mean Corpuscular 36.0 Hemoglobin Concen t Red Cell 17.1 H Distribution Width Platelet Count 60 L Mean Platelet 11.8 H Volume Immature 1.500 H Granulocytes % Neutrophils % Segmented 45 Neutrophils % (Manual) Band Neutrophils 11 H % (Manual) Lymphocytes % Lymphocytes % 40 (Manual) Monocytes % Monocytes % 2 (Manual) Eosinophils % Basophils % Myelocytes % 1 H (Manual) Promyelocytes % 1 H (Manual) Nucleated Red 1 H Blood Cells % Immature 0.040 H Granulocytes # Neutrophils # Neutrophils # 1.2 L (Manual) Band Neutrophils 0.2 # Lymphocytes 1.0 (Manual) Lymphocytes # Monocytes # Monocytes # 0.0 L (Manual) Eosinophils # Basophils # Myelocytes # 0.0 Promyelocytes # 0.0 Nucleated Red Blood Cells # Platelet Estimate DECREASED Giant Platelets 1 H Polychromasia 1+ Anisocytosis 2+ Macrocytosis 2+ Target Cells 2+ Sodium Level 133 L Potassium Level 3.9 Chloride Level 95 L Carbon Dioxide 28 Level Anion Gap 10 Blood Urea 22 H Nitrogen Creatinine 0.51 Est Glomerular > 60 Filtrat Rate mL/min Glucose Level 144 Calcium Level 9.0 Magnesium Level 2.3 Bedside Glucose 141 129 Exam/Review of Systems Vital Signs Vitals Vital Signs Date Temp Pulse Resp B/P (MAP) Pulse Ox O2 O2 Flow FiO2 Time Delivery Rate 02/22/18 98.1 90 18 134/64 93 13:19 (87) 02/21/18 Nasal 2.0 20:00 Cannula Intake and Output 02/21/18 02/21/18 02/22/18 1515:00 23:00 07:00 IntakeIntake Total 360 ml 720 ml 720 ml BalanceBalance 360 ml 720 ml 720 ml Medications Medications Current Medications Ondansetron HCl (Zofran Inj) 4 mg Q6H PRN IV NAUSEA AND/OR VOMITING Last administered on 02/21/18at 09:20; Admin Dose 4 MG; Start 02/09/18 at 20:00 Albuterol/ Ipratropium (Duoneb) 3 ml Q2H RESP THERAPY PRN NEB SHORTNESS OF BREATH; Start 02/09/18 at 20:00 Acetaminophen (Tylenol Liquid) 650 mg Q6H PRN PO PAIN LEVEL 1-3 OR FEVER Last administered on 02/22/18at 01:14; Admin Dose 650 MG; Start 02/09/18 at 20:00 Acetaminophen/ Hydrocodone Bitart ([place] (5/325)) 1 tab Q6H PRN PO PAIN LEVEL 4-6 Last administered on 02/22/18at 10:44; Admin Dose 1 TAB; Start 02/09/18 at 20:00 Labetalol HCl (Labetalol) 10 mg Q2H PRN IV SBP > 150 Last administered on 02/11/18at 19:28; Admin Dose 10 MG; Start 02/09/18 at 20:00 Trimethoprim/ Sulfamethoxazole (Bactrim (Ds)) 1 tab [place] PO Last administered on 02/22/18at 08:24; Admin Dose 1 TAB; Start 02/11/18 at 09:00 Insulin Aspart (Novolog Insulin Pen) NOVOLOG *MILD* ALGORITHM WITH MEALS BEDTIME SC Last administered on 02/22/18at 08:23; Admin Dose 1 UNIT; Start 02/10/18 at 21:00 Hydralazine HCl (Apresoline) 10 mg Q6H PRN IV ELEVATED BLOOD PRESSURE Last administered on 02/21/18at 01:54; Admin Dose 10 MG; Start 02/10/18 at 18:30 Miscellaneous Information 1 ea NOTE XX ; Start 02/10/18 at 19:00 Glucose (Glutose) 15 gm Q15M PRN PO DECREASED GLUCOSE; Start 02/10/18 at 19:00 Glucose (Glutose) 22.5 gm Q15M PRN PO DECREASED GLUCOSE; Start 02/10/18 at 19:00 Dextrose (D50w Syringe) 25 ml Q15M PRN IV DECREASED GLUCOSE; Start 02/10/18 at 19:00 Dextrose (D50w Syringe) 50 ml Q15M PRN IV DECREASED GLUCOSE; Start 02/10/18 at 19:00 Glucagon (Glucagen) 1 mg Q15M PRN IM DECREASED GLUCOSE; Start 02/10/18 at 19:00 Glucose (Glutose) 15 gm Q15M PRN BUCCAL DECREASED GLUCOSE; Start 02/10/18 at 19:00 Levetiracetam (Keppra) 500 mg BID PO Last administered on 02/22/18at 08:13; Admin Dose 500 MG; Start 02/11/18 at 09:30 Senna (Senokot) 1 tab BID PRN PO CONSTIPATION Last administered on 02/20/18at 18:15; Admin Dose 1 TAB; Start 02/13/18 at 14:00 Polyethylene Glycol (Miralax) 17 gm DAILY PO Last administered on 02/21/18at 09:20; Admin Dose 17 GM; Start 02/14/18 at 14:00 Al Hydrox/Mg Hydrox/Simethicone (Mag-Al Plus) 30 ml Q6H PRN PO GASTROINTESTINAL UPSET Last administered on 02/20/18at 15:30; Admin Dose 30 ML; Start 02/14/18 at 22:30 Dexamethasone (Decadron) 4 mg Q12 PO Last administered on 02/22/18at 08:13; Admi n Dose 4 MG; Start 02/20/18 at 09:00; Stop 02/23/18 at 23:00 Dexamethasone (Decadron) 2 mg Q12 PO ; Start 02/24/18 at 09:00; Stop 02/25/18 at 23:45 Guaifenesin (Robitussin Liquid Cup) 200 mg Q4H PRN PO cough Last administered on 02/22/18at 08:24; Admin Dose 200 MG; Start 02/16/18 at 11:30 Pantoprazole (Protonix Tab) 40 mg BID PO Last administered on 02/22/18at 08:13; Admin Dose 40 MG; Start 02/16/18 at 21:00 Diphenhydramine HCl (Benadryl) 25 mg Q6H PRN PO ITCHING Last administered on 02/21/18at 13:04; Admin Dose 25 MG; Start 02/20/18 at 12:30 Insulin Aspart (Novolog Insulin Pen) 6 unit WITH MEALS SC ; Start 02/22/18 at 18:00; Status DUGLAS PALMER Feb 22, 2018 14:17
--- NOTE | 2018-02-22 15:54 | NUR ---
CM NOTE: ARU S/W Angel from [facility] ([id number]). Per Angel, pt to high functioning for ARU. Dawit Peralta RN CM [id number]
--- NOTE | 2018-02-22 17:40 | NUR ---
Acute Rehab Consult ARU consult orders verified; patient seen for pre-admission. Clinical information reviewed with ARU medical/surgery registered nurse and determined that patient is too high functioning for ARU, recommend discharge home with 24 hour supervision vs SNF. Thank you for the referral. Angel Rome [facility] [id number]
--- NOTE | 2018-02-22 18:29 | NUR ---
to nurse order received for IR Chemo; Inpatient Chemo form faxed to Dr. Whittington's office ( ). T.O. order received from Dr. Smalls for Lumbar Puncture Methotrexate on 02/25, and 02/27.
--- NOTE | 2018-02-22 18:55 | NUR ---
End of shift summary: Patient in stable condition .S/P Chemo therapy today .V.S within normal limits .No s/s of any acute distress . Insulin adjusted today per order to avoid episodes of hypoglycemia .Port-a-cath needle and dressing changed -New order for continue chemo therapy on February 25 and per .Clarified order with MD ,radiology and pharmacy .Chemo order form faxed to per his order [phone] ).Doctor planing to fax new order to pharmacy by SundayFebruary 25 . Full report will be given to next shift RN .. Call light within reach ,bed alarm on ,family at bedside .
[2018-02-22 19:55] VITALS: BP 120/61; PULSE 103; RESP 18
[2018-02-22 19:56] VITALS: BP 120/61; PULSE 103; RESP 15
[2018-02-22] MEDS: INSULIN GLARGINE [LANTus] (100 UNITS/ML) SYG SC SCH (21:33)
[2018-02-23] MEDS ORDERED: VITAMIN A & D 5 GM OINT PACKET TOP ONE (01:34)
[2018-02-23] MEDS: HYDROCODONE/APAP (5/325) TAB PO PRN ×2 (01:40→21:06)
[2018-02-23 01:59] VITALS: BP 135/58; PULSE 94; RESP 16
--- NOTE | 2018-02-23 05:10 | NUR ---
SHIFT REPORT: CONTINUE PATIENT ON NEUTROPENIC ISOLATION.PROPER AND STRICT PRECAUTION WAS OBSERVED FOR THE PATIENT. DUE MEDICATIONS WAS GIVEN. S/P CHEMO THERAPY YESTERDAY 02/22 AND NEXT IS ON 02/25 & 02/27 WITH RN TO FOLLOW UP MEDS FOR PHARMACY FOR THE SAID DATES. FAMILY AT BEDSIDE. PAIN MEDICATION AND COUGH SYRUP WAS GIVEN PER ORDERED.ABLE TO SLEEP COMFORTABLY ASSISTED TO THE COMMODE. BLOOD SUGAR WAS CHECKED ORDERED. BED ALARM IS ON. WILL CONTINUE TO MONITOR.
[2018-02-23] MEDS: INSULIN ASPART [NOVOLOG] 3 ML PEN SC SCH ×7 (08:00→20:56)
[2018-02-23 08:13] VITALS: BP 120/57; PULSE 85; RESP 18
[2018-02-23] MEDS: DEXAMETHASONE 4 MG TAB PO SCH ×2 (09:33→20:55)
[2018-02-23] MEDS: LEVETIRACETAM 500 MG TAB PO SCH ×2 (09:33→20:52)
[2018-02-23] MEDS: PANTOPRAZOLE (EC) 40 MG TAB PO SCH ×2 (09:33→20:52)
[2018-02-23] MEDS: POLYETHYLENE GLYCOL 17 GM PACKET PO SCH (09:33)
--- NOTE | 2018-02-23 10:30 | NUR ---
PT Note Therapy day number 10 Exercise Assessment Label Bilat Lower Extremity Exercise Type Active ROM Additional Exercise Comments hip flexion, knee extension, sitting EOB Exercise Assessment Label Bilat Upper Extremity Exercise Type Active ROM Additional Exercise Comments shoulder/elbow flexion/extension Transfer Training Start Time 10:45 Supine to Sit Modified Independent Transfer Sit to Stand Ability Contact Guard Assist Bed Mobility Sit to Supine Modified Independent Bed Transfer Ability Contact Guard Assist Chair Transfer Ability Contact Guard Assist Toileting Ability Contact Guard Assist Additional Mobility Comments with FWW Transfer Training End Time 11:00 Total Transfer Training Time 15 min (8-127) Gait Training Start Time 10:30 Gait Assist Levels Contact Guard Assist Assistive Devices Front Wheel Walker Ambulation Distance 100 feet Additional Gait Comments reciprocal pattern, flexed posture, small steps, lateral sway, no LOB Gait Training End Time 10:45 Total Gait Training Treatment Time 15 min (8-127) Static Sitting Balance Fair plus Dynamic Sitting Balance Fair plus Standing Static Balance Fair plus Dynamic Standing Balance Fair plus Safety Judgement Fair Activity Tolerance Fair Post Treatment Pain Intensity 0 0-10 Quality Indicators SOB Upon Exertion Total Treament Time 30 min (8-127) Total Minutes 30 Total Units 2 PT Technical Record Comment S: Pt found supine in bed with sister at bedside, is agreeable to PT. RN cleared pt for activity. Moh[place] speaking PROBATION MANAGER present during treatment to translate. O: Pt was seen for bed mobility, transfers, gait training, exercises at EOB. Was assisted to bedside commode and returned to bed with call light nearby, bed alarm on. Observed pt itching her hands repeatedly during treatment, and jaundice in her eyes. Ambulated 100 feet CGA with mild SOB throughout, mild UE support on the FWW, reciprocal gait and lateral sway. No LOB. Pt reports feeling "better" with sitting and walking. No c/o dizziness, pain, nausea. Pt was encouraged to sit EOB, exercise, and walk throughout the day with supervision. Per pt's sister, extensive family support is available and they can assist with stairs. RN informed of c/o itchiness and response to activity. Pt is safe to walk short distances with FWW with staffing branch manager. A: Pt is limited by fatigue likely due to medical conditions and reduced physical activity. Progression of gait and stair training is also hampered by patient reluctance to increase activity. P: Continue POC. Progress gait and stair training (trial single step with FWW) as tolerated. Encourage regular sitting EOB and activity with supervision.
[2018-02-23] MEDS: DIPHENHYDRAMINE 25 MG CAP PO PRN ×2 (11:24→17:45)
--- NOTE | 2018-02-23 16:23 | PN ---
Date/Time of Note Date/Time of Note DATE: 02/23/18 TIME: 16:21 Assessment/Plan VTE Prophylaxis Risk score (from [facility])>0 risk: 6 SCD applied (from [facility] [place]): Yes SCD contraindicated: other Pharmacological prophylaxis: NA/contraindicated Pharm contraindication: thrombocytopenia Lines/Catheters [facility]from [facility] port a cath Urinary Cath still in place: No Assessment/Plan Hospital Course S: Patient had another intrathecal injection yesterday. Still having more itchiness symptoms today. O: VS - see below PE: Gen: lying in bed, some jaundice noted Head: Atraumatic Eyes: Normal Conjunctiva ENT: Normal External Ears, Nose and Mouth. Neck: Full range of motion. No meningismus. Resp: Clear to auscultation bilaterally Cardio: Regular rate and rhythm, no murmurs Abd: Soft, non tender, non distended. Normal bowel sounds Ext: No lower extremity edema bilaterally Neur: No focal deficits CT head February 09: IMPRESSION: 1. Region of decreased attenuation in the right superior parietal white matter posteriorly. This may indicate a subtle mass at this site. Correlation with contrast enhanced MRI of brain advised. 2. Subtle shift of midline structures to the right measuring 0.4 cm. Mild e ffacement of the frontal horn of the left lateral ventricle. 3. Small low attenuation subdural fluid collection in the right frontal region measuring 0.4 cm in thickness. 4. Subtle isodense left subdural fluid collection measuring 0.4 cm in thickness and extending across the left temporal and parietal convexities. This is suspicious for subacute subdural hematoma. Correlation with MRI advised. 5. 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 6. Fluid in the right ethmoid air cells. 7. 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 Correlation with cerebral spinal fluid analysis, if not already performed, is recommended. 2. The abnormality seen in the right parietal lobe on CT is consistent with vasogenic edema related to an adjacent extra-axial nodular leptomeningeal enhancement focus rather than intra-axial mass lesion. 3. There is no evidence of subdural hematoma, the abnormality seen on CT are related to pathologic leptomeningeal enhancement. 4. Heterogeneous signal intensity within the calvarium unable to exclude osseous metastatic disease. 5. Right frontal and ethmoid sinus disease with bilateral mastoid air cell effus ions. Assessment/Plan: 47-year-old woman with a history of left breast carcinoma status post mastectomy and chemo presents with headache and generalized weakness with a CT finding of subdural fluid collection with 0.4 mm midline shift, as well as possible right parietal mass concerning for brain metastasis. 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 Again there is 0.4 mm midline shift noted on admission brain scan. appreciate neurosurgery recommendations. Currently no surgery indicated. - Continue intrathecal chemotherapy for now as ordered by hematology oncology team (patient received treatments this week, scheduled again next February 25 and next SundayFebruary 27 for further injections). Whole brain radiation also to be considered by hematology team, per their documentation. - Currently on decadron taper-ordered, and as needed Benadryl for skin itching - PT, OT #Pneumonia- Infiltrates on CXR earlier this admission-completed treatment with Vanco/zosyn (02/12-02/18). Appears resolved now. -Monitor for now #Chest pain-earlier she complained of pressure-like chest pain.- Noncardiac in nature; she described it as worse after eating and improves with standing and ambulation- Trop negative, EKG without ischemia - This likely represents anxiety or dyspepsia, no further cardiac workup - monitor for now #Breast carcinoma: Status post chemotherapy mastectomy in the past. Again she is showing signs of jaundice now, possible further spread of cancer to the liver? -Per hematology oncology team, see above, again currently plan is intrathecal chemo 3x/week then outpatient evaluation for radiation oncology, and again next Sunday and Sunday -We will try to discuss with hematology oncology team if radiation may be an option for her liver if in fact there is further metastasis there? #Hypertensive urgency: Blood pressure improved -Monitor #Thrombocytopenia: status post platelet transfusion earlier this admission, and again 2 days ago; platelets are presently at 58. No signs of any bleeding. - monitor CBC daily Dispo: Per hematology oncology documentation, overall poor prognosis. They state if no improvement noted>> would consider hospice and supportive care. Result Diagram: 02/23/18 0627 02/23/18 0627 Results 24hrs Laboratory Tests Test 02/22/18 18:07 02/22/18 21:25 02/23/18 06:27 02/23/18 09:01 Bedside Glucose 145 121 104 White Blood Count 2.7 L Red Blood Count 2.92 L Hemoglobin 9.4 L Hematocrit 26.2 L Mean Corpuscular 89.7 Volume Mean Corpuscular 32.2 Hemoglobin Mean Corpuscular 35.9 Hemoglobin Concent Red Cell 16.7 H Distribution Width Platelet Count 58 L Mean Platelet Volume 11.2 H Immature 1.500 H Granulocytes % Neutrophils % 61.2 Lymphocytes % 34.3 Monocytes % 3.0 Eosinophils % 0.0 Basophils % 0.0 Nucleated Red Blood 0.0 Cells % Immature 0.040 H Granulocytes # Neutrophils # 1.6 Lymphocytes # 0.9 Monocytes # 0.1 L Eosinophils # 0.0 Basophils # 0.0 Nucleated Red Blood 0.0 Cells # Sodium Level 128 L Potassium Level 4.0 Chloride Level 92 L Carbon Dioxide Level 26 Anion Gap 10 Blood Urea Nitrogen 23 H Creatinine 0.58 Est Glomerular > 60 Filtrat Rate mL/min Glucose Level 113 Calcium Level 8.9 Phosphorus Level 4.4 Magnesium Level 2.3 Total Bilirubin 9.2 H Direct Bilirubin 8.00 H Indirect Bilirubin 1.2 H Aspartate Amino 330 H Transf (AST/SGOT) Alanine 408 H Aminotransferase (AL T/SGPT) Alkaline Phosphatase 1653 H Total Protein 5.8 L Albumin 3.3 Test 02/23/18 13:02 Bedside Glucose 138 Exam/Review of Systems Vital Signs Vitals Vital Signs Date Temp Pulse Resp B/P (MAP) Pulse Ox O2 O2 Flow FiO2 Time Delivery Rate 02/23/18 98.1 85 18 120/57 94 08:13 (78) 02/22/18 Nasal 2.0 22:37 Cannula Intake and Output 02/22/18 02/22/18 02/23/18 1414:59 22:59 06:59 IntakeIntake Total 1700 ml 360 ml 200 ml BalanceBalance 1700 ml 360 ml 200 ml Medications Medications Current Medications Ondansetron HCl (Zofran Inj) 4 mg Q6H PRN IV NAUSEA AND/OR VOMITING Last administered on 02/21/18 09:20; Admin Dose 4 MG; Start 02/09/18 at 20:00 Albuterol/ Ipratropium (Duoneb) 3 ml Q2H RESP THERAPY PRN NEB SHORTNESS OF BREATH; Start 02/09/18 at 20:00 Acetaminophen (Tylenol Liquid) 650 mg Q6H PRN PO PAIN LEVEL 1-3 OR FEVER Last administered on 02/22/18at 01:14; Admin Dose 650 MG; Start 02/09/18 at 20:00 Acetaminophen/ Hydrocodone Bitart ([place] (5/325)) 1 tab Q6H PRN PO PAIN LEVEL 4-6 Last administered on 02/23/18 01:40; Admin Dose 1 TAB; Start 02/09/18 at 20:00 Labetalol HCl (Labetalol) 10 mg Q2H PRN IV SBP > 150 Last administered on 02/11/18at 19:28; Admin Dose 10 MG; Start 02/09/18 at 20:00 Trimethoprim/ Sulfamethoxazole (Bactrim (Ds)) 1 tab MONWEDFRI PO Last administered on 02/22/18 08:24; Admin Dose 1 TAB; Start 02/11/18 at 09:00 Insulin Aspart (Novolog Insulin Pen) NOVOLOG *MILD* ALGORITHM WITH MEALS BEDTIME SC Last administered on 02/22/18 18:11; Admin Dose 1 UNIT; Start 02/10/18 at 21:00 Hydralazine HCl (Apresoline) 10 mg Q6H PRN IV ELEVATED BLOOD PRESSURE Last administered on 02/21/18 01:54; Admin Dose 10 MG; Start 02/10/18 at 18:30 Miscellaneous Information 1 ea NOTE XX ; Start 02/10/18 at 19:00 Glucose (Glutose) 15 gm Q15M PRN PO DECREASED GLUCOSE; Start 02/10/18 at 19:00 Glucose (Glutose) 22.5 gm Q15M PRN PO DECREASED GLUCOSE; Start 02/10/18 at 19:00 Dextrose (D50w Syringe) 25 ml Q15M PRN IV DECREASED GLUCOSE; Start 02/10/18 at 19:00 Dextrose (D50w Syringe) 50 ml Q15M PRN IV DECREASED GLUCOSE; Start 02/10/18 at 19:00 Glucagon (Glucagen) 1 mg Q15M PRN IM DECREASED GLUCOSE; Start 02/10/18 at 19:00 Glucose (Glutose) 15 gm Q15M PRN BUCCAL DECREASED GLUCOSE; Start 02/10/18 at 19:00 Levetiracetam (Keppra) 500 mg BID PO Last administered on 02/23/18 09:33; Admin Dose 500 MG; Start 02/11/18 at 09:30 Senna (Senokot) 1 tab BID PRN PO CONSTIPATION Last administered on 02/20/18 18:15; Admin Dose 1 TAB; Start 02/13/18 at 14:00 Polyethylene Glycol (Miralax) 17 gm DAILY PO Last administered on 02/23/18 09:33; Admin Dose 17 GM; Start 02/14/18 at 14:00 Al Hydrox/Mg Hydrox/Simethicone (Mag-Al Plus) 30 ml Q6H PRN PO GASTROINTESTINAL UPSET Last administered on 02/20/18 15:30; Admin Dose 30 ML; Start 02/14/18 at 22:30 Dexamethasone (Decadron) 4 mg Q12 PO Last administered on 02/23/18 09:33; Admin Dose 4 MG; Start 02/20/18 at 09:00; Stop 02/23/18 at 23:00 Dexamethasone (Decadron) 2 mg Q12 PO ; Start 02/24/18 at 09:00; Stop 02/25/18 at 23:45 Guaifenesin (Robitussin Liquid Cup) 200 mg Q4H PRN PO cough Last administered on 02/22/18at 21:37; Admin Dose 200 MG; Start 02/16/18 at 11:30 Pantoprazole (Protonix Tab) 40 mg BID PO Last administered on 02/23/18 09:33; Admin Dose 40 MG; Start 02/16/18 at 21:00 Diphenhydramine HCl (Benadryl) 25 mg Q6H PRN PO ITCHING Last administered on 02/23/18 11:24; Admin Dose 25 MG; Start 02/20/18 at 12:30 Insulin Aspart (Novolog Insulin Pen) 6 unit WITH MEALS SC Last administered on 02/23/18at 13:05; Admin Dose 6 UNIT; Start 02/22/18 at 18:00 Insulin Glargine (Lantus) 16 units DAILY@2000 SC Last administered on 02/22/18at 21:33; Admin Dose 16 UNITS; Start 02/22/18 at 20:00 DUGLAS CARPIO Feb 23, 2018 16:23
[2018-02-23] MEDS: GUAIFENESIN 20 MG/ML 5ML CUP PO PRN ×2 (17:45→22:49)
--- NOTE | 2018-02-23 19:36 | NUR ---
Patient remain stable during my shift. VS within acceptable range . Robitussin was given for cough X1, patient verbalized less coughing. Blood glucose checked no sign of hypoglycemia noted. Assisted to bedside commode . Seen by PT ambulated in the hallway, tolerated well. Family at bedside. All needs attended.Patient remained safe .
[2018-02-23] MEDS: INSULIN GLARGINE [LANTus] (100 UNITS/ML) SYG SC SCH (20:58)
[2018-02-23 21:18] VITALS: BP 128/70; PULSE 94; RESP 18
[2018-02-24 02:02] VITALS: BP 141/76; PULSE 91; RESP 18
[2018-02-24] MEDS: DIPHENHYDRAMINE 25 MG CAP PO PRN (02:05)
[2018-02-24] MEDS: GUAIFENESIN 20 MG/ML 5ML CUP PO PRN ×2 (05:16→12:41)
[2018-02-24 07:36] VITALS: BP 148/80; PULSE 89; RESP 18
[2018-02-24] MEDS: INSULIN ASPART [NOVOLOG] 3 ML PEN SC SCH ×7 (08:00→21:00)
[2018-02-24] MEDS: PANTOPRAZOLE (EC) 40 MG TAB PO SCH ×2 (09:27→21:36)
[2018-02-24] MEDS: LEVETIRACETAM 500 MG TAB PO SCH ×2 (09:27→21:36)
[2018-02-24] MEDS: POLYETHYLENE GLYCOL 17 GM PACKET PO SCH (09:27)
[2018-02-24] MEDS: DEXAMETHASONE 2 MG TAB PO SCH ×2 (09:56→21:36)
[2018-02-24] MEDS: HYDROCODONE/APAP (5/325) TAB PO PRN ×2 (12:41→21:36)
--- NOTE | 2018-02-24 13:11 | PN ---
Date/Time of Note Date/Time of Note DATE: 02/24/18 TIME: 13:07 Assessment/Plan VTE Prophylaxis Risk score (from [facility] [place] risk: 7 SCD applied (from [facility] [place]): Yes SCD contraindicated: other Pharmacological prophylaxis: NA/contraindicated Pharm contraindication: thrombocytopenia Lines/Catheters IV Catheter Type (from [facility]): [place] Urinary Cath still in place: No Assessment/Plan Hospital Course S: Patient had no acute events overnight, LFTs appear to be worsening. O: VS - see below PE: Gen: lying in bed, some jaundice noted Head: Atraumatic Eyes: Normal Conjunctiva ENT: Normal External Ears, Nose and Mouth. Neck: Full range of motion. No meningismus. Resp: Clear to auscultation bilaterally Cardio: Regular rate and rhythm, no murmurs Abd: Soft, non tender, non distended. Normal bowel sounds Ext: No lower extremity edema bilaterally Neur: No focal deficits CT head February 09: IMPRESSION: 1. Region of decreased attenuation in the right superior parietal white matter posteriorly. This may indicate a subtle mass at this site. Correlation with contrast enhanced MRI of brain advised. 2. Subtle shift of midline structures to the right measuring 0.4 cm. Mild effacement of the frontal horn of the left lateral ventricle. 3. Small low attenuation subdural fluid collection in the right frontal region measuring 0.4 cm in thickness. 4. Subtle isodense left subdural fluid collection measuring 0.4 cm in thickness and extending across the left temporal and parietal convexities. This is suspi cious for subacute subdural hematoma. Correlation with MRI advised. 5. 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 6. Fluid in the right ethmoid air cells. 7. 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 Correlation with cerebral spinal fluid analysis, if not already performed, is recommended. 2. The abnormality seen in the right parietal lobe on CT is consistent with vasogenic edema related to an adjacent extra-axial nodular leptomeningeal enhancement focus rather than intra-axial mass lesion. 3. There is no evidence of subdural hematoma, the abnormality seen on CT are related to pathologic leptomeningeal enhancement. 4. Heterogeneous signal intensity within the calvarium unable to exclude osseous metastatic disease. 5. Right frontal and ethmoid sinus disease with bilateral mastoid air cell effusions. Assessment/Plan: 47-year-old woman with a history of left breast carcinoma status post mastectomy and chemo presents with headache and generalized weakness with a CT finding of subdural fluid collection with 0.4 mm midline shift, as well as possible right parietal mass concerning for brain metastasis. 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 Again there is 0.4 mm midline shift noted on admission brain scan. appreciate neurosurgery recommendations. Currently no surgery indicated. - Continue intrathecal chemotherapy for now as ordered by hematology oncology team (patient received treatments this week, scheduled again tomorrow Sunday, February 25 and next SundayFebruary 27 for further injections). Whole brain radiation also to be considered by hematology team, per their documentation. - Currently on decadron taper-ordered, and as needed Benadryl for skin itching - PT, OT #Pneumonia- Infiltrates on CXR earlier this admission-completed treatment with Vanco/zosyn (02/12-02/18). Appears resolved now. -Monitor for now #Chest pain-earlier she complained of pressure-like chest pain.- Noncardiac in nature; she described it as worse after eating and improves with standing and ambulation- Trop negative, EKG without ischemia - This likely represents anxiety or dyspepsia, no further cardiac workup - monitor for now #Breast carcinoma: Status post chemotherapy mastectomy in the past. Again she is showing signs of jaundice now, possible further spread of cancer to the liver? -Per hematology oncology team, see above, again currently plan is intrathecal chemo 3x/week then outpatient evaluation for radiation oncology, and again tomorrow Sunday and Sunday -However, also Per discussion with hematology oncology team yesterday, need to strongly consider hospice and comfort measures now if there are signs of spread to the liver, as indicated by the increasing liver function tests and jaundice appearance #Hypertensive urgency: Blood pressure improved -Monitor #Thrombocytopenia: status post platelet transfusion earlier this admission, and again 3 days ago; platelets are presently at 40. No signs of any bleeding. - monitor CBC daily Dispo: Per hematology oncology documentation, overall poor prognosis. They state if no improvement noted>> would consider hospice and supportive care. Result Diagram: 02/24/18 0555 02/24/18 0555 Results 24hrs Laboratory Tests Test 02/23/18 17:44 02/23/18 20:51 02/24/18 05:55 02/24/18 08:06 Bedside Glucose 122 122 103 White Blood Count 2.6 L Red Blood Count 2.82 L Hemoglobin 8.9 L Hematocrit 25.1 L Mean Corpuscular 89.0 Volume Mean Corpuscular 31.6 Hemoglobin Mean Corpuscular 35.5 Hemoglobin Concent Red Cell 17.0 H Distribution Width Platelet Count 40 #L Mean Platelet Volume 11.7 H Immature 1.200 H Granulocytes % Neutrophils % 61.3 Lymphocytes % 34.0 Monocytes % 3.5 Eosinophils % 0.0 Basophils % 0.0 Nucleated Red Blood 1.2 H Cells % Immature 0.030 Granulocytes # Neutrophils # 1.6 Lymphocytes # 0.9 Monocytes # 0.1 L Eosinophils # 0.0 Basophils # 0.0 Nucleated Red Blood 0.0 Cells # Sodium Level 129 L Potassium Level 3.8 Chloride Level 94 L Carbon Dioxide Level 24 Anion Gap 11 Blood Urea Nitrogen 21 H Creatinine 0.48 Est Glomerular > 60 Filtrat Rate mL/min Glucose Level 105 Calcium Level 8.6 Phosphorus Level 4.2 Magnesium Level 2.3 Total Bilirubin 10.1 H Direct Bilirubin 8.80 H Indirect Bilirubin 1.3 H Aspartate Amino 298 H Transf (AST/SGOT) Alanine 341 H Aminotransferase (AL T/SGPT) Alkaline Phosphatase 1464 H Total Protein 5.8 L Albumin 3.1 L Globulin 2.70 Albumin/Globulin 1.14 Ratio Exam/Review of Systems Vital Signs Vitals Vital Signs Date Temp Pulse Resp B/P (MAP) Pulse Ox O2 O2 Flow FiO2 Time Delivery Rate 02/24/18 Nasal 2.0 08:00 Cannula 02/24/18 97.7 89 18 148/80 95 07:36 (102) Intake and Output 02/23/18 02/23/18 02/24/18 1515:00 23:00 07:00 IntakeIntake Total 1060 ml 480 ml OutputOutput Total 1 ml BalanceBalance 1059 ml 480 ml Medications Medications Current Medications Ondansetron HCl (Zofran Inj) 4 mg Q6H PRN IV NAUSEA AND/OR VOMITING Last administered on 02/21/18 09:20; Admin Dose 4 MG; Start 02/09/18 at 20:00 Albuterol/ Ipratropium (Duoneb) 3 ml Q2H RESP THERAPY PRN NEB SHORTNESS OF BREATH; Start 02/09/18 at 20:00 Acetaminophen (Tylenol Liquid) 650 mg Q6H PRN PO PAIN LEVEL 1-3 OR FEVER Last administered on 02/22/18at 01:14; Admin Dose 650 MG; Start 02/09/18 at 20:00 Acetaminophen/ Hydrocodone Bitart ([place] (5/325)) 1 tab Q6H PRN PO PAIN LEVEL 4-6 Last administered on 02/24/18at 12:41; Admin Dose 1 TAB; Start 02/09/18 at 20:00 Labetalol HCl (Labetalol) 10 mg Q2H PRN IV SBP > 150 Last administered on 02/11/18at 19:28; Admin Dose 10 MG; Start 02/09/18 at 20:00 Trimethoprim/ Sulfamethoxazole (Bactrim (Ds)) 1 tab MONWEDFRI PO Last administered on 02/22/18 08:24; Admin Dose 1 TAB; Start 02/11/18 at 09:00 Insulin Aspart (Novolog Insulin Pen) NOVOLOG *MILD* ALGORITHM WITH MEALS BEDTIME SC Last administered on 02/22/18 18:11; Admin Dose 1 UNIT; Start 02/10/18 at 21:00 Hydralazine HCl (Apresoline) 10 mg Q6H PRN IV ELEVATED BLOOD PRESSURE Last administered on 02/21/18 01:54; Admin Dose 10 MG; Start 02/10/18 at 18:30 Miscellaneous Information 1 ea NOTE XX ; Start 02/10/18 at 19:00 Glucose (Glutose) 15 gm Q15M PRN PO DECREASED GLUCOSE; Start 02/10/18 at 19:00 Glucose (Glutose) 22.5 gm Q15M PRN PO DECREASED GLUCOSE; Start 02/10/18 at 19:00 Dextrose (D50w Syringe) 25 ml Q15M PRN IV DECREASED GLUCOSE; Start 02/10/18 at 19:00 Dextrose (D50w Syringe) 50 ml Q15M PRN IV DECREASED GLUCOSE; Start 02/10/18 at 19:00 Glucagon (Glucagen) 1 mg Q15M PRN IM DECREASED GLUCOSE; Start 02/10/18 at 19:00 Glucose (Glutose) 15 gm Q15M PRN BUCCAL DECREASED GLUCOSE; Start 02/10/18 at 19:00 Levetiracetam (Keppra) 500 mg BID PO Last administered on 02/24/18 09:27; Admin Dose 500 MG; Start 02/11/18 at 09:30 Senna (Senokot) 1 tab BID PRN PO CONSTIPATION Last administered on 02/20/18 18:15; Admin Dose 1 TAB; Start 02/13/18 at 14:00 Polyethylene Glycol (Miralax) 17 gm DAILY PO Last administered on 02/24/18 09:27; Admin Dose 17 GM; Start 02/14/18 at 14:00 Al Hydrox/Mg Hydrox/Simethicone (Mag-Al Plus) 30 ml Q6H PRN PO GASTROINTESTINAL UPSET Last administered on 02/20/18 15:30; Admin Dose 30 ML; Start 02/14/18 at 22:30 Dexamethasone (Decadron) 2 mg Q12 PO Last administered on 02/24/18 09:56; Admin Dose 2 MG; Start 02/24/18 at 09:00; Stop 02/25/18 at 23:45 Guaifenesin (Robitussin Liquid Cup) 200 mg Q4H PRN PO cough Last administered on 02/24/18 12:41; Admin Dose 200 MG; Start 02/16/18 at 11:30 Pantoprazole (Protonix Tab) 40 mg BID PO Last administered on 02/24/18 09:27; Admin Dose 40 MG; Start 02/16/18 at 21:00 Diphenhydramine HCl (Benadryl) 25 mg Q6H PRN PO ITCHING Last administered on 02/24/18 02:05; Admin Dose 25 MG; Start 02/20/18 at 12:30 Insulin Aspart (Novolog Insulin Pen) 6 unit WITH MEALS SC Last administered on 02/24/18 09:35; Admin Dose 6 UNIT; Start 02/22/18 at 18:00 Insulin Glargine (Lantus) 16 units DAILY@2000 SC Last administered on 02/23/18 20:58; Admin Dose 16 UNITS; Start 02/22/18 at 20:00 DUGLAS CARPIO Feb 24, 2018 13:11
[2018-02-24 13:40] VITALS: BP 151/81; PULSE 100; RESP 18
--- NOTE | 2018-02-24 16:36 | NUR ---
SOY Pepper reported to me that the Pt refused HIBICLENS during this shift as she prefers to do it at night. Will endorse to next shift.
--- NOTE | 2018-02-24 18:49 | NUR ---
END OF SHIFT NOTES: PT STABLE, ALERT & ORIENTED X4. NO DISTRESS NOTED. MAINTAINED ON NEUTROPENIC PRECAUTIONS. ACCUCHECKS DONE, INSULIN COVERAGE GIVEN. ASSISTED IN AMBULATING TO BEDSIDE COMMODE. INSTRUCTED PT TO CALL FOR ASSISTANCE. VS WNL.HOURLY ROUNDING. CALL LIGHT WITHIN REACH.ALL NEEDS MET. NO NEW COMPLAINTS
[2018-02-24 19:46] VITALS: BP 137/66; PULSE 96; RESP 18
[2018-02-24] MEDS ORDERED: IOHEXOL 14.3 MG(I)/ML (ADULT) BTL PO ONE (20:00)
[2018-02-24] MEDS: INSULIN GLARGINE [LANTus] (100 UNITS/ML) SYG SC SCH (21:35)
[2018-02-25] MEDS: GUAIFENESIN 20 MG/ML 5ML CUP PO PRN ×2 (01:44→09:09)
[2018-02-25 01:59] VITALS: BP 140/67; PULSE 92; RESP 20
[2018-02-25] MEDS: DIPHENHYDRAMINE 25 MG CAP PO PRN ×2 (04:54→12:59)
--- NOTE | 2018-02-25 06:15 | NUR ---
Shift Summary Patient remains stable. Vital signs WNL. All scheduled medications administered. [place] given for headache, verbalized relief. Robitussin was given for cough X1, patient verbalized less coughing. Benadryl given for itching. Blood glucose controlled, HS snack provided. HIBICLENS shower done by C[employer] M[employer]ING MACHINE OPERATOR. Assisted to bedside commode. CT Abdomen/Pelvis done. Son at bedside. Hourly rounding done. Patient's safety maintained. Will endorse plan of care to oncoming nurse.
[2018-02-25 07:32] VITALS: BP 121/69; PULSE 81; RESP 20
[2018-02-25] MEDS: INSULIN ASPART [NOVOLOG] 3 ML PEN SC SCH ×7 (08:00→21:00)
[2018-02-25] MEDS: HYDROCODONE/APAP (5/325) TAB PO PRN ×2 (09:09→21:00)
[2018-02-25] MEDS: PANTOPRAZOLE (EC) 40 MG TAB PO SCH ×2 (09:10→20:50)
[2018-02-25] MEDS: LEVETIRACETAM 500 MG TAB PO SCH ×2 (09:10→20:50)
[2018-02-25] MEDS: POLYETHYLENE GLYCOL 17 GM PACKET PO SCH (09:10)
[2018-02-25] MEDS: DEXAMETHASONE 2 MG TAB PO SCH ×2 (09:10→20:50)
[2018-02-25] MEDS: TRIMETHOPRIM/SULFAMETHOX (DS) TAB PO SCH (09:13)
[2018-02-25] MEDS ORDERED: LIDOCAINE 1% (MPF) 5 ML VIAL ONE (10:53)
[2018-02-25] MEDS ORDERED: SOD CHLORIDE 0.9% IT SCH (11:00)
[2018-02-25] MEDS ORDERED: HYDROCORTISONE IT SCH (11:00)
[2018-02-25] MEDS ORDERED: METHOTREXATE IT SCH (11:00)
[2018-02-25] MEDS: ONDANSETRON INJ 8 MG in SOD CHLORIDE 0.9% 50 ML IV SCH ×2 (12:59→21:02)
[2018-02-25 14:15] VITALS: BP 138/69; PULSE 94; RESP 20
--- NOTE | 2018-02-25 14:23 | NUR ---
PT NOTE: Shannen BRAY requesting to defer PT treatment today as patient underwent lumbar puncture with injection of chemotherapy drugs today. Will follow up tomorrow.
--- NOTE | 2018-02-25 14:44 | PN ---
Date/Time of Note Date/Time of Note DATE: 02/25/18 TIME: 14:39 Assessment/Plan VTE Prophylaxis Risk score (from Nsg)>0 risk: 6 SCD applied (from Nsg): Yes SCD contraindicated: low risk/ambulating Pharmacological prophylaxis: NA/contraindicated Pharm contraindication: thrombocytopenia Lines/Catheters [facility] [place] Cath Urinary Cath still in place: No Assessment/Plan Assessment/Plan 47-year-old woman with a history of left breast carcinoma status post mastectomy and chemo presents with headache and generalized weakness with a CT finding of subdural fluid collection with 0.4 mm midline shift, as well as possible right parietal mass concerning for brain metastasis. 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 Again there is 0.4 mm midline shift noted on admission brain scan. appreciate neurosurgery recommendations. Currently no surgery indicated. - Continue intrathecal chemotherapy for now as ordered by hematology oncology team (patient received treatments this week, scheduled again tomorrow Sunday, February 25 and next SundayFebruary 27 for further injections). Whole brain radiation also to be considered by hematology team, per their documentation. - Currently on decadron taper-ordered, and as needed Benadryl for skin itching - PT, OT #Pneumonia- Infiltrates on CXR earlier this admission-completed treatment with Vanco/zosyn (02/12-02/18). Appears resolved now. -Monitor for now #Chest pain-earlier she complained of pressure-like chest pain.- Noncardiac in nature; she described it as worse after eating and improves with standing and ambulation- Trop negative, EKG without ischemia - This likely represents anxiety or dyspepsia, no further cardiac workup - monitor for now #Breast carcinoma: Status post chemotherapy mastectomy in the past. Again she is showing signs of jaundice now, possible further spread of cancer to the liver? -Per hematology oncology team, see above, again currently plan is intrathecal chemo 3x/week then outpatient evaluation for radiation oncology, and again tomorrow Sunday and Sunday -However, also Per discussion with hematology oncology team yesterday, need to strongly consider hospice and comfort measures now if there are signs of spread to the liver, as indicated by the increasing liver function tests and jaundice appearance #Hypertensive urgency: Blood pressure improved -Monitor #Thrombocytopenia: status post platelet transfusion earlier this admission, and again 3 days ago; platelets are presently at 40. No signs of any bleeding. - monitor CBC daily Dispo: Introduced the idea of DNR/DNI and hospice to patient, she declined. Will continue to manage expectations. Result Diagram: 02/25/18 0447 02/25/18 0447 Results 24hrs Laboratory Tests Test 02/24/18 17:44 02/24/18 21:35 02/25/18 04:47 02/25/18 09:05 Bedside Glucose 124 153 96 White Blood Count 3.7 #L Red Blood Count 2.96 L Hemoglobin 9.4 L Hematocrit 26.3 L Mean Corpuscular 88.9 Volume Mean Corpuscular 31.8 Hemoglobin Mean Corpuscular 35.7 Hemoglobin Concent Red Cell 17.1 H Distribution Width Platelet Count 40 L Mean Platelet Volume 11.6 H Immature 1.900 H Granulocytes % Neutrophils % 58.8 Lymphocytes % 36.1 Monocytes % 2.9 Eosinophils % 0.0 Basophils % 0.3 Nucleated Red Blood 1.1 H Cells % Immature 0.070 H Granulocytes # Neutrophils # 2.2 Lymphocytes # 1.4 Monocytes # 0.1 L Eosinophils # 0.0 Basophils # 0.0 Nucleated Red Blood 0.0 Cells # Sodium Level 129 L Potassium Level 4.1 Chloride Level 92 L Carbon Dioxide Level 25 Anion Gap 12 Blood Urea Nitrogen 21 H Creatinine 0.52 Est Glomerular > 60 Filtrat Rate mL/min Glucose Level 100 Calcium Level 9.0 Phosphorus Level 4.4 Magnesium Level 2.3 Total Bilirubin 11.4 H Direct Bilirubin 9.90 H Indirect Bilirubin 1.5 H Aspartate Amino 331 H Transf (AST/SGOT) Alanine 344 H Aminotransferase (AL T/SGPT) Alkaline Phosphatase 1816 H Total Protein 6.3 Albumin 3.3 Globulin 3.00 Albumin/Globulin 1.10 Ratio Test 02/25/18 13:05 Bedside Glucose 101 Subjective 24 Hr Interval Summary Free Text/Dictation No acute overnight events. Patient able to ambulate with assistance. No major complaints today. 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 Reinforced that her disease is progressive and terminal, and cure or remission is not a realistic expectation. The patient did not seem to understand this and continued repeating "I want to get better" and "I want to go home". I introduced the idea of code status and recommended DNR/DNI but the patient declined, saying she wants everything done to "make me better". She did designate her and eldest son (at bedside) as her medical decisionmakers if she is unable to make decisions on her own. Exam/Review of Systems Vital Signs Vitals Vital Signs Date Temp Pulse Resp B/P (MAP) Pulse Ox O2 O2 Flow FiO2 Time Delivery Rate 02/25/18 98.9 94 20 138/69 94 14:15 (92) 02/24/18 Nasal 2.0 08:00 Cannula Intake and Output 02/24/18 02/24/18 02/25/18 1414:59 22:59 06:59 IntakeIntake Total 960 ml 240 ml 600 ml BalanceBalance 960 ml 240 ml 600 ml Exam Gen: Fatigued appearing woman lying in bed, some jaundice noted Head: Atraumatic Eyes: Normal Conjunctiva ENT: Normal External Ears, Nose and Mouth. Neck: Full range of motion. No meningismus. Resp: Clear to auscultation bilaterally Cardio: Regular rate and rhythm, no murmurs Abd: Soft, non tender, non distended. Normal bowel sounds Ext: No lower extremity edema bilaterally Medications Medications Current Medications Ondansetron HCl (Zofran Inj) 4 mg Q6H PRN IV NAUSEA AND/OR VOMITING Last administered on 02/21/18at 09:20; Admin Dose 4 MG; Start 02/09/18 at 20:00 Albuterol/ Ipratropium (Duoneb) 3 ml Q2H RESP THERAPY PRN NEB SHORTNESS OF BREATH; Start 02/09/18 at 20:00 Acetaminophen (Tylenol Liquid) 650 mg Q6H PRN PO PAIN LEVEL 1-3 OR FEVER Last administered on 02/22/18at 01:14; Admin Dose 650 MG; Start 02/09/18 at 20:00 Acetaminophen/ Hydrocodone Bitart ([place] (5/325)) 1 tab Q6H PRN PO PAIN LEVEL 4-6 Last administered on 02/25/18at 09:09; Admin Dose 1 TAB; Start 02/09/18 at 20:00 Labetalol HCl (Labetalol) 10 mg Q2H PRN IV SBP > 150 Last administered on 9at 19:28; Admin Dose 10 MG; Start 02/09/18 at 20:00 Trimethoprim/ Sulfamethoxazole (Bactrim (Ds)) 1 tab MONWEDFRI PO Last administered on 02/25/18at 09:13; Admin Dose 1 TAB; Start 02/11/18 at 09:00 Insulin Aspart (Novolog Insulin Pen) NOVOLOG *MILD* ALGORITHM WITH MEALS BEDTIME SC Last administered on 02/22/18at 18:11; Admin Dose 1 UNIT; Start 02/10/18 at 21:00 Hydralazine HCl (Apresoline) 10 mg Q6H PRN IV ELEVATED BLOOD PRESSURE Last administered on 02/21/18at 01:54; Admin Dose 10 MG; Start 02/10/18 at 18:30 Miscellaneous Information 1 ea NOTE XX ; Start 02/10/18 at 19:00 Glucose (Glutose) 15 gm Q15M PRN PO DECREASED GLUCOSE; Start 02/10/18 at 19:00 Glucose (Glutose) 22.5 gm Q15M PRN PO DECREASED GLUCOSE; Start 02/10/18 at 19:00 Dextrose (D50w Syringe) 25 ml Q15M PRN IV DECREASED GLUCOSE; Start 02/10/18 at 19:00 Dextrose (D50w Syringe) 50 ml Q15M PRN IV DECREASED GLUCOSE; Start 02/10/18 at 19:00 Glucagon (Glucagen) 1 mg Q15M PRN IM DECREASED GLUCOSE; Start 02/10/18 at 19:00 Glucose (Glutose) 15 gm Q15M PRN BUCCAL DECREASED GLUCOSE; Start 02/10/18 at 19:00 Levetiracetam (Keppra) 500 mg BID PO Last administered on 02/25/18at 09:10; Admin Dose 500 MG; Start 02/11/18 at 09:30 Senna (Senokot) 1 tab BID PRN PO CONSTIPATION Last administered on 02/20/18 18:15; Admin Dose 1 TAB; Start 02/13/18 at 14:00 Polyethylene Glycol (Miralax) 17 gm DAILY PO Last administered on 02/25/18at 09:10; Admin Dose 17 GM; Start 02/14/18 at 14:00 Al Hydrox/Mg Hydrox/Simethicone (Mag-Al Plus) 30 ml Q6H PRN PO GASTROINTESTINAL UPSET Last administered on 02/20/18at 15:30; Admin Dose 30 ML; Start 02/14/18 at 22:30 Dexamethasone (Decadron) 2 mg Q12 PO Last administered on 02/25/18 09:10; Admin Dose 2 MG; Start 02/24/18 at 09:00; Stop 02/25/18 at 23:45 Guaifenesin (Robitussin Liquid Cup) 200 mg Q4H PRN PO cough Last administered on 02/25/18 09:09; Admin Dose 200 MG; Start 02/16/18 at 11:30 Pantoprazole (Protonix Tab) 40 mg BID PO Last administered on 02/25/18 09:10; Admin Dose 40 MG; Start 02/16/18 at 21:00 Diphenhydramine HCl (Benadryl) 25 mg Q6H PRN PO ITCHING Last administered on 02/25/18at 12:59; Admin Dose 25 MG; Start 02/20/18 at 12:30 Insulin Aspart (Novolog Insulin Pen) 6 unit WITH MEALS SC Last administered on 02/25/18at 13:20; Admin Dose 6 UNIT; Start 02/22/18 at 18:00 Insulin Glargine (Lantus) 16 units DAILY@2000 SC Last administered on 02/24/18at 21:35; Admin Dose 16 UNITS; Start 02/22/18 at 20:00 Ondansetron HCl 8 mg/Sodium Chloride 54 ml @ 216 mls/hr Q12H IV Last admini stered on 02/25/18at 12:59; Admin Dose 216 MLS/HR; Start 02/25/18 at 10:00; Stop 02/25/18 at 22:14 JOAN CHRISTENSEN MD Feb 25, 2018 14:44
--- NOTE | 2018-02-25 18:02 | NUR ---
Patient remain stable during my shift. VS within acceptable range . Robitussin was given for cough X1, patient verbalized less coughing. Blood glucose checked no sign of hypoglycemia noted. Assisted to bedside commode . Patient went to radiology for lumber puncture with administration of chemo medication. C/o severe nausea, given Zofran 8 mg PG with relieve of symptoms. Family at bedside. All needs attended.Patient remained safeWiill continue to monitor.
[2018-02-25 20:07] VITALS: BP 133/64; PULSE 97; RESP 18
[2018-02-25] MEDS: INSULIN GLARGINE [LANTus] (100 UNITS/ML) SYG SC SCH (21:40)
[2018-02-26 01:37] VITALS: BP 141/71; PULSE 86; RESP 18
[2018-02-26] MEDS: GUAIFENESIN 20 MG/ML 5ML CUP PO PRN (03:36)
[2018-02-26] MEDS: DIPHENHYDRAMINE 25 MG CAP PO PRN ×2 (03:45→17:51)
[2018-02-26] MEDS: HYDROCODONE/APAP (5/325) TAB PO PRN ×3 (03:56→21:17)
--- NOTE | 2018-02-26 05:45 | NUR ---
Shift Summary Patient remains stable. Vital signs WNL. All scheduled medications administered. Letona was given x2 for headache, verbalized relief. Robitussin was given for cough X1, patient verbalized less coughing. Benadryl given for itching x1. Blood glucose controlled, HS snack provided. Lantus held last night per Dr. Mandel, ACCU chek: 77. Assisted to bedside commode. Son at bedside. Hourly rounding done. Patient's safety maintained. Will endorse plan of care to oncoming nurse.
[2018-02-26 06:15] VITALS: BP 148/75; PULSE 87; RESP 19
[2018-02-26] MEDS: AL HYDROX/MG HYDROX/SIMETH 30 ML CUP PO PRN (06:20)
[2018-02-26 07:37] VITALS: BP 135/66; PULSE 72; RESP 20
[2018-02-26] MEDS: INSULIN ASPART [NOVOLOG] 3 ML PEN SC SCH ×6 (08:00→21:00)
[2018-02-26] MEDS: POLYETHYLENE GLYCOL 17 GM PACKET PO SCH (08:42)
[2018-02-26] MEDS: PANTOPRAZOLE (EC) 40 MG TAB PO SCH ×2 (08:43→21:01)
[2018-02-26] MEDS: LEVETIRACETAM 500 MG TAB PO SCH ×2 (08:43→21:01)
--- NOTE | 2018-02-26 12:15 | NUR ---
PT NOTE Exercise Assessment Label Bilat Lower Extremity Exercise Type Active Assist ROM Additional Exercise Comments BLE AAROM all planes with overpressure for hip flex/abd/IR/ER, ankle DF Exercise Start Time 12:15 Exercise End Time 12:38 Total Exercise Time 23 min (8-127) Additional Mobility Comments pt refusing EOB/OOB 2/2 feeling "very weak" and "not good" Total Treament Time 23 min (8-127) Total Minutes 23 Total Units 2 PT Technical Record Comment PT NOTE S: Pt agreeable to minimal PT in bed only with encouragement. Cleared for PT per ASA Garcia. O: Pt received semifowler in bed, sleeping but easily roused, lethargic but appropriate, family present in room. Performed thera ex for BLE circulation, strength and joint mobility per tech record above. Pt refusing EOB/OOB. Pt positioned for comfort post-tx with call light and needs in reach, bed alarm armed, pt in no apparent acute distress, family present in room. RN updated re pt status. Family states ICU staff said pt should not be using SCD's, RN to f/u. A: Pt jesús tx poorly, limited by weakness/decreased endurance P: Cont POC
--- NOTE | 2018-02-26 13:23 | CONS ---
Date/Time of Note Date/Time of Note DATE: 02/26/18 TIME: 13:22 Assessment/Plan Assessment/Plan Assessment/Plan This is a 37-year-old female who presented to [facility] with headache out of control. She presented here on February 09, 2018 and has had an extensive workup for metastatic breast cancer. Palliative care versus hospice care was recommended to family members by oncology if patient had metastatic disease to her liver. Workup has shown the patient has metastases to her abdomen had bony metastasis chest and brain with leptomeningeal spread. She is to undergo intrathecal chemotherapy, she status post left breast mastectomy also. Patient is a full code just patient's son is at the bedside is not available at this time. Viewing no from oncology she has HER-2 positive breast cancer currently on immunosuppressive therapy for the last month. Patient was begun on neoadjuvant TCHP October 2015 on January 16, 2017 patient completed a year of Herceptin was started on Neratinib. There are no other family members available at this time I have asked patient's son to arrange a family conference as early as 6 AM in the morning tomorrow. I will discuss patient's current bulky disease and speak to him about options for aggressive care versus palliative hospice care. Will contact oncology and confirm plan of care and especially with family members expectations and goals of care. Patient is a non-historian she appears to be confused at this time and cannot make decisions on her own behalf. My first impressions of meeting with patient's son is that he does not to stand how extensive patient's breast cancer has become. I know from looking at medical records that family has been updated in the past. Result Diagram: 02/26/18 0914 02/26/18 0914 Results 24hrs Laboratory Tests Test 02/25/18 17:48 02/25/18 20:51 02/26/18 08:09 02/26/18 09:14 Bedside Glucose 123 77 88 White Blood Count 2.8 #L Red Blood Count 2.92 L Hemoglobin 9.3 L Hematocrit 26.4 L Mean Corpuscular 90.4 Volume Mean Corpuscular 31.8 Hemoglobin Mean Corpuscular 35.2 Hemoglobin Concent Red Cell 17.2 H Distribution Width Platelet Count 25 #*L Mean Platelet Volume 10.0 Immature 2.500 H Granulocytes % Neutrophils % 52.1 Lymphocytes % 42.1 Monocytes % 2.9 Eosinophils % 0.0 Basophils % 0.4 Nucleated Red Blood 2.1 H Cells % Immature 0.070 H Granulocytes # Neutrophils # 1.5 L Lymphocytes # 1.2 Monocytes # 0.1 L Eosinophils # 0.0 Basophils # 0.0 Nucleated Red Blood 0.1 H Cells # Sodium Level 127 L Potassium Level 3.3 L Chloride Level 91 L Carbon Dioxide Level 21 Anion Gap 15 H Blood Urea Nitrogen 22 H Creatinine 0.61 Est Glomerular > 60 Filtrat Rate mL/min Glucose Level 83 Calcium Level 8.8 Phosphorus Level 4.3 Magnesium Level 2.3 Total Bilirubin 13.1 H Direct Bilirubin 11.60 H Indirect Bilirubin 1.5 H Aspartate Amino 319 H Transf (AST/SGOT) Alanine 299 H Aminotransferase (AL T/SGPT) Alkaline Phosphatase 1930 H Total Protein 6.3 Albumin 3.2 L Globulin 3.10 Albumin/Globulin 1.03 Ratio Test 02/26/18 12:25 Bedside Glucose 94 Consultation Date/Type/Reason Admit Date/Time Feb 09, 2018 at 19:44 Past Medical History Medications Current Medications Ondansetron HCl (Zofran Inj) 4 mg Q6H PRN IV NAUSEA AND/OR VOMITING Last ad ministered on 02/21/18 09:20; Admin Dose 4 MG; Start 02/09/18 at 20:00 Albuterol/ Ipratropium (Duoneb) 3 ml Q2H RESP THERAPY PRN NEB SHORTNESS OF BREATH; Start 02/09/18 at 20:00 Acetaminophen (Tylenol Liquid) 650 mg Q6H PRN PO PAIN LEVEL 1-3 OR FEVER Last administered on 02/22/18at 01:14; Admin Dose 650 MG; Start 02/09/18 at 20:00 Acetaminophen/ Hydrocodone Bitart ([place] (5/325)) 1 tab Q6H PRN PO PAIN LEVEL 4-6 Last administered on 02/26/18 10:54; Admin Dose 1 TAB; Start 02/09/18 at 20:00 Labetalol HCl (Labetalol) 10 mg Q2H PRN IV SBP > 150 Last administered on 02/11/18 19:28; Admin Dose 10 MG; Start 02/09/18 at 20:00 Trimethoprim/ Sulfamethoxazole (Bactrim (Ds)) 1 tab MONWEDFRI PO Last adm inistered on 1/21/19at 09:13; Admin Dose 1 TAB; Start 02/11/18 at 09:00 Insulin Aspart (Novolog Insulin Pen) NOVOLOG *MILD* ALGORITHM WITH MEALS BEDTIME SC Last administered on 02/22/18at 18:11; Admin Dose 1 UNIT; Start 02/10/18 at 21:00 Hydralazine HCl (Apresoline) 10 mg Q6H PRN IV ELEVATED BLOOD PRESSURE Last administered on 02/21/18at 01:54; Admin Dose 10 MG; Start 02/10/18 at 18:30 Miscellaneous Information 1 ea NOTE XX ; Start 02/10/18 at 19:00 Glucose (Glutose) 15 gm Q15M PRN PO DECREASED GLUCOSE; Start 02/10/18 at 19:00 Glucose (Glutose) 22.5 gm Q15M PRN PO DECREASED GLUCOSE; Start 02/10/18 at 19:00 Dextrose (D50w Syringe) 25 ml Q15M PRN IV DECREASED GLUCOSE; Start 02/10/18 at 19:00 Dextrose (D50w Syringe) 50 ml Q15M PRN IV DECREASED GLUCOSE; Start 02/10/18 at 19:00 Glucagon (Glucagen) 1 mg Q15M PRN IM DECREASED GLUCOSE; Start 02/10/18 at 19:00 Glucose (Glutose) 15 gm Q15M PRN BUCCAL DECREASED GLUCOSE; Start 02/10/18 at 19:00 Levetiracetam (Keppra) 500 mg BID PO Last administered on 02/26/18at 08:43; Admin Dose 500 MG; Start 02/11/18 at 09:30 Senna (Senokot) 1 tab BID PRN PO CONSTIPATION Last administered on 02/20/18at 18:15; Admin Dose 1 TAB; Start 02/13/18 at 14:00 Polyethylene Glycol (Miralax) 17 gm DAILY PO Last administered on 02/26/18at 08:42; Admin Dose 17 GM; Start 02/14/18 at 14:00 Al Hydrox/Mg Hydrox/Simethicone (Mag-Al Plus) 30 ml Q6H PRN PO GASTROINTESTINAL UPSET Last administered on 02/26/18at 06:20; Admin Dose 30 ML; Start 02/14/18 at 22:30 Guaifenesin (Robitussin Liquid Cup) 200 mg Q4H PRN PO cough Last administered on 02/26/18at 03:36; Admin Dose 200 MG; Start 02/16/18 at 11:30 Pantoprazole (Protonix Tab) 40 mg BID PO Last administered on 02/26/18at 08:43; Admin Dose 40 MG; Start 02/16/18 at 21:00 Diphenhydramine HCl (Benadryl) 25 mg Q6H PRN PO ITCHING Last administered on 02/26/18at 03:45; Admin Dose 25 MG; Start 02/20/18 at 12:30 Insulin Aspart (Novolog Insulin Pen) 3 unit WITH MEALS SC Last administered on 02/26/18at 12:38; Admin Dose 3 UNIT; Start 02/26/18 at 12:00 Insulin Glargine (Lantus) 8 units DAILY@2000 SC ; Start 02/26/18 at 20:00 Allergies: Coded Allergies: No Known Allergy (Unverified , 02/28/17) Social History Alcohol Use: none Smoking Status: Never smoker Drug Use: none Exam/Review of Systems Vital Signs Vitals Vital Signs Date Temp Pulse Resp B/P (MAP) Pulse Ox O2 O2 Flow FiO2 Time Delivery Rate 02/26/18 98.3 72 20 135/66 95 07:37 (89) 02/26/18 Room Air 06:15 02/24/18 2.0 08:00 Intake and Output 02/25/18 02/25/18 02/26/18 1515:00 23:00 07:00 IntakeIntake Total 774 ml 600 ml 774 ml OutputOutput Total 400 ml BalanceBalance 774 ml 600 ml 374 ml Medications Medications Current Medications Ondansetron HCl (Zofran Inj) 4 mg Q6H PRN IV NAUSEA AND/OR VOMITING Last administered on 02/21/18at 09:20; Admin Dose 4 MG; Start 02/09/18 at 20:00 Albuterol/ Ipratropium (Duoneb) 3 ml Q2H RESP THERAPY PRN NEB SHORTNESS OF BREATH; Start 02/09/18 at 20:00 Acetaminophen (Tylenol Liquid) 650 mg Q6H PRN PO PAIN LEVEL 1-3 OR FEVER Last administered on 02/22/18at 01:14; Admin Dose 650 MG; Start 02/09/18 at 20:00 Acetaminophen/ Hydrocodone Bitart ([place] (5/325)) 1 tab Q6H PRN PO PAIN LEVEL 4-6 Last administered on 02/26/18at 10:54; Admin Dose 1 TAB; Start 02/09/18 at 20:00 Labetalol HCl (Labetalol) 10 mg Q2H PRN IV SBP > 150 Last administered on 02/11/18at 19:28; Admin Dose 10 MG; Start 02/09/18 at 20:00 Trimethoprim/ Sulfamethoxazole (Bactrim (Ds)) 1 tab MONWEDFRI PO Last administered on 02/25/18at 09:13; Admin Dose 1 TAB; Start 02/11/18 at 09:00 Insulin Aspart (Novolog Insulin Pen) NOVOLOG *MILD* ALGORITHM WITH MEALS BEDTIME SC Last administered on 02/22/18at 18:11; Admin Dose 1 UNIT; Start 02/10/18 at 21:00 Hydralazine HCl (Apresoline) 10 mg Q6H PRN IV ELEVATED BLOOD PRESSURE Last administered on 02/21/18at 01:54; Admin Dose 10 MG; Start 02/10/18 at 18:30 Miscellaneous Information 1 ea NOTE XX ; Start 02/10/18 at 19:00 Glucose (Glutose) 15 gm Q15M PRN PO DECREASED GLUCOSE; Start 02/10/18 at 19:00 Glucose (Glutose) 22.5 gm Q15M PRN PO DECREASED GLUCOSE; Start 02/10/18 at 19:00 Dextrose (D50w Syringe) 25 ml Q15M PRN IV DECREASED GLUCOSE; Start 02/10/18 at 19:00 Dextrose (D50w Syringe) 50 ml Q15M PRN IV DECREASED GLUCOSE; Start 02/10/18 at 1 9:00 Glucagon (Glucagen) 1 mg Q15M PRN IM DECREASED GLUCOSE; Start 02/10/18 at 19:00 Glucose (Glutose) 15 gm Q15M PRN BUCCAL DECREASED GLUCOSE; Start 02/10/18 at 19:00 Levetiracetam (Keppra) 500 mg BID PO Last administered on 02/26/18at 08:43; Admin Dose 500 MG; Start 02/11/18 at 09:30 Senna (Senokot) 1 tab BID PRN PO CONSTIPATION Last administered on 02/20/18at 18:15; Admin Dose 1 TAB; Start 02/13/18 at 14:00 Polyethylene Glycol (Miralax) 17 gm DAILY PO Last administered on 02/26/18at 08:42; Admin Dose 17 GM; Start 02/14/18 at 14:00 Al Hydrox/Mg Hydrox/Simethicone (Mag-Al Plus) 30 ml Q6H PRN PO GASTROINTESTINAL UPSET Last administered on 02/26/18at 06:20; Admin Dose 30 ML; Start 02/14/18 at 22:30 Guaifenesin (Robitussin Liquid Cup) 200 mg Q4H PRN PO cough Last administered on 02/26/18at 03:36; Admin Dose 200 MG; Start 02/16/18 at 11:30 Pantoprazole (Protonix Tab) 40 mg BID PO Last administered on 02/26/18at 08:43; Admin Dose 40 MG; Start 02/16/18 at 21:00 Diphenhydramine HCl (Benadryl) 25 mg Q6H PRN PO ITCHING Last administered on 02/26/18at 03:45; Admin Dose 25 MG; Start 02/20/18 at 12:30 Insulin Aspart (Novolog Insulin Pen) 3 unit WITH MEALS SC Last administered on 02/26/18at 12:38; Admin Dose 3 UNIT; Start 02/26/18 at 12:00 Insulin Glargine (Lantus) 8 units DAILY@2000 SC ; Start 02/26/18 at 20:00 KLAUS CALVILLO Feb 26, 2018 13:23
--- NOTE | 2018-02-26 13:46 | PN ---
Date/Time of Note Date/Time of Note DATE: 02/26/18 TIME: 13:42 Outpatient Progress Note Chief Complaint NO CHANGE BED BOUND no improvement despite IT MTX treatments no pain Review of Systems Const: No Fever, no chills, no Wt. loss, no Fatigue, normal appetite, no diaphoresis. Eyes: No pain, no discharge, no redness, no visual change, no foreign body. ENT: No pain, no bleeding, no congestion, no sore throat, no dysphagia, no discharge or rhinitis. Lymph: No adenopathy, no tender nodes, no lymphedema. Resp: No SOB, no cough, no sputum, no wheezing, no chest pain. CV: No chest pain, no palpitaions, no TURNER, no PND, no edema. GI: Normal appetite, no pain, no nausea, no vomiting, no diarrhea, no blood, no constipation. : No frequency, no urgency, no dysuria, no hematuria, no flank pain, no di scharge, no bleeding. Musc: No bone/joint pain, no back pain, no neck pain, no knee pain, no restric ritu ROM. Skin: No rash, no skin lesions, no erythema, no laceration, no bruising, no pruritus. Neuro: No CAR, no dizziness, no syncope, no seizure, no focal-weakness. Endo: No polyuria, no polydypsia, no dry-skin, no temp-intolerance. Psych: No hallucinations, no depression, no anxiety, no suicidal ideation. Ext: No edema, no pain, no ulcer, no weakness. 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 IT Methotrexate 12mg 3 x/week Anti emetics' too weak to get chemotherapy consider TDM1 OR Tykerb Xeloda if can swallow Prognosis is poor family aware this week 2 MORE intrathecal MTX DOSES feb 25 and feb 27 no improvement >> hospice and supportive care now also multiple liver metastases D/W family >> terminal agree with hospice and terminal care 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
[2018-02-26 14:02] VITALS: BP 134/68; PULSE 92; RESP 20
[2018-02-26] MEDS ORDERED: SOD CHLORIDE 0.9% 250 ML IV* ONE (14:03)
--- NOTE | 2018-02-26 14:04 | PN ---
Date/Time of Note Date/Time of Note DATE: 02/26/18 TIME: 14:00 Assessment/Plan VTE Prophylaxis Risk score (from Ns)>0 risk: 8 SCD applied (from [facility] [place]): Yes Pharmacological prophylaxis: NA/contraindicated Pharm contraindication: thrombocytopenia Lines/Catheters IV Catheter Type (from [facility]): Port A cath Urinary Cath still in place: No Assessment/Plan Assessment/Plan 47-year-old woman with a history of left breast carcinoma status post mastectomy and chemo presents with headache and generalized weakness with a CT finding of subdural fluid collection with 0.4 mm midline shift, as well as possible right parietal mass concerning for brain metastasis. 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 Again there is 0.4 mm midline shift noted on admission brain scan. appreciate neurosurgery recommendations. Currently no surgery indicated. - Continue intrathecal chemotherapy for now as ordered by hematology oncology team (patient received treatments this week, scheduled again tomorrow Sunday, February 25 and next SundayFebruary 27 for further injections). - Currently on decadron taper - PT, OT #Pneumonia- Infiltrates on CXR earlier this admission-completed treatment with Vanco/zosyn (02/12-02/18). Appears resolved now. -Monitor for now #Chest pain-earlier she complained of pressure-like chest pain.- Noncardiac in nature; she described it as worse after eating and improves with standing and ambulation- Trop negative, EKG without ischemia - This likely represents anxiety or dyspepsia, no further cardiac workup - monitor for now #Breast carcinoma: Status post chemotherapy mastectomy in the past. Again she is showing signs of jaundice now, possible further spread of cancer to the liver? -Per hematology oncology team, see above, again currently plan is intrathecal chemo 3x/week then outpatient evaluation for radiation oncology, and again tomorrow Sunday and Sunday -However, also Per discussion with hematology oncology team yesterday, need to strongly consider hospice and comfort measures now if there are signs of spread to the liver, as indicated by the increasing liver function tests and jaundice appearance - Dr Imnan consulted for palliative/goals of care discussion. #Hypertensive urgency: Blood pressure improved -Monitor #Thrombocytopenia: status post platelet transfusion earlier this admission, and again 3 days ago; platelets are presently at 40. No signs of any bleeding. - monitor CBC daily Result Diagram: 02/26/1814 02/26/18 0914 Results 24hrs Laboratory Tests Test 02/25/18 17:48 02/25/18 20:51 02/26/18 08:09 02/26/18 09:14 Bedside Glucose 123 77 88 White Blood Count 2.8 #L Red Blood Count 2.92 L Hemoglobin 9.3 L Hematocrit 26.4 L Mean Corpuscular 90.4 Volume Mean Corpuscular 31.8 Hemoglobin Mean Corpuscular 35.2 Hemoglobin Concent Red Cell 17.2 H Distribution Width Platelet Count 25 #*L Mean Platelet Volume 10.0 Immature 2.500 H Granulocytes % Neutrophils % 52.1 Lymphocytes % 42.1 Monocytes % 2.9 Eosinophils % 0.0 Basophils % 0.4 Nucleated Red Blood 2.1 H Cells % Immature 0.070 H Granulocytes # Neutrophils # 1.5 L Lymphocytes # 1.2 Monocytes # 0.1 L Eosinophils # 0.0 Basophils # 0.0 Nucleated Red Blood 0.1 H Cells # Sodium Level 127 L Potassium Level 3.3 L Chloride Level 91 L Carbon Dioxide Level 21 Anion Gap 15 H Blood Urea Nitrogen 22 H Creatinine 0.61 Est Glomerular > 60 Filtrat Rate mL/min Glucose Level 83 Calcium Level 8.8 Phosphorus Level 4.3 Magnesium Level 2.3 Total Bilirubin 13.1 H Direct Bilirubin 11.60 H Indirect Bilirubin 1.5 H Aspartate Amino 319 H Transf (AST/SGOT) Alanine 299 H Aminotransferase (AL T/SGPT) Alkaline Phosphatase 1930 H Total Protein 6.3 Albumin 3.2 L Globulin 3.10 Albumin/Globulin 1.03 Ratio Test 02/26/18 12:25 Bedside Glucose 94 Subjective 24 Hr Interval Summary Free Text/Dictation Patient sleeping uncomfortably; groaning. Family at bedside says she slept poorly last night. Exam/Review of Systems Vital Signs Vitals Vital Signs Date Temp Pulse Resp B/P (MAP) Pulse Ox O2 O2 Flow FiO2 Time Delivery Rate 02/26/18 98.3 72 20 135/66 95 07:37 (89) 02/26/18 Room Air 06:15 02/24/18 2.0 08:00 Intake and Output 02/25/18 02/25/18 02/26/18 1515:00 23:00 07:00 IntakeIntake Total 774 ml 600 ml 774 ml OutputOutput Total 400 ml BalanceBalance 774 ml 600 ml 374 ml Exam Gen: Fatigued appearing woman lying in bed, some jaundice noted Head: Atraumatic Eyes: Normal Conjunctiva ENT: Normal External Ears, Nose and Mouth. Neck: Full range of motion. No meningismus. Resp: Clear to auscultation bilaterally Cardio: Regular rate and rhythm, no murmurs Abd: Soft, non tender, non distended. Normal bowel sounds Ext: No lower extremity edema bilaterally Medications Medications Current Medications Ondansetron HCl (Zofran Inj) 4 mg Q6H PRN IV NAUSEA AND/OR VOMITING Last administered on 02/21/18 09:20; Admin Dose 4 MG; Start 02/09/18 at 20:00 Albuterol/ Ipratropium (Duoneb) 3 ml Q2H RESP THERAPY PRN NEB SHORTNESS OF BREATH; Start 02/09/18 at 20:00 Acetaminophen (Tylenol Liquid) 650 mg Q6H PRN PO PAIN LEVEL 1-3 OR FEVER Last administered on 02/22/18 01:14; Admin Dose 650 MG; Start 02/09/18 at 20:00 Acetaminophen/ Hydrocodone Bitart ([place] (5/325)) 1 tab Q6H PRN PO PAIN LEVEL 4-6 Last administered on 02/26/18 10:54; Admin Dose 1 TAB; Start 02/09/18 at 20:00 Labetalol HCl (Labetalol) 10 mg Q2H PRN IV SBP > 150 Last administered on 02/11/18 19:28; Admin Dose 10 MG; Start 02/09/18 at 20:00 Trimethoprim/ Sulfamethoxazole (Bactrim (Ds)) 1 tab MONWEDFRI PO Last administered on 02/25/18 09:13; Admin Dose 1 TAB; Start 02/11/18 at 09:00 Insulin Aspart (Novolog Insulin Pen) NOVOLOG *MILD* ALGORITHM WITH MEALS BEDTIME SC Last administered on 02/22/18 18:11; Admin Dose 1 UNIT; Start 02/10/18 at 21:00 Hydralazine HCl (Apresoline) 10 mg Q6H PRN IV ELEVATED BLOOD PRESSURE Last administered on 02/21/18 01:54; Admin Dose 10 MG; Start 02/10/18 at 18:30 Miscellaneous Information 1 ea NOTE XX ; Start 02/10/18 at 19:00 Glucose (Glutose) 15 gm Q15M PRN PO DECREASED GLUCOSE; Start 02/10/18 at 19:00 Glucose (Glutose) 22.5 gm Q15M PRN PO DECREASED GLUCOSE; Start 02/10/18 at 19:00 Dextrose (D50w Syringe) 25 ml Q15M PRN IV DECREASED GLUCOSE; Start 02/10/18 at 19:00 Dextrose (D50w Syringe) 50 ml Q15M PRN IV DECREASED GLUCOSE; Start 02/10/18 at 19:00 Glucagon (Glucagen) 1 mg Q15M PRN IM DECREASED GLUCOSE; Start 02/10/18 at 19:00 Glucose (Glutose) 15 gm Q15M PRN BUCCAL DECREASED GLUCOSE; Start 02/10/18 at 19:00 Levetiracetam (Keppra) 500 mg BID PO Last administered on 02/26/18 08:43; Admin Dose 500 MG; Start 02/11/18 at 09:30 Senna (Senokot) 1 tab BID PRN PO CONSTIPATION Last administered on 02/20/18at 18:15; Admin Dose 1 TAB; Start 02/13/18 at 14:00 Polyethylene Glycol (Miralax) 17 gm DAILY PO Last administered on 02/26/18 08:42; Admin Dose 17 GM; Start 02/14/18 at 14:00 Al Hydrox/Mg Hydrox/Simethicone (Mag-Al Plus) 30 ml Q6H PRN PO GASTROINTESTINAL UPSET Last administered on 02/26/18at 06:20; Admin Dose 30 ML; Start 02/14/18 at 22:30 Guaifenesin (Robitussin Liquid Cup) 200 mg Q4H PRN PO cough Last administered on 02/26/18 03:36; Admin Dose 200 MG; Start 02/16/18 at 11:30 Pantoprazole (Protonix Tab) 40 mg BID PO Last administered on 02/26/18 08:43; Admin Dose 40 MG; Start 02/16/18 at 21:00 Diphenhydramine HCl (Benadryl) 25 mg Q6H PRN PO ITCHING Last administered on 02/26/18at 03:45; Admin Dose 25 MG; Start 02/20/18 at 12:30 Insulin Aspart (Novolog Insulin Pen) 3 unit WITH MEALS SC Last administered on 02/26/18at 12:38; Admin Dose 3 UNIT; Start 02/26/18 at 12:00 Insulin Glargine (Lantus) 8 units DAILY@2000 SC ; Start 02/26/18 at 20:00 JOAN CHRISTENSEN MD Feb 26, 2018 14:03
--- NOTE | 2018-02-26 14:59 | NUR ---
SS NOTE: FAMILY CONFERENCE SCHEDULED FOR TOMORROW 02/27 @2PM SW REFERRED TO PT REGARDING SCHEDULING FAMILY CONFERENCE WITH DR CALVILLO TO DISCUSS GOALS OF CARE. SW SPOKE WITH PT AT BEDSIDE, PT IS [place] SPEAKING ONLY AND CERTIFIED UNIT [employer]ENT KALPANA WALLACE WAS UTILIZED FOR TRANSLATION. SW CONFIRMED WITH PT AND HER SON SRIRAM ([phone]) THAT PT'S SPOUSE CHOCO ROTHMAN WILL BE AVAILABLE FOR MEETING TOMORROW AT 2PM. SW CONFIRMED WITH DR CALVILLO MEETING TIME. SW TO F/U WITH FAMILY TOMORROW TO ASSIST WITH FACILITATING CONFERENCE AND ASSIST WITH ANY RESOURCES THAT MAY BE NEEDED. SW REMAINS AVAILABLE FOR F/U NEEDED.
--- NOTE | 2018-02-26 18:26 | NUR ---
End of shift summary: Pt alert and oriented X3. Pain relieved after medication, No acute distress. All meds were administered and tolerated. Blood glucose maintained with insulin. SSD family conference to discuss Hospice for pt. Lumbar Puncture IT methotrexate scheduled for tomorrow. Continue to monitor.
[2018-02-26 19:37] VITALS: BP 132/73; PULSE 102; RESP 18
[2018-02-26] MEDS: INSULIN GLARGINE [LANTus] (100 UNITS/ML) SYG SC SCH (21:06)
[2018-02-27] MEDS: DIPHENHYDRAMINE 25 MG CAP PO PRN ×2 (00:28→08:31)
[2018-02-27 01:31] VITALS: BP 155/87; PULSE 104; RESP 18
[2018-02-27 02:00] VITALS: BP 144/82; PULSE 99
--- NOTE | 2018-02-27 06:10 | NUR ---
Shift Summary Patient slept most of shift. Vital signs WNL. All scheduled medications administered. Joes was given x1, verbalizing relief and Benadryl given for itching x1. Blood glucose controlled, HS snack provided. Assisted to bedside commode. HIBICLENS bath given by [place] ROUTEMAN. Son at bedside. Hourly rounding done. Patient's safety maintained. Will endorse plan of care to oncoming nurse.
[2018-02-27] MEDS: INSULIN ASPART [NOVOLOG] 3 ML PEN SC SCH ×7 (08:00→21:00)
[2018-02-27 08:25] VITALS: BP 152/64; PULSE 106; RESP 18
[2018-02-27] MEDS: ONDANSETRON INJ 8 MG in SOD CHLORIDE 0.9% 50 ML IV SCH ×2 (08:27→20:13)
[2018-02-27] MEDS: LEVETIRACETAM 500 MG TAB PO SCH ×2 (08:31→20:09)
[2018-02-27] MEDS: HYDROCODONE/APAP (5/325) TAB PO PRN ×2 (08:31→20:09)
[2018-02-27] MEDS: POLYETHYLENE GLYCOL 17 GM PACKET PO SCH (08:31)
[2018-02-27] MEDS: PANTOPRAZOLE (EC) 40 MG TAB PO SCH ×2 (08:31→20:09)
[2018-02-27] MEDS ORDERED: SOD CHLORIDE 0.9% IT SCH (09:00)
[2018-02-27] MEDS ORDERED: LIDOCAINE 1% (MPF) 5 ML VIAL ONE (09:00)
[2018-02-27] MEDS ORDERED: HYDROCORTISONE IT SCH (09:00)
[2018-02-27] MEDS ORDERED: METHOTREXATE IT SCH (09:00)
[2018-02-27] MEDS: TRIMETHOPRIM/SULFAMETHOX (DS) TAB PO SCH (10:05)
--- NOTE | 2018-02-27 10:19 | NUR ---
PT NOTE , ATTEMPTED TO SEE THE PATIENT FOR PT TREATMENT HOWEVER PATIENT IS NOT AVAILABLE AND OUT OF ROOM DUE TO CHEMOTHERAPY, PLAN TO FOLLOW UP IN PM VS TOMORROW , RN NOTIFIED .
--- NOTE | 2018-02-27 13:30 | NUR ---
PT Note: PT treatment attempted, however pt refused due to fatigue after chemo in the AM. Change PT frequency to 3x/week and follow up on chemo schedule.
--- NOTE | 2018-02-27 13:39 | PN ---
Date/Time of Note Date/Time of Note DATE: 02/27/18 TIME: 13:36 Assessment/Plan VTE Prophylaxis Risk score (from Ns)>0 risk: 9 SCD applied (from [facility] [place]): No SCD contraindicated: other (no) Pharmacological prophylaxis: NA/contraindicated Pharm contraindication: thrombocytopenia Lines/Catheters IV C[facility]ter Type (from [facility] Port A cath Urinary Cath still in place: No Assessment/Plan Assessment/Plan 47-year-old woman with a history of left breast carcinoma status post mastectomy and chemo presents with headache and generalized weakness with a CT finding of subdural fluid collection with 0.4 mm midline shift, as well as possible right parietal mass concerning for brain metastasis. 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 Again there is 0.4 mm m idline shift noted on admission brain scan. appreciate neurosurgery recommendations. Currently no surgery indicated. - Continue intrathecal chemotherapy for now as ordered by hematology oncology team (patient received treatments this week, scheduled again tomorrow Sunday, February 25 and next SundayFebruary 27 for further injections). - Currently on decadron taper - PT, OT #Pneumonia- Infiltrates on CXR earlier this admission-completed treatment with Vanco/zosyn (02/12-02/18). Appears resolved now. -Monitor for now #Chest pain-earlier she complained of pressure-like chest pain.- Noncardiac in nature; she described it as worse after eating and improves with standing and ambulation- Trop negative, EKG without ischemia - This likely represents anxiety or dyspepsia, no further cardiac workup - monitor for now #Breast carcinoma: Status post chemotherapy mastectomy in the past. Again she is showing signs of jaundice now, possible further spread of cancer to the liver? -Per hematology oncology team, see above, again currently plan is intrathecal chemo 3x/week then outpatient evaluation for radiation oncology, and again tomorrow Sunday and Sunday -However, also Per discussion with hematology oncology team yesterday, need to strongly consider hospice and comfort measures now if there are signs of spread to the liver, as indicated by the increasing liver function tests and jaundice appearance - Dr Inman consulted for palliative/goals of care discussion. #Hypertensive urgency: Blood pressure improved -Monitor #Thrombocytopenia: status post platelet transfusion earlier this admission, and again 3 days ago; platelets are presently at 40. No signs of any bleeding. - monitor CBC daily Dispo: Patient's family seems amenable to hospice. Family meeting this afternoon with Dr. Inman to clarify goals of care. Result Diagram: 02/26/18 0914 02/26/18 0914 Results 24hrs Laboratory Tests Test 02/26/18 17:47 02/26/18 21:02 02/27/18 00:42 02/27/18 08:23 Bedside Glucose 105 101 117 96 Test 02/27/18 13:17 Bedside Glucose 101 Subjective 24 Hr Interval Summary Free Text/Dictation No acute overnight events. Patient got last dose of intrathecal chemo today. Exam/Review of Systems Vital Signs Vitals Vital Signs Date Temp Pulse Resp B/P (MAP) Pulse Ox O2 O2 Flow FiO2 Time Delivery Rate 02/27/18 98.2 106 18 152/64 96 08:25 (93) 02/26/18 Room Air 06:15 02/24/18 2.0 08:00 Intake and Output 02/26/18 02/26/18 02/27/18 1414:59 22:59 06:59 IntakeIntake Total 600 ml 240 ml 520 ml OutputOutput Total 300 ml BalanceBalance 600 ml 240 ml 220 ml Exam Gen: Fatigued appearing woman lying in bed, some jaundice noted Head: Atraumatic Eyes: Normal Conjunctiva ENT: Normal External Ears, Nose and Mouth. Neck: Full range of motion. No meningismus. Resp: Clear to auscultation bilaterally Cardio: Regular rate and rhythm, no murmurs Abd: Soft, non tender, non distended. Normal bowel sounds Ext: No lower extremity edema bilaterally Skin: Excoriations all over abdomen and legs. Medications Medications Current Medications Ondansetron HCl (Zofran Inj) 4 mg Q6H PRN IV NAUSEA AND/OR VOMITING Last administered on 02/21/18at 09:20; Admin Dose 4 MG; Start 02/09/18 at 20:00 Albuterol/ Ipratropium (Duoneb) 3 ml Q2H RESP THERAPY PRN NEB SHORTNESS OF JAIRO ATH; Start 02/09/18 at 20:00 Acetaminophen (Tylenol Liquid) 650 mg Q6H PRN PO PAIN LEVEL 1-3 OR FEVER Last administered on 02/22/18at 01:14; Admin Dose 650 MG; Start 02/09/18 at 20:00 Acetaminophen/ Hydrocodone Bitart ([place] (5/325)) 1 tab Q6H PRN PO PAIN LEVEL 4-6 Last administered on 02/27/18 08:31; Admin Dose 1 TAB; Start 02/09/18 at 20:00 Labetalol HCl (Labetalol) 10 mg Q2H PRN IV SBP > 150 Last administered on 02/11/18 19:28; Admin Dose 10 MG; Start 02/09/18 at 20:00 Trimethoprim/ Sulfamethoxazole (Bactrim (Ds)) 1 tab MONWEDFRI PO Last administered on 02/27/18 10:05; Admin Dose 1 TAB; Start 02/11/18 at 09:00 Insulin Aspart (Novolog Insulin Pen) NOVOLOG *MILD* ALGORITHM WITH MEALS BEDTI ME SC Last administered on 02/22/18at 18:11; Admin Dose 1 UNIT; Start 02/10/18 at 21:00 Hydralazine HCl (Apresoline) 10 mg Q6H PRN IV ELEVATED BLOOD PRESSURE Last administered on 02/21/18at 01:54; Admin Dose 10 MG; Start 02/10/18 at 18:30 Miscellaneous Information 1 ea NOTE XX ; Start 02/10/18 at 19:00 Glucose (Glutose) 15 gm Q15M PRN PO DECREASED GLUCOSE; Start 02/10/18 at 19:00 Glucose (Glutose) 22.5 gm Q15M PRN PO DECREASED GLUCOSE; Start 02/10/18 at 19:00 Dextrose (D50w Syringe) 25 ml Q15M PRN IV DECREASED GLUCOSE; Start 02/10/18 at 19:00 Dextrose (D50w Syringe) 50 ml Q15M PRN IV DECREASED GLUCOSE; Start 02/10/18 at 19:00 Glucagon (Glucagen) 1 mg Q15M PRN IM DECREASED GLUCOSE; Start 02/10/18 at 19:00 Glucose (Glutose) 15 gm Q15M PRN BUCCAL DECREASED GLUCOSE; Start 02/10/18 at 19:00 Levetiracetam (Keppra) 500 mg BID PO Last administered on 02/27/18 08:31; Admin Dose 500 MG; Start 02/11/18 at 09:30 Senna (Senokot) 1 tab BID PRN PO CONSTIPATION Last administered on 02/20/18 18:15; Admin Dose 1 TAB; Start 02/13/18 at 14:00 Polyethylene Glycol (Miralax) 17 gm DAILY PO Last administered on 02/27/18 08:31; Admin Dose 17 GM; Start 02/14/18 at 14:00 Al Hydrox/Mg Hydrox/Simethicone (Mag-Al Plus) 30 ml Q6H PRN PO GASTROINTESTINAL UPSET Last administered on 02/26/18 06:20; Admin Dose 30 ML; Start 02/14/18 at 22:30 Guaifenesin (Robitussin Liquid Cup) 200 mg Q4H PRN PO cough Last administered on 02/26/18 03:36; Admin Dose 200 MG; Start 02/16/18 at 11:30 Pantoprazole (Protonix Tab) 40 mg BID PO Last administered on 02/27/18 08:31; Admin Dose 40 MG; Start 02/16/18 at 21:00 Diphenhydramine HCl (Benadryl) 25 mg Q6H PRN PO ITCHING Last administered on 02/27/18 08:31; Admin Dose 25 MG; Start 02/20/18 at 12:30 Insulin Aspart (Novolog Insulin Pen) 3 unit WITH MEALS SC Last administered on 02/27/18 13:24; Admin Dose 3 UNIT; Start 02/26/18 at 12:00 Insulin Glargine (Lantus) 8 units DAILY@2000 SC Last administered on 02/26/18 21:06; Admin Dose 8 UNITS; Start 02/26/18 at 20:00 Ondansetron HCl 8 mg/Sodium Chloride 54 ml @ 216 mls/hr Q12H IV Last administered on 02/27/18 08:27; Admin Dose 216 MLS/HR; Start 02/27/18 at 08:00; Stop 02/27/18 at 20:14 JOAN CHRISTENSEN MD Feb 27, 2018 13:39
--- NOTE | 2018-02-27 14:15 | PN ---
Date/Time of Note Date/Time of Note DATE: 02/27/18 TIME: 14:13 Outpatient Progress Note Chief Complaint no change lethargic bed bound delirious no bleeding Review of Systems Const: No Fever, no chills, no Wt. loss, no Fatigue, normal appetite, no diaphoresis. Eyes: No pain, no discharge, no redness, no visual change, no foreign body. ENT: No pain, no bleeding, no congestion, no sore throat, no dysphagia, no discharge or rhinitis. Lymph: No adenopathy, no tender nodes, no lymphedema. Resp: No SOB, no cough, no sputum, no wheezing, no chest pain. CV: No chest pain, no palpitaions, no TURNER, no PND, no edema. GI: Normal appetite, no pain, no nausea, no vomiting, no diarrhea, no blood, no constipation. : No frequency, no urgency, no dysuria, no hematuria, no flank pain, no discharge, no bleeding. Musc: No bone/joint pain, no back pain, no neck pain, no knee pain, no restricted ROM. Skin: No rash, no skin lesions, no erythema, no laceration, no bruising, no pruritus. Neuro: No CAR, no dizziness, no syncope, no seizure, no focal-weakness. Endo: No polyuria, no polydypsia, no dry-skin, no temp-intolerance. Psych: No hallucinations, no depression, no anxiety, no suicidal ideation. Ext: No edema, no pain, no ulcer, no weakness. 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 IT Methotrexate 12mg 3 x/week Anti emetics' too weak to get chemotherapy consider TDM1 OR Tykerb Xeloda if can swallow Prognosis is poor family aware this week 2 MORE intrathecal MTX DOSES feb 25 and feb 27 no improvement >> hospice and supportive care now also multiple liver metastases D/W family >> terminal agree with hospice and terminal care 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
[2018-02-27 14:29] VITALS: BP 125/69; PULSE 111; RESP 18
--- NOTE | 2018-02-27 15:09 | NUR ---
OT NOTE: Attempted to see pt for OT tx- pt sleeping- will try back tomorrow.
--- NOTE | 2018-02-27 16:24 | NUR ---
SS NOTE: FAMILY CONFERENCE CONDUCTED SW FACILITATED FAMILY CONFERENCE. HOSPICE OPTIONS WERE DISCUSSED. FAMILY REQUESTED TO DECIDE TOMORROW REGARDING HOSPICE VS SECOND OPINION AT ANOTHER HOSPITAL REGARDING NEW ASSESSMENT AND POSSIBLE TRX. SW TO F/U WITH FAMILY TOMORROW REGARDING DECISION AND PROVIDE APPROPRIATE ASSISTANCE. SW REMAINS AVAILABLE FOR F/U NEEDED.
[2018-02-27] MEDS: AL HYDROX/MG HYDROX/SIMETH 30 ML CUP PO PRN (18:02)
--- NOTE | 2018-02-27 18:55 | NUR ---
End of Shift Summary: Patient is alert & orientated, VSS, no signs of acute distress. Patient is lethargic, generalized pain; provided pain med x1 during shift. Patient received chemotherapy intrathecal today. Patient's Port-A-cath dressing changed. Patient receiving Accu checks AC/HS, insulin coverage per MD order. Patient on neutropenic isolation. Family had conference today with ELICEO and Dr. Inman regarding discussion of hospice. Patient instructed to call for assistance, call light within reach, rounded on hourly, will continue to monitor patient status.
[2018-02-27 19:44] VITALS: BP 122/81; PULSE 107; RESP 18
[2018-02-27] MEDS: INSULIN GLARGINE [LANTus] (100 UNITS/ML) SYG SC SCH (21:59)
[2018-02-28 02:00] VITALS: BP 127/65; PULSE 103; RESP 20
--- NOTE | 2018-02-28 06:18 | NUR ---
SHIFT REPORT PT SLEPT WELL LAST NIGHT,C/O HEADACHE AND STOMACH PAIN,NORCO GIVEN ORDERED,EFFECTIVE.F/C INSERTED TOLERATED WELL.TURN PT TO SIDES.CALL LIGHT AT REACH.NEEDS ATTENDED.WILL CONTINUE TO MONITOR
[2018-02-28 07:25] VITALS: BP 129/70; PULSE 102; RESP 18
[2018-02-28] MEDS: INSULIN ASPART [NOVOLOG] 3 ML PEN SC SCH ×7 (08:00→21:00)
[2018-02-28] MEDS: PANTOPRAZOLE (EC) 40 MG TAB PO SCH ×2 (08:24→21:35)
[2018-02-28] MEDS: LEVETIRACETAM 500 MG TAB PO SCH ×2 (08:24→21:35)
[2018-02-28] MEDS: POLYETHYLENE GLYCOL 17 GM PACKET PO SCH (08:24)
[2018-02-28] MEDS: HYDROCODONE/APAP (5/325) TAB PO PRN ×2 (08:25→20:27)
--- NOTE | 2018-02-28 10:39 | CONS ---
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 Patient seen in collaboration with Dr Shaw Result Diagram: 02/28/1823 02/28/1823 Results 24hrs Laboratory Tests Test 02/27/18 13:17 02/27/18 17:54 02/27/18 21:57 02/28/18 05:23 Bedside Glucose 101 117 141 White Blood Count 2.5 L Red Blood Count 2.67 L Hemoglobin 8.6 L Hematocrit 24.0 L Mean Corpuscular 89.9 Volume Mean Corpuscular 32.2 Hemoglobin Mean Corpuscular 35.8 Hemoglobin Concent Red Cell 17.3 H Distribution Width Platelet Count 16 #*L Mean Platelet Volume Immature 0.800 H Granulocytes % Neutrophils % 57.7 Lymphocytes % 37.1 Monocytes % 4.0 Eosinophils % 0.0 Basophils % 0.4 Nucleated Red Blood 1.6 H Cells % Immature 0.020 Granulocytes # Neutrophils # 1.5 L Lymphocytes # 0.9 Monocytes # 0.1 L Eosinophils # 0.0 Basophils # 0.0 Nucleated Red Blood 0.0 Cells # Sodium Level 127 L Potassium Level 3.9 Chloride Level 93 L Carbon Dioxide Level 20 L Anion Gap 14 H Blood Urea Nitrogen 21 H Creatinine 0.58 Est Glomerular > 60 Filtrat Rate mL/min Glucose Level 113 Calcium Level 9.2 Phosphorus Level 4.0 Magnesium Level 2.4 Total Bilirubin 14.0 H Direct Bilirubin 12.60 H Indirect Bilirubin 1.4 H Aspartate Amino 318 H Transf (AST/SGOT) Alanine 258 H Aminotransferase (AL T/SGPT) Alkaline Phosphatase 2109 H Total Protein 5.7 L Albumin 3.0 L Globulin 2.70 Albumin/Globulin 1.11 Ratio Test 02/28/18 08:16 Bedside Glucose 111 Consultation Date/Type/Reason Admit Date/Time Feb 09, 2018 at 7:44 pm Initial Consult Date 02/11/18 Reason for Consultation breast cancer/ leptomeningeal disease Requesting Provider: DUGLAS CARPIO 24 HR Interval Summary Free Text/Dictation -SP intrathecal MTX DOSES on feb 25 and feb 27 Constitutional: requiring O2 Exam/Review of Systems Vital Signs Vitals Vital Signs Date Temp Pulse Resp B/P (MAP) Pulse Ox O2 O2 Flow FiO2 Time Delivery Rate 02/28/18 98.5 102 18 129/70 94 07:25 (89) 02/28/18 Room Air 02:00 02/24/18 2.0 08:00 Intake and Output 02/27/18 02/27/18 02/28/18 1515:00 23:00 07:00 IntakeIntake Total 774 ml 54 ml 120 ml OutputOutput Total 300 ml BalanceBalance 774 ml -246 ml 120 ml Exam Constitutional: well developed Psych: nl mood/affect Eyes: EOMI, nl lids, nl sclera ENMT: nl external ears & nose Neck: non-tender Respiratory: diminished breath sounds (bilaterally) Cardiovascular: nl pulses, other (s1s2) Gastrointestinal: soft Musculoskeletal: muscle weakness Extremities: normal pulses Skin: nl turgor Medications Medications Current Medications Ondansetron HCl (Zofran Inj) 4 mg Q6H PRN IV NAUSEA AND/OR VOMITING Last administered on 02/21/18at 09:20; Admin Dose 4 MG; Start 02/09/18 at 20:00 Albuterol/ Ipratropium (Duoneb) 3 ml Q2H RESP THERAPY PRN NEB SHORTNESS OF BREATH; Start 02/09/18 at 20:00 Acetaminophen (Tylenol Liquid) 650 mg Q6H PRN PO PAIN LEVEL 1-3 OR FEVER Last administered on 02/22/18at 01:14; Admin Dose 650 MG; Start 02/09/18 at 20:00 Acetaminophen/ Hydrocodone Bitart ([place] (5/325)) 1 tab Q6H PRN PO PAIN LEVEL 4-6 Last administered on 02/28/18at 08:25; Admin Dose 1 TAB; Start 02/09/18 at 20:00 Labetalol HCl (Labetalol) 10 mg Q2H PRN IV SBP > 150 Last administered on 02/11/18at 19:28; Admin Dose 10 MG; Start 02/09/18 at 20:00 Trimethoprim/ Sulfamethoxazole (Bactrim (Ds)) 1 tab MONWEDFRI PO Last administered on 02/27/18at 10:05; Admin Dose 1 TAB; Start 02/11/18 at 09:00 Insulin Aspart (Novolog Insulin Pen) NOVOLOG *MILD* ALGORITHM WITH MEALS BEDTIME SC Last administered on 02/22/18at 18:11; Admin Dose 1 UNIT; Start 02/10/18 at 21:00 Hydralazine HCl (Apresoline) 10 mg Q6H PRN IV ELEVATED BLOOD PRESSURE Last admi nistered on 02/21/18at 01:54; Admin Dose 10 MG; Start 02/10/18 at 18:30 Miscellaneous Information 1 ea NOTE XX ; Start 02/10/18 at 19:00 Glucose (Glutose) 15 gm Q15M PRN PO DECREASED GLUCOSE; Start 02/10/18 at 19:00 Glucose (Glutose) 22.5 gm Q15M PRN PO DECREASED GLUCOSE; Start 02/10/18 at 19:00 Dextrose (D50w Syringe) 25 ml Q15M PRN IV DECREASED GLUCOSE; Start 02/10/18 at 19:00 Dextrose (D50w Syringe) 50 ml Q15M PRN IV DECREASED GLUCOSE; Start 02/10/18 at 19:00 Glucagon (Glucagen) 1 mg Q15M PRN IM DECREASED GLUCOSE; Start 02/10/18 at 19:00 Glucose (Glutose) 15 gm Q15M PRN BUCCAL DECREASED GLUCOSE; Start 02/10/18 at 19:00 Levetiracetam (Keppra) 500 mg BID PO Last administered on 02/28/18at 08:24; Admin Dose 500 MG; Start 02/11/18 at 09:30 Senna (Senokot) 1 tab BID PRN PO CONSTIPATION Last administered on 02/20/18at 18:15; Admin Dose 1 TAB; Start 02/13/18 at 14:00 Polyethylene Glycol (Miralax) 17 gm DAILY PO Last administered on 02/28/18 08:24; Admin Dose 17 GM; Start 02/14/18 at 14:00 Al Hydrox/Mg Hydrox/Simethicone (Mag-Al Plus) 30 ml Q6H PRN PO GASTROINTESTINAL UPSET Last administered on 02/27/18at 18:02; Admin Dose 30 ML; Start 02/14/18 at 22:30 Guaifenesin (Robitussin Liquid Cup) 200 mg Q4H PRN PO cough Last administered on 02/26/18at 03:36; Admin Dose 200 MG; Start 02/16/18 at 11:30 Pantoprazole (Protonix Tab) 40 mg BID PO Last administered on 02/28/18 08:24; Admin Dose 40 MG; Start 02/16/18 at 21:00 Diphenhydramine HCl (Benadryl) 25 mg Q6H PRN PO ITCHING Last administered on 02/27/18at 08:31; Admin Dose 25 MG; Start 02/20/18 at 12:30 Insulin Aspart (Novolog Insulin Pen) 3 unit WITH MEALS SC Last administered on 02/28/18at 08:28; Admin Dose 3 UNIT; Start 02/26/18 at 12:00 Insulin Glargine (Lantus) 8 units DAILY@2000 SC Last administered on 02/27/18at 21:59; Admin Dose 8 UNITS; Start 02/26/18 at 20:00 Date/Time of Note Date/Time of Note DATE: 02/28/18 TIME: 10:36 MC CARRASQUILLO Feb 28, 2018 10:39 am
--- NOTE | 2018-02-28 12:37 | NUR ---
SS NOTE: F/U SW FACILITATED F/U MEETING WITH PT'S SON SRIRAM ([phone]) [address] DR CHRISTENSEN TO DISCUSS POSSIBLE HOSPICE OPTION VS CONTINUED AGGRESSIVE TREATMENT AT ANOTHER HOSPITAL. FAMILY CONFERENCE WAS PREVIOUSLY CONDUCTED YESTERDAY BETWEEN DR CALVILLO, PT'S SPOUSE CHOCO AND PT'S SON SRIRAM TO DISCUSS HOSPICE VS SECOND OPINION AND TREATMENT AT ANOTHER HOSPITAL. DR CHRISTENSEN DISCUSSED WITH PT'S SON SRIRAM'S REQUEST TO TRANSFER PT TO [facility]. PT'S SON REQUESTED ADDITIONAL TIME TO EXPLORE TREATMENT OPTIONS AT OTHER HOSPITALS. CODE STATUS WAS DISCUSSED AND PT'S SON STATED THAT HE WILL NEED TO CHECK WITH THE PT'S SPOUSE REGARDING THAT DECISION. PT'S SON STATED THAT FAMILY WAS NOT CERTAIN FOR HOSPICE AT THIS TIME. PLAN IS TO HAVE PT'S SON RESEARCH ALTERNATIVE TREATMENT OPTIONS AND MEET FOR CONSULT WITH HOSPICE AGENCIES TO FORMULATE D/C PLAN. PLAN IS TO F/U WITH PT AND FAMILY FOR UPDATE. SW REMAINS AVAILABLE FOR F/U NEEDED.
[2018-02-28 13:52] VITALS: BP 120/72; PULSE 106; RESP 18
[2018-02-28] MEDS: DIPHENHYDRAMINE 25 MG CAP PO PRN ×2 (14:07→22:54)
--- NOTE | 2018-02-28 15:41 | NUR ---
PT FERNANDO [facility] Patient: Michelle Rome : 1970 Age/Sex: 47/F Unit#: [id number] Room/Bed: 2281/A User: Eden Mason PTA Date: 02/28/18 15:41 Type: PT Technical Record Therapy day number 14 Subjective Current complaint of pain Pain Scale NUMERIC Pain Intensity 10 (0-10) Patient Stated Goal for Pain Relief 0 (0-10) Pain Level Comment everywhere Transfer Training Start Time 15:10 Supine to Sit Minimum Assist Transfer Sit to Stand Ability Minimum Assist Bed Mobility Sit to Supine Minimum Assist Bed Transfer Ability Minimum Assist Chair Transfer Ability Moderate Assist Transfer Training End Time 15:41 Total Transfer Training Time 31 min (8-127) Static Sitting Balance Fair Dynamic Sitting Balance Fair minus Standing Static Balance Fair minus Dynamic Standing Balance Fair minus Additional Balance Assessments Comments OFFICIAL GREETER Safety Judgement Fair Activity Tolerance Fair Post Treatment Pain Intensity 10 0-10 Quality Indicators SOB Upon Exertion Dizziness Total Treament Time 31 min (8-127) Total Minutes 31 Total Units 2 PT Technical Record Comment S: [facility] [place] cleared pt for PT. Pt c/o 10/10 pain "everywhere." Agreeable to tx O: Received pt sleeping in semifowler. See above for assist levels. Requested to use bedside commode. Min/ModA w/ OFFICIAL GREETER. Required assistance w/ pt hygiene. While pt on bedside, pt moaning of pain and scratching everywhere and noted bleeding where pt was scratching. RN aware. Returned pt back to bed d/t increasing pain and dizziness. Positioned pt to comfort in semifowler. Call light/phone within reach. Bed alarm on. Needs met. Informed RN of pt status and PT activities A: FAir tolerance to tx. Pt unable to progress to gait training d/t increasing pain and dizziness P; Continue w/ POC and progress as tolerated.
--- NOTE | 2018-02-28 17:40 | PN ---
Date/Time of Note Date/Time of Note DATE: 02/28/18 TIME: 17:32 Assessment/Plan VTE Prophylaxis Risk score (from Ns)>0 risk: 7 SCD applied (from Ns): No SCD contraindicated: other (no) Pharmacological prophylaxis: NA/contraindicated Pharm contraindication: thrombocytopenia Lines/Catheters IV Catheter Type (from [facility] [place]): port a cath Central line still needed: Yes Urinary Cath still in place: Yes Reason Cath still needed: terminal illness/intractable pain Assessment/Plan Assessment/Plan 47-year-old woman with a history of left breast carcinoma status post mastectomy and chemo presents with headache and generalized weakness with a CT finding of subdural fluid collection with 0.4 mm midline shift, as well as possible right parietal mass concerning for brain metastasis. #Breast carcinoma: Status post chemotherapy mastectomy in the past. - Now widely metastatic to brain and liver. - Completed intrathecal chemotherapy. Oncology is not planning to offer any more treatment. - Dr Inman consulted for palliative/goals of care discussion. 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 Again there is 0.4 mm midline shift noted on admission brain scan. appreciate neurosurgery recommendations. Currently no surgery indicated. - s/p intrathecal chemotherapy. - s/p decadron taper. #Pneumonia- Infiltrates on CXR earlier this admission-completed treatment with Vanco/zosyn (02/12-02/18). Appears resolved now. #Chest pain-earlier she complained of pressure-like chest pain.- Noncardiac in nature; she described it as worse after eating and improves with standing and ambulation- Trop negative, EKG without ischemia - This likely represents anxiety or dyspepsia, no further cardiac workup #Hypertensive urgency - resolved #Thrombocytopenia - likely due to malignancy. Dispo: Patient's son Geoffrey and father Nba are making most medical decisions. Geoffrey wants to reach out to oncologists at research institutes like [facility] and [facility] to see if there may be other options for his mother. I requested code status decision by tomorrow morning. They do not want hospice yet. Result Diagram: 02/28/18 0523 02/28/18 0523 Results 24hrs Laboratory Tests Test 02/27/18 17:54 02/27/18 21:57 02/28/18 05:23 02/28/18 08:16 Bedside Glucose 117 141 111 White Blood Count 2.5 L Red Blood Count 2.67 L Hemoglobin 8.6 L Hematocrit 24.0 L Mean Corpuscular 89.9 Volume Mean Corpuscular 32.2 Hemoglobin Mean Corpuscular 35.8 Hemoglobin Concent Red Cell 17.3 H Distribution Width Platelet Count 16 #*L Mean Platelet Volume Immature 0.800 H Granulocytes % Neutrophils % 57.7 Lymphocytes % 37.1 Monocytes % 4.0 Eosinophils % 0.0 Basophils % 0.4 Nucleated Red Blood 1.6 H Cells % Immature 0.020 Granulocytes # Neutrophils # 1.5 L Lymphocytes # 0.9 Monocytes # 0.1 L Eosinophils # 0.0 Basophils # 0.0 Nucleated Red Blood 0.0 Cells # Sodium Level 127 L Potassium Level 3.9 Chloride Level 93 L Carbon Dioxide Level 20 L Anion Gap 14 H Blood Urea Nitrogen 21 H Creatinine 0.58 Est Glomerular > 60 Filtrat Rate mL/min Glucose Level 113 Calcium Level 9.2 Phosphorus Level 4.0 Magnesium Level 2.4 Total Bilirubin 14.0 H Direct Bilirubin 12.60 H Indirect Bilirubin 1.4 H Aspartate Amino 318 H Transf (AST/SGOT) Alanine 258 H Aminotransferase (AL T/SGPT) Alkaline Phosphatase 2109 H Total Protein 5.7 L Albumin 3.0 L Globulin 2.70 Albumin/Globulin 1.11 Ratio Test 02/28/18 13:02 Bedside Glucose 115 Subjective 24 Hr Interval Summary Free Text/Dictation Patient is sleeping comfortably today. Had long discussion with Desmond JUÁREZ and patient's son Geoffrey. Geoffrey wants his mother to get more cancer-directed therapy. He understands that she has a terminal condition and her condition will decline regardless if she is treated or not. He understands that Dr. Whittington's group will not offer more treatment. He does not have any specific goals for his mother, just "for her to get out of bed and see better". He has actually emailed Dr. Cormier the [employer] [facility] of [facility] who has responded to him without promising care. Our shared plan is for him and his father to reach a decision about code status by tomorrow morning. The patient is permitted to stay at least until the weekend to recieve inpatient treatment. Geoffrey will consider hospice. Exam/Review of Systems Exam Vitals Gen: Fatigued appearing woman sleeping comfortably, very jaundiced Head: Atraumatic Eyes: Normal Conjunctiva ENT: Normal External Ears, Nose and Mouth. Neck: Full range of motion. No meningismus. Resp: Clear to auscultation bilaterally Cardio: Regular rate and rhythm, no murmurs Abd: Soft, non tender, non distended. Normal bowel sounds Ext: No lower extremity edema bilaterally Skin: Excoriations all over abdomen and legs. Results Results 24hrs Laboratory Tests Test 02/27/18 17:54 02/27/18 21:57 02/28/18 05:23 02/28/18 08:16 Bedside Glucose 117 141 111 White Blood Count 2.5 L Red Blood Count 2.67 L Hemoglobin 8.6 L Hematocrit 24.0 L Mean Corpuscular 89.9 Volume Mean Corpuscular 32.2 Hemoglobin Mean Corpuscular 35.8 Hemoglobin Concent Red Cell 17.3 H Distribution Width Platelet Count 16 #*L Mean Platelet Volume Immature 0.800 H Granulocytes % Neutrophils % 57.7 Lymphocytes % 37.1 Monocytes % 4.0 Eosinophils % 0.0 Basophils % 0.4 Nucleated Red Blood 1.6 H Cells % Immature 0.020 Granulocytes # Neutrophils # 1.5 L Lymphocytes # 0.9 Monocytes # 0.1 L Eosinophils # 0.0 Basophils # 0.0 Nucleated Red Blood 0.0 Cells # Sodium Level 127 L Potassium Level 3.9 Chloride Level 93 L Carbon Dioxide Level 20 L Anion Gap 14 H Blood Urea Nitrogen 21 H Creatinine 0.58 Est Glomerular > 60 Filtrat Rate mL/min Glucose Level 113 Calcium Level 9.2 Phosphorus Level 4.0 Magnesium Level 2.4 Total Bilirubin 14.0 H Direct Bilirubin 12.60 H Indirect Bilirubin 1.4 H Aspartate Amino 318 H Transf (AST/SGOT) Alanine 258 H Aminotransferase (AL T/SGPT) Alkaline Phosphatase 2109 H Total Protein 5.7 L Albumin 3.0 L Globulin 2.70 Albumin/Globulin 1.11 Ratio Test 02/28/18 13:02 Bedside Glucose 115 JOAN CHRISTENSEN MD Feb 28, 2018 17:40
--- NOTE | 2018-02-28 18:35 | NUR ---
END OF SHIFT NOTE : PATIENT RESTING COMFORTABLE IN BED WITH FAMILY AT BEDSIDE ASSISTING WITH MEALS.MEDICATED X 1 TODAY WITH [facility]CO FOR C/O HEADACHE. PATIENT TOLERATED PHYSICAL THERAPY TODAY OUT OF BED TO BEDSIDE COMMODE AND CHAIR. GLUCOSE LEVELS WITHIN NORMAL LIMITS. MD AND MEDIA RECONCILIATION SPECIALIST MET WITH FAMILY NO NEW PLANS. BED IN LOW POSITION WITH ALARM ACTIVATED.
[2018-02-28 19:10] VITALS: BP 135/67; PULSE 113; RESP 16
[2018-02-28] MEDS: ONDANSETRON 4 MG INJ IV PRN (19:57)
[2018-02-28] MEDS: INSULIN GLARGINE [LANTus] (100 UNITS/ML) SYG SC SCH (21:39)
[2018-03-01 01:22] VITALS: BP 126/71; PULSE 103; RESP 18
[2018-03-01] MEDS: DIPHENHYDRAMINE 25 MG CAP PO PRN ×2 (05:15→13:15)
[2018-03-01] MEDS: HYDROCODONE/APAP (5/325) TAB PO PRN ×2 (05:15→19:52)
--- NOTE | 2018-03-01 06:27 | NUR ---
EOSS: pain controlled with [place], given PRN Benadryl for generalized itching, noted with scratch reeder all over and bruising as well on some areas of the arms legs and abdomen. Generalized jaundice, tolerated all PO meds, coherent during conversation. Chapman cath intact and patent. Continue accu checks, bleeding precautions emphasized. Family at bedside at all times.
[2018-03-01 07:43] VITALS: BP 127/71; PULSE 93; RESP 20
[2018-03-01] MEDS: INSULIN ASPART [NOVOLOG] 3 ML PEN SC SCH ×6 (08:00→21:00)
[2018-03-01] MEDS: TRIMETHOPRIM/SULFAMETHOX (DS) TAB PO SCH (08:23)
[2018-03-01] MEDS: LEVETIRACETAM 500 MG TAB PO SCH ×2 (08:23→20:11)
[2018-03-01] MEDS: POLYETHYLENE GLYCOL 17 GM PACKET PO SCH (08:24)
[2018-03-01] MEDS: PANTOPRAZOLE (EC) 40 MG TAB PO SCH ×2 (08:26→20:15)
[2018-03-01] MEDS: ONDANSETRON 4 MG INJ IV PRN ×2 (13:15→19:51)
--- NOTE | 2018-03-01 15:08 | PN ---
Date/Time of Note Date/Time of Note DATE: 03/01/18 TIME: 15:01 Assessment/Plan VTE Prophylaxis Risk score (from Ns)>0 risk: 8 SCD applied (from Ns): Yes Pharmacological prophylaxis: NA/contraindicated Pharm contraindication: thrombocytopenia Lines/Catheters IV Catheter Type (from Nrsg): Central Line Central line still needed: Yes Urinary Cath still in place: Yes Reason Cath still needed: terminal illness/intractable pain Assessment/Plan Assessment/Plan 47-year-old woman with a history of left breast carcinoma status post mastectomy and chemo presents with headache and generalized weakness with a CT finding of s ubdural fluid collection with 0.4 mm midline shift, as well as possible right parietal mass concerning for brain metastasis. #Breast carcinoma: Status post chemotherapy mastectomy in the past. - Now widely metastatic to brain and liver. - Completed intrathecal chemotherapy. Oncology is not planning to offer any more treatment. - Dr Inman consulted for palliative/goals of care discussion. - Family is resistance to DNR status and hospice. Apparently she has a new oncology appointment at [facility]. 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 Again there is 0.4 mm midline shift noted on admission brain scan. appreciate neurosurgery recommendations. Currently no surgery indicated. - s/p intrathecal chemotherapy. - s/p decadron taper. #Pneumonia- Infiltrates on CXR earlier this admission-completed treatment with Vanco/zosyn (02/12-02/18). Appears resolved now. #Chest pain-earlier she complained of pressure-like chest pain.- Noncardiac in nature; she described it as worse after eating and improves with standing and ambulation- Trop negative, EKG without ischemia - This likely represents anxiety or dyspepsia, no further cardiac workup #Hypertensive urgency - resolved #Thrombocytopenia - likely due to malignancy. Dispo: Patient's son Geoffrey and father Nba are making most medical decisions. Undecided on hospice. Meeting with an agency at 7 pm. Patient still full code. Has appointment at [facility] oncology clinic. Result Diagram: 02/28/18 0523 02/28/18 0523 Results 24hrs Laboratory Tests Test 02/28/18 17:46 02/28/18 21:36 03/01/18 08:22 03/01/18 12:20 Bedside Glucose 127 136 111 Urine Color FREYA Urine Clarity CLOUDY A Urine pH 5.0 Urine Specific 1.027 [place] Urine Ketones NEGATIVE Urine Nitrite NEGATIVE Urine Bilirubin 2+ H Urine Urobilinogen 2+ H Urine Leukocyte 1+ H Esterase Urine Microscopic 0 RBC Urine Microscopic 10 H WBC Urine Squamous FEW Epithelial Cells Urine Bacteria MANY A Urine Mucus MANY A Urine Hemoglobin 2+ H Urine Glucose NEGATIVE Urine Total Protein 1+ H Test 03/01/18 12:50 Bedside Glucose 116 Subjective 24 Hr Interval Summary Free Text/Dictation No acute overnight events. The patient is sleeping comfortably, but arousable. Per discussion with son Geoffrey: NO decision yet on code status. She's still full code. They will meet with a hospice agency at 7 pm but still not firmly decided on hospice. Dr. Cormier, DELIVERY LEAD at [facility], gave him an outpatient appointment for the oncologist clinic apparently. He's also asking for a letter for the patient's mother in [place] to come visit. Exam/Review of Systems Exam Vitals Vital Signs Date Temp Pulse Resp B/P (MAP) Pulse Ox O2 O2 Flow FiO2 Time Delivery Rate 03/01/18 98.5 93 20 127/71 92 07:43 (89) 02/28/18 Room Air 02:00 Intake and Output 02/28/18 02/28/18 03/01/18 1515:00 23:00 07:00 IntakeIntake Total 1000 ml 240 ml 200 ml OutputOutput Total 500 ml 600 ml BalanceBalance 1000 ml -260 ml -400 ml Exam Gen: Fatigued appearing woman sleeping comfortably, very jaundiced Head: Atraumatic Eyes: Normal Conjunctiva ENT: Normal External Ears, Nose and Mouth. Neck: Full range of motion. No meningismus. Resp: Clear to auscultation bilaterally Cardio: Regular rate and rhythm, no murmurs Abd: Soft, non tender, non distended. Normal bowel sounds Ext: No lower extremity edema bilaterally Skin: Excoriations all over abdomen and legs. Results Results 24hrs Laboratory Tests Test 02/28/18 17:46 02/28/18 21:36 03/01/18 08:22 03/01/18 12:20 Bedside Glucose 127 136 111 Urine Color FREYA Urine Clarity CLOUDY A Urine pH 5.0 Urine Specific 1.027 [place] Urine Ketones NEGATIVE Urine Nitrite NEGATIVE Urine Bilirubin 2+ H Urine Urobilinogen 2+ H Urine Leukocyte 1+ H Esterase Urine Microscopic 0 RBC Urine Microscopic 10 H WBC Urine Squamous FEW Epithelial Cells Urine Bacteria MANY A Urine Mucus MANY A Urine Hemoglobin 2+ H Urine Glucose NEGATIVE Urine Total Protein 1+ H Test 03/01/18 12:50 Bedside Glucose 116 Medications Medication Current Medications Ondansetron HCl (Zofran Inj) 4 mg Q6H PRN IV NAUSEA AND/OR VOMITING Last administered on 03/01/18 13:15; Admin Dose 4 MG; Start 02/09/18 at 20:00 Albuterol/ Ipratropium (Duoneb) 3 ml Q2H RESP THERAPY PRN NEB SHORTNESS OF BREATH; Start 02/09/18 at 20:00 Acetaminophen (Tylenol Liquid) 650 mg Q6H PRN PO PAIN LEVEL 1-3 OR FEVER Last administered on 02/22/18at 01:14; Admin Dose 650 MG; Start 02/09/18 at 20:00 Acetaminophen/ Hydrocodone Bitart ([place] (5/325)) 1 tab Q6H PRN PO PAIN LEVEL 4-6 Last administered on 03/01/18at 05:15; Admin Dose 1 TAB; Start 02/09/18 at 20:00 Labetalol HCl (Labetalol) 10 mg Q2H PRN IV SBP > 150 Last administered on 02/11/18at 19:28; Admin Dose 10 MG; Start 02/09/18 at 20:00 Trimethoprim/ Sulfamethoxazole (Bactrim (Ds)) 1 tab MONWEDFRI PO Last administered on 03/01/18 08:23; Admin Dose 1 TAB; Start 02/11/18 at 09:00 Insulin Aspart (Novolog Insulin Pen) NOVOLOG *MILD* ALGORITHM WITH MEALS BEDTIME SC Last administered on 02/22/18 18:11; Admin Dose 1 UNIT; Start 02/10/18 at 21:00 Hydralazine HCl (Apresoline) 10 mg Q6H PRN IV ELEVATED BLOOD PRESSURE Last administered on 02/21/18 01:54; Admin Dose 10 MG; Start 02/10/18 at 18:30 Miscellaneous Information 1 ea NOTE XX ; Start 02/10/18 at 19:00 Glucose (Glutose) 15 gm Q15M PRN PO DECREASED GLUCOSE; Start 02/10/18 at 19:00 Glucose (Glutose) 22.5 gm Q15M PRN PO DECREASED GLUCOSE; Start 02/10/18 at 19:00 Dextrose (D50w Syringe) 25 ml Q15M PRN IV DECREASED GLUCOSE; Start 02/10/18 at 19:00 Dextrose (D50w Syringe) 50 ml Q15M PRN IV DECREASED GLUCOSE; Start 02/10/18 at 19:00 Glucagon (Glucagen) 1 mg Q15M PRN IM DECREASED GLUCOSE; Start 02/10/18 at 19:00 Glucose (Glutose) 15 gm Q15M PRN BUCCAL DECREASED GLUCOSE; Start 02/10/18 at 19:00 Levetiracetam (Keppra) 500 mg BID PO Last administered on 03/01/18 08:23; Admin Dose 500 MG; Start 02/11/18 at 09:30 Senna (Senokot) 1 tab BID PRN PO CONSTIPATION Last administered on 02/20/18 18:15; Admin Dose 1 TAB; Start 02/13/18 at 14:00 Polyethylene Glycol (Miralax) 17 gm DAILY PO Last administered on 03/01/18 08:24; Admin Dose 17 GM; Start 02/14/18 at 14:00 Al Hydrox/Mg Hydrox/Simethicone (Mag-Al Plus) 30 ml Q6H PRN PO GASTROINTESTINAL UPSET Last administered on 02/27/18 18:02; Admin Dose 30 ML; Start 02/14/18 at 22:30 Guaifenesin (Robitussin Liquid Cup) 200 mg Q4H PRN PO cough Last administered on 02/26/18at 03:36; Admin Dose 200 MG; Start 02/16/18 at 11:30 Pantoprazole (Protonix Tab) 40 mg BID PO Last administered on 03/01/18 08:26; Admin Dose 40 MG; Start 02/16/18 at 21:00 Diphenhydramine HCl (Benadryl) 25 mg Q6H PRN PO ITCHING Last administered on 03/01/18 13:15; Admin Dose 25 MG; Start 02/20/18 at 12:30 Insulin Aspart (Novolog Insulin Pen) 3 unit WITH MEALS SC Last administered on 03/01/18 12:53; Admin Dose 3 UNIT; Start 02/26/18 at 12:00 Insulin Glargine (Lantus) 8 units DAILY@2000 SC Last administered on 02/28/18at 21:39; Admin Dose 8 UNITS; Start 02/26/18 at 20:00 JOAN CHRISTENSEN MD Mar 01, 2018 15:08
[2018-03-01 16:22] VITALS: BP 128/69; PULSE 102; RESP 20
--- NOTE | 2018-03-01 18:35 | NUR ---
End of Shift Notes No complaints of pain during shift, still complaining of general body itchiness, managed with benadryl. Skin care provided, fall precautions in place kept clean and dry. All needs attended to family at bedside
[2018-03-01 19:40] VITALS: BP 137/69; PULSE 103; RESP 18
[2018-03-01] MEDS: INSULIN GLARGINE [LANTus] (100 UNITS/ML) SYG SC SCH (21:22)
[2018-03-02] MEDS: DIPHENHYDRAMINE 25 MG CAP PO PRN ×2 (01:13→21:56)
--- NOTE | 2018-03-02 01:24 | NUR ---
Patient requested for benadryl due to itching. Patient scratched her left upper arm, noted with scant bleeding, cleaned with saline and covered with band aid.
[2018-03-02 02:04] VITALS: BP 140/73; PULSE 106; RESP 18
--- NOTE | 2018-03-02 04:53 | NUR ---
END OF SHIFT NOTE: PATIENT IS A AND O X 4; NOT IN DISTRESS. VS IS WNL; ALL MEDICATIONS HAVE BEEN GIVEN ORDERED AND PRN; ALL NEEDS ATTENDED; CALL LIGHT WITHIN REACH ; PTS SON AT THE BED SIDE; WILL ENDORSE TO THE DAY SHIFT RN
--- NOTE | 2018-03-02 06:50 | NUR ---
AT THE END OF THE SHIFT FARM MECHANIC LET ME KNOW THAT PT. HAS REFUSED HIBICLENS BATH.. TEACHING WAS PROVIDED TO THE PT.; ALL BENEFITS WAS EXPLAINED THROUGHOUT A BOILER TENDERS SUPERVISOR; FAMILY MEMBERS WERE INVOLVED; PT. DECIDED TO HAVE IT A BIT LATER WHEN SHE WILL BE MORE AWAKE. WILL ENDORSE TO THE DAY SHIFT RN.
[2018-03-02 07:51] VITALS: BP 126/71; PULSE 105; RESP 22
[2018-03-02] MEDS: INSULIN ASPART [NOVOLOG] 3 ML PEN SC SCH ×4 (08:00→21:00)
[2018-03-02] MEDS: POLYETHYLENE GLYCOL 17 GM PACKET PO SCH (09:09)
[2018-03-02] MEDS: LEVETIRACETAM 500 MG TAB PO SCH ×2 (09:09→21:08)
[2018-03-02] MEDS: PANTOPRAZOLE (EC) 40 MG TAB PO SCH ×2 (09:10→21:08)
[2018-03-02] MEDS: ONDANSETRON 4 MG INJ IV PRN ×2 (11:38→21:51)
--- NOTE | 2018-03-02 14:55 | PN ---
Date/Time of Note Date/Time of Note DATE: 03/02/18 TIME: 14:53 Assessment/Plan VTE Prophylaxis Risk score (from Ns)>0 risk: 6 SCD applied (from Ns): Yes Pharmacological prophylaxis: NA/contraindicated Pharm contraindication: thrombocytopenia Lines/Catheters IV Catheter Type (from Nrsg): Central Line Central line still needed: Yes Urinary Cath still in place: Yes Reason Cath still needed: terminal illness/intractable pain Assessment/Plan Assessment/Plan 47-year-old woman with a history of left breast carcinoma status post mastectomy and chemo presents with headache and generalized weakness with a CT finding of s ubdural fluid collection with 0.4 mm midline shift, as well as possible right parietal mass concerning for brain metastasis. #Breast carcinoma: Status post chemotherapy mastectomy in the past. - Now widely metastatic to brain and liver. - Completed intrathecal chemotherapy. Oncology is not planning to offer any more treatment. - Dr Inman consulted for palliative/goals of care discussion. - Family is resistant to DNR status and hospice. Apparently she has a new oncology appointment at [facility] [place]. 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 Again there is 0.4 mm midline shift noted on admission brain scan. appreciate neurosurgery recommendations. Currently no surgery indicated. - s/p intrathecal chemotherapy. - s/p decadron taper. #Pneumonia- Infiltrates on CXR earlier this admission-completed treatment with Vanco/zosyn (02/12-02/18). Appears resolved now. #Chest pain-earlier she complained of pressure-like chest pain.- Noncardiac in nature; she described it as worse after eating and improves with standing and ambulation- Trop negative, EKG without ischemia - This likely represents anxiety or dyspepsia, no further cardiac workup #Hypertensive urgency - resolved #Thrombocytopenia - likely due to malignancy. Dispo: Patient's son Geoffrey and father Nba are making most medical decisions. Undecided on hospice. Meeting with an agency at 7 pm. Patient still full code. Has appointment at [facility] oncology clinic. Result Diagram: 03/02/18 0440 03/02/18 0440 Results 24hrs Laboratory Tests Test 03/01/18 18:01 03/01/18 20:17 03/01/18 21:18 03/02/18 04:40 Bedside Glucose 120 125 118 White Blood Count 2.4 L Red Blood Count 2.64 L Hemoglobin 8.5 L Hematocrit 23.8 L Mean Corpuscular 90.2 Volume Mean Corpuscular 32.2 Hemoglobin Mean Corpuscular 35.7 Hemoglobin Concent Red Cell 17.3 H Distribution Width Platelet Count 12 #*L Mean Platelet Volume Immature 0.400 Granulocytes % Neutrophils % Segmented 53 Neutrophils % (Manual) Band Neutrophils % 7 H (Manual) Lymphocytes % Lymphocytes % 40 (Manual) Monocytes % Eosinophils % Basophils % Metamyelocytes % 1 H (manual) Nucleated Red 1 H Blood Cells % Immature 0.010 Granulocytes # Neutrophils # Neutrophils # 1.3 L (Manual) Band Neutrophils # 0.1 Lymphocytes 0.9 (Manual) Lymphocytes # Monocytes # Eosinophils # Basophils # Metamyelocytes # 0.0 Nucleated Red Blood Cells # Platelet Estimate SIG DECREASED Poikilocytosis 2+ Anisocytosis 2+ Target Cells 2+ Sodium Level 129 L Potassium Level 4.1 Chloride Level 89 L Carbon Dioxide 21 Level Anion Gap 19 H Blood Urea 25 H Nitrogen Creatinine 0.69 Est Glomerular > 60 Filtrat Rate mL/min Glucose Level 97 Calcium Level 8.9 Phosphorus Level 4.6 Magnesium Level 2.3 Test 03/02/18 07:57 03/02/18 12:55 Bedside Glucose 107 129 Subjective 24 Hr Interval Summary Free Text/Dictation Patient complains of mild abdominal discomfort and bloating. Her son Geoffrey is talking to the oncology consultant (Abril) at [facility]. Dr. Cormier has authorized her to get a second opinion it seems like. Exam/Review of Systems Exam Vitals Vital Signs Date Temp Pulse Resp B/P (MAP) Pulse Ox O2 O2 Flow FiO2 Time Delivery Rate 03/02/18 98.3 105 22 126/71 95 07:51 (89) 02/28/18 Room Air 02:00 Intake and Output 03/01/18 03/01/18 03/02/18 1515:00 23:00 07:00 IntakeIntake Total 480 ml 480 ml 360 ml OutputOutput Total 700 ml 200 ml BalanceBalance 480 ml -220 ml 160 ml Exam Gen: Fatigued appearing woman sleeping comfortably, very jaundiced Head: Atraumatic Eyes: Normal Conjunctiva ENT: Normal External Ears, Nose and Mouth. Neck: Full range of motion. No meningismus. Resp: Clear to auscultation bilaterally Cardio: Regular rate and rhythm, no murmurs Abd: Soft, non tender, non distended. Normal bowel sounds Ext: No lower extremity edema bilaterally Skin: Excoriations all over abdomen and legs. Results Results 24hrs Laboratory Tests Test 03/01/18 18:01 03/01/18 20:17 03/01/18 21:18 03/02/18 04:40 Bedside Glucose 120 125 118 White Blood Count 2.4 L Red Blood Count 2.64 L Hemoglobin 8.5 L Hematocrit 23.8 L Mean Corpuscular 90.2 Volume Mean Corpuscular 32.2 Hemoglobin Mean Corpuscular 35.7 Hemoglobin Concent Red Cell 17.3 H Distribution Width Platelet Count 12 #*L Mean Platelet Volume Immature 0.400 Granulocytes % Neutrophils % Segmented 53 Neutrophils % (Manual) Band Neutrophils % 7 H (Manual) Lymphocytes % Lymphocytes % 40 (Manual) Monocytes % Eosinophils % Basophils % Metamyelocytes % 1 H (manual) Nucleated Red 1 H Blood Cells % Immature 0.010 Granulocytes # Neutrophils # Neutrophils # 1.3 L (Manual) Band Neutrophils # 0.1 Lymphocytes 0.9 (Manual) Lymphocytes # Monocytes # Eosinophils # Basophils # Metamyelocytes # 0.0 Nucleated Red Blood Cells # Platelet Estimate SIG DECREASED Poikilocytosis 2+ Anisocytosis 2+ Target Cells 2+ Sodium Level 129 L Potassium Level 4.1 Chloride Level 89 L Carbon Dioxide 21 Level Anion Gap 19 H Blood Urea 25 H Nitrogen Creatinine 0.69 Est Glomerular > 60 Filtrat Rate mL/min Glucose Level 97 Calcium Level 8.9 Phosphorus Level 4.6 Magnesium Level 2.3 Test 03/02/18 07:57 03/02/18 12:55 Bedside Glucose 107 129 Medications Medication Current Medications Ondansetron HCl (Zofran Inj) 4 mg Q6H PRN IV NAUSEA AND/OR VOMITING Last administered on 03/02/18at 11:38; Admin Dose 4 MG; Start 02/09/18 at 20:00 Albuterol/ Ipratropium (Duoneb) 3 ml Q2H RESP THERAPY PRN NEB SHORTNESS OF BREATH; Start 02/09/18 at 20:00 Acetaminophen (Tylenol Liquid) 650 mg Q6H PRN PO PAIN LEVEL 1-3 OR FEVER Last administered on 02/22/18at 01:14; Admin Dose 650 MG; Start 02/09/18 at 20:00 Acetaminophen/ Hydrocodone Bitart ([place] (5/325)) 1 tab Q6H PRN PO PAIN LEVEL 4-6 Last administered on 03/01/18at 19:52; Admin Dose 1 TAB; Start 02/09/18 at 20:00 Labetalol HCl (Labetalol) 10 mg Q2H PRN IV SBP > 150 Last administered on 02/11/18at 19:28; Admin Dose 10 MG; Start 02/09/18 at 20:00 Trimethoprim/ Sulfamethoxazole (Bactrim (Ds)) 1 tab MONWEDFRI PO Last administered on 03/01/18 08:23; Admin Dose 1 TAB; Start 02/11/18 at 09:00 Insulin Aspart (Novolog Insulin Pen) NOVOLOG *MILD* ALGORITHM WITH MEALS BEDTIME SC Last administered on 02/22/18at 18:11; Admin Dose 1 UNIT; Start 02/10/18 at 21:00 Hydralazine HCl (Apresoline) 10 mg Q6H PRN IV ELEVATED BLOOD PRESSURE Last administered on 02/21/18at 01:54; Admin Dose 10 MG; Start 02/10/18 at 18:30 Miscellaneous Information 1 ea NOTE XX ; Start 02/10/18 at 19:00 Glucose (Glutose) 15 gm Q15M PRN PO DECREASED GLUCOSE; Start 02/10/18 at 19:00 Glucose (Glutose) 22.5 gm Q15M PRN PO DECREASED GLUCOSE; Start 02/10/18 at 19:00 Dextrose (D50w Syringe) 25 ml Q15M PRN IV DECREASED GLUCOSE; Start 02/10/18 at 19:00 Dextrose (D50w Syringe) 50 ml Q15M PRN IV DECREASED GLUCOSE; Start 02/10/18 at 19:00 Glucagon (Glucagen) 1 mg Q15M PRN IM DECREASED GLUCOSE; Start 02/10/18 at 19:00 Glucose (Glutose) 15 gm Q15M PRN BUCCAL DECREASED GLUCOSE; Start 02/10/18 at 19:00 Levetiracetam (Keppra) 500 mg BID PO Last administered on 03/02/18at 09:09; Admin Dose 500 MG; Start 02/11/18 at 09:30 Senna (Senokot) 1 tab BID PRN PO CONSTIPATION Last administered on 02/20/18 18:15; Admin Dose 1 TAB; Start 02/13/18 at 14:00 Polyethylene Glycol (Miralax) 17 gm DAILY PO Last administered on 03/02/18 09:09; Admin Dose 17 GM; Start 02/14/18 at 14:00 Al Hydrox/Mg Hydrox/Simethicone (Mag-Al Plus) 30 ml Q6H PRN PO GASTROINTESTINAL UPSET Last administered on 02/27/18 18:02; Admin Dose 30 ML; Start 02/14/18 at 22:30 Guaifenesin (Robitussin Liquid Cup) 200 mg Q4H PRN PO cough Last administered on 02/26/18 03:36; Admin Dose 200 MG; Start 02/16/18 at 11:30 Pantoprazole (Protonix Tab) 40 mg BID PO Last administered on 03/02/18 09:10; Admin Dose 40 MG; Start 02/16/18 at 21:00 Diphenhydramine HCl (Benadryl) 25 mg Q6H PRN PO ITCHING Last administered on 03/02/18at 01:13; Admin Dose 25 MG; Start 02/20/18 at 12:30 Insulin Glargine (Lantus) 8 units DAILY@2000 SC Last administered on 03/01/18 21:22; Admin Dose 8 UNITS; Start 02/26/18 at 20:00 JOAN CHRISTENSEN MD Mar 02, 2018 14:55
[2018-03-02 15:16] VITALS: BP 140/66; PULSE 103; RESP 20
[2018-03-02] MEDS: GUAIFENESIN 20 MG/ML 5ML CUP PO PRN (16:43)
--- NOTE | 2018-03-02 18:07 | CONS ---
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 Patient seen in collaboration with Dr Shaw Consultation Date/Type/Reason Admit Date/Time Feb 09, 2018 at 7:44 pm Initial Consult Date 02/11/18 Type of Consult oNCOLOGY Reason for Consultation breast cancer/ leptomeningeal disease Requesting Provider: DUGLAS CARPIO Date/Time of Note DATE: 03/02/18 TIME: 18:06 24 HR Interval Summary Free Text/Dictation - c/o cough - family at bed side- all Qs ANSWERED Thrombocytopenia- sp platelet transfusion no new events reported last night Detailed Summary Respiratory: cough Gastrointestinal: no complaints Musculoskeletal: other (generelized weakness) Exam/Review of Systems Exam Vitals Vital Signs Date Temp Pulse Resp B/P (MAP) Pulse Ox O2 O2 Flow FiO2 Time Delivery Rate 03/02/18 98.4 103 20 140/66 95 15:16 (90) 02/28/18 Room Air 02:00 Intake and Output 03/01/18 03/01/18 03/02/18 1515:00 23:00 07:00 IntakeIntake Total 480 ml 480 ml 360 ml OutputOutput Total 700 ml 200 ml BalanceBalance 480 ml -220 ml 160 ml Constitutional: alert, well developed Psych: nl mood/affect Head: atraumatic Eyes: icteric ENMT: nl external ears & nose Neck: non-tender Respiratory: diminished breath sounds (bilaterally) Cardiovascular: nl pulses, other (s1s2) Gastrointestinal: soft, tender Musculoskeletal: muscle weakness Extremities: normal pulses Neurological: nl speech, other (alert) Skin: other (jaundiced) Results Result Diagram: 03/02/180 03/02/18 0440 Results 24hrs Laboratory Tests Test 03/01/18 20:17 03/01/18 21:18 03/02/18 04:40 03/02/18 07:57 Bedside Glucose 125 118 107 White Blood Count 2.4 L Red Blood Count 2.64 L Hemoglobin 8.5 L Hematocrit 23.8 L Mean Corpuscular 90.2 Volume Mean Corpuscular 32.2 Hemoglobin Mean Corpuscular 35.7 Hemoglobin Concent Red Cell 17.3 H Distribution Width Platelet Count 12 #*L Mean Platelet Volume Immature 0.400 Granulocytes % Neutrophils % Segmented 53 Neutrophils % (Manual) Band Neutrophils % 7 H (Manual) Lymphocytes % Lymphocytes % 40 (Manual) Monocytes % Eosinophils % Basophils % Metamyelocytes % 1 H (manual) Nucleated Red 1 H Blood Cells % Immature 0.010 Granulocytes # Neutrophils # Neutrophils # 1.3 L (Manual) Band Neutrophils # 0.1 Lymphocytes 0.9 (Manual) Lymphocytes # Monocytes # Eosinophils # Basophils # Metamyelocytes # 0.0 Nucleated Red Blood Cells # Platelet Estimate SIG DECREASED Poikilocytosis 2+ Anisocytosis 2+ Target Cells 2+ Sodium Level 129 L Potassium Level 4.1 Chloride Level 89 L Carbon Dioxide 21 Level Anion Gap 19 H Blood Urea 25 H Nitrogen Creatinine 0.69 Est Glomerular > 60 Filtrat Rate mL/min Glucose Level 97 Calcium Level 8.9 Phosphorus Level 4.6 Magnesium Level 2.3 Test 03/02/18 12:55 03/02/18 17:53 Bedside Glucose 129 120 Medications Medication Current Medications Ondansetron HCl (Zofran Inj) 4 mg Q6H PRN IV NAUSEA AND/OR VOMITING Last administered on 03/02/18at 11:38; Admin Dose 4 MG; Start 02/09/18 at 20:00 Albuterol/ Ipratropium (Duoneb) 3 ml Q2H RESP THERAPY PRN NEB SHORTNESS OF BREATH; Start 02/09/18 at 20:00 Acetaminophen (Tylenol Liquid) 650 mg Q6H PRN PO PAIN LEVEL 1-3 OR FEVER Last administered on 02/22/18at 01:14; Admin Dose 650 MG; Start 02/09/18 at 20:00 Acetaminophen/ Hydrocodone Bitart ([place] (5/325)) 1 tab Q6H PRN PO PAIN LEVEL 4-6 Last administered on 03/01/18at 19:52; Admin Dose 1 TAB; Start 02/09/18 at 20:00 Labetalol HCl (Labetalol) 10 mg Q2H PRN IV SBP > 150 Last administered on 02/11/18at 19:28; Admin Dose 10 MG; Start 02/09/18 at 20:00 Trimethoprim/ Sulfamethoxazole (Bactrim (Ds)) 1 tab MONWEDFRI PO Last administered on 03/01/18at 08:23; Admin Dose 1 TAB; Start 02/11/18 at 09:00 Insulin Aspart (Novolog Insulin Pen) NOVOLOG *MILD* ALGORITHM WITH MEALS BEDTIME SC Last administered on 02/22/18at 18:11; Admin Dose 1 UNIT; Start 02/10/18 at 21:00 Hydralazine HCl (Apresoline) 10 mg Q6H PRN IV ELEVATED BLOOD PRESSURE Last administered on 02/21/18at 01:54; Admin Dose 10 MG; Start 02/10/18 at 18:30 Miscellaneous Information 1 ea NOTE XX ; Start 02/10/18 at 19:00 Glucose (Glutose) 15 gm Q15M PRN PO DECREASED GLUCOSE; Start 02/10/18 at 19:00 Glucose (Glutose) 22.5 gm Q15M PRN PO DECREASED GLUCOSE; Start 02/10/18 at 19:00 Dextrose (D50w Syringe) 25 ml Q15M PRN IV DECREASED GLUCOSE; Start 02/10/18 at 19:00 Dextrose (D50w Syringe) 50 ml Q15M PRN IV DECREASED GLUCOSE; Start 02/10/18 at 19:00 Glucagon (Glucagen) 1 mg Q15M PRN IM DECREASED GLUCOSE; Start 02/10/18 at 19:00 Glucose (Glutose) 15 gm Q15M PRN BUCCAL DECREASED GLUCOSE; Start 02/10/18 at 19:00 Levetiracetam (Keppra) 500 mg BID PO Last administered on 03/02/18at 09:09; Admin Dose 500 MG; Start 02/11/18 at 09:30 Senna (Senokot) 1 tab BID PRN PO CONSTIPATION Last administered on 02/20/18at 18:15; Admin Dose 1 TAB; Start 02/13/18 at 14:00 Polyethylene Glycol (Miralax) 17 gm DAILY PO Last administered on 03/02/18at 09:09; Admin Dose 17 GM; Start 02/14/18 at 14:00 Al Hydrox/Mg Hydrox/Simethicone (Mag-Al Plus) 30 ml Q6H PRN PO GASTROINTESTINAL UPSET Last administered on 02/27/18 18:02; Admin Dose 30 ML; Start 02/14/18 at 22:30 Guaifenesin (Robitussin Liquid Cup) 200 mg Q4H PRN PO cough Last administered on 03/02/18 16:43; Admin Dose 200 MG; Start 02/16/18 at 11:30 Pantoprazole (Protonix Tab) 40 mg BID PO Last administered on 03/02/18 09:10; Admin Dose 40 MG; Start 02/16/18 at 21:00 Diphenhydramine HCl (Benadryl) 25 mg Q6H PRN PO ITCHING Last administered on 03/02/18 01:13; Admin Dose 25 MG; Start 02/20/18 at 12:30 Insulin Glargine (Lantus) 8 units DAILY@2000 SC Last administered on 03/01/18 21:22; Admin Dose 8 UNITS; Start 02/26/18 at 20:00 MC CARRASQUILLO Mar 02, 2018 18:07
[2018-03-02 18:52] VITALS: BP 115/67; PULSE 98; RESP 18
[2018-03-02] MEDS: HYDROCODONE/APAP (5/325) TAB PO PRN (18:57)
--- NOTE | 2018-03-02 19:19 | NUR ---
End of Shift Notes Platelets given as ordered, tolerated well no signs of reaction noted. Patient complaining of diaphoresis towards end of shift, vitals and BG checked, stable, room cooled down as requested. Will monitor closely, no signs of distress, pain medication provided as ordered. Fall precautions in place kept clean and dry
[2018-03-02 20:08] VITALS: BP 128/64; PULSE 99; RESP 18
[2018-03-02] MEDS: INSULIN GLARGINE [LANTus] (100 UNITS/ML) SYG SC SCH (21:10)
[2018-03-03 02:13] VITALS: BP 127/74; PULSE 104; RESP 20
--- NOTE | 2018-03-03 05:31 | NUR ---
SHIFT NOTES: PT APPEARS TO BE VERY WEAK BUT DENIES PAIN OF THIS TIME OF REPORT. DUE MEDS GIVEN. MEDICATED FOR COMPLAINTS OF NAUSEA AND ITCHING. ACCU CHECK DONE, NO SSI COVERAGE GIVEN. NEEDS ATTENDED. CALL LIGHT PLACED WITHIN REACH. FALL PRECAUTION MAINTAINED. FAMILY AT BEDSIDE. WILL ENDORSE ACCORDINGLY.
[2018-03-03 07:55] VITALS: BP 132/65; PULSE 107; RESP 19
[2018-03-03] MEDS: INSULIN ASPART [NOVOLOG] 3 ML PEN SC SCH ×4 (08:00→20:47)
[2018-03-03] MEDS: PANTOPRAZOLE (EC) 40 MG TAB PO SCH ×2 (08:08→20:31)
[2018-03-03] MEDS: LEVETIRACETAM 500 MG TAB PO SCH ×2 (08:08→20:31)
[2018-03-03] MEDS: POLYETHYLENE GLYCOL 17 GM PACKET PO SCH (08:09)
--- NOTE | 2018-03-03 08:36 | CONS ---
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 Son is still deciding about Hopsice. Patient seen in collaboration with Dr Shaw Consultation Date/Type/Reason Admit Date/Time Feb 09, 2018 at 19:44 Initial Consult Date 02/11/18 Type of Consult ONCOLOGY Reason for Consultation breast cancer/ leptomeningeal disease Requesting Provider: DUGLAS CARPIO Date/Time of Note DATE: 03/03/18 TIME: 08:36 Detailed Summary Eyes: no complaints ENT: no complaints Respiratory: no complaints Cardiovascular: no complaints Gastrointestinal: no complaints Genitourinary: no complaints Musculoskeletal: other (generelized weakness) Exam/Review of Systems Exam Vitals Vital Signs Date Temp Pulse Resp B/P (MAP) Pulse Ox O2 O2 Flow FiO2 Time Delivery Rate 03/03/18 98.6 107 19 132/65 99 07:55 (87) 03/02/18 Room Air 18:52 Intake and Output 03/02/18 03/02/18 03/03/18 1515:00 23:00 07:00 IntakeIntake Total 400 ml 940 ml 360 ml BalanceBalance 400 ml 940 ml 360 ml Constitutional: alert, well developed, frail Psych: nl mood/affect Eyes: nl lids, icteric Neck: non-tender Cardiovascular: nl pulses, other (s1s2) Gastrointestinal: soft Musculoskeletal: muscle weakness Extremities: normal pulses Neurological: nl speech, other (alert /responsie) Skin: nl turgor Lymph: nontender Results Result Diagram: 03/03/18 0458 03/03/18 0458 Results 24hrs Laboratory Tests Test 03/02/18 12:55 03/02/18 17:53 03/02/18 18:45 03/02/18 21:06 Bedside Glucose 129 120 128 119 Test 03/03/18 04:58 03/03/18 06:40 White Blood Count 2.2 L Red Blood Count 2.51 L Hemoglobin 8.0 L Hematocrit 22.4 L Mean Corpuscular 89.2 Volume Mean Corpuscular 31.9 Hemoglobin Mean Corpuscular 35.7 Hemoglobin Concen t Red Cell 17.2 H Distribution Width Platelet Count 45 #L Mean Platelet 10.9 H Volume Immature 0.900 H Granulocytes % Neutrophils % 51.4 Lymphocytes % 44.9 Monocytes % 2.8 Eosinophils % 0.0 Basophils % 0.0 Nucleated Red 1.4 H Blood Cells % Immature 0.020 Granulocytes # Neutrophils # 1.1 L Lymphocytes # 1.0 Monocytes # 0.1 L Eosinophils # 0.0 Basophils # 0.0 Nucleated Red 0.0 Blood Cells # Sodium Level 126 L Potassium Level 3.8 Chloride Level 89 L Carbon Dioxide 20 L Level Anion Gap 17 H Blood Urea 29 H Nitrogen Creatinine 0.71 Est Glomerular > 60 Filtrat Rate mL/min Glucose Level 99 Calcium Level 9.1 Lab Scanned BLOOD TRANSFUSIO Report N Medications Medication Current Medications Ondansetron HCl (Zofran Inj) 4 mg Q6H PRN IV NAUSEA AND/OR VOMITING Last administered on 03/02/18 21:51; Admin Dose 4 MG; Start 02/09/18 at 20:00 Albuterol/ Ipratropium (Duoneb) 3 ml Q2H RESP THERAPY PRN NEB SHORTNESS OF BREATH; Start 02/09/18 at 20:00 Acetaminophen (Tylenol Liquid) 650 mg Q6H PRN PO PAIN LEVEL 1-3 OR FEVER Last administered on 02/22/18 01:14; Admin Dose 650 MG; Start 02/09/18 at 20:00 Acetaminophen/ Hydrocodone Bitart ([place] (5/325)) 1 tab Q6H PRN PO PAIN LEVEL 4-6 Last administered on 03/02/18 18:57; Admin Dose 1 TAB; Start 02/09/18 at 20:00 Labetalol HCl (Labetalol) 10 mg Q2H PRN IV SBP > 150 Last administered on 02/11/18 19:28; Admin Dose 10 MG; Start 02/09/18 at 20:00 Trimethoprim/ Sulfamethoxazole (Bactrim (Ds)) 1 tab MONWEDFRI PO Last administered on 03/01/18 08:23; Admin Dose 1 TAB; Start 02/11/18 at 09:00 Insulin Aspart (Novolog Insulin Pen) NOVOLOG *MILD* ALGORITHM WITH MEALS BEDTIME SC Last administered on 02/22/18at 18:11; Admin Dose 1 UNIT; Start 02/10/18 at 21:00 Hydralazine HCl (Apresoline) 10 mg Q6H PRN IV ELEVATED BLOOD PRESSURE Last adm inistered on 02/21/18at 01:54; Admin Dose 10 MG; Start 02/10/18 at 18:30 Miscellaneous Information 1 ea NOTE XX ; Start 02/10/18 at 19:00 Glucose (Glutose) 15 gm Q15M PRN PO DECREASED GLUCOSE; Start 02/10/18 at 19:00 Glucose (Glutose) 22.5 gm Q15M PRN PO DECREASED GLUCOSE; Start 02/10/18 at 19:00 Dextrose (D50w Syringe) 25 ml Q15M PRN IV DECREASED GLUCOSE; Start 02/10/18 at 19:00 Dextrose (D50w Syringe) 50 ml Q15M PRN IV DECREASED GLUCOSE; Start 02/10/18 at 19:00 Glucagon (Glucagen) 1 mg Q15M PRN IM DECREASED GLUCOSE; Start 02/10/18 at 19:00 Glucose (Glutose) 15 gm Q15M PRN BUCCAL DECREASED GLUCOSE; Start 02/10/18 at 19:00 Levetiracetam (Keppra) 500 mg BID PO Last administered on 03/03/18at 08:08; Admin Dose 500 MG; Start 02/11/18 at 09:30 Senna (Senokot) 1 tab BID PRN PO CONSTIPATION Last administered on 02/20/18at 18:15; Admin Dose 1 TAB; Start 02/13/18 at 14:00 Polyethylene Glycol (Miralax) 17 gm DAILY PO Last administered on 03/03/18at 08:09; Admin Dose 17 GM; Start 02/14/18 at 14:00 Al Hydrox/Mg Hydrox/Simethicone (Mag-Al Plus) 30 ml Q6H PRN PO GASTROINTESTINAL UPSET Last administered on 02/27/18at 18:02; Admin Dose 30 ML; Start 02/14/18 at 22:30 Guaifenesin (Robitussin Liquid Cup) 200 mg Q4H PRN PO cough Last administered on 1/26/19at 16:43; Admin Dose 200 MG; Start 02/16/18 at 11:30 Pantoprazole (Protonix Tab) 40 mg BID PO Last administered on 03/03/18at 08:08; Admin Dose 40 MG; Start 02/16/18 at 21:00 Diphenhydramine HCl (Benadryl) 25 mg Q6H PRN PO ITCHING Last administered on 03/02/18at 21:56; Admin Dose 25 MG; Start 02/20/18 at 12:30 Insulin Glargine (Lantus) 8 units DAILY@2000 SC Last administered on 03/02/18at 21:10; Admin Dose 8 UNITS; Start 02/26/18 at 20:00 MC CARRASQUILLO Mar 03, 2018 8:36 am
--- NOTE | 2018-03-03 10:57 | CONS ---
Assessment/Plan Assessment/Plan Assessment/Plan (Daily) 1. 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 Breast CA with possible metastasis to brain 3. Hypertensive urgency 4. H/O pre diabetes 5. ESBL E coli bacteriuria Plan: Seen in MEd/surge floor, IV abx stopped today I will order Urine Na, urine prot/cr ration, Urine eosinophils, CK total, Uric acid, Oncoloyg has been following stopped IV abx, Chapman d/spring , Pt is asymptomatic from UTI, no fever, WBC normal Thanks for consultation, I will continue to follow up Consultation Date/Type/Reason Admit Date/Time Feb 09, 2018 at 19:44 Date of Consultation: Mar 03, 2018 Type of Consult NEPHROLOGY Reason for Consultation Hyponatremia Requesting Provider: JOAN CHRISTENSEN MD Date/Time of Note DATE: 03/03/18 TIME: 10:57 Hx of Present Illness 47-year-old woman with a history of left breast carcinoma status post mastectomy and chemo presents with headache and generalized weakness with a CT finding of subdural fluid collection with 0.4 mm midline shift, as well as possible right parietal mass concerning for brain metastasis. pt was treated with IV abx for ESBL E coli bacteriuria, Chapman has been d/spring today Pt is being followed by oncology service, On labs she is noted to have BUN/Cr 29/0.7, Na 126- Renal has been consulted for persistent hyponatremi a Constitutional: poor po Respiratory: pain Cardiovascular: lightheadedness Gastrointestinal: no complaints Genitourinary: no complaints Musculoskeletal: back pain, bone/joint pain, restricted range of motion Skin: no complaints Neurologic: dizziness, focal-weakness, syncope Endocrine: no complaints Lymphatic: no complaints Psychological: no complaints Immunologic: no complaints Past Medical History Medical History: other (Pre diabetes, HTN , H/o Breast CA ) Home Meds Reported Medications Ibuprofen* (Ibuprofen*) 600 Mg Tablet, 600 MG PO Q6H PRN for PAIN, TAB 02/09/18 Penicillin V Potassium* (Penicillin V K*) 500 Mg Tab, 500 MG PO Q6, TAB 02/09/18 Neratinib Maleate (Nerlynx) 40 Mg Tablet, 240 MG PO DAILY, TAB 02/28/17 Medications Current Medications Ondansetron HCl (Zofran Inj) 4 mg Q6H PRN IV NAUSEA AND/OR VOMITING Last administered on 03/02/18 21:51; Admin Dose 4 MG; Start 02/09/18 at 20:00 Albuterol/ Ipratropium (Duoneb) 3 ml Q2H RESP THERAPY PRN NEB SHORTNESS OF BREATH; Start 02/09/18 at 20:00 Acetaminophen (Tylenol Liquid) 650 mg Q6H PRN PO PAIN LEVEL 1-3 OR FEVER Last administered on 02/22/18at 01:14; Admin Dose 650 MG; Start 02/09/18 at 20:00 Acetaminophen/ Hydrocodone Bitart ([place] (5/325)) 1 tab Q6H PRN PO PAIN LEVEL 4-6 Last administered on 03/02/18 18:57; Admin Dose 1 TAB; Start 02/09/18 at 20:00 Labetalol HCl (Labetalol) 10 mg Q2H PRN IV SBP > 150 Last administered on 02/11/18at 19:28; Admin Dose 10 MG; Start 02/09/18 at 20:00 Trimethoprim/ Sulfamethoxazole (Bactrim (Ds)) 1 tab MONWEDFRI PO Last administered on 03/01/18 08:23; Admin Dose 1 TAB; Start 02/11/18 at 09:00 Insulin Aspart (Novolog Insulin Pen) NOVOLOG *MILD* ALGORITHM WITH MEALS BEDTIME SC Last administered on 02/22/18 18:11; Admin Dose 1 UNIT; Start 02/10/18 at 21:00 Hydralazine HCl (Apresoline) 10 mg Q6H PRN IV ELEVATED BLOOD PRESSURE Last administered on 02/21/18 01:54; Admin Dose 10 MG; Start 02/10/18 at 18:30 Miscellaneous Information 1 ea NOTE XX ; Start 02/10/18 at 19:00 Glucose (Glutose) 15 gm Q15M PRN PO DECREASED GLUCOSE; Start 02/10/18 at 19:00 Glucose (Glutose) 22.5 gm Q15M PRN PO DECREASED GLUCOSE; Start 02/10/18 at 19:00 Dextrose (D50w Syringe) 25 ml Q15M PRN IV DECREASED GLUCOSE; Start 02/10/18 at 19:00 Dextrose (D50w Syringe) 50 ml Q15M PRN IV DECREASED GLUCOSE; Start 02/10/18 at 19:00 Glucagon (Glucagen) 1 mg Q15M PRN IM DECREASED GLUCOSE; Start 02/10/18 at 19:00 Glucose (Glutose) 15 gm Q15M PRN BUCCAL DECREASED GLUCOSE; Start 02/10/18 at 19:00 Levetiracetam (Keppra) 500 mg BID PO Last administered on 03/03/18 08:08; Admin Dose 500 MG; Start 02/11/18 at 09:30 Senna (Senokot) 1 tab BID PRN PO CONSTIPATION Last administered on 02/20/18 18:15; Admin Dose 1 TAB; Start 02/13/18 at 14:00 Polyethylene Glycol (Miralax) 17 gm DAILY PO Last administered on 03/03/18 08:09; Admin Dose 17 GM; Start 02/14/18 at 14:00 Al Hydrox/Mg Hydrox/Simethicone (Mag-Al Plus) 30 ml Q6H PRN PO GASTROINTESTINAL UPSET Last administered on 02/27/18 18:02; Admin Dose 30 ML; Start 02/14/18 at 22:30 Guaifenesin (Robitussin Liquid Cup) 200 mg Q4H PRN PO cough Last administered on 03/02/18 16:43; Admin Dose 200 MG; Start 02/16/18 at 11:30 Pantoprazole (Protonix Tab) 40 mg BID PO Last administered on 03/03/18 08:08; Admin Dose 40 MG; Start 02/16/18 at 21:00 Diphenhydramine HCl (Benadryl) 25 mg Q6H PRN PO ITCHING Last administered on 03/02/18 21:56; Admin Dose 25 MG; Start 02/20/18 at 12:30 Insulin Glargine (Lantus) 8 units DAILY@2000 SC Last administered on 03/02/18 21:10; Admin Dose 8 UNITS; Start 02/26/18 at 20:00 Allergies: Coded Allergies: No Known Allergy (Unverified , 02/28/17) Past Surgical History Past Surgical Hx: other (Left mastectomy ) Family History Significant Family History: no pertinent family hx Social History Alcohol Use: none Smoking Status: Never smoker Drug Use: none Exam/Review of Systems Exam Vitals Vital Signs Date Temp Pulse Resp B/P (MAP) Pulse Ox O2 O2 Flow FiO2 Time Delivery Rate 03/03/18 98.6 107 19 132/65 99 07:55 (87) 03/02/18 Room Air 18:52 Intake and Output 03/02/18 03/02/18 03/03/18 1515:00 23:00 07:00 IntakeIntake Total 400 ml 940 ml 360 ml BalanceBalance 400 ml 940 ml 360 ml Constitutional: alert Head: normocephalic Eyes: nl conjunctiva ENMT: nl external ears & nose Neck: supple, non-tender Respiratory: clear to auscultation, diminished breath sounds Cardiovascular: regular rate and rhythm, nl pulses Gastrointestinal: soft, non-tender Musculoskeletal: nl extremities to inspection, muscle weakness, other Extremities: normal pulses Neurological: CALL CENTER CONSULTANT II-XII intact Skin: nl turgor Lymph: nl lymph nodes Results Result Diagram: 03/03/18 0458 03/03/18 0458 Results 24hrs Laboratory Tests Test 03/02/18 12:55 03/02/18 17:53 03/02/18 18:45 03/02/18 21:06 Bedside Glucose 129 120 128 119 Test 03/03/18 04:58 03/03/18 06:40 03/03/18 08:10 White Blood Count 2.2 L Red Blood Count 2.51 L Hemoglobin 8.0 L Hematocrit 22.4 L Mean Corpuscular 89.2 Volume Mean Corpuscular 31.9 Hemoglobin Mean Corpuscular 35.7 Hemoglobin Concen t Red Cell 17.2 H Distribution Width Platelet Count 45 #L Mean Platelet 10.9 H Volume Immature 0.900 H Granulocytes % Neutrophils % 51.4 Lymphocytes % 44.9 Monocytes % 2.8 Eosinophils % 0.0 Basophils % 0.0 Nucleated Red 1.4 H Blood Cells % Immature 0.020 Granulocytes # Neutrophils # 1.1 L Lymphocytes # 1.0 Monocytes # 0.1 L Eosinophils # 0.0 Basophils # 0.0 Nucleated Red 0.0 Blood Cells # Sodium Level 126 L Potassium Level 3.8 Chloride Level 89 L Carbon Dioxide 20 L Level Anion Gap 17 H Blood Urea 29 H Nitrogen Creatinine 0.71 Est Glomerular > 60 Filtrat Rate mL/min Glucose Level 99 Calcium Level 9.1 Lab Scanned BLOOD TRANSFUSIO Report N Bedside Glucose 103 Medications Medication Current Medications Ondansetron HCl (Zofran Inj) 4 mg Q6H PRN IV NAUSEA AND/OR VOMITING Last administered on 03/02/18 21:51; Admin Dose 4 MG; Start 02/09/18 at 20:00 Albuterol/ Ipratropium (Duoneb) 3 ml Q2H RESP THERAPY PRN NEB SHORTNESS OF BREATH; Start 02/09/18 at 20:00 Acetaminophen (Tylenol Liquid) 650 mg Q6H PRN PO PAIN LEVEL 1-3 OR FEVER Last administered on 02/22/18at 01:14; Admin Dose 650 MG; Start 02/09/18 at 20:00 Acetaminophen/ Hydrocodone Bitart ([place] (5/325)) 1 tab Q6H PRN PO PAIN LEVEL 4-6 Last administered on 03/02/18 18:57; Admin Dose 1 TAB; Start 02/09/18 at 20:00 Labetalol HCl (Labetalol) 10 mg Q2H PRN IV SBP > 150 Last administered on 02/11/18 19:28; Admin Dose 10 MG; Start 02/09/18 at 20:00 Trimethoprim/ Sulfamethoxazole (Bactrim (Ds)) 1 tab MONWEDFRI PO Last administered on 03/01/18 08:23; Admin Dose 1 TAB; Start 02/11/18 at 09:00 Insulin Aspart (Novolog Insulin Pen) NOVOLOG *MILD* ALGORITHM WITH MEALS BEDTIME SC Last administered on 02/22/18 18:11; Admin Dose 1 UNIT; Start 02/10/18 at 21:00 Hydralazine HCl (Apresoline) 10 mg Q6H PRN IV ELEVATED BLOOD PRESSURE Last administered on 02/21/18 01:54; Admin Dose 10 MG; Start 02/10/18 at 18:30 Miscellaneous Information 1 ea NOTE XX ; Start 02/10/18 at 19:00 Glucose (Glutose) 15 gm Q15M PRN PO DECREASED GLUCOSE; Start 02/10/18 at 19:00 Glucose (Glutose) 22.5 gm Q15M PRN PO DECREASED GLUCOSE; Start 02/10/18 at 19:00 Dextrose (D50w Syringe) 25 ml Q15M PRN IV DECREASED GLUCOSE; Start 02/10/18 at 19:00 Dextrose (D50w Syringe) 50 ml Q15M PRN IV DECREASED GLUCOSE; Start 02/10/18 at 19:00 Glucagon (Glucagen) 1 mg Q15M PRN IM DECREASED GLUCOSE; Start 02/10/18 at 19:00 Glucose (Glutose) 15 gm Q15M PRN BUCCAL DECREASED GLUCOSE; Start 02/10/18 at 19:00 Levetiracetam (Keppra) 500 mg BID PO Last administered on 03/03/18 08:08; Admin Dose 500 MG; Start 02/11/18 at 09:30 Senna (Senokot) 1 tab BID PRN PO CONSTIPATION Last administered on 02/20/18 18:15; Admin Dose 1 TAB; Start 02/13/18 at 14:00 Polyethylene Glycol (Miralax) 17 gm DAILY PO Last administered on 03/03/18 08:09; Admin Dose 17 GM; Start 02/14/18 at 14:00 Al Hydrox/Mg Hydrox/Simethicone (Mag-Al Plus) 30 ml Q6H PRN PO GASTROINTESTINAL UPSET Last administered on 02/27/18 18:02; Admin Dose 30 ML; Start 02/14/18 at 22:30 Guaifenesin (Robitussin Liquid Cup) 200 mg Q4H PRN PO cough Last administered on 03/02/18 16:43; Admin Dose 200 MG; Start 02/16/18 at 11:30 Pantoprazole (Protonix Tab) 40 mg BID PO Last administered on 03/03/18 08:08; Admin Dose 40 MG; Start 02/16/18 at 21:00 Diphenhydramine HCl (Benadryl) 25 mg Q6H PRN PO ITCHING Last administered on 03/02/18 21:56; Admin Dose 25 MG; Start 02/20/18 at 12:30 Insulin Glargine (Lantus) 8 units DAILY@2000 SC Last administered on 03/02/18 21:10; Admin Dose 8 UNITS; Start 02/26/18 at 20:00 EDUARDO MURRIETA MD Mar 03, 2018 10:57
[2018-03-03] MEDS: HYDROCODONE/APAP (5/325) TAB PO PRN (13:13)
--- NOTE | 2018-03-03 14:48 | PN ---
Date/Time of Note Date/Time of Note DATE: 03/03/18 TIME: 14:39 Assessment/Plan VTE Prophylaxis Risk score (from Ns)>0 risk: 7 SCD applied (from Ns): Yes Pharmacological prophylaxis: NA/contraindicated Pharm contraindication: thrombocytopenia Lines/Catheters IV Catheter Type (from Nrsg): Central Line Central line still needed: Yes Urinary Cath still in place: No Assessment/Plan Assessment/Plan 47-year-old woman with a history of left breast carcinoma status post mastectomy and chemo presents with headache and generalized weakness with a CT finding of subdural fluid collection with 0.4 mm midline shift, as well as possible right parietal mass concerning for brain metastasis. #Breast carcinoma (ER- HI- HER2 + according to biopsy , no recent pathology or cytology): - Now widely metastatic to brain and liver. - Completed intrathecal methotrexate this admission. - Per oncology, no further plans for chemotherapy and hospice is recommended. - Dr Inman consulted for palliative/goals of care discussion. - Family is resistant to DNR status and hospice. Currently they want to take her to oncology clinic at [facility]. 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 Again there is 0.4 mm midline shift noted on admission brain scan. appreciate neurosurgery recommendations. Currently no surgery indicated. - s/p intrathecal chemotherapy. - s/p decadron taper. #ESBL E Coli bacteruria - Per urine culture 03/01/18 - Patient is asymptomatic and has no evidence of sepsis. - Will hold off on antibiotics, D/C Chapman. #Pneumonia- Infiltrates on CXR earlier this admission-completed treatment with Vanco/zosyn (02/12-02/18). Appears resolved now. #Chest pain-earlier she complained of pressure-like chest pain.- Noncardiac in nature; she described it as worse after eating and improves with standing and ambulation- Trop negative, EKG without ischemia - This likely represents anxiety or dyspepsia, no further cardiac workup #Hypertensive urgency - resolved #Thrombocytopenia - likely due to malignancy. Dispo: Patient's son Geoffrey and father Nba are making most medical decisions. Currently they do not want hospice. Patient still full code. Planning to make appointment at [facility] oncology clinic. The learning center coordinator at [facility] is Abril Berman (fax [phone], email [email or web address]). She is approved for outpatient oncology clinic, not approved for inter-hospital transfer. Result Diagram: 03/03/188 03/03/18457 Subjective 24 Hr Interval Summary Free Text/Dictation No acute overnight events. I spoke to Abril Berman, the learning center coordinator at [facility]. She confirmed no intra-hospital transfer, the patient would have to come to outpatient clinic. Geoffrey is amenable to discharge home. Says not today, possible tomorrow (Sunday). However he warned that Nba does not want her home until she's "b randy". Exam/Review of Systems Exam Vitals Vital Signs Date Temp Pulse Resp B/P (MAP) Pulse Ox O2 O2 Flow FiO2 Time Delivery Rate 03/03/18 98.6 107 19 132/65 99 07:55 (87) 03/02/18 Room Air 18:52 Intake and Output 03/02/18 03/02/18 03/03/18 1515:00 23:00 07:00 IntakeIntake Total 400 ml 940 ml 360 ml BalanceBalance 400 ml 940 ml 360 ml Exam Gen: Fatigued appearing woman sleeping comfortably, very jaundiced Head: Atraumatic Eyes: Normal Conjunctiva ENT: Normal External Ears, Nose and Mouth. Neck: Full range of motion. No meningismus. Resp: Clear to auscultation bilaterally Cardio: Regular rate and rhythm, no murmurs Abd: Soft, non tender, non distended. Normal bowel sounds Ext: No lower extremity edema bilaterally Skin: Excoriations all over abdomen and legs. Medications Medication Current Medications Ondansetron HCl (Zofran Inj) 4 mg Q6H PRN IV NAUSEA AND/OR VOMITING Last administered on 03/02/18at 21:51; Admin Dose 4 MG; Start 02/09/18 at 20:00 Albuterol/ Ipratropium (Duoneb) 3 ml Q2H RESP THERAPY PRN NEB SHORTNESS OF BREATH; Start 02/09/18 at 20:00 Acetaminophen (Tylenol Liquid) 650 mg Q6H PRN PO PAIN LEVEL 1-3 OR FEVER Last administered on 02/22/18at 01:14; Admin Dose 650 MG; Start 02/09/18 at 20:00 Acetaminophen/ Hydrocodone Bitart ([place] (5/325)) 1 tab Q6H PRN PO PAIN LEVEL 4-6 Last administered on 03/03/18at 13:13; Admin Dose 1 TAB; Start 02/09/18 at 20:00 Labetalol HCl (Labetalol) 10 mg Q2H PRN IV SBP > 150 Last administered on 02/11/18at 19:28; Admin Dose 10 MG; Start 02/09/18 at 20:00 Trimethoprim/ Sulfamethoxazole (Bactrim (Ds)) 1 tab MONWEDFRI PO Last administ ered on 03/01/18at 08:23; Admin Dose 1 TAB; Start 02/11/18 at 09:00 Insulin Aspart (Novolog Insulin Pen) NOVOLOG *MILD* ALGORITHM WITH MEALS BEDTIME SC Last administered on 02/22/18at 18:11; Admin Dose 1 UNIT; Start 02/10/18 at 21:00 Hydralazine HCl (Apresoline) 10 mg Q6H PRN IV ELEVATED BLOOD PRESSURE Last administered on 02/21/18at 01:54; Admin Dose 10 MG; Start 02/10/18 at 18:30 Miscellaneous Information 1 ea NOTE XX ; Start 02/10/18 at 19:00 Glucose (Glutose) 15 gm Q15M PRN PO DECREASED GLUCOSE; Start 02/10/18 at 19:00 Glucose (Glutose) 22.5 gm Q15M PRN PO DECREASED GLUCOSE; Start 02/10/18 at 19:00 Dextrose (D50w Syringe) 25 ml Q15M PRN IV DECREASED GLUCOSE; Start 02/10/18 at 19:00 Dextrose (D50w Syringe) 50 ml Q15M PRN IV DECREASED GLUCOSE; Start 02/10/18 at 19:00 Glucagon (Glucagen) 1 mg Q15M PRN IM DECREASED GLUCOSE; Start 02/10/18 at 19:00 Glucose (Glutose) 15 gm Q15M PRN BUCCAL DECREASED GLUCOSE; Start 02/10/18 at 19:00 Levetiracetam (Keppra) 500 mg BID PO Last administered on 03/03/18at 08:08; Admin Dose 500 MG; Start 02/11/18 at 09:30 Senna (Senokot) 1 tab BID PRN PO CONSTIPATION Last administered on 02/20/18 18:15; Admin Dose 1 TAB; Start 02/13/18 at 14:00 Polyethylene Glycol (Miralax) 17 gm DAILY PO Last administered on 03/03/18 08:09; Admin Dose 17 GM; Start 02/14/18 at 14:00 Al Hydrox/Mg Hydrox/Simethicone (Mag-Al Plus) 30 ml Q6H PRN PO GASTROINTESTINAL UPSET Last administered on 02/27/18 18:02; Admin Dose 30 ML; Start 02/14/18 at 22:30 Guaifenesin (Robitussin Liquid Cup) 200 mg Q4H PRN PO cough Last administered on 03/02/18 16:43; Admin Dose 200 MG; Start 02/16/18 at 11:30 Pantoprazole (Protonix Tab) 40 mg BID PO Last administered on 03/03/18 08:08; Admin Dose 40 MG; Start 02/16/18 at 21:00 Diphenhydramine HCl (Benadryl) 25 mg Q6H PRN PO ITCHING Last administered on 03/02/18 21:56; Admin Dose 25 MG; Start 02/20/18 at 12:30 Insulin Glargine (Lantus) 8 units DAILY@2000 SC Last administered on 03/02/18 21:10; Admin Dose 8 UNITS; Start 02/26/18 at 20:00 JOAN CHRISTENSEN MD Mar 03, 2018 14:48
[2018-03-03 14:50] VITALS: BP 125/68; PULSE 107; RESP 19
--- NOTE | 2018-03-03 18:27 | NUR ---
End of shift summary: Patient in stable condition .V.S within normal limits . [place] given once per shift for pain control .Positive microbiology result for ESBL of the urine . notified .No new orders given per . Chapman cath removed on 03/01/18 .Patient placed on Isolation precautions .No new orders for antibiotics needed per .Full report will be given to next shift RN .Call light within reach ,bed alarm on , son at bedside .
[2018-03-03 19:31] VITALS: BP 120/59; PULSE 103; RESP 18
[2018-03-03] MEDS: DIPHENHYDRAMINE 25 MG CAP PO PRN (20:31)
[2018-03-03] MEDS: ACETAMINOPHEN 650MG/20.3ML CUP PO PRN (20:32)
[2018-03-03] MEDS: INSULIN GLARGINE [LANTus] (100 UNITS/ML) SYG SC SCH (20:40)
[2018-03-04 01:58] VITALS: BP_SYST 125; BP_DIAS 57; BP_DIAS 62; PULSE 110; RESP 18
[2018-03-04] MEDS: DIPHENHYDRAMINE 25 MG CAP PO PRN ×2 (04:57→20:07)
--- NOTE | 2018-03-04 06:02 | NUR ---
PATIENT REMAINED A/O X 4, JUST VERY SLEEPY. PATIENT HAVING A HARD TIME SWALLOWING PILLS- WILL NOTIFY HOSPITALIST. FAMILY VERBALIZED THAT THEY DECIDED TO BRING PATIENT TO [facility] FOR A SECOND OPINION, DID NOT WANT HOSPICE. URINE COLLECTION PENDING. CONTINUE POC WHILE INPATIENT.
[2018-03-04 07:36] VITALS: BP 121/67; PULSE 105; RESP 20
[2018-03-04] MEDS: INSULIN ASPART [NOVOLOG] 3 ML PEN SC SCH ×4 (08:00→20:08)
[2018-03-04] MEDS: PANTOPRAZOLE (EC) 40 MG TAB PO SCH ×2 (08:50→20:07)
[2018-03-04] MEDS: POLYETHYLENE GLYCOL 17 GM PACKET PO SCH (08:51)
[2018-03-04] MEDS: LEVETIRACETAM 500 MG TAB PO SCH ×2 (08:51→20:07)
[2018-03-04] MEDS: TRIMETHOPRIM/SULFAMETHOX (DS) TAB PO SCH (08:53)
--- NOTE | 2018-03-04 10:48 | CONS ---
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 Son is still deciding about Hospice. Patient seen in collaboration with Dr Shaw Consultation Date/Type/Reason Admit Date/Time Feb 09, 2018 at 7:44 pm Initial Consult Date 02/11/18 Type of Consult ONCOLOGY Reason for Consultation breast cancer/ leptomeningeal disease Requesting Provider: JOAN CHRISTENSEN MD Date/Time of Note DATE: 03/04/18 TIME: 10:48 24 HR Interval Summary Free Text/Dictation - resting - feels better -SP intrathecal MTX DOSES on feb 25 and feb 27 at bed side- all Qs answered. dw staff Detailed Summary Eyes: no complaints ENT: no complaints Respiratory: no complaints Cardiovascular: no complaints Gastrointestinal: pain Genitourinary: no complaints Musculoskeletal: other (generelized weakness) Skin: no complaints Exam/Review of Systems Exam Vitals Vital Signs Date Temp Pulse Resp B/P (MAP) Pulse Ox O2 O2 Flow FiO2 Time Delivery Rate 03/04/18 98.8 105 20 121/67 94 07:36 (85) 03/02/18 Room Air 18:52 Intake and Output 03/03/18 03/03/18 03/04/18 1515:00 23:00 07:00 IntakeIntake Total 480 ml 240 ml 240 ml OutputOutput Total 300 ml BalanceBalance 480 ml 240 ml -60 ml Constitutional: alert, well developed Psych: nl mood/affect Eyes: nl lids, icteric ENMT: nl external ears & nose Neck: non-tender Respiratory: diminished breath sounds Cardiovascular: nl pulses, other Gastrointestinal: soft, tender Musculoskeletal: muscle weakness, range of motion Extremities: normal pulses Neurological: other (alert/awake) Skin: other (jaundiced) Lymph: nontender Results Result Diagram: 03/04/18 0655 03/04/18 0459 Results 24hrs Laboratory Tests Test 03/03/18 12:47 03/03/18 17:22 03/03/18 20:36 03/04/18 04:59 Bedside Glucose 104 93 127 Sodium Level 128 L Potassium Level 4.0 Chloride Level 88 L Carbon Dioxide Level 19 L Anion Gap 21 H Blood Urea Nitrogen 37 H Creatinine 0.96 Est Glomerular > 60 Filtrat Rate mL/min Glucose Level 88 Osmolality 271 L Uric Acid 8.2 H Calcium Level 8.9 Phosphorus Level 4.7 Magnesium Level 2.5 Test 03/04/18 06:55 03/04/18 08:13 White Blood Count 2.6 L Red Blood Count 2.66 L Hemoglobin 8.4 L Hematocrit 23.9 L Mean Corpuscular 89.8 Volume Mean Corpuscular 31.6 Hemoglobin Mean Corpuscular 35.1 Hemoglobin Concent Red Cell 18.1 H Distribution Width Platelet Count 28 #*L Mean Platelet Volume 9.4 Immature 1.100 H Granulocytes % Neutrophils % Lymphocytes % Monocytes % Eosinophils % Basophils % Nucleated Red Blood 5.4 H Cells % Immature 0.030 Granulocytes # Neutrophils # Lymphocytes # Monocytes # Eosinophils # Basophils # Nucleated Red Blood Cells # Bedside Glucose 119 Medications Medication Current Medications Ondansetron HCl (Zofran Inj) 4 mg Q6H PRN IV NAUSEA AND/OR VOMITING Last administered on 03/02/18at 21:51; Admin Dose 4 MG; Start 02/09/18 at 20:00 Albuterol/ Ipratropium (Duoneb) 3 ml Q2H RESP THERAPY PRN NEB SHORTNESS OF BREATH; Start 02/09/18 at 20:00 Acetaminophen (Tylenol Liquid) 650 mg Q6H PRN PO PAIN LEVEL 1-3 OR FEVER Last administered on 03/03/18at 20:32; Admin Dose 650 MG; Start 02/09/18 at 20:00 Acetaminophen/ Hydrocodone Bitart ([place] (5/325)) 1 tab Q6H PRN PO PAIN LEVEL 4-6 Last administered on 03/03/18at 13:13; Admin Dose 1 TAB; Start 02/09/18 at 20:00 Labetalol HCl (Labetalol) 10 mg Q2H PRN IV SBP > 150 Last administered on 02/11/18 19:28; Admin Dose 10 MG; Start 02/09/18 at 20:00 Trimethoprim/ Sulfamethoxazole (Bactrim (Ds)) 1 tab MONWEDFRI PO Last administered on 03/04/18at 08:53; Admin Dose 1 TAB; Start 02/11/18 at 09:00 Insulin Aspart (Novolog Insulin Pen) NOVOLOG *MILD* ALGORITHM WITH MEALS BEDTIME SC Last administered on 02/22/18at 18:11; Admin Dose 1 UNIT; Start 02/10/18 at 21:00 Hydralazine HCl (Apresoline) 10 mg Q6H PRN IV ELEVATED BLOOD PRESSURE Last administered on 02/21/18at 01:54; Admin Dose 10 MG; Start 02/10/18 at 18:30 Miscellaneous Information 1 ea NOTE XX ; Start 02/10/18 at 19:00 Glucose (Glutose) 15 gm Q15M PRN PO DECREASED GLUCOSE; Start 02/10/18 at 19:00 Glucose (Glutose) 22.5 gm Q15M PRN PO DECREASED GLUCOSE; Start 02/10/18 at 19:00 Dextrose (D50w Syringe) 25 ml Q15M PRN IV DECREASED GLUCOSE; Start 02/10/18 at 19:00 Dextrose (D50w Syringe) 50 ml Q15M PRN IV DECREASED GLUCOSE; Start 02/10/18 at 19:00 Glucagon (Glucagen) 1 mg Q15M PRN IM DECREASED GLUCOSE; Start 02/10/18 at 19:00 Glucose (Glutose) 15 gm Q15M PRN BUCCAL DECREASED GLUCOSE; Start 02/10/18 at 19:00 Levetiracetam (Keppra) 500 mg BID PO Last administered on 03/04/18at 08:51; Admin Dose 500 MG; Start 02/11/18 at 09:30 Senna (Senokot) 1 tab BID PRN PO CONSTIPATION Last administered on 02/20/18 18:15; Admin Dose 1 TAB; Start 02/13/18 at 14:00 Polyethylene Glycol (Miralax) 17 gm DAILY PO Last administered on 03/04/18 08:51; Admin Dose 17 GM; Start 02/14/18 at 14:00 Al Hydrox/Mg Hydrox/Simethicone (Mag-Al Plus) 30 ml Q6H PRN PO GASTROINTESTINAL UPSET Last administered on 02/27/18at 18:02; Admin Dose 30 ML; Start 02/14/18 at 22:30 Guaifenesin (Robitussin Liquid Cup) 200 mg Q4H PRN PO cough Last administered on 03/02/18 16:43; Admin Dose 200 MG; Start 02/16/18 at 11:30 Pantoprazole (Protonix Tab) 40 mg BID PO Last administered on 03/04/18 08:50; Admin Dose 40 MG; Start 02/16/18 at 21:00 Diphenhydramine HCl (Benadryl) 25 mg Q6H PRN PO ITCHING Last administered on 03/04/18at 04:57; Admin Dose 25 MG; Start 02/20/18 at 12:30 Insulin Glargine (Lantus) 8 units DAILY@2000 SC Last administered on 03/03/18at 20:40; Admin Dose 8 UNITS; Start 02/26/18 at 20:00 MC CARRASQUILLO Mar 04, 2018 10:48 am
--- NOTE | 2018-03-04 12:28 | NUR ---
SS NOTE: F/U SW F/U PT'S SON SRIRAM ([phone]) TO DISCUSS D/C PLANNING AND CODE STATUS ISSUES. PT'S FAMILY PREVIOUSLY CONSIDERING POSSIBLE HOSPICE OPTION VS CONTINUED AGGRESSIVE TREATMENT AT [facility]. SW SPOKE WITH PT'S SON SRIRAM AT BEDSIDE TO DISCUSS PLAN. PT'S SON STATED THAT PT AND FAMILY DO NOT WANT HOSPICE SERVICE AT THIS TIME. PT'S SON INFORMED THIS GENERATOR REBUILDER THAT FAMILY HAD PREVIOUSLY CONSULTED WITH [facility] AND UNDERSTOOD WHAT COULD BE PROVIDED. PT'S SON STATED THAT THE PT'S /DECISION MAKER DOES NOT WISH TO CHANGE CODE STATUS AT THIS TIME. PT'S SON ACKNOWLEDGED THAT HE HAS SPOKEN TO DR CARPIO AND UNDERSTOOD THAT PT COULD NOT BE APPROPRIATELY D/C TO GO TO ANOTHER FACILITY WITH NO CHANGE IN CODE STATUS THIS WOULD BE CONSIDERED AN UNSAFE D/C. PT'S SON SRIRAM INFORMED THIS GENERATOR REBUILDER THAT FAMILY'S PLAN IS TO HAVE PT LEAVE AMA AND TAKE HER TO [facility] FOR SECOND OPINION AND POSSIBLE TRX. FAMILY WILL TRANSPORT PT MARIA C WHEN ARRANGEMENTS CAN BE MADE. PLAN IS TO F/U WITH PT AND FAMILY FOR UPDATE. SW REMAINS AVAILABLE FOR F/U NEEDED.
--- NOTE | 2018-03-04 13:40 | PN ---
Date/Time of Note Date/Time of Note DATE: 03/04/18 TIME: 13:40 Assessment/Plan VTE Prophylaxis Risk score (from Ns)>0 risk: 7 SCD applied (from [facility]): Yes SCD contraindicated: other Pharmacological prophylaxis: NA/contraindicated Pharm contraindication: thrombocytopenia Lines/Catheters IV Catheter Type [facility]from [facility] Central Line Central line still needed: Yes Urinary Cath still in place: No Assessment/Plan Hospital Course S: Patient had no acute events overnight. Seen by heme on team today. O: VS - see below PE: Gen: lying in bed, some jaundice noted Head: Atraumatic Eyes: Normal Conjunctiva ENT: Normal External Ears, Nose and Mouth. Neck: Full range of motion. No meningismus. Resp: Clear to auscultation bilaterally Cardio: Regular rate and rhythm, no murmurs Abd: Soft, non tender, non distended. Normal bowel sounds Ext: No lower extremity edema bilaterally Neur: No focal deficits CT head February 09: IMPRESSION: 1. Region of decreased attenuation in the right superior parietal white matter posteriorly. This may indicate a subtle mass at this site. Correlation with contrast enhanced MRI of brain advised. 2. Subtle shift of midline structures to the right measuring 0.4 cm. Mild effacement of the frontal horn of the left lateral ventricle. 3. Small low attenuation subdural fluid collection in the right frontal region measuring 0.4 cm in thickness. 4. Subtle isodense left subdural fluid collection measuring 0.4 cm in thickness and extending across the left temporal and parietal convexities. This is suspicious for subacute subdural hematoma. Correlation with MRI advised. 5. 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 6. Fluid in the right ethmoid air cells. 7. 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 Correlation with cerebral spinal fluid analysis, if not already performed, is recommended. 2. The abnormality seen in the right parietal lobe on CT is consistent with vasogenic edema related to an adjacent extra-axial nodular leptomeningeal enhancement focus rather than intra-axial mass lesion. 3. There is no evidence of subdural hematoma, the abnormality seen on CT are related to pathologic leptomeningeal enhancement. 4. Heterogeneous signal intensity within the calvarium unable to exclude osseous metastatic disease. 5. Right frontal and ethmoid sinus disease with bilateral mastoid air cell effusions. Assessment/Plan 47-year-old woman with a history of left breast carcinoma status post mastectomy and chemo presents with headache and generalized weakness with a CT finding of subdural fluid collection with 0.4 mm midline shift, as well as possible right parietal mass concerning for brain metastasis. 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 - Per oncology, no further plans for chemotherapy and hospice is recommended. - Dr Inman consulted for palliative/goals of care discussion. - Family is resistant to DNR status and hospice. Currently they want to take her to oncology clinic at [facility]-explained to family today that they would have to take her AGAINST MEDICAL ADVICE, as transfer is not possible at this time and patient is still medically unstable for discharge. Family is deciding about this option presently. 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 Again there is 0.4 mm midline shift noted on admission brain scan. appreciate neurosurgery recommendations. Currently no surgery indicated. - s/p intrathecal chemotherapy. - s/p decadron taper, monitor for now, pain control #ESBL E Coli bacteruria - Per urine culture 03/01/18 - Patient is asymptomatic and has no evidence of sepsis. - Will hold off on antibiotics, D/C Chapman. #Pneumonia- Infiltrates on CXR earlier this admission-completed treatment with Vanco/zosyn (02/12-02/18). Appears resolved now. #Chest pain-earlier she complained of pressure-like chest pain.- Noncardiac in nature; she described it as worse after eating and improves with standing and ambulation- Trop negative, EKG without ischemia - This likely represents anxiety or dyspepsia, no further cardiac workup #Hypertensive urgency - resolved #Thrombocytopenia - likely due to malignancy. Status post platelet transfusion 2 days ago. -Platelets today 28,000, continue to monitor for now Dispo: Patient's son Geoffrey and father Nba are making most medical decisions. Currently they do not want hospice. Patient still full code. Family attempting to make appointment at [facility] oncology clinic? The community sports coordinator at [facility] is Abril Berman (fax [phone], email [email or web address]). Apparently they are considering to accept patient for outpatient oncology clinic, however patient is not approved for inter- hospital transfer. Result Diagram: 03/04/18 0655 03/04/18 0459 Results 24hrs Laboratory Tests Test 03/03/18 17:22 03/03/18 20:36 03/04/18 04:59 03/04/18 06:55 Bedside Glucose 93 127 Sodium Level 128 L Potassium Level 4.0 Chloride Level 88 L Carbon Dioxide 19 L Level Anion Gap 21 H Blood Urea 37 H Nitrogen Creatinine 0.96 Est Glomerular > 60 Filtrat Rate mL/min Glucose Level 88 Osmolality 271 L Uric Acid 8.2 H Calcium Level 8.9 Phosphorus Level 4.7 Magnesium Level 2.5 White Blood Count 2.6 L Red Blood Count 2.66 L Hemoglobin 8.4 L Hematocrit 23.9 L Mean Corpuscular 89.8 Volume Mean Corpuscular 31.6 Hemoglobin Mean Corpuscular 35.1 Hemoglobin Concent Red Cell 18.1 H Distribution Width Platelet Count 28 #*L Mean Platelet 9.4 Volume Immature 1.100 H Granulocytes % Neutrophils % Segmented 41 Neutrophils % (Manual) Band Neutrophils % 7 H (Manual) Lymphocytes % Lymphocytes % 48 (Manual) Monocytes % Monocytes % 4 (Manual) Eosinophils % Basophils % Nucleated Red 2 H Blood Cells % Immature 0.030 Granulocytes # Neutrophils # Neutrophils # 1.1 L (Manual) Band Neutrophils # 0.1 Lymphocytes 1.2 (Manual) Lymphocytes # Monocytes # Monocytes # 0.1 L (Manual) Eosinophils # Basophils # Nucleated Red Blood Cells # Platelet Estimate SIG DECREASED Polychromasia 3+ Poikilocytosis 1+ Anisocytosis 2+ Microcytosis 1+ Macrocytosis 1+ Target Cells 1+ Stomatocytes 1+ Test 03/04/18 08:13 03/04/18 12:40 Bedside Glucose 119 120 Exam/Review of Systems Exam Vitals Vital Signs Date Temp Pulse Resp B/P (MAP) Pulse Ox O2 O2 Flow FiO2 Time Delivery Rate 03/04/18 98.8 105 20 121/67 94 07:36 (85) 03/02/18 Room Air 18:52 Intake and Output 03/03/18 03/03/18 03/04/18 1515:00 23:00 07:00 IntakeIntake Total 480 ml 240 ml 240 ml OutputOutput Total 300 ml BalanceBalance 480 ml 240 ml -60 ml Results Results 24hrs Laboratory Tests Test 03/03/18 17:22 03/03/18 20:36 03/04/18 04:59 03/04/18 06:55 Bedside Glucose 93 127 Sodium Level 128 L Potassium Level 4.0 Chloride Level 88 L Carbon Dioxide 19 L Level Anion Gap 21 H Blood Urea 37 H Nitrogen Creatinine 0.96 Est Glomerular > 60 Filtrat Rate mL/min Glucose Level 88 Osmolality 271 L Uric Acid 8.2 H Calcium Level 8.9 Phosphorus Level 4.7 Magnesium Level 2.5 White Blood Count 2.6 L Red Blood Count 2.66 L Hemoglobin 8.4 L Hematocrit 23.9 L Mean Corpuscular 89.8 Volume Mean Corpuscular 31.6 Hemoglobin Mean Corpuscular 35.1 Hemoglobin Concent Red Cell 18.1 H Distribution Width Platelet Count 28 #*L Mean Platelet 9.4 Volume Immature 1.100 H Granulocytes % Neutrophils % Segmented 41 Neutrophils % (Manual) Band Neutrophils % 7 H (Manual) Lymphocytes % Lymphocytes % 48 (Manual) Monocytes % Monocytes % 4 (Manual) Eosinophils % Basophils % Nucleated Red 2 H Blood Cells % Immature 0.030 Granulocytes # Neutrophils # Neutrophils # 1.1 L (Manual) Band Neutrophils # 0.1 Lymphocytes 1.2 (Manual) Lymphocytes # Monocytes # Monocytes # 0.1 L (Manual) Eosinophils # Basophils # Nucleated Red Blood Cells # Platelet Estimate SIG DECREASED Polychromasia 3+ Poikilocytosis 1+ Anisocytosis 2+ Microcytosis 1+ Macrocytosis 1+ Target Cells 1+ Stomatocytes 1+ Test 03/04/18 08:13 03/04/18 12:40 Bedside Glucose 119 120 Medications Medication Current Medications Ondansetron HCl (Zofran Inj) 4 mg Q6H PRN IV NAUSEA AND/OR VOMITING Last administered on 03/02/18at 21:51; Admin Dose 4 MG; Start 02/09/18 at 20:00 Albuterol/ Ipratropium (Duoneb) 3 ml Q2H RESP THERAPY PRN NEB SHORTNESS OF BREATH; Start 02/09/18 at 20:00 Acetaminophen (Tylenol Liquid) 650 mg Q6H PRN PO PAIN LEVEL 1-3 OR FEVER Last a dministered on 03/03/18at 20:32; Admin Dose 650 MG; Start 02/09/18 at 20:00 Acetaminophen/ Hydrocodone Bitart (Coin (5/325)) 1 tab Q6H PRN PO PAIN LEVEL 4-6 Last administered on 03/03/18at 13:13; Admin Dose 1 TAB; Start 02/09/18 at 20:00 Labetalol HCl (Labetalol) 10 mg Q2H PRN IV SBP > 150 Last administered on 02/11/18at 19:28; Admin Dose 10 MG; Start 02/09/18 at 20:00 Trimethoprim/ Sulfamethoxazole (Bactrim (Ds)) 1 tab MONWEDFRI PO Last administered on 03/04/18at 08:53; Admin Dose 1 TAB; Start 02/11/18 at 09:00 Insulin Aspart (Novolog Insulin Pen) NOVOLOG *MILD* ALGORITHM WITH MEALS BEDTIME SC Last administered on 02/22/18at 18:11; Admin Dose 1 UNIT; Start 02/10/18 at 21:00 Hydralazine HCl (Apresoline) 10 mg Q6H PRN IV ELEVATED BLOOD PRESSURE Last administered on 02/21/18at 01:54; Admin Dose 10 MG; Start 02/10/18 at 18:30 Miscellaneous Information 1 ea NOTE XX ; Start 02/10/18 at 19:00 Glucose (Glutose) 15 gm Q15M PRN PO DECREASED GLUCOSE; Start 02/10/18 at 19:00 Glucose (Glutose) 22.5 gm Q15M PRN PO DECREASED GLUCOSE; Start 02/10/18 at 19:00 Dextrose (D50w Syringe) 25 ml Q15M PRN IV DECREASED GLUCOSE; Start 02/10/18 at 19:00 Dextrose (D50w Syringe) 50 ml Q15M PRN IV DECREASED GLUCOSE; Start 02/10/18 at 19:00 Glucagon (Glucagen) 1 mg Q15M PRN IM DECREASED GLUCOSE; Start 02/10/18 at 19:00 Glucose (Glutose) 15 gm Q15M PRN BUCCAL DECREASED GLUCOSE; Start 02/10/18 at 19:00 Levetiracetam (Keppra) 500 mg BID PO Last administered on 03/04/18 08:51; Admin Dose 500 MG; Start 02/11/18 at 09:30 Senna (Senokot) 1 tab BID PRN PO CONSTIPATION Last administered on 02/20/18 18:15; Admin Dose 1 TAB; Start 02/13/18 at 14:00 Polyethylene Glycol (Miralax) 17 gm DAILY PO Last administered on 03/04/18 08:51; Admin Dose 17 GM; Start 02/14/18 at 14:00 Al Hydrox/Mg Hydrox/Simethicone (Mag-Al Plus) 30 ml Q6H PRN PO GASTROINTESTINAL UPSET Last administered on 02/27/18 18:02; Admin Dose 30 ML; Start 02/14/18 at 22:30 Guaifenesin (Robitussin Liquid Cup) 200 mg Q4H PRN PO cough Last administered on 03/02/18 16:43; Admin Dose 200 MG; Start 02/16/18 at 11:30 Pantoprazole (Protonix Tab) 40 mg BID PO Last administered on 03/04/18 08:50; Admin Dose 40 MG; Start 02/16/18 at 21:00 Diphenhydramine HCl (Benadryl) 25 mg Q6H PRN PO ITCHING Last administered on 03/04/18 04:57; Admin Dose 25 MG; Start 02/20/18 at 12:30 Insulin Glargine (Lantus) 8 units DAILY@2000 SC Last administered on 03/03/18 20:40; Admin Dose 8 UNITS; Start 02/26/18 at 20:00 DUGLAS CARPIO Mar 04, 2018 13:40
[2018-03-04 13:46] VITALS: BP 119/62; PULSE 104; RESP 20
--- NOTE | 2018-03-04 16:00 | NUR ---
Nutrition Notes: Visited pt's room, family at bedside. Pt asleep. Family states pt will take her drinks on tray, but she does not eat much of the food. Encouraged fluids intake, especially the oral supplement Boost. RD Recommendation 1. Would also recommend appetite stimulant if medically feasible.
--- NOTE | 2018-03-04 16:37 | NUR ---
end of shift report: pt is stable no distress noted at this time. pt is very lethargic. all due med given as ordered. family at bed side.pt family and pt agreed to go AMA and to take her to [facility] hospital .pt is unable to sign because of weakness singed the paper. family trying to call ambulance to [place] pickup the pt. will follow up
--- NOTE | 2018-03-04 17:17 | CONS ---
Assessment/Plan Assessment/Plan Assessment/Plan (Daily) 1. 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 Breast CA with possible metastasis to brain 3. Hypertensive urgency 4. H/O pre diabetes 5. ESBL E coli bacteriuria Plan: Urine Osm 271 c/w true hyponatremia, no urine Na sent yet, Serum Na improved from 126 to 128 , Bp stable ,monitor pt off IV Fluids Oncology has been following will follow up Consultation Date/Type/Reason Admit Date/Time Feb 09, 2018 at 19:44 Initial Consult Date 03/03/18 Type of Consult NEPHROLOGY Requesting Provider: JOAN CHRISTENSEN MD Date/Time of Note DATE: 03/04/18 TIME: 17:17 Exam/Review of Systems Exam Vitals Vital Signs Date Temp Pulse Resp B/P (MAP) Pulse Ox O2 O2 Flow FiO2 Time Delivery Rate 03/04/18 97.7 104 20 119/62 94 13:46 (81) 03/02/18 Room Air 18:52 Intake and Output 03/03/18 03/03/18 03/04/18 1515:00 23:00 07:00 IntakeIntake Total 480 ml 240 ml 240 ml OutputOutput Total 300 ml BalanceBalance 480 ml 240 ml -60 ml Exam Constitutional: alert, awake, no acute distress Respiratory: clear to auscultation, diminished breath sounds Cardiovascular: regular rate and rhythm, nl pulses Gastrointestinal: soft, non-tender Musculoskeletal: nl extremities to inspection, muscle weakness, other Extremities: normal pulses Neurological: ELECTRIC POWERLINE EXAMINER II-XII intact Results Result Diagram: 03/04/18 0655 03/04/18 0459 Results 24hrs Laboratory Tests Test 03/03/18 17:22 03/03/18 20:36 03/04/18 04:59 03/04/18 06:55 Bedside Glucose 93 127 Sodium Level 128 L Potassium Level 4.0 Chloride Level 88 L Carbon Dioxide 19 L Level Anion Gap 21 H Blood Urea 37 H Nitrogen Creatinine 0.96 Est Glomerular > 60 Filtrat Rate mL/min Glucose Level 88 Osmolality 271 L Uric Acid 8.2 H Calcium Level 8.9 Phosphorus Level 4.7 Magnesium Level 2.5 White Blood Count 2.6 L Red Blood Count 2.66 L Hemoglobin 8.4 L Hematocrit 23.9 L Mean Corpuscular 89.8 Volume Mean Corpuscular 31.6 Hemoglobin Mean Corpuscular 35.1 Hemoglobin Concent Red Cell 18.1 H Distribution Width Platelet Count 28 #*L Mean Platelet 9.4 Volume Immature 1.100 H Granulocytes % Neutrophils % Segmented 41 Neutrophils % (Manual) Band Neutrophils % 7 H (Manual) Lymphocytes % Lymphocytes % 48 (Manual) Monocytes % Monocytes % 4 (Manual) Eosinophils % Basophils % Nucleated Red 2 H Blood Cells % Immature 0.030 Granulocytes # Neutrophils # Neutrophils # 1.1 L (Manual) Band Neutrophils # 0.1 Lymphocytes 1.2 (Manual) Lymphocytes # Monocytes # Monocytes # 0.1 L (Manual) Eosinophils # Basophils # Nucleated Red Blood Cells # Platelet Estimate SIG DECREASED Polychromasia 3+ Poikilocytosis 1+ Anisocytosis 2+ Microcytosis 1+ Macrocytosis 1+ Target Cells 1+ Stomatocytes 1+ Test 03/04/18 08:13 03/04/18 12:40 Bedside Glucose 119 120 Medications Medication Current Medications Ondansetron HCl (Zofran Inj) 4 mg Q6H PRN IV NAUSEA AND/OR VOMITING Last administered on 03/02/18at 21:51; Admin Dose 4 MG; Start 02/09/18 at 20:00 Albuterol/ Ipratropium (Duoneb) 3 ml Q2H RESP THERAPY PRN NEB SHORTNESS OF BREATH; Start 02/09/18 at 20:00 Acetaminophen (Tylenol Liquid) 650 mg Q6H PRN PO PAIN LEVEL 1-3 OR FEVER Last administered on 03/03/18at 20:32; Admin Dose 650 MG; Start 02/09/18 at 20:00 Acetaminophen/ Hydrocodone Bitart ([place] (5/325)) 1 tab Q6H PRN PO PAIN LEVEL 4-6 Last administered on 03/03/18at 13:13; Admin Dose 1 TAB; Start 02/09/18 at 20:00 Labetalol HCl (Labetalol) 10 mg Q2H PRN IV SBP > 150 Last administered on 02/11/18 19:28; Admin Dose 10 MG; Start 02/09/18 at 20:00 Trimethoprim/ Sulfamethoxazole (Bactrim (Ds)) 1 tab MONWEDFRI PO Last administered on 03/04/18 08:53; Admin Dose 1 TAB; Start 02/11/18 at 09:00 Insulin Aspart (Novolog Insulin Pen) NOVOLOG *MILD* ALGORITHM WITH MEALS BE DTIME SC Last administered on 02/22/18at 18:11; Admin Dose 1 UNIT; Start 02/10/18 at 21:00 Hydralazine HCl (Apresoline) 10 mg Q6H PRN IV ELEVATED BLOOD PRESSURE Last administered on 02/21/18at 01:54; Admin Dose 10 MG; Start 02/10/18 at 18:30 Miscellaneous Information 1 ea NOTE XX ; Start 02/10/18 at 19:00 Glucose (Glutose) 15 gm Q15M PRN PO DECREASED GLUCOSE; Start 02/10/18 at 19:00 Glucose (Glutose) 22.5 gm Q15M PRN PO DECREASED GLUCOSE; Start 02/10/18 at 19:00 Dextrose (D50w Syringe) 25 ml Q15M PRN IV DECREASED GLUCOSE; Start 02/10/18 at 19:00 Dextrose (D50w Syringe) 50 ml Q15M PRN IV DECREASED GLUCOSE; Start 02/10/18 at 19:00 Glucagon (Glucagen) 1 mg Q15M PRN IM DECREASED GLUCOSE; Start 02/10/18 at 19:00 Glucose (Glutose) 15 gm Q15M PRN BUCCAL DECREASED GLUCOSE; Start 02/10/18 at 19:00 Levetiracetam (Keppra) 500 mg BID PO Last administered on 03/04/18at 08:51; Admin Dose 500 MG; Start 02/11/18 at 09:30 Senna (Senokot) 1 tab BID PRN PO CONSTIPATION Last administered on 02/20/18 18:15; Admin Dose 1 TAB; Start 02/13/18 at 14:00 Polyethylene Glycol (Miralax) 17 gm DAILY PO Last administered on 03/04/18 08:51; Admin Dose 17 GM; Start 02/14/18 at 14:00 Al Hydrox/Mg Hydrox/Simethicone (Mag-Al Plus) 30 ml Q6H PRN PO GASTROINTESTINAL UPSET Last administered on 02/27/18 18:02; Admin Dose 30 ML; Start 02/14/18 at 22:30 Guaifenesin (Robitussin Liquid Cup) 200 mg Q4H PRN PO cough Last administered on 03/02/18at 16:43; Admin Dose 200 MG; Start 02/16/18 at 11:30 Pantoprazole (Protonix Tab) 40 mg BID PO Last administered on 03/04/18 08:50; Admin Dose 40 MG; Start 02/16/18 at 21:00 Diphenhydramine HCl (Benadryl) 25 mg Q6H PRN PO ITCHING Last administered on 03/04/18 04:57; Admin Dose 25 MG; Start 02/20/18 at 12:30 Insulin Glargine (Lantus) 8 units DAILY@2000 SC Last administered on 03/03/18at 20:40; Admin Dose 8 UNITS; Start 02/26/18 at 20:00 EDUARDO MURRIETA MD Mar 04, 2018 17:17
[2018-03-04 19:58] VITALS: BP 122/73; PULSE 101; RESP 18
[2018-03-04] MEDS: HYDROCODONE/APAP (5/325) TAB PO PRN (20:07)
[2018-03-04] MEDS: INSULIN GLARGINE [LANTus] (100 UNITS/ML) SYG SC SCH (20:12)
[2018-03-05 02:00] VITALS: BP 105/64; PULSE 109; RESP 18
--- NOTE | 2018-03-05 05:21 | NUR ---
NOTIFIED DR. VENEGAS RE: DIFFICULTY SWALLOWING. REQUESTED FOR IV PAIN MEDS.
[2018-03-05] MEDS ORDERED: DIPHENHYDRAMINE 50 MG INJ ONE (06:00)
[2018-03-05] MEDS ORDERED: morphine 4 MG/ML VIAL ONE (06:01)
[2018-03-05] MEDS: morphine 4 MG/ML VIAL IV PRN ×2 (06:06→16:04)
[2018-03-05] MEDS: DIPHENHYDRAMINE 50 MG INJ IV PRN ×2 (06:06→13:14)
--- NOTE | 2018-03-05 06:45 | NUR ---
PATIENT REMAINS WEAK AND LETHARGIC. PATIENT WAS SUPPOSED TO LEAVE AMA LAST NIGHT, BUT PER SON, THEY WERE UNSUCCESSFUL LOOKING FOR AMBULANCE SERVICE TO TAKE PATIENT TO [facility]. FAMILY IS WORKING ON LEAVING AMA TODAY, SOON THEY ARE ABLE TO SECURE AMBULANCE SERVICE. SON ALSO VERBALIZED THAT PATIENT'S DIFFICULTY SWALLOWING IS NOT NEW, IT HAD STARTED DAYS/WEEKS AGO. CONTINUE POC WHILE PATIENT IS INPATIENT. UNABLE TO COLLECT CLEAN CATCH URINE D/T CONTAMINATION WITH STOOL.
[2018-03-05 07:23] VITALS: BP 111/63; PULSE 107; RESP 20
[2018-03-05] MEDS: INSULIN ASPART [NOVOLOG] 3 ML PEN SC SCH ×2 (08:00→12:00)
--- NOTE | 2018-03-05 08:10 | CONS ---
Assessment/Plan Assessment/Plan Assessment/Plan (Daily) 1. 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 Breast CA with possible metastasis to brain 3. Hypertensive urgency 4. H/O pre diabetes 5. ESBL E coli bacteriuria Plan: Urine Osm 271 c/w true hyponatremia, Serum Na 126, BUn/Cr 15/1.31 , Bp stable ,monitor pt off IV Fluids Oncology has been following pt signed out AMA Consultation Date/Type/Reason Admit Date/Time Feb 09, 2018 at 19:44 Initial Consult Date 03/03/18 Type of Consult NEPHROLOGY Requesting Provider: JOAN CHRISTENSEN MD Date/Time of Note DATE: 03/05/18 TIME: 08:09 24 HR Interval Summary Free Text/Dictation Na 126, BUN/Cr 52/1.31, Bp stable Exam/Review of Systems Exam Vitals Vital Signs Date Temp Pulse Resp B/P (MAP) Pulse Ox O2 O2 Flow FiO2 Time Delivery Rate 03/05/18 98.8 107 20 111/63 100 07:23 (79) 03/02/18 Room Air 18:52 Intake and Output 03/04/18 03/04/18 03/05/18 1515:00 23:00 07:00 IntakeIntake Total 600 ml 240 ml 120 ml BalanceBalance 600 ml 240 ml 120 ml Results Result Diagram: 03/05/18 0516 03/05/18 0514 Results 24hrs Laboratory Tests Test 03/04/18 08:13 03/04/18 12:40 03/04/18 17:48 03/04/18 20:06 Bedside Glucose 119 120 118 114 Test 03/05/18 05:14 03/05/18 05:16 Sodium Level 126 L Potassium Level 4.1 Chloride Level 89 L Carbon Dioxide Level 17 L Anion Gap 20 H Blood Urea Nitrogen 52 H Creatinine 1.31 H Est Glomerular 44 L Filtrat Rate mL/min Glucose Level 96 Calcium Level 8.9 White Blood Count 3.3 #L Red Blood Count 2.51 L Hemoglobin 8.1 L Hematocrit 22.4 L Mean Corpuscular 89.2 Volume Mean Corpuscular 32.3 Hemoglobin Mean Corpuscular 36.2 Hemoglobin Concent Red Cell 18.2 H Distribution Width Platelet Count 22 #*L Mean Platelet Volume Immature 1.200 H Granulocytes % Neutrophils % Lymphocytes % Monocytes % Eosinophils % Basophils % Nucleated Red Blood 9.8 H Cells % Immature 0.040 H Granulocytes # Neutrophils # Lymphocytes # Monocytes # Eosinophils # Basophils # Nucleated Red Blood Cells # Medications Medication Current Medications Ondansetron HCl (Zofran Inj) 4 mg Q6H PRN IV NAUSEA AND/OR VOMITING Last administered on 03/02/18 21:51; Admin Dose 4 MG; Start 02/09/18 at 20:00 Albuterol/ Ipratropium (Duoneb) 3 ml Q2H RESP THERAPY PRN NEB SHORTNESS OF BREATH; Start 02/09/18 at 20:00 Acetaminophen (Tylenol Liquid) 650 mg Q6H PRN PO PAIN LEVEL 1-3 OR FEVER Last administered on 03/03/18 20:32; Admin Dose 650 MG; Start 02/09/18 at 20:00 Acetaminophen/ Hydrocodone Bitart ([place] (5/325)) 1 tab Q6H PRN PO PAIN LEVEL 4-6 Last administered on 03/04/18 20:07; Admin Dose 1 TAB; Start 02/09/18 at 20:00 Labetalol HCl (Labetalol) 10 mg Q2H PRN IV SBP > 150 Last administered on 02/11/18at 19:28; Admin Dose 10 MG; Start 02/09/18 at 20:00 Trimethoprim/ Sulfamethoxazole (Bactrim (Ds)) 1 tab MONWEDFRI PO Last administered on 03/04/18 08:53; Admin Dose 1 TAB; Start 02/11/18 at 09:00 Insulin Aspart (Novolog Insulin Pen) NOVOLOG *MILD* ALGORITHM WITH MEALS BEDTIME SC Last administered on 02/22/18at 18:11; Admin Dose 1 UNIT; Start 02/10/18 at 21:00 Hydralazine HCl (Apresoline) 10 mg Q6H PRN IV ELEVATED BLOOD PRESSURE Last administered on 02/21/18 01:54; Admin Dose 10 MG; Start 02/10/18 at 18:30 Miscellaneous Information 1 ea NOTE XX ; Start 02/10/18 at 19:00 Glucose (Glutose) 15 gm Q15M PRN PO DECREASED GLUCOSE; Start 02/10/18 at 19:00 Glucose (Glutose) 22.5 gm Q15M PRN PO DECREASED GLUCOSE; Start 02/10/18 at 19:00 Dextrose (D50w Syringe) 25 ml Q15M PRN IV DECREASED GLUCOSE; Start 02/10/18 at 19:00 Dextrose (D50w Syringe) 50 ml Q15M PRN IV DECREASED GLUCOSE; Start 02/10/18 at 19:00 Glucagon (Glucagen) 1 mg Q15M PRN IM DECREASED GLUCOSE; Start 02/10/18 at 19:00 Glucose (Glutose) 15 gm Q15M PRN BUCCAL DECREASED GLUCOSE; Start 02/10/18 at 19:00 Levetiracetam (Keppra) 500 mg BID PO Last administered on 03/04/18 20:07; Admin Dose 500 MG; Start 02/11/18 at 09:30 Senna (Senokot) 1 tab BID PRN PO CONSTIPATION Last administered on 02/20/18 18:15; Admin Dose 1 TAB; Start 02/13/18 at 14:00 Polyethylene Glycol (Miralax) 17 gm DAILY PO Last administered on 03/04/18 08:51; Admin Dose 17 GM; Start 02/14/18 at 14:00 Al Hydrox/Mg Hydrox/Simethicone (Mag-Al Plus) 30 ml Q6H PRN PO GASTROINTESTINAL UPSET Last administered on 02/27/18 18:02; Admin Dose 30 ML; Start 02/14/18 at 22:30 Guaifenesin (Robitussin Liquid Cup) 200 mg Q4H PRN PO cough Last administered on 03/02/18 16:43; Admin Dose 200 MG; Start 02/16/18 at 11:30 Pantoprazole (Protonix Tab) 40 mg BID PO Last administered on 03/04/18 20:07; Admin Dose 40 MG; Start 02/16/18 at 21:00 Insulin Glargine (Lantus) 8 units DAILY@2000 SC Last administered on 03/04/18 20:12; Admin Dose 8 UNITS; Start 02/26/18 at 20:00 Diphenhydramine HCl (Benadryl) 25 mg Q6H PRN IV ITCHING Last administered on 03/05/18 06:06; Admin Dose 25 MG; Start 03/05/18 at 06:00 Morphine Sulfate (morphine) 3 mg Q4H PRN IV MILD-MOD PAIN -07/15 Last administered on 1/29/19at 06:06; Admin Dose 3 MG; Start 03/05/18 at 06:00 Sodium Chloride 1,000 ml @ 50 mls/hr Q20H IV ; Start 03/05/18 at 08:30; Stop 03/07/18 at 00:29 EDUARDO MURRIETA MD Mar 05, 2018 08:09
[2018-03-05] MEDS ORDERED: SOD CHLORIDE 0.9% 1,000 ML IV SCH (08:30)
[2018-03-05] MEDS: LEVETIRACETAM 500 MG TAB PO SCH (09:16)
[2018-03-05] MEDS: PANTOPRAZOLE (EC) 40 MG TAB PO SCH (09:16)
[2018-03-05] MEDS: POLYETHYLENE GLYCOL 17 GM PACKET PO SCH (09:17)
--- NOTE | 2018-03-05 12:38 | NUR ---
SS NOTE: F/U SW MET WITH PT'S SON SRIRAM ([phone]) AND PT'S SPOUSE MEL (DECSION MAKER) AT BEDSIDE TO DISCUSS UPDATE ON PT'S D/C STATUS. FAMILY'S ORIGINAL PLAN WAS TO TAKE THE PT OUT OF [facility] LAST EVENING AMA TO TAKE HER TO [facility] FOR SECOND OPINION. CERTIFIED CAR PUSHER KALPANA WALLACE PROVIDED MARGARINE CHURN OPERATOR ASSISTANCE TO SPEAK WITH PT'S SPOUSE CHOCO. THIS COOK CHILI CONFIRMED NO CHANGE IN CODE STATUS, NO HOSPICE, AND THAT FAMILY IS ARRANGING FOR AMBULANCE TO TRANSPORT THE PT TO [facility] LATER THIS AFTERNOON. PT WILL BE LEAVING AMA. SW REMAINS AVAILABLE FOR F/U NEEDED.
--- NOTE | 2018-03-05 12:42 | PN ---
Date/Time of Note Date/Time of Note DATE: 03/05/18 TIME: 12:40 Assessment/Plan VTE Prophylaxis Risk score (from Ns)>0 risk: 8 SCD applied (from [facility]): Yes SCD contraindicated: other Pharmacological prophylaxis: NA/contraindicated Pharm contraindication: thrombocytopenia Lines/Catheters IV C[facility]ter Type (from [facility]): Central Line Central line still needed: Yes Urinary Cath still in place: No Assessment/Plan Hospital Course S: Patient had no acute events overnight. Family still working on methods to try to transport patient out of the hospital AGAINST MEDICAL ADVICE. O: VS - see below PE: Gen: lying in bed, some jaundice noted Head: Atraumatic Eyes: Normal Conjunctiva ENT: Normal External Ears, Nose and Mouth. Neck: Full range of motion. No meningismus. Resp: Clear to auscultation bilaterally Cardio: Regular rate and rhythm, no murmurs Abd: Soft, non tender, non distended. Normal bowel sounds Ext: No lower extremity edema bilaterally Neur: No focal deficits CT head February 09: IMPRESSION: 1. Region of decreased attenuation in the right superior parietal white matter posteriorly. This may indicate a subtle mass at this site. Correlation with contrast enhanced MRI of brain advised. 2. Subtle shift of midline structures to the right measuring 0.4 cm. Mild e ffacement of the frontal horn of the left lateral ventricle. 3. Small low attenuation subdural fluid collection in the right frontal region measuring 0.4 cm in thickness. 4. Subtle isodense left subdural fluid collection measuring 0.4 cm in thickness and extending across the left temporal and parietal convexities. This is suspicious for subacute subdural hematoma. Correlation with MRI advised. 5. 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 6. Fluid in the right ethmoid air cells. 7. 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 Correlation with cerebral spinal fluid analysis, if not already performed, is recommended. 2. The abnormality seen in the right parietal lobe on CT is consistent with vasogenic edema related to an adjacent extra-axial nodular leptomeningeal enhancement focus rather than intra-axial mass lesion. 3. There is no evidence of subdural hematoma, the abnormality seen on CT are related to pathologic leptomeningeal enhancement. 4. Heterogeneous signal intensity within the calvarium unable to exclude osseous metastatic disease. 5. Right frontal and ethmoid sinus disease with bilateral mastoid air cell effus ions. Assessment/Plan 47-year-old woman with a history of left breast carcinoma status post mastectomy and chemo presents with headache and generalized weakness with a CT finding of subdural fluid collection with 0.4 mm midline shift, as well as possible right parietal mass concerning for brain metastasis. #Breast carcinoma (ER- [place]- HER2 + according to biopsy , no recent pathology or cytology)- Now widely metastatic to brain and liver- Completed intrathecal methotrexate this admission. - Per oncology, no further plans for chemotherapy and hospice is recommended. - Dr Inman consulted for palliative/goals of care discussion. - Family is resistant to DNR status and hospice. Currently they want to take her to oncology clinic at [facility]-explained to family today that they would have to take her AGAINST MEDICAL ADVICE, as transfer is not possible at this time - patient is still medically unstable for discharge. Family is deciding about this option presently. 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 Again there is 0.4 mm midline shift noted on admission brain scan. appreciate neurosurgery recommendations. Currently no surgery indicated. - s/p intrathecal chemotherapy. - s/p decadron taper, monitor for now, pain control #ESBL E Coli bacteruria - Per urine culture 03/01/18 - Patient is asymptomatic and has no evidence of sepsis. - Will hold off on antibiotics, D/C Chapman. #Pneumonia- Infiltrates on CXR earlier this admission-completed treatment with Vanco/zosyn (02/12-02/18). Appears resolved now. #Chest pain-earlier she complained of pressure-like chest pain.- Noncardiac in nature; she described it as worse after eating and improves with standing and ambulation- Trop negative, EKG without ischemia - This likely represents anxiety or dyspepsia, no further cardiac workup #Hypertensive urgency - resolved #Thrombocytopenia - likely due to malignancy. Status post platelet transfusion 2 days ago. -Platelets today 22,000, continue to monitor for now Dispo: Patient's son Geoffrey and father Nba are making most medical decisions. Despite multiple discussions by medical providers and survey worker to family, currently they do not want hospice. Patient still full code. Family attempting to make appointment at [facility] oncology clinic? Again they are also deciding about possibly taking the patient out of the hospital AGAINST MEDICAL ADVICE later today. The clinical care coordinator at [facility] is Abril Berman (fax [phone], email [email or web address]). Apparently they are considering to accept patient for outpatient oncology clinic, however patient is not approved for inter- hospital transfer. Result Diagram: 03/05/18 0516 03/05/18 0514 Results 24hrs Laboratory Tests Test 03/04/18 17:48 03/04/18 20:06 03/05/18 05:14 03/05/18 05:16 Bedside Glucose 118 114 Sodium Level 126 L Potassium Level 4.1 Chloride Level 89 L Carbon Dioxide 17 L Level Anion Gap 20 H Blood Urea 52 H Nitrogen Creatinine 1.31 H Est Glomerular 44 L Filtrat Rate mL/min Glucose Level 96 Calcium Level 8.9 White Blood Count 3.3 #L Red Blood Count 2.51 L Hemoglobin 8.1 L Hematocrit 22.4 L Mean Corpuscular 89.2 Volume Mean Corpuscular 32.3 Hemoglobin Mean Corpuscular 36.2 Hemoglobin Concent Red Cell 18.2 H Distribution Width Platelet Count 22 #*L Mean Platelet Volume Immature 1.200 H Granulocytes % Neutrophils % Segmented 37 L Neutrophils % (Manual) Band Neutrophils % 7 H (Manual) Lymphocytes % Lymphocytes % 53 H (Manual) Monocytes % Monocytes % 2 (Manual) Eosinophils % Basophils % Metamyelocytes % 1 H (manual) Nucleated Red 10 H Blood Cells % Immature 0.040 H Granulocytes # Neutrophils # Neutrophils # 1.2 L (Manual) Band Neutrophils # 0.2 Lymphocytes 1.7 (Manual) Lymphocytes # Monocytes # Monocytes # 0.0 L (Manual) Eosinophils # Basophils # Metamyelocytes # 0.0 Nucleated Red Blood Cells # Platelet Estimate SIG DECREASED Polychromasia 3+ Hypochromasia 1+ Anisocytosis 2+ Microcytosis 1+ Macrocytosis 1+ Ovalocytes 1+ Stomatocytes 2+ Test 03/05/18 08:08 03/05/18 12:34 Bedside Glucose 100 116 Exam/Review of Systems Exam Vitals Vital Signs Date Temp Pulse Resp B/P (MAP) Pulse Ox O2 O2 Flow FiO2 Time Delivery Rate 03/05/18 98.8 107 20 111/63 100 07:23 (79) 03/02/18 Room Air 18:52 Intake and Output 03/04/18 03/04/18 03/05/18 1515:00 23:00 07:00 IntakeIntake Total 600 ml 240 ml 120 ml BalanceBalance 600 ml 240 ml 120 ml Results Results 24hrs Laboratory Tests Test 03/04/18 17:48 03/04/18 20:06 03/05/18 05:14 03/05/18 05:16 Bedside Glucose 118 114 Sodium Level 126 L Potassium Level 4.1 Chloride Level 89 L Carbon Dioxide 17 L Level Anion Gap 20 H Blood Urea 52 H Nitrogen Creatinine 1.31 H Est Glomerular 44 L Filtrat Rate mL/min Glucose Level 96 Calcium Level 8.9 White Blood Count 3.3 #L Red Blood Count 2.51 L Hemoglobin 8.1 L Hematocrit 22.4 L Mean Corpuscular 89.2 Volume Mean Corpuscular 32.3 Hemoglobin Mean Corpuscular 36.2 Hemoglobin Concent Red Cell 18.2 H Distribution Width Platelet Count 22 #*L Mean Platelet Volume Immature 1.200 H Granulocytes % Neutrophils % Segmented 37 L Neutrophils % (Manual) Band Neutrophils % 7 H (Manual) Lymphocytes % Lymphocytes % 53 H (Manual) Monocytes % Monocytes % 2 (Manual) Eosinophils % Basophils % Metamyelocytes % 1 H (manual) Nucleated Red 10 H Blood Cells % Immature 0.040 H Granulocytes # Neutrophils # Neutrophils # 1.2 L (Manual) Band Neutrophils # 0.2 Lymphocytes 1.7 (Manual) Lymphocytes # Monocytes # Monocytes # 0.0 L (Manual) Eosinophils # Basophils # Metamyelocytes # 0.0 Nucleated Red Blood Cells # Platelet Estimate SIG DECREASED Polychromasia 3+ Hypochromasia 1+ Anisocytosis 2+ Microcytosis 1+ Macrocytosis 1+ Ovalocytes 1+ Stomatocytes 2+ Test 03/05/18 08:08 03/05/18 12:34 Bedside Glucose 100 116 Medications Medication Current Medications Ondansetron HCl (Zofran Inj) 4 mg Q6H PRN IV NAUSEA AND/OR VOMITING Last administered on 03/02/18 21:51; Admin Dose 4 MG; Start 02/09/18 at 20:00 Albuterol/ Ipratropium (Duoneb) 3 ml Q2H RESP THERAPY PRN NEB SHORTNESS OF BREATH; Start 02/09/18 at 20:00 Acetaminophen (Tylenol Liquid) 650 mg Q6H PRN PO PAIN LEVEL 1-3 OR FEVER Last administered on 03/03/18at 20:32; Admin Dose 650 MG; Start 02/09/18 at 20:00 Acetaminophen/ Hydrocodone Bitart ([place] (5/325)) 1 tab Q6H PRN PO PAIN LEVEL 4-6 Last administered on 03/04/18 20:07; Admin Dose 1 TAB; Start 02/09/18 at 20:00 Labetalol HCl (Labetalol) 10 mg Q2H PRN IV SBP > 150 Last administered on 02/11/18at 19:28; Admin Dose 10 MG; Start 02/09/18 at 20:00 Trimethoprim/ Sulfamethoxazole (Bactrim (Ds)) 1 tab MONWEDFRI PO Last administered on 03/04/18at 08:53; Admin Dose 1 TAB; Start 02/11/18 at 09:00 Insulin Aspart (Novolog Insulin Pen) NOVOLOG *MILD* ALGORITHM WITH MEALS BEDTIME SC Last administered on 02/22/18at 18:11; Admin Dose 1 UNIT; Start 02/10/18 at 21:00 Hydralazine HCl (Apresoline) 10 mg Q6H PRN IV ELEVATED BLOOD PRESSURE Last administered on 02/21/18 01:54; Admin Dose 10 MG; Start 02/10/18 at 18:30 Miscellaneous Information 1 ea NOTE XX ; Start 02/10/18 at 19:00 Glucose (Glutose) 15 gm Q15M PRN PO DECREASED GLUCOSE; Start 02/10/18 at 19:00 Glucose (Glutose) 22.5 gm Q15M PRN PO DECREASED GLUCOSE; Start 02/10/18 at 19:00 Dextrose (D50w Syringe) 25 ml Q15M PRN IV DECREASED GLUCOSE; Start 02/10/18 at 19:00 Dextrose (D50w Syringe) 50 ml Q15M PRN IV DECREASED GLUCOSE; Start 02/10/18 at 19:00 Glucagon (Glucagen) 1 mg Q15M PRN IM DECREASED GLUCOSE; Start 02/10/18 at 19:00 Glucose (Glutose) 15 gm Q15M PRN BUCCAL DECREASED GLUCOSE; Start 02/10/18 at 19:00 Levetiracetam (Keppra) 500 mg BID PO Last administered on 03/05/18 09:16; Admin Dose 500 MG; Start 02/11/18 at 09:30 Senna (Senokot) 1 tab BID PRN PO CONSTIPATION Last administered on 02/20/18 18:15; Admin Dose 1 TAB; Start 02/13/18 at 14:00 Polyethylene Glycol (Miralax) 17 gm DAILY PO Last administered on 03/05/18 09:17; Admin Dose 17 GM; Start 02/14/18 at 14:00 Al Hydrox/Mg Hydrox/Simethicone (Mag-Al Plus) 30 ml Q6H PRN PO GASTROINTESTINAL UPSET Last administered on 02/27/18 18:02; Admin Dose 30 ML; Start 02/14/18 at 22:30 Guaifenesin (Robitussin Liquid Cup) 200 mg Q4H PRN PO cough Last administered on 03/02/18 16:43; Admin Dose 200 MG; Start 02/16/18 at 11:30 Pantoprazole (Protonix Tab) 40 mg BID PO Last administered on 03/05/18 09:16; Admin Dose 40 MG; Start 02/16/18 at 21:00 Insulin Glargine (Lantus) 8 units DAILY@2000 SC Last administered on 03/04/18 20:12; Admin Dose 8 UNITS; Start 02/26/18 at 20:00 Diphenhydramine HCl (Benadryl) 25 mg Q6H PRN IV ITCHING Last administered on 03/05/18 06:06; Admin Dose 25 MG; Start 03/05/18 at 06:00 Morphine Sulfate (morphine) 3 mg Q4H PRN IV MILD-MOD PAIN -07/15 Last administered on 03/05/18 06:06; Admin Dose 3 MG; Start 03/05/18 at 06:00 Sodium Chloride 1,000 ml @ 50 mls/hr Q20H IV Last administered on 03/05/18 09:18; Admin Dose 50 MLS/HR; Start 1/29/19 at 08:30; Stop 03/07/18 at 00:29 DUGLAS CARPIO Mar 05, 2018 12:42
--- NOTE | 2018-03-05 13:38 | PN ---
Date/Time of Note Date/Time of Note DATE: 03/05/18 TIME: 13:36 Outpatient Progress Note HPI no change delirium cognition affected drawzy no bleeding no in distress Physical Exam Vital Signs Date Temp Pulse Resp B/P (MAP) Pulse Ox O2 O2 Flow FiO2 Time Delivery Rate 03/05/18 98.8 107 20 111/63 100 07:23 (79) 03/02/18 Room Air 18:52 Intake and Output 03/04/18 03/04/18 03/05/18 1515:00 23:00 07:00 IntakeIntake Total 600 ml 240 ml 120 ml BalanceBalance 600 ml 240 ml 120 ml not oriented time and place jaundice S1S2 Clear lungs soft abdomen Result Diagram: 03/05/18 0516 03/05/18 0514 Allergies Coded Allergies: No Known Allergy (Unverified , 02/28/17) Assessment/Plan 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 IT Methotrexate 12mg 3 x/week Anti emetics' too weak to get chemotherapy consider TDM1 OR Tykerb Xeloda if can swallow Prognosis is poor family aware No response to intrathecal MTX multiple doses no improvement >> hospice and supportive care now also multiple liver metastases D/W family >> terminal agree with hospice and terminal care 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
[2018-03-05 14:24] VITALS: BP 122/76; PULSE 113; RESP 20
[2018-03-05] MEDS ORDERED: HEPARIN (100 UNITS/ML) 5 ML SYG CATHETER ONE (16:00)
--- NOTE | 2018-03-05 18:00 | NUR ---
PT WENT TO [facility] ER AGAINST MEDICAL ADVISE. IS SINGED AMA. PT PICKED UP BY AMBULANCE.FAMILY AT BED SIDE. Addendum: 03/05/18 at 1839 by ROSEANN SANTOS RN PORT-A- CATH NEEDLE IS REMOVED ORDERED
--- NOTE | 2018-03-06 08:38 | DS ---
Date/Time of Note Date/Time of Note DATE: 03/06/18 TIME: 08:38 Discharge Summary Admission/Discharge Info Admit Date/Time Feb 09, 2018 at 19:44 Discharge Date/Time Mar 05, 2018 at 17:40 Discharge Diagnosis Pt left AMA Patient Condition: Serious Hospital Course S: Patient had no acute events overnight. Family still working on methods to try to transport patient out of the hospital AGAINST MEDICAL ADVICE. O: VS - see below PE: Gen: lying in bed, some jaundice noted Head: Atraumatic Eyes: Normal Conjunctiva ENT: Normal External Ears, Nose and Mouth. Neck: Full range of motion. No meningismus. Resp: Clear to auscultation bilaterally Cardio: Regular rate and rhythm, no murmurs Abd: Soft, non tender, non distended. Normal bowel sounds Ext: No lower extremity edema bilaterally Neur: No focal deficits CT head February 09: IMPRESSION: 1. Region of decreased attenuation in the right superior parietal white matter posteriorly. This may indicate a subtle mass at this site. Correlation with contrast enhanced MRI of brain advised. 2. Subtle shift of midline structures to the right measuring 0.4 cm. Mild effacement of the frontal horn of the left lateral ventricle. 3. Small low attenuation subdural fluid collection in the right frontal region measuring 0.4 cm in thickness. 4. Subtle isodense left subdural fluid collection measuring 0.4 cm in thickness and extending across the left temporal and parietal convexities. This is suspicious for subacute subdural hematoma. Correlation with MRI advised. 5. 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 6. Fluid in the right ethmoid air cells. 7. 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 Correlation with cerebral spinal fluid analysis, if not already performed, is recommended. 2. The abnormality seen in the right parietal lobe on CT is consistent with vasogenic edema related to an adjacent extra-axial nodular leptomeningeal enhancement focus rather than intra-axial mass lesion. 3. There is no evidence of subdural hematoma, the abnormality seen on CT are related to pathologic leptomeningeal enhancement. 4. Heterogeneous signal intensity within the calvarium unable to exclude osseous metastatic disease. 5. Right frontal and ethmoid sinus disease with bilateral mastoid air cell effusions. Assessment/Plan 47-year-old woman with a history of left breast carcinoma status post mastectomy and chemo presents with headache and generalized weakness with a CT finding of subdural fluid collection with 0.4 mm midline shift, as well as possible right parietal mass concerning for brain metastasis. 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 - Per oncology, no further plans for chemotherapy and hospice is recommended. - Dr Inman consulted for palliative/goals of care discussion. - Family is resistant to DNR status and hospice. Currently they want to take her to oncology clinic at [facility]-explained to family today that they would have to take her AGAINST MEDICAL ADVICE, as transfer is not possible at this time - patient is still medically unstable for discharge. Family is deciding about this option presently. 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 Again there is 0.4 mm midline shift noted on admission brain scan. appreciate neurosurgery recommendations. Currently no surgery indicated. - s/p intrathecal chemotherapy. - s/p decadron taper, monitor for now, pain control #ESBL E Coli bacteruria - Per urine culture 03/01/18 - Patient is asymptomatic and has no evidence of sepsis. - Will hold off on antibiotics, D/C Chapman. #Pneumonia- Infiltrates on CXR earlier this admission-completed treatment with Vanco/zosyn (02/12-02/18). Appears resolved now. #Chest pain-earlier she complained of pressure-like chest pain.- Noncardiac in nature; she described it as worse after eating and improves with standing and ambulation- Trop negative, EKG without ischemia - This likely represents anxiety or dyspepsia, no further cardiac workup #Hypertensive urgency - resolved #Thrombocytopenia - likely due to malignancy. Status post platelet transfusion 2 days ago. -Platelets today 22,000, continue to monitor for now Dispo: Patient's son Geoffrey and father Nba are making most medical decisions. Despite multiple discussions by medical providers and social sciences lecturer to family, currently they do not want hospice. Patient still full code. Family attempting to make appointment at [facility] oncology clinic? Again they are also deciding about possibly taking the patient out of the hospital AGAINST MEDICAL ADVICE later today. The clinical resource coordinator at [facility] is Abril Berman (fax [phone], email [email or web address]). Apparently they are considering to accept patient for outpatient oncology clinic, however patient is not approved for inter- hospital transfer. Home Meds Reported Medications Ibuprofen* (Ibuprofen*) 600 Mg Tablet, 600 MG PO Q6H PRN for PAIN, TAB 02/09/18 Penicillin V Potassium* (Penicillin V K*) 500 Mg Tab, 500 MG PO Q6, TAB 02/09/18 Neratinib Maleate (Nerlynx) 40 Mg Tablet, 240 MG PO DAILY, TAB 02/28/17 Primary Care Provider Care Physician No Primary Time spent on discharge: < 30 minutes Pending Labs Laboratory Tests Test 03/05/18 12:34 Bedside Glucose 116 mg/dL (70-220) DUGLAS CARPIO Mar 06, 2018 08:38
== END 2018-03-05 17:40 | disposition left against medical advice (07) | DRG 54 ==
LOC: FTE 14:38 → ICU 19:44 → 2NE 02-12 19:15
PROVIDERS: ADMIT Internal Medicine; ATTEND Hospitalist
PROC: 30233R1 Transfusion of Nonautologous Platelets into Peripheral Vein, Percutaneous Approach (ICD-10-PCS; 2018-02-10)
PROC: 009U3ZX Drainage of Spinal Canal, Percutaneous Approach, Diagnostic (ICD-10-PCS; principal; 2018-02-12)
PROC: B01BYZZ Fluoroscopy of Spinal Cord using Other Contrast (ICD-10-PCS; 2018-02-12)
PROC: 3E0R305 Introduction of Other Antineoplastic into Spinal Canal, Percutaneous Approach (ICD-10-PCS; 2018-02-12)
PROC: 3E0R33Z Introduction of Anti-inflammatory into Spinal Canal, Percutaneous Approach (ICD-10-PCS; 2018-02-12)
DX: C79.32 Secondary malignant neoplasm of cerebral meninges (principal); G93.6 Cerebral edema; J18.9 Pneumonia, unspecified organism; C78.7 Secondary malignant neoplasm of liver and intrahepatic bile duct; C80.0 Disseminated malignant neoplasm, unspecified; D61.9 Aplastic anemia, unspecified; E22.2 Syndrome of inappropriate secretion of antidiuretic hormone; R17 Unspecified jaundice; C50.912 Malignant neoplasm of unspecified site of left female breast; D69.6 Thrombocytopenia, unspecified; E86.1 Hypovolemia; E03.9 Hypothyroidism, unspecified; E66.9 Obesity, unspecified; G93.2 Benign intracranial hypertension; I16.0 Hypertensive urgency; I10 Essential (primary) hypertension; R51 Headache; R53.1 Weakness; R07.89 Other chest pain; R82.71 Bacteriuria; R09.02 Hypoxemia; R73.03 Prediabetes; Z92.21 Personal history of antineoplastic chemotherapy; Z90.12 Acquired absence of left breast and nipple; Z17.1 Estrogen receptor negative status [ER-]; Z68.36 Body mass index [BMI] 36.0-36.9, adult
CPT/HCPCS: 36415; 36430; 36600; 70450; 70496; 70498; 70544; 70553; 71045; 71250; 71275; 74018; 74176; 76705; 80048; 80053; 80061; 80076; 80202; 80307; 81001; 81003; 82550; 82553; 82803; 82945; 82962; 83036; 83735; 83930; 84100; 84157; 84484; 84560; 84703; 85025; 85610; 85730; 86644; 86850; 86900; 86901; 86945; 87040; 87081; 87086; 88104; 88107; 89051; 92610; 93005; 93306; 96374; 96450; 97110; 97116; 97161; 97167; 97530; 97535; J0360; J1100; J1170; J1200; J1642; J1720; J1815; J2270; J2405; J2543; J2765; J3370; J7030; J7040; J7050; J9260; P9035; Q9967